=== PATIENT | female | born 1995 | race Caucasian/White ===

== ENCOUNTER 2021-05-11 09:29 | Outpatient (REF) | payer OTHER, SELFPAY ==
[2021-05-11 11:06] LABS: Hematocrit 39.6 % (37-47); Mean Corpuscular HGB Conc 32.8 g/dl (31.0-35.0); Mean Corpuscular Hemoglobin 29.4 pg (27.0-33.0); Mean Corpuscular Volume 89.6 fL (80-98); Mean Platelet Volume 9.7 fL (9.4-12.3); Platelet Count 251 X10*3/uL (160-400); Red Blood Count 4.42 X10*6/uL (4.20-5.50); White Blood Count 6.1 X10*3/uL (4.8-10.8)
[2021-05-11 11:34] LABS: Glucose Urine UA NEG (NEG); Leukocyte Esterase Urine NEG (NEG); Nitrite Urine NEG (NEG); Specific Gravity - Urine 1.025 (1.005-1.025); Urine Blood NEG (NEG); Urine Ketones NEG (NEG); Urine Protein NEG (NEG-TRACE)
[2021-05-11 11:38] LABS: Appearance Urine CLEAR; Color Urine YELLOW
[2021-05-11 11:44] LABS: Anion Gap 16 (12-20); Blood Urea Nitrogen 6 mg/dL (9-16); Calcium 9.4 mg/dL (8.4-10.2); Carbon Dioxide 23 mmol/L (22-29); Chloride 105 mmol/L (96-108); Estimated Glomerular Filt Rate > 60; Glucose Random 95 mg/dL (60-115); Potassium 4.1 mmol/L (3.3-5.1); Sodium 140 mmol/L (135-145)
[2021-05-11 12:07] LABS: Thyroid Stimulating Hormone 0.58 uIU/mL (0.32-4.0)
== END 2021-05-11 09:30 | disposition home or self-care (01) ==
LOC: HO.WFDLDS 09:29
PROVIDERS: PCP Family Medicine; Visit Provider Internal Medicine
DX: N97.9 Female infertility, unspecified (principal)
CPT/HCPCS: 36415; 80048; 81003; 84443; 85027

== ENCOUNTER 2021-06-08 09:31 | Outpatient (REF) | payer OTHER, SELFPAY | END 2021-06-08 09:32 | disposition home or self-care (01) | LOC: HO.LAB 09:31 | PROVIDERS: PCP Family Medicine; Visit Provider Advanced Practice Midwife | DX: Z01.419 Encounter for gynecological examination (general) (routine) without abnormal findings (principal); N97.9 Female infertility, unspecified; M41.9 Scoliosis, unspecified; Q06.8 Other specified congenital malformations of spinal cord; N96 Recurrent pregnancy loss | CPT/HCPCS: 88142 ==

== ENCOUNTER 2021-06-28 11:29 | Outpatient (REF) | payer OTHER, SELFPAY ==
--- NOTE | ~2021-06-28 | US_ITS ---
EXAMINATION: PELVIC ULTRASOUND CLINICAL INFORMATION: Recurrent loss COMPARISON: None TECHNIQUE: Transabdominal and transvaginal pelvic ultrasound was performed. Transvaginal exam was performed for better visualization of the uterus and ovaries. FINDINGS: The uterus is anteverted and measures 6.7 x 3 x 4.8 cm in dimension. There are 2 endometrial canals questionable for a bicornuate type uterus versus arcuate or septate uterus. Endometrial thickness measures 0.7 cm. No focal uterine lesion is seen. The ovaries are normal-appearing. The right ovary measures 3.4 x 2 x 1.9 cm and the left ovary measures 2.5 x 1.9 x 2.3 cm. There is no fluid in the pelvis. US/US pelvic and transvaginal IMPRESSION: 2 endometrial canals questionable for a bicornuate uterus versus arcuate or septate type uterus.
[2021-06-28 18:18] LABS: Erythrocyte Sedimentation Rate 6 MM/HR (0-20)
[2021-07-03 09:45] LABS: PTT (LAC) Screen 36
[2021-07-16 07:37] LABS: CRP High Sensitivity <0.3
[2021-07-16 07:38] LABS: Progesterone <0.1
== END 2021-06-28 11:30 | disposition home or self-care (01) ==
LOC: HO.US 11:29
PROVIDERS: PCP Family Medicine; Visit Provider Advanced Practice Midwife
DX: Z01.419 Encounter for gynecological examination (general) (routine) without abnormal findings (principal); N96 Recurrent pregnancy loss
CPT/HCPCS: 36415; 76830; 76856; 84144; 85597; 85613; 85652; 85730; 86141

== ENCOUNTER → 2021-07-05 13:03 | Outpatient (BNVA) | payer OTHER, SELFPAY | PROVIDERS: Visit Provider Advanced Practice Midwife ==

== ENCOUNTER 2021-07-12 16:03 | Outpatient (REF) | payer OTHER, SELFPAY ==
[2021-07-12 18:01] LABS: Vitamin D 25-OH Total 52.7 ng/mL (>30)
[2021-07-13 08:11] LABS: Follicle Stimulating Hormone 7.8 mIU/mL; Lutenizing Hormone 23.1 mIU/mL
[2021-07-17 15:22] LABS: Progesterone <0.1 ng/mL
== END 2021-07-12 16:04 | disposition home or self-care (01) ==
LOC: HO.LAB 16:03
PROVIDERS: PCP Family Medicine; Visit Provider Family Medicine
DX: N96 Recurrent pregnancy loss (principal); E55.9 Vitamin D deficiency, unspecified
CPT/HCPCS: 36415; 82306; 83001; 83002; 84144

== ENCOUNTER 2021-07-17 11:01 | Outpatient (REF) | payer OTHER, SELFPAY ==
--- NOTE | ~2021-07-17 | MR_ITS ---
EXAMINATION: MR PELVIS WITHOUT AND WITH CONTRAST CLINICAL INFORMATION: Recurrent loss. Question bicornuate versus arcuate or septate uterus on ultrasound. COMPARISON: Pelvic ultrasound 06/28/2021. TECHNIQUE: Ultrasound pelvis is performed without and with use of 4 mL Gadavist gadolinium contrast. Imaging is performed in 3 planes. Postcontrast images are performed in the axial plane. FINDINGS: Uterus: The uterus is normal in size and smooth in contour and normal in signal. There is no fundal indentation. No visible bicornuate uterus. Uterus is anteverted and measures 7.1 x 3.2 x 4.7 cm (volume 56 mL). The endometrial double wall thickness is 0.6 cm. The junctional zone is approximately 0.5 cm. There is no fibroid or adenomyosis. Adnexa: There is no adnexal mass or pelvic ascites. Both ovaries show numerous follicles, approximately 20 visible on each side. Right ovary measures approximately 4.6 x 1.9 x 2.5 cm (volume 11.3 mL). Left ovary measures approximately 3.8 x 1.9 x 2.2 cm (volume 8.3 mL). Other: The visualized bowel and mesentery are unremarkable. There is no adenopathy. Large gfclh-bz-gdar coronal images show the kidneys are normal in size and contour. No hydronephrosis. There is no ventral or inguinal hernia demonstrated. Normal marrow signal. MR/MR pelvis wo/w con IMPRESSION: 1. Uterus is anteverted and normal in size. No fundal indentation. No visible bicornuate uterus. 2. Ovaries within normal size. Numerous follicles seen, approximately 20 on each side. No adnexal mass or pelvic ascites.
== END 2021-07-17 11:02 | disposition home or self-care (01) ==
LOC: HO.MRI 11:01
PROVIDERS: PCP Family Medicine; Visit Provider Family Medicine
DX: Q51.3 Bicornate uterus (principal); N96 Recurrent pregnancy loss
CPT/HCPCS: 72197; A9585

== ENCOUNTER 2021-09-24 10:18 | Outpatient (REF) | payer OTHER, SELFPAY ==
[2021-09-24 15:02] LABS: Syphilis Screen Nonreactive (Nonreactive)
[2021-09-25 04:22] LABS: HBsAGNum1 0.38 S/CO (0.00-0.99); HIV AB/AG Nonreactive (Nonreactive); HIV Num 1 0.06 S/CO (0.00-0.99); Hepatitis B Surface Antigen Negative (Negative); ~HepC Num1 0.09 S/CO (0.00-0.79); ~Hepatitis C Antibody Nonreactive (Nonreactive)
[2021-09-29 10:22] LABS: Progesterone 1.8 ng/mL
== END 2021-09-24 10:19 | disposition home or self-care (01) ==
LOC: HO.WFDLDS 10:18
PROVIDERS: Visit Provider Obstetrics & Gynecology Reproductive Endocrinology
DX: N96 Recurrent pregnancy loss (principal); N97.9 Female infertility, unspecified; Z13.49 Encounter for screening for other developmental delays; Z11.9 Encounter for screening for infectious and parasitic diseases, unspecified
CPT/HCPCS: 36415; 84144; 86780; 86803; 87340; 87389

== ENCOUNTER 2021-10-05 15:43 | Outpatient (REF) | payer OTHER, SELFPAY ==
[2021-10-05 17:00] LABS: Estimated Average Glucose 97 mg/dL
[2021-10-09 02:51] LABS: Beta-2 Glycoprotein IgA <2.0 U/mL (<20.0); Beta-2 Glycoprotein IgG <2.0 U/mL (<20.0); Beta-2 Glycoprotein IgM <2.0 U/mL (<20.0)
[2021-10-11 07:26] LABS: Cardiolipin IgG Ab <2.0 GPL-U/mL; Cardiolipin IgM Ab <2.0 MPL-U/mL
== END 2021-10-05 15:44 | disposition home or self-care (01) ==
LOC: HO.LAB 15:43
PROVIDERS: Visit Provider Obstetrics & Gynecology Reproductive Endocrinology
DX: Z31.49 Encounter for other procreative investigation and testing (principal); N96 Recurrent pregnancy loss
CPT/HCPCS: 36415; 83036; 86146; 86147; 86850; 86900; 86901; 88230; 88262

== ENCOUNTER 2021-10-11 15:34 | Outpatient (REF) | payer OTHER, SELFPAY ==
[2021-10-12 10:25] LABS: Thyroid Peroxidase Antibodies 1 IU/mL (<9)
[2021-10-12 20:07] LABS: Follicle Stimulating Hormone 5.2 mIU/mL; Lutenizing Hormone 6.4 mIU/mL
[2021-10-13 19:12] LABS: Anti-Mullerian Hormone-Female 11.04 ng/mL (1.02-14.63)
[2021-10-15 15:35] LABS: Testosterone, Free 2.5 pg/mL (0.1-6.4); Testosterone, Total 27 ng/dL (2-45)
[2021-10-19 20:37] LABS: Estradiol Free 0.73 pg/mL; Estradiol, Ultrasensitive 35 pg/mL
== END 2021-10-11 15:35 | disposition home or self-care (01) ==
LOC: HO.LAB 15:34
PROVIDERS: Absent Provider Family Medicine; PCP Family Medicine; Visit Provider Obstetrics & Gynecology Reproductive Endocrinology
DX: N96 Recurrent pregnancy loss (principal); Z31.49 Encounter for other procreative investigation and testing
CPT/HCPCS: 36415; 82397; 82670; 82681; 83001; 83002; 84146; 84402; 84403; 86376

== ENCOUNTER 2022-04-23 08:22 | Outpatient (REF) | payer OTHER, SELFPAY ==
[2022-04-23 09:09] LABS: MANUAL DIFF FLAG NO
[2022-04-23 09:15] LABS: Basophils Percent Auto 0.5 % (0-2); Eosinophils Absolute Auto 0.1 X10*3/uL (0.0-0.4); Eosinophils Percent Auto 0.8 % (0-4); Hematocrit 41.2 % (37.0-47.0); Hemoglobin 13.9 g/dl (12.0-16.0); Imm Gran Abs Auto 0.02 X10*3/uL (0.00-0.03); Imm Gran Pct Auto 0.3 % (0.0-0.4); Lymphocytes Absolute Auto 2.1 X10*3/uL (1.2-4.9); Lymphocytes Percent Auto 33.1 % (20-40); Mean Corpuscular HGB Conc 33.7 g/dl (31.0-35.0); Mean Corpuscular Hemoglobin 29.6 pg (27.0-33.0); Mean Corpuscular Volume 87.8 fL (80.0-98.0); Mean Platelet Volume 8.9 fL (9.4-12.3); Monocytes Absolute Auto 0.4 X10*3/uL (0.1-1.2); Monocytes Percent Auto 6.3 % (2-11); Neutrophils Absolute Auto 3.8 x10*3/uL (2.0-8.3); Platelet Count 297 X10*3/uL (160-400); Red Blood Count 4.69 X10*6/uL (4.20-5.50); Red Cell Distribution Width 12.1 % (11.0-16.0); White Blood Count 6.4 X10*3/uL (4.8-10.8)
[2022-04-23 10:21] LABS: Iron 94 mcg/dL (30-160); Percent Iron Saturation 27 % (15-50); Total Iron Binding Capacity 353 mcg/dL (228-428); Unsaturated Iron Binding 259 ug/dL
[2022-04-23 10:41] LABS: Ferritin 50 ng/mL (10-122)
[2022-04-29 20:46] LABS: Factor V Leiden NEGATIVE
== END 2022-04-23 08:23 | disposition home or self-care (01) ==
LOC: HO.LAB 08:22
PROVIDERS: PCP Family Medicine; Visit Provider Naturopath
DX: N96 Recurrent pregnancy loss (principal); E61.1 Iron deficiency; R55 Syncope and collapse
CPT/HCPCS: 81241; 82728; 83540; 85025; 88184; 88185

== ENCOUNTER 2022-06-14 15:24 | Outpatient (REF) | payer OTHER, SELFPAY ==
[2022-06-14 16:41] LABS: Basophils Percent Auto 0.5 % (0-2); Eosinophils Absolute Auto 0.1 X10*3/uL (0.0-0.4); Eosinophils Percent Auto 0.7 % (0-4); Hemoglobin 14.2 g/dl (12.0-16.0); Imm Gran Abs Auto 0.01 X10*3/uL (0.00-0.03); Imm Gran Pct Auto 0.1 % (0.0-0.4); Lymphocytes Absolute Auto 2.7 X10*3/uL (1.2-4.9); Lymphocytes Percent Auto 35.7 % (20-40); MANUAL DIFF FLAG NO; Mean Corpuscular HGB Conc 33.8 g/dl (31.0-35.0); Mean Corpuscular Hemoglobin 29.6 pg (27.0-33.0); Mean Corpuscular Volume 87.5 fL (80.0-98.0); Mean Platelet Volume 9.5 fL (9.4-12.3); Monocytes Absolute Auto 0.5 X10*3/uL (0.1-1.2); Monocytes Percent Auto 6.4 % (2-11); Neutrophils Absolute Auto 4.3 x10*3/uL (2.0-8.3); Neutrophils Percent Auto 56.6 % (45-73); Platelet Count 270 X10*3/uL (160-400); Red Cell Distribution Width 12.1 % (11.0-16.0); White Blood Count 7.5 X10*3/uL (4.8-10.8)
[2022-06-14 17:18] LABS: Alanine Aminotransferase 28 U/L (0-31); Albumin Level 5.2 g/dL (3.5-5.0); Alkaline Phosphatase 100 U/L (39-117); Anion Gap 13 (12-20); Aspartate Amino Transferase 24 U/L (5-31); Bilirubin Total 0.7 mg/dL (0.0-1.0); Blood Urea Nitrogen 8 mg/dL (9-16); Carbon Dioxide 27 mmol/L (22-29); Chloride 101 mmol/L (96-108); Estimated Glomerular Filt Rate > 60; Gamma Glutamyl Transpeptidase 16 U/L (7-33); Glucose Random 96 mg/dL (60-115); Lactate Dehydrogenase 147 U/L (122-220); Potassium 4.1 mmol/L (3.3-5.1); Sodium 137 mmol/L (135-145); Total Protein 8.5 g/dL (6.5-8.0); Uric Acid 3.8 mg/dL (2.4-5.7)
[2022-06-15 11:36] LABS: Folate > 20.0 ng/mL (> or = 4.0)
[2022-06-15 12:41] LABS: Vitamin B12 1413 pg/mL (200-900)
[2022-06-17 08:18] LABS: Lutenizing Hormone 20.9 mIU/mL
[2022-06-20 10:47] LABS: Methylmalonic Acid 88 nmol/L (87-318)
[2022-06-21 17:11] LABS: Vitamin A 33 mcg/dL (38-98)
[2022-06-30 08:58] LABS: Other Ref Test - Misc SEE COMMENTS
== END 2022-06-14 15:25 | disposition home or self-care (01) ==
LOC: HO.LAB 15:24
PROVIDERS: PCP Family Medicine; Visit Provider Naturopath
DX: Z31.62 Encounter for fertility preservation counseling (principal); E50.9 Vitamin A deficiency, unspecified; E53.9 Vitamin B deficiency, unspecified; E63.9 Nutritional deficiency, unspecified; E72.11 Homocystinuria; E72.12 Methylenetetrahydrofolate reductase deficiency; N92.6 Irregular menstruation, unspecified; N96 Recurrent pregnancy loss; R53.83 Other fatigue; R55 Syncope and collapse; R89.9 Unspecified abnormal finding in specimens from other organs, systems and tissues
CPT/HCPCS: 80053; 81240; 81241; 82397; 82607; 82746; 82977; 83001; 83002; 83090; 83615; 83921; 84146; 84550; 84590; 85025; 85300; 85303; 85306; 85613; 85730; 86146; 86147; 86148

== ENCOUNTER 2022-06-19 12:42 | Outpatient (REF) | payer OTHER, SELFPAY ==
[2022-06-19 14:08] LABS: Estimated Average Glucose 100 mg/dL; Hemoglobin A1c % 5.1 %
[2022-06-25 06:17] LABS: Vitamin B6 22.3 ng/mL (2.1-21.7)
[2022-06-25 15:16] LABS: Iodine, Serum/Plasma 64 mcg/L (52-109)
== END 2022-06-19 12:43 | disposition home or self-care (01) ==
LOC: HO.LAB 12:42
PROVIDERS: PCP Family Medicine; Visit Provider Naturopath
DX: Z00.01 Encounter for general adult medical examination with abnormal findings (principal); R89.9 Unspecified abnormal finding in specimens from other organs, systems and tissues; R53.83 Other fatigue; N96 Recurrent pregnancy loss; N92.6 Irregular menstruation, unspecified; E72.12 Methylenetetrahydrofolate reductase deficiency; E72.11 Homocystinuria; E63.9 Nutritional deficiency, unspecified; E53.9 Vitamin B deficiency, unspecified; E50.9 Vitamin A deficiency, unspecified
CPT/HCPCS: 80061; 82172; 82542; 83036; 83695; 83698; 83704; 83789; 84207; 86141

== ENCOUNTER 2022-06-21 15:57 | Outpatient (REF) | payer OTHER, SELFPAY ==
[2022-06-21 17:56] LABS: Free T4 (Free Thyroxine) 1.05 ng/dL (0.71-1.85); Thyroid Stimulating Hormone 1.05 uIU/mL (0.32-4.0)
[2022-06-23 05:42] LABS: T3 Uptake 28 % (22-35)
[2022-06-23 06:27] LABS: DHEA Sulfate 285 mcg/dL (14-349); Sex Hormone Binding Globulin 91 nmol/L (17-124); Triiodothyronine T3 Free 3.5 pg/mL (2.3-4.2)
[2022-06-24 19:51] LABS: Thyroglobulin Antibodies <1 IU/mL (< or = 1); Thyroid Peroxidase Antibodies 1 IU/mL (<9)
[2022-06-25 14:11] LABS: Pregnenolone, LC/MS 104 ng/dL (22-237)
[2022-06-27 12:32] LABS: Triiodothyronine T3 Reverse 18 ng/dL (8-25)
[2022-06-27 18:27] LABS: Testosterone, Free 4.6 pg/mL (0.1-6.4); Testosterone, Total 56 ng/dL (2-45)
[2022-06-27 20:21] LABS: Saliva Cortisol 0.03 mcg/dL
[2022-06-27 20:21] LABS: Saliva Cortisol 0.05 mcg/dL
[2022-06-28 23:26] LABS: Saliva Cortisol 0.39 mcg/dL
== END 2022-06-21 15:58 | disposition home or self-care (01) ==
LOC: HO.LAB 15:57
PROVIDERS: PCP Family Medicine; Visit Provider Naturopath
DX: Z31.62 Encounter for fertility preservation counseling (principal); E50.9 Vitamin A deficiency, unspecified; E53.9 Vitamin B deficiency, unspecified; E63.9 Nutritional deficiency, unspecified; E72.11 Homocystinuria; E72.12 Methylenetetrahydrofolate reductase deficiency; N92.6 Irregular menstruation, unspecified; N96 Recurrent pregnancy loss; R53.83 Other fatigue; R55 Syncope and collapse; R89.9 Unspecified abnormal finding in specimens from other organs, systems and tissues
CPT/HCPCS: 82530; 82627; 84143; 84270; 84402; 84403; 84439; 84443; 84479; 84481; 84482; 86376; 86800

== ENCOUNTER 2022-06-22 10:08 | Outpatient (REF) | payer OTHER, SELFPAY | END 2022-06-22 10:09 | disposition home or self-care (01) | LOC: HO.LAB 10:08 | PROVIDERS: Visit Provider Naturopath | DX: Z13.89 Encounter for screening for other disorder (principal) ==

== ENCOUNTER 2022-07-31 16:11 | Outpatient (REF) | payer OTHER, SELFPAY ==
[2022-07-31 17:45] LABS: Prothrombin Time 11.4 SEC (10.0-13.1)
[2022-08-04 18:02] LABS: Beta-Gamma Tocopherol 1.3 mg/L (<=4.3)
[2022-08-06 19:43] LABS: Vitamin K1 339 pg/mL (130-1500)
== END 2022-07-31 16:12 | disposition home or self-care (01) ==
LOC: HO.LAB 16:11
PROVIDERS: PCP Naturopath; Visit Provider Naturopath
DX: D68.9 Coagulation defect, unspecified (principal); E55.9 Vitamin D deficiency, unspecified; E63.9 Nutritional deficiency, unspecified; N92.6 Irregular menstruation, unspecified; N96 Recurrent pregnancy loss; R53.83 Other fatigue; R55 Syncope and collapse; R89.9 Unspecified abnormal finding in specimens from other organs, systems and tissues
CPT/HCPCS: 82306; 84255; 84446; 84591; 84597; 85240; 85245; 85246; 85384; 85610; 85730; 86644; 88184; 88185

== ENCOUNTER 2022-08-30 15:46 | Outpatient (REF) | payer OTHER, SELFPAY | END 2022-08-30 15:47 | disposition home or self-care (01) | LOC: HO.LAB 15:46 | PROVIDERS: Visit Provider Naturopath | DX: Z13.89 Encounter for screening for other disorder (principal) ==

== ENCOUNTER 2022-09-16 15:41 | Outpatient (REF) | payer OTHER, SELFPAY ==
[2022-09-16 17:11] LABS: HCG Quantitative 469 mIU/mL
[2022-09-24 18:32] LABS: Progesterone 23.3 ng/mL
== END 2022-09-16 15:42 | disposition home or self-care (01) ==
LOC: HO.LAB 15:41
PROVIDERS: Visit Provider Obstetrics & Gynecology Reproductive Endocrinology
DX: Z31.9 Encounter for procreative management, unspecified (principal)
CPT/HCPCS: 36415; 84144; 84702

== ENCOUNTER 2022-10-23 13:26 | Outpatient (REF) | payer OTHER, SELFPAY ==
--- NOTE | ~2022-10-23 | US_ITS ---
EXAMINATION: US OBSTETRICAL ULTRASOUND CLINICAL INFORMATION: Check viability. History of miscarriage COMPARISON: None. LMP: Unknown. Gestational age by maternal dates is . Estimated date of delivery by maternal dates is . TECHNIQUE: Transabdominal first trimester OB ultrasound FINDINGS: There is a single intrauterine gestational sac with visible yolk sac, embryo/fetus, and cardiac activity. There is no significant subchorionic hemorrhage or hematoma. HR: 158 beats per minute. CRL (crown rump length): 2.7 cm (9 weeks 4 days +/- 4 days). LATASHA (estimated date of delivery): 05/24/2023 +/- 4 days. MATERNAL ADNEXA: The right maternal ovary is not seen. The left maternal ovary measures 2.7 x 2.4 x 1.3 cm. There is no significant maternal adnexal mass. No maternal pelvic ascites. US/US OB <= 14 weeks fetus IMPRESSION: 1. Single intrauterine gestation with ultrasound gestational age of 9 weeks 4 days +/- 4 days. 2. Estimated date of delivery is 05/24/2023 +/- 4 days. 3. Right ovary not seen. Normal left ovary. No fluid in the pelvis.
== END 2022-10-23 13:27 | disposition home or self-care (01) ==
LOC: HO.US 13:26
PROVIDERS: PCP Family Medicine; Visit Provider Obstetrics & Gynecology
DX: O09.291 Supervision of pregnancy with other poor reproductive or obstetric history, first trimester (principal)
CPT/HCPCS: 76801

== ENCOUNTER 2022-11-29 16:13 | Outpatient (REF) | payer OTHER, SELFPAY ==
[2022-11-29 16:38] LABS: MANUAL DIFF FLAG NO
[2022-11-29 17:25] LABS: Basophils Percent Auto 0.3 % (0-2); Eosinophils Absolute Auto 0.1 X10*3/uL (0.0-0.4); Hematocrit 33.9 % (37.0-47.0); Hemoglobin 11.9 g/dl (12.0-16.0); Imm Gran Abs Auto 0.05 X10*3/uL (0.00-0.03); Imm Gran Pct Auto 0.5 % (0.0-0.4); Lymphocytes Absolute Auto 2.8 X10*3/uL (1.2-4.9); Lymphocytes Percent Auto 27.1 % (20-40); Mean Corpuscular HGB Conc 35.1 g/dl (31.0-35.0); Mean Corpuscular Hemoglobin 31.1 pg (27.0-33.0); Mean Corpuscular Volume 88.5 fL (80.0-98.0); Mean Platelet Volume 9.2 fL (9.4-12.3); Monocytes Absolute Auto 0.9 X10*3/uL (0.1-1.2); Monocytes Percent Auto 8.8 % (2-11); Neutrophils Absolute Auto 6.3 x10*3/uL (2.0-8.3); Neutrophils Percent Auto 62.3 % (45-73); Platelet Count 270 X10*3/uL (160-400); Red Blood Count 3.83 X10*6/uL (4.20-5.50); White Blood Count 10.2 X10*3/uL (4.8-10.8)
[2022-12-02 23:39] LABS: Rubella IgG Antibody <0.90 Index
== END 2022-11-29 16:14 | disposition home or self-care (01) ==
LOC: HO.LAB 16:13
PROVIDERS: PCP Family Medicine; Visit Provider Nurse Practitioner Women's Health
DX: Z34.90 Encounter for supervision of normal pregnancy, unspecified, unspecified trimester (principal)
CPT/HCPCS: 36415; 85025; 86762; 86850; 86900; 86901; 87086

== ENCOUNTER 2022-12-12 11:31 | Outpatient (REF) | payer OTHER, SELFPAY ==
[2022-12-18 13:14] LABS: Testosterone, Total 104 ng/dL (2-45)
[2022-12-19 17:18] LABS: Androstenedione 262 ng/dL
== END 2022-12-12 11:32 | disposition home or self-care (01) ==
LOC: HO.LAB 11:31
PROVIDERS: PCP Family Medicine; Visit Provider Internal Medicine
DX: E25.0 Congenital adrenogenital disorders associated with enzyme deficiency (principal)
CPT/HCPCS: 36415; 82157; 83498; 84403

== ENCOUNTER 2022-12-19 11:28 | Outpatient (REF) | payer OTHER, SELFPAY ==
[2022-12-19 12:56] LABS: Iron 165 mcg/dL (30-160); Percent Iron Saturation 42 % (15-50); Rheumatoid Factor < 13.0 IU/mL (<15.0); Total Iron Binding Capacity 397 mcg/dL (228-428); Unsaturated Iron Binding 232 ug/dL
[2022-12-19 13:12] LABS: Ferritin 25 ng/mL (10-122)
[2022-12-20 15:13] LABS: Complement C3 138 mg/dL (83-193)
[2022-12-22 14:14] LABS: Anti Nuclear Antibody Screen NEGATIVE (NEGATIVE)
[2022-12-23 17:03] LABS: Cyclic Citrullinated Peptide <16 UNITS
[2022-12-24 17:18] LABS: Vitamin D 25-OH, D2 <4 ng/mL; Vitamin D 25-OH, D3 61 ng/mL; Vitamin D 25-OH, Total 61 ng/mL (30-100)
[2022-12-25 18:39] LABS: Progesterone 47.3 ng/mL
== END 2022-12-19 11:29 | disposition home or self-care (01) ==
LOC: HO.LAB 11:28
PROVIDERS: Visit Provider Naturopath
DX: R53.83 Other fatigue (principal); M35.9 Systemic involvement of connective tissue, unspecified; E55.9 Vitamin D deficiency, unspecified; D64.9 Anemia, unspecified; R87.1 Abnormal level of hormones in specimens from female genital organs; G90.A Postural orthostatic tachycardia syndrome [POTS]
CPT/HCPCS: 36415; 82306; 82728; 83540; 84144; 86038; 86039; 86160; 86200; 86431

== ENCOUNTER 2023-01-03 15:40 | Outpatient (REF) | payer OTHER, SELFPAY ==
[2023-01-10 17:24] LABS: Androstenedione 237 ng/dL
[2023-01-11 14:38] LABS: Testosterone, Total 111 ng/dL (2-45)
== END 2023-01-03 15:41 | disposition home or self-care (01) ==
LOC: HO.LAB 15:40
PROVIDERS: Internal Medicine Endocrinology, Diabetes & Metabolism; Visit Provider Chiropractor
DX: Z00.00 Encounter for general adult medical examination without abnormal findings (principal); E28.1 Androgen excess; N96 Recurrent pregnancy loss
CPT/HCPCS: 36415; 82157; 83498; 84403

== ENCOUNTER 2023-02-05 15:46 | Outpatient (REF) | payer OTHER, SELFPAY ==
[2023-02-13 16:19] LABS: Androstenedione 317 ng/dL
[2023-02-17 16:29] LABS: Testosterone, Free 4.4 pg/mL (0.1-6.4); Testosterone, Total 133 ng/dL (2-45)
== END 2023-02-05 15:47 | disposition home or self-care (01) ==
LOC: HO.LAB 15:46
PROVIDERS: PCP Family Medicine; Visit Provider Internal Medicine
DX: E25.0 Congenital adrenogenital disorders associated with enzyme deficiency (principal)
CPT/HCPCS: 36415; 82157; 83498; 84402; 84403

== ENCOUNTER 2023-02-28 06:38 | Outpatient (REF) | payer OTHER, SELFPAY ==
[2023-02-28 08:23] LABS: HBsAGNum1 0.29 S/CO (0.00-0.99); HIV AB/AG Nonreactive (Nonreactive); HIV Num 1 0.06 S/CO (0.00-0.99); Hepatitis B Surface Antigen Negative (Negative); ~HepC Num1 0.09 S/CO (0.00-0.79); ~Hepatitis C Antibody Nonreactive (Nonreactive)
[2023-02-28 08:26] LABS: Syphilis Screen Nonreactive (Nonreactive)
[2023-02-28 10:24] LABS: CT PCR NOT DETECTED (Not Detect.); NG PCR NOT DETECTED (Not Detect.)
== END 2023-02-28 06:39 | disposition home or self-care (01) ==
LOC: HO.LAB 06:38
PROVIDERS: PCP Family Medicine; Visit Provider Nurse Practitioner Women's Health
DX: Z34.90 Encounter for supervision of normal pregnancy, unspecified, unspecified trimester (principal); Z20.2 Contact with and (suspected) exposure to infections with a predominantly sexual mode of transmission
CPT/HCPCS: 0353U; 86780; 86803; 87340; 87389

== ENCOUNTER 2023-03-12 15:41 | Outpatient (REF) | payer OTHER, SELFPAY ==
[2023-03-12 16:06] LABS: MANUAL DIFF FLAG NO
[2023-03-12 16:32] LABS: Basophils Absolute Auto 0.1 X10*3/uL (0.0-0.2); Basophils Percent Auto 0.4 % (0-2); Eosinophils Absolute Auto 0.1 X10*3/uL (0.0-0.4); Eosinophils Percent Auto 0.5 % (0-4); Hematocrit 35.3 % (37.0-47.0); Hemoglobin 12.9 g/dl (12.0-16.0); Imm Gran Abs Auto 0.18 X10*3/uL (0.00-0.03); Imm Gran Pct Auto 1.5 % (0.0-0.4); Lymphocytes Absolute Auto 1.9 X10*3/uL (1.2-4.9); Lymphocytes Percent Auto 15.4 % (20-40); Mean Corpuscular HGB Conc 36.5 g/dl (31.0-35.0); Mean Corpuscular Hemoglobin 33.2 pg (27.0-33.0); Mean Platelet Volume 9.4 fL (9.4-12.3); Monocytes Absolute Auto 0.9 X10*3/uL (0.1-1.2); Neutrophils Absolute Auto 9.3 x10*3/uL (2.0-8.3); Neutrophils Percent Auto 75.2 % (45-73); Platelet Count 262 X10*3/uL (160-400); Red Blood Count 3.88 X10*6/uL (4.20-5.50); Red Cell Distribution Width 12.5 % (11.0-16.0); White Blood Count 12.4 X10*3/uL (4.8-10.8)
[2023-03-18 13:28] LABS: Androstenedione 250 ng/dL
[2023-03-18 20:43] LABS: Testosterone, Total 99 ng/dL (2-45)
== END 2023-03-12 15:42 | disposition home or self-care (01) ==
LOC: HO.LAB 15:41
PROVIDERS: Absent Provider Internal Medicine; PCP Family Medicine; Visit Provider Nurse Practitioner Women's Health
DX: O26.899 Other specified pregnancy related conditions, unspecified trimester (principal); E25.0 Congenital adrenogenital disorders associated with enzyme deficiency
CPT/HCPCS: 36415; 82157; 83498; 84402; 84403; 85025

== ENCOUNTER 2023-04-08 06:45 | Outpatient (REF) | payer OTHER, SELFPAY ==
[2023-04-08 10:22] LABS: Estimated Average Glucose 97 mg/dL
[2023-04-08 11:03] LABS: TSH reflex Free T4 0.87 uIU/mL (0.32-4.0)
[2023-04-13 17:23] LABS: Androstenedione 344 ng/dL
[2023-04-15 07:43] LABS: Cardiolipin IgG Ab <2.0 GPL-U/mL; Cardiolipin IgM Ab <2.0 MPL-U/mL
[2023-04-15 14:24] LABS: Testosterone, Free 9.4 pg/mL (0.1-6.4); Testosterone, Total 159 ng/dL (2-45)
[2023-04-20 08:47] LABS: Other Ref Test - Misc SEE COMMENTS
[2023-04-20 08:53] LABS: Other Ref Test - Misc SEE COMMENTS
== END 2023-04-08 06:46 | disposition home or self-care (01) ==
LOC: HO.LAB 06:45
PROVIDERS: PCP Family Medicine; Visit Provider Naturopath
DX: R53.83 Other fatigue (principal); G90.A Postural orthostatic tachycardia syndrome [POTS]; R55 Syncope and collapse; R87.1 Abnormal level of hormones in specimens from female genital organs; R89.9 Unspecified abnormal finding in specimens from other organs, systems and tissues
CPT/HCPCS: 36415; 82157; 83036; 83498; 83525; 84402; 84403; 84443; 84481; 84681; 86147

== ENCOUNTER 2023-04-30 06:47 | Outpatient (REF) | payer OTHER, SELFPAY ==
[2023-04-30 16:23] LABS: Anion Gap 13 (12-20); Blood Urea Nitrogen 5 mg/dL (9-16); Calcium 9.5 mg/dL (8.4-10.2); Carbon Dioxide 21 mmol/L (22-29); Chloride 105 mmol/L (96-108); Estimated Glomerular Filt Rate > 60; Glucose Random 117 mg/dL (60-115); Potassium 4.1 mmol/L (3.3-5.1); Sodium 135 mmol/L (135-145)
[2023-05-08 22:54] LABS: Androstenedione 247 ng/dL
[2023-05-09 13:58] LABS: Testosterone, Free 3.2 pg/mL (0.1-6.4); Testosterone, Total 110 ng/dL (2-45)
== END 2023-04-30 06:48 | disposition home or self-care (01) ==
LOC: HO.LAB 06:47
PROVIDERS: Visit Provider Internal Medicine
DX: E25.0 Congenital adrenogenital disorders associated with enzyme deficiency (principal)
CPT/HCPCS: 36415; 80048; 82157; 83498; 84402; 84403

== ENCOUNTER 2023-06-21 10:31 | Outpatient (REF) | payer OTHER, SELFPAY ==
[2023-06-21 10:54] LABS: MANUAL DIFF FLAG NO
[2023-06-21 11:14] LABS: Basophils Percent Auto 0.4 % (0-2); Eosinophils Absolute Auto 0.1 X10*3/uL (0.0-0.4); Eosinophils Percent Auto 0.7 % (0-4); Hematocrit 40.4 % (37.0-47.0); Hemoglobin 13.4 g/dl (12.0-16.0); Imm Gran Abs Auto 0.02 X10*3/uL (0.00-0.03); Imm Gran Pct Auto 0.3 % (0.0-0.4); Lymphocytes Absolute Auto 2.1 X10*3/uL (1.2-4.9); Lymphocytes Percent Auto 29.5 % (20-40); Mean Corpuscular HGB Conc 33.2 g/dl (31.0-35.0); Mean Corpuscular Hemoglobin 30.5 pg (27.0-33.0); Mean Corpuscular Volume 91.8 fL (80.0-98.0); Mean Platelet Volume 8.9 fL (9.4-12.3); Monocytes Absolute Auto 0.4 X10*3/uL (0.1-1.2); Monocytes Percent Auto 5.5 % (2-11); Neutrophils Absolute Auto 4.5 x10*3/uL (2.0-8.3); Neutrophils Percent Auto 63.6 % (45-73); Platelet Count 307 X10*3/uL (160-400); Red Cell Distribution Width 11.2 % (11.0-16.0); White Blood Count 7.1 X10*3/uL (4.8-10.8)
[2023-06-21 11:43] LABS: Alanine Aminotransferase 53 U/L (0-31); Albumin Level 4.3 g/dL (3.5-5.0); Alkaline Phosphatase 141 U/L (39-117); Anion Gap 18 (12-20); Aspartate Amino Transferase 32 U/L (5-31); Bilirubin Total 0.3 mg/dL (0.0-1.0); Blood Urea Nitrogen 10 mg/dL (9-16); Carbon Dioxide 21 mmol/L (22-29); Chloride 104 mmol/L (96-108); Estimated Glomerular Filt Rate > 60; Glucose Random 93 mg/dL (60-115); Iron 87 mcg/dL (30-160); Percent Iron Saturation 23 % (15-50); Potassium 4.1 mmol/L (3.3-5.1); Sodium 139 mmol/L (135-145); Total Iron Binding Capacity 376 mcg/dL (228-428); Total Protein 7.8 g/dL (6.5-8.0); Unsaturated Iron Binding 289 ug/dL
[2023-06-21 11:58] LABS: Ferritin 39 ng/mL (10-122)
[2023-06-23 09:54] LABS: Sex Hormone Binding Globulin 122 nmol/L (17-124)
[2023-06-26 11:49] LABS: Testosterone, Free 1.3 pg/mL (0.1-6.4); Testosterone, Total 23 ng/dL (2-45)
[2023-06-30 19:59] LABS: Androstenedione 82 ng/dL
== END 2023-06-21 10:32 | disposition home or self-care (01) ==
LOC: HO.LAB 10:31
PROVIDERS: Visit Provider Naturopath
DX: E28.1 Androgen excess (principal); E61.1 Iron deficiency; R55 Syncope and collapse; R53.83 Other fatigue; R89.1 Abnormal level of hormones in specimens from other organs, systems and tissues
CPT/HCPCS: 80053; 82157; 82728; 83540; 84270; 84402; 84403; 85025; 86255

== ENCOUNTER 2023-11-13 14:40 | Outpatient (REF) | payer OTHER, SELFPAY ==
[2023-11-13 15:29] LABS: INTERNATIONAL NORM RATIO 0.9 (0.9-1.1); Prothrombin Time 11.1 SEC (11.1-13.3)
[2023-11-13 15:32] LABS: Partial Thromboplastin Time 41.8 SEC (26.0-36.4)
[2023-11-18 12:44] LABS: Factor VIII Activity 67 % normal (50-180)
[2023-11-18 13:03] LABS: Von Willebrand Factor Antigen 133 % (50-217)
== END 2023-11-13 14:41 | disposition home or self-care (01) ==
LOC: HO.LAB 14:40
PROVIDERS: PCP Family Medicine; Visit Provider Hospitalist
DX: D66 Hereditary factor VIII deficiency (principal)
CPT/HCPCS: 36415; 85240; 85246; 85610; 85730; 86900; 86901

== ENCOUNTER 2023-11-26 12:40 | Outpatient (REF) | payer OTHER, SELFPAY ==
[2023-12-01 22:24] LABS: Mixing Study - PT 10.5 sec (9.0-11.5); PTT LA 40 sec (< OR = 40)
== END 2023-11-26 12:41 | disposition home or self-care (01) ==
LOC: HO.LAB 12:40
PROVIDERS: PCP Family Medicine; Visit Provider Hospitalist
DX: R79.1 Abnormal coagulation profile (principal)
CPT/HCPCS: 36415; 85611; 85730; 85732

== ENCOUNTER 2023-12-19 16:00 | Outpatient (REF) | payer OTHER, SELFPAY ==
[2023-12-19 16:32] LABS: MANUAL DIFF FLAG NO
[2023-12-19 16:44] LABS: Basophils Absolute Auto 0.1 X10*3/uL (0.0-0.2); Basophils Percent Auto 0.7 % (0-2); Eosinophils Absolute Auto 0.1 X10*3/uL (0.0-0.4); Eosinophils Percent Auto 0.9 % (0-4); Hematocrit 36.5 % (37.0-47.0); Hemoglobin 12.3 g/dl (12.0-16.0); Imm Gran Abs Auto 0.01 X10*3/uL (0.00-0.03); Imm Gran Pct Auto 0.1 % (0.0-0.4); Lymphocytes Absolute Auto 2.6 X10*3/uL (1.2-4.9); Lymphocytes Percent Auto 35.3 % (20-40); Mean Corpuscular HGB Conc 33.7 g/dl (31.0-35.0); Mean Corpuscular Hemoglobin 28.6 pg (27.0-33.0); Mean Corpuscular Volume 84.9 fL (80.0-98.0); Mean Platelet Volume 9.5 fL (9.4-12.3); Monocytes Absolute Auto 0.7 X10*3/uL (0.1-1.2); Platelet Count 275 X10*3/uL (160-400); Red Cell Distribution Width 13.1 % (11.0-16.0); White Blood Count 7.4 X10*3/uL (4.8-10.8)
[2023-12-19 16:51] LABS: INTERNATIONAL NORM RATIO 0.9 (0.9-1.1)
[2023-12-19 16:53] LABS: Partial Thromboplastin Time 39.9 SEC (26.0-36.4)
[2023-12-19 17:02] LABS: Prothrombin Time 11.4 SEC (11.1-13.3)
[2023-12-19 17:04] LABS: Iron 59 mcg/dL (30-160); Percent Iron Saturation 15 % (15-50); Total Iron Binding Capacity 403 mcg/dL (228-428); Unsaturated Iron Binding 344 ug/dL
[2023-12-19 17:18] LABS: Ferritin 9 ng/mL (10-122)
[2023-12-19 17:31] LABS: Folate 12.5 ng/mL (> or = 4.0); Vitamin B12 979 pg/mL (200-900)
[2023-12-20 10:08] LABS: Follicle Stimulating Hormone 3.1 mIU/mL; Lutenizing Hormone 12.7 mIU/mL; Prolactin 7.3 ng/mL
[2023-12-20 14:49] LABS: Thyroid Peroxidase Antibodies 1 IU/mL (<9)
[2023-12-22 16:59] LABS: Homocysteine 7.5 umol/L (<10.4)
[2023-12-24 22:34] LABS: Estradiol Ultra Sensitive 72 pg/mL
[2023-12-25 21:38] LABS: Anti-Mullerian Hormone-Female 11.78 ng/mL (0.69-13.39)
== END 2023-12-19 16:01 | disposition home or self-care (01) ==
LOC: HO.LAB 16:00
PROVIDERS: PCP Family Medicine; Visit Provider Naturopath
DX: D64.9 Anemia, unspecified (principal); D68.9 Coagulation defect, unspecified; E55.9 Vitamin D deficiency, unspecified; E72.11 Homocystinuria; E72.12 Methylenetetrahydrofolate reductase deficiency; G90.A Postural orthostatic tachycardia syndrome [POTS]; N92.6 Irregular menstruation, unspecified; N96 Recurrent pregnancy loss; R55 Syncope and collapse; R53.83 Other fatigue; R87.1 Abnormal level of hormones in specimens from female genital organs
CPT/HCPCS: 36415; 82166; 82306; 82607; 82670; 82728; 82746; 83001; 83002; 83090; 83540; 84146; 85025; 85610; 85730; 86376

== ENCOUNTER 2023-12-20 08:35 | Outpatient (REF) | payer OTHER, SELFPAY ==
[2023-12-20 11:36] LABS: Alanine Aminotransferase 19 U/L (0-31); Albumin Level 4.4 g/dL (3.5-5.0); Alkaline Phosphatase 140 U/L (39-117); Anion Gap 14 (12-20); Aspartate Amino Transferase 19 U/L (5-31); Bilirubin Total 0.4 mg/dL (0.0-1.0); Blood Urea Nitrogen 14 mg/dL (9-16); Calcium 9.6 mg/dL (8.4-10.2); Carbon Dioxide 23 mmol/L (22-29); Chloride 105 mmol/L (96-108); Estimated Glomerular Filt Rate > 60; Glucose Random 84 mg/dL (60-115); Potassium 3.5 mmol/L (3.3-5.1); Sodium 138 mmol/L (135-145); Total Protein 7.8 g/dL (6.5-8.0)
[2023-12-20 11:53] LABS: Free T4 (Free Thyroxine) 0.88 ng/dL (0.71-1.85); Thyroid Stimulating Hormone 0.73 uIU/mL (0.32-4.0)
[2023-12-21 16:09] LABS: Triiodothyronine T3 Free 3.5 pg/mL (2.3-4.2)
[2023-12-22 10:44] LABS: Sex Hormone Binding Globulin 95 nmol/L (17-124)
[2023-12-25 14:09] LABS: Testosterone, Free 2.1 pg/mL (0.1-6.4); Testosterone, Total 30 ng/dL (2-45)
== END 2023-12-20 08:36 | disposition home or self-care (01) ==
LOC: HO.LAB 08:35
PROVIDERS: PCP Family Medicine; Visit Provider Naturopath
DX: D64.9 Anemia, unspecified (principal); D66 Hereditary factor VIII deficiency; E55.9 Vitamin D deficiency, unspecified; E72.11 Homocystinuria; E72.12 Methylenetetrahydrofolate reductase deficiency; G90.A Postural orthostatic tachycardia syndrome [POTS]; N92.6 Irregular menstruation, unspecified; N96 Recurrent pregnancy loss; R53.83 Other fatigue; R55 Syncope and collapse; R87.1 Abnormal level of hormones in specimens from female genital organs
CPT/HCPCS: 36415; 80053; 82157; 82533; 82626; 82634; 83498; 84143; 84144; 84270; 84402; 84403; 84439; 84443; 84481; 85610; 85611; 85730; 85732; 86255

== ENCOUNTER 2023-12-22 06:49 | Outpatient (REF) | payer OTHER, SELFPAY | END 2023-12-22 06:50 | disposition home or self-care (01) | LOC: HO.LAB 06:49 | PROVIDERS: Visit Provider Naturopath | DX: Z13.89 Encounter for screening for other disorder (principal) ==

== ENCOUNTER 2023-12-29 10:55 | Outpatient (AMB) | payer OTHER, SELFPAY ==
--- NOTE | 2023-12-29 10:59 | MHC.PC.OV ---
Vital Signs 12/29/23 11:08 Height 5 ft 5 in Weight 107 lb 8 oz BMI 17.9 BP 120/62 Blood Pressure Location Lt brachial Position Sitting Pulse 63 Pulse Source Pulse Oximeter Pulse Oximetry (%) 98 Oxygen Delivery Method Room Air Intake Visit Reasons: est care Intake Note: Patient is here today for re-establish care. History of factor A deficiency, Congenital Adrenal hyperplasia non-classical, POT, Iron defiency aniema, Tethred Spinal Cord Syndrome, prior pcp is Dr Hernandez. Ribbon Inker Required: No Baggage Checker: Not Required per policy Accompanied by: Self / Same As Patient Allergies No Known Allergies Allergy (Verified 12/29/23 11:08) Tobacco use date assessed: 12/29/23 Dental Screening Dental Screen Date: 12/29/23 Did you have a dental visit in the last 12 months?: Yes Did you have a dental problem in the last 6 months where you did not have access to dental care?: No Was dental information given to patient?: Patient has dentist HPI HPI Comments History of Present Illness Details 28 yr old female presents to the office to establish her care here. I had seen her for urgent care in [place] and she now wishes to establish for primary care. After several miscarriages, patient now has a young health . Her was complicated and she reports it as 'high risk . She faints during coitus and is requesting physical therapy for pelvic floor relaxation. Also pt had a prolonged mixing study but never saw a assistant professor of marine biology. She would like to get again. 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 1. Little interest or pleasure in doing things: not at all 2. Feeling down, depressed, or hopeless: not at all 3. Trouble falling or staying asleep, or sleeping too much: not at all 4. Feeling tired or having little energy: not at all 5. Poor appetite or overeating: not at all 6. Feeling bad about yourself - or that you are a failure or have let yourself or your family down: not at all 7. Trouble concentrating on things, such as reading the newspaper or watching television: not at all 8. Moving or speaking so slowly that other people could have noticed. Or the opposite - being so fidgety or restless that you have been moving around a lot more than usual: not at all 9. Thoughts that you would be better off or of hurting yourself in some way: not at all Total score: 0 Depression Screening Interpretation: Negative Depression Screening Done: Yes Source: Developed by Drs. Davie Germain, Barbara Miller, Antony Katz and colleagues, with an educational kimberley from [employer]. Thrive Questionnaire Date Thrive assessed: 12/29/23 I am a: Patient What is your living situation today?: I choose not to answer this question Within the past 12 months, did the food you bought not last and you didn't have the money to get more?: I choose not to answer this question Within the past 12 months, did you worry whether your food would run out before you got money to buy more?: I choose not to answer this question Do you have trouble paying for medicines?: I choose not to answer this question Do you have trouble getting transportation to medical appointments?: I choose not to answer this question Do you have trouble paying your heating and electricity bill?: I choose not to answer this question Do you have trouble taking care of your child, family member or friend?: I choose not to answer this question Do you have trouble with day-to-day activities such as bathing, preparing meals, shopping, managing finances, etc.?: I choose not to answer this question Are you currently unemployed and looking for a job?: I choose not to answer this question Are you interested in more education?: I choose not to answer this question Currently or been in a relationship where the following occur: I choose not to answer this question THRIVE Score: 0 AUDIT C Alcohol Use Questionnaire (AUDIT-C) 1. How often do you have a drink containing alcohol?: Never Total Score: 0 GET-7 AMB Questionnaire GET-7 Date GET - 7 assessed: 12/29/23 Feeling nervous, anxious, or on edge: 0 = Not at all Not being able to stop or control worryin = Not at all Worrying too much about different things: 0 = Not at all Trouble relaxin = Not at all Being so restless that it is hard to sit still: 0 = Not at all Becoming easily annoyed or irritable: 0 = Not at all Feeling afraid as if something awful might happen: 0 = Not at all Total GET-7 score (0-4 normal; 5-9 mild; 10-14 moderate; 15-21 severe): 0 Source: Developed by Drs. Davie Germain, Barbara Miller, Antony Katz and colleagues, with an educational kimberley from [employer]. Physical exam (Primary Care) Vital Signs: Last Vital Signs Pulse 63 12/29/23 11:08 BP 120/62 12/29/23 11:08 Pulse Ox 98 12/29/23 11:08 Oxygen Delivery Method Room Air 12/29/23 11:08 BMI result Body Mass Index 17.9 Tobacco/Smoking Status: Tobacco use Status Tobacco use date assessed 12/29/23 12/29/23 11:18 Patient Tobacco Use Status Never used Tobacco 12/29/23 11:16 e-Cigarette/Vaping Use Never Used 12/29/23 11:18 PHQ-9: PHQ-9 Score PHQ-9: Total score 0 12/29/23 11:07 Depression Screening Interpretation: Negative Thrive Assessment: Date of Thrive Assessment Date Thrive assessed 12/29/23 12/29/23 11:07 Currently or been in a relationship where the following occur: I choose not to answer this question Const General: cooperative and healthy appearing Nutritional Appearance: well nourished Orientation/consciousness: patient oriented x3 Limitations: no limitations HENMT Head: Yes normal to inspection Eyes General: appearance normal, both eyes and all related structures Neck Neck: Yes normal visual inspection Chest Chest palpation & inspection: normal palpation of entire chest wall Resp Effort & Inspection: normal respiratory effort Neuro General: patient oriented x3 Assessment and Plan Assessment & Plan (1) Abnormal coagulation profile: Code(s): R79.1 - Abnormal coagulation profile Plan: According to the patient she had a prolonged PTT. Hematology consult to be obtained. (2) Secondary female infertility: Code(s): N97.9 - Female infertility, unspecified Plan: I suggested, patient see the local Program Manager Environmental Planning MD. She prefers to see a woman MD. I will get her a consult accordingly. Coding Level of Care Code Est Pt Level 4 (77479) Diagnoses Abnormal coagulation profile R79.1 Secondary female infertility N97.9
[2023-12-29 11:08] VITALS: BP 120/62; PULSE 63; O2SAT 98; BMI 17.9
== END 2023-12-29 11:45 | disposition home or self-care (01) ==
PROVIDERS: PCP Family Medicine; Visit Provider Internal Medicine
DX: R79.1 Abnormal coagulation profile (principal); N97.9 Female infertility, unspecified
CPT/HCPCS: 99214

== ENCOUNTER 2024-01-12 07:19 | Outpatient (REF) | payer OTHER, SELFPAY ==
[2024-01-12 08:43] LABS: Cortisol Random 13.2 ug/dL
[2024-01-13 06:09] LABS: DHEA Sulfate 245 mcg/dL (14-349)
[2024-01-15 03:44] LABS: Adrenocorticotropic Hormone 25 pg/mL (6-50)
== END 2024-01-12 07:20 | disposition home or self-care (01) ==
LOC: HO.LAB 07:19
PROVIDERS: PCP Internal Medicine; Visit Provider Pediatrics Pediatric Endocrinology
DX: E25.0 Congenital adrenogenital disorders associated with enzyme deficiency (principal)
CPT/HCPCS: 36415; 82024; 82533; 82627

== ENCOUNTER 2024-01-30 15:00 | Outpatient (REF) | payer OTHER, SELFPAY ==
--- NOTE | ~2024-01-30 | US_ITS ---
EXAMINATION: US PELVIS CLINICAL INFORMATION: Dyspareunia. COMPARISON: None available. TECHNIQUE: Ultrasound of the pelvis is performed using both transabdominal and transvaginal transducers along with Doppler. Transvaginal imaging is performed due to inadequate visualization transabdominally. FINDINGS: Uterus: The uterus is anteverted and measures 7.7 x 3.1 x 4.1 cm. The double wall endometrial thickness is 5 mm. The uterus appears minimally bicornuate near the fundus. The uterus is smooth in contour and has normal myometrial echogenicity. No visible fibroid. Adnexa: Both ovaries are visualized. Normal ovarian follicles are present bilaterally. There is normal color flow to the adnexa. There is no ovarian torsion. There is no pelvic ascites or fluid collection. Right ovary measures 4.4 x 2.4 x 1.9 cm for a volume of 10.5 mL. Left ovary measures 4.1 x 1.4 x 1.7 cm for a volume of 5.1 mL. US/US pelvic and transvaginal IMPRESSION: Unremarkable pelvic ultrasound.
== END 2024-01-30 15:01 | disposition home or self-care (01) ==
LOC: HO.US 15:00
PROVIDERS: PCP Internal Medicine; Visit Provider Obstetrics & Gynecology
DX: N94.10 Unspecified dyspareunia (principal)
CPT/HCPCS: 76830; 76856

== ENCOUNTER 2024-02-24 06:55 | Outpatient (REF) | payer OTHER, SELFPAY ==
[2024-02-24 08:48] LABS: MANUAL DIFF FLAG NO
[2024-02-24 09:15] LABS: Basophils Absolute Auto 0.1 X10*3/uL (0.0-0.2); Basophils Percent Auto 0.9 % (0-2); Eosinophils Absolute Auto 0.1 X10*3/uL (0.0-0.4); Eosinophils Percent Auto 1.6 % (0-4); Hematocrit 41.2 % (37.0-47.0); Hemoglobin 13.8 g/dl (12.0-16.0); Imm Gran Abs Auto 0.01 X10*3/uL (0.00-0.03); Imm Gran Pct Auto 0.2 % (0.0-0.4); Lymphocytes Absolute Auto 2.3 X10*3/uL (1.2-4.9); Lymphocytes Percent Auto 40.9 % (20-40); Mean Corpuscular HGB Conc 33.5 g/dl (31.0-35.0); Mean Corpuscular Hemoglobin 28.5 pg (27.0-33.0); Mean Corpuscular Volume 85.1 fL (80.0-98.0); Mean Platelet Volume 9.5 fL (9.4-12.3); Monocytes Absolute Auto 0.5 X10*3/uL (0.1-1.2); Monocytes Percent Auto 9.1 % (2-11); Neutrophils Absolute Auto 2.6 x10*3/uL (2.0-8.3); Neutrophils Percent Auto 47.3 % (45-73); Platelet Count 274 X10*3/uL (160-400); Red Blood Count 4.84 X10*6/uL (4.20-5.50); Red Cell Distribution Width 12.7 % (11.0-16.0); White Blood Count 5.5 X10*3/uL (4.8-10.8)
[2024-02-24 09:19] LABS: INTERNATIONAL NORM RATIO 0.9 (0.9-1.1); Prothrombin Time 11.4 SEC (11.1-13.3)
[2024-02-24 09:21] LABS: Partial Thromboplastin Time 40.4 SEC (26.0-36.8)
[2024-02-24 10:00] LABS: Alanine Aminotransferase 25 U/L (0-31); Albumin Level 4.7 g/dL (3.5-5.0); Alkaline Phosphatase 145 U/L (39-117); Anion Gap 12 (12-20); Aspartate Amino Transferase 20 U/L (5-31); Bilirubin Total 0.4 mg/dL (0.0-1.0); Blood Urea Nitrogen 10 mg/dL (9-16); Calcium 9.9 mg/dL (8.4-10.2); Carbon Dioxide 27 mmol/L (22-29); Chloride 103 mmol/L (96-108); Estimated Glomerular Filt Rate > 60; Glucose Random 90 mg/dL (60-115); Iron 113 mcg/dL (30-160); Percent Iron Saturation 28 % (15-50); Potassium 3.9 mmol/L (3.3-5.1); Sodium 138 mmol/L (135-145); Total Iron Binding Capacity 401 mcg/dL (228-428); Total Protein 8.1 g/dL (6.5-8.0); Unsaturated Iron Binding 288 ug/dL
[2024-02-24 10:05] LABS: Ferritin 19 ng/mL (10-122); Vitamin D 25-OH Total 34.5 ng/mL (>30)
[2024-02-25 19:13] LABS: DHEA Sulfate 267 mcg/dL (14-349); Prolactin 3.9 ng/mL
[2024-02-28 05:53] LABS: Alk.Phos Iso. Macrohepatic 0 % (<=0); Alk.Phos Isoenzymes Bone 69 % (28-66); Alk.Phos Isoenzymes Intest 0 % (1-24); Alk.Phos Isoenzymes Liver 31 % (25-69); Alk.Phos Isoenzymes Placental 0 % (<=0); Alk.Phos Isoenzymes Total 136 U/L (31-125)
[2024-02-28 10:38] LABS: Factor VIII Activity 62 % normal (50-180)
[2024-02-28 18:43] LABS: Vitamin A 30 mcg/dL (38-98)
== END 2024-02-24 06:56 | disposition home or self-care (01) ==
LOC: HO.LAB 06:55
PROVIDERS: PCP Internal Medicine; Visit Provider Naturopath
DX: D50.9 Iron deficiency anemia, unspecified (principal); D66 Hereditary factor VIII deficiency; D68.9 Coagulation defect, unspecified; E50.9 Vitamin A deficiency, unspecified; E55.9 Vitamin D deficiency, unspecified; G90.A Postural orthostatic tachycardia syndrome [POTS]; N96 Recurrent pregnancy loss; R53.83 Other fatigue; R55 Syncope and collapse; R74.8 Abnormal levels of other serum enzymes; R89.1 Abnormal level of hormones in specimens from other organs, systems and tissues
CPT/HCPCS: 80053; 82157; 82306; 82533; 82626; 82627; 82633; 82634; 82728; 83498; 83540; 84080; 84143; 84144; 84146; 84403; 84590; 85025; 85240; 85610; 85730

== ENCOUNTER → 2024-03-10 13:40 | Outpatient (BNV) | payer OTHER, SELFPAY | PROVIDERS: PCP Internal Medicine; Referring Provider Internal Medicine; Visit Provider Internal Medicine | DX: R79.1 Abnormal coagulation profile (principal) | CPT/HCPCS: 99204 ==

== ENCOUNTER 2024-03-31 15:45 | Outpatient (AMB) | payer OTHER, SELFPAY ==
--- NOTE | 2024-03-31 15:47 | A.OFFPC_ITS ---
Vital Signs 03/31/24 15:49 Height 5 ft 6 in Weight 112 lb 2 oz BMI 18.1 BP 108/70 Blood Pressure Location Lt brachial Position Sitting Intake Visit Reasons: requesting a referral Intake Note: Patient is here to follow up on referral to genetic clinic . Slasher Runner Required: No Correctional Maintenance Technician: Not Required per policy Accompanied by: Self / Same As Patient Allergies No Known Allergies Allergy (Verified 04/04/24 15:02) Medication List - Last Reconciled 04/04/24 by Sony Wilson MD No Known Home Meds Tobacco use date assessed: 03/31/24 Dental Screening Dental Screen Date: 12/29/23 HPI requesting a referral HPI Details 28 yr old presents to the office request ing a referral. 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 Pt sees PT for pelvic floor exercises. She has had difficult pregnancies and painful intercourse. It was suggested to her that she could have one of the variants for Frederick Danlos Syndrome. Pt reports that though she does not have all the symptoms, she would like to see a geniticist. [facility] Medical History (Updated 03/10/24 @ 17:22 by Ileana Swanson MD) Bicuspid aortic valve Anemia Tethered spinal cord Scoliosis Surgical History History of delivery History of spinal surgery Family History Mother No known health problems Father No known health problems Social History Household Members: Family Housing: House Alcohol intake: current Alcohol intake frequency: holidays/special occasions only Alcohol type: wine Patient Tobacco Use Status: Never used Tobacco e-Cigarette/Vaping Use: Never Used Second Hand Smoke Exposure: No service: No Current occupational status: employed 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 Davie Germain, Barbara Miller, Antony Katz and colleagues, with an educational kimberley from [employer]. Physical exam (Primary Care) Vital Signs: Last Vital Signs BP 108/70 03/31/24 15:49 BMI result Body Mass Index 18.1 Tobacco/Smoking Status: Tobacco use Status Tobacco use date assessed 03/31/24 03/31/24 15:53 Patient Tobacco Use Status Never used Tobacco 03/31/24 15:53 e-Cigarette/Vaping Use Never Used 03/31/24 15:53 Thrive Assessment: Date of Thrive Assessment Date Thrive assessed 12/29/23 03/31/24 15:53 Const General: cooperative and healthy appearing Nutritional Appearance: well nourished Orientation/consciousness: patient oriented x3 Limitations: no limitations HENMT Head: Yes normal to inspection Eyes General: appearance normal, both eyes and all related structures Neck Neck: Yes normal visual inspection Chest Chest palpation & inspection: normal palpation of entire chest wall Resp Effort & Inspection: normal respiratory effort Neuro General: patient oriented x3 Assessment and Plan Assessment & Plan (1) Frederick-Danlos and osteogenesis imperfecta syndrome: Code(s): Q87.89 - Other specified congenital malformation syndromes, not elsewhere classified; Q79.60 - Frederick-Danlos syndrome, unspecified; Q78.0 - Osteogenesis imperfecta Plan: Patient meets no clinical criteria. However, she would benefit from seeing the clinical biochemical geneticist. A referral for the same was made. Patent was sent to, at her request, to Dr Adriano Walker at [phone] Orders: Referrals Genetics Referral Q79.60 - Frederick-Danlos syndrome, unspecified Coding Level of Care Code Est Pt Level 3 (06884) Diagnoses Frederick-Danlos and osteogenesis imperfecta syndrome Q87.89; Q79.60; Q78.0
[2024-03-31 15:49] VITALS: BP 108/70; BMI 18.1
== END 2024-03-31 16:26 | disposition home or self-care (01) ==
PROVIDERS: PCP Internal Medicine; Visit Provider Internal Medicine
DX: Q87.89 Other specified congenital malformation syndromes, not elsewhere classified (principal); Q79.60 Ehlers-Danlos syndrome, unspecified; Q78.0 Osteogenesis imperfecta
CPT/HCPCS: 99213

== ENCOUNTER 2024-06-01 08:53 | Outpatient (REF) | payer OTHER, SELFPAY ==
[2024-06-01 11:09] LABS: Alanine Aminotransferase 21 U/L (0-31); Albumin Level 4.6 g/dL (3.5-5.0); Alkaline Phosphatase 117 U/L (39-117); Anion Gap 10 (12-20); Aspartate Amino Transferase 18 U/L (5-31); Bilirubin Total 0.3 mg/dL (0.0-1.0); Blood Urea Nitrogen 10 mg/dL (9-16); Calcium 9.7 mg/dL (8.4-10.2); Carbon Dioxide 28 mmol/L (22-29); Chloride 104 mmol/L (96-108); Estimated Glomerular Filt Rate > 60; Glucose Random 97 mg/dL (60-115); Iron 79 mcg/dL (30-160); Percent Iron Saturation 24 % (15-50); Potassium 3.8 mmol/L (3.3-5.1); Sodium 138 mmol/L (135-145); Total Iron Binding Capacity 336 mcg/dL (228-428); Total Protein 7.6 g/dL (6.5-8.0); Unsaturated Iron Binding 257 ug/dL
[2024-06-01 12:08] LABS: Ferritin 26 ng/mL (10-122)
[2024-06-05 21:22] LABS: Alkaline Phosphatase Bone 29.7 mcg/L (4.7-17.8)
== END 2024-06-01 08:54 | disposition home or self-care (01) ==
LOC: HO.LAB 08:53
PROVIDERS: PCP Internal Medicine; Visit Provider Naturopath
DX: R74.8 Abnormal levels of other serum enzymes (principal); E66.1 Drug-induced obesity
CPT/HCPCS: 36415; 80053; 82728; 83540; 83970; 84075

== ENCOUNTER 2024-07-07 15:19 | Outpatient (REF) | payer OTHER, SELFPAY ==
[2024-07-12 22:19] LABS: Testosterone, Free 2.4 pg/mL (0.1-6.4); Testosterone, Total 31 ng/dL (2-45)
== END 2024-07-07 15:20 | disposition home or self-care (01) ==
LOC: HO.LAB 15:19
PROVIDERS: PCP Internal Medicine; Visit Provider Internal Medicine Endocrinology, Diabetes & Metabolism
DX: E25.0 Congenital adrenogenital disorders associated with enzyme deficiency (principal)
CPT/HCPCS: 36415; 83498; 84402; 84403

== ENCOUNTER 2024-09-21 08:33 | Outpatient (REF) | payer OTHER, SELFPAY ==
[2024-09-21 09:12] LABS: MANUAL DIFF FLAG NO
[2024-09-21 10:07] LABS: Basophils Percent Auto 0.6 % (0-2); Eosinophils Percent Auto 0.6 % (0-4); Hematocrit 38.9 % (37.0-47.0); Hemoglobin 13.5 g/dl (12.0-16.0); Imm Gran Abs Auto 0.01 X10*3/uL (0.00-0.03); Imm Gran Pct Auto 0.2 % (0.0-0.4); Lymphocytes Absolute Auto 2.2 X10*3/uL (1.2-4.9); Lymphocytes Percent Auto 40.4 % (20-40); Mean Corpuscular HGB Conc 34.7 g/dl (31.0-35.0); Mean Corpuscular Hemoglobin 30.5 pg (27.0-33.0); Mean Platelet Volume 9.6 fL (9.4-12.3); Monocytes Absolute Auto 0.4 X10*3/uL (0.1-1.2); Monocytes Percent Auto 7.2 % (2-11); Neutrophils Absolute Auto 2.8 x10*3/uL (2.0-8.3); Platelet Count 258 X10*3/uL (160-400); Red Blood Count 4.42 X10*6/uL (4.20-5.50); Red Cell Distribution Width 12.4 % (11.0-16.0); White Blood Count 5.4 X10*3/uL (4.8-10.8)
[2024-09-21 11:06] LABS: Alanine Aminotransferase 26 U/L (0-31); Albumin Level 4.4 g/dL (3.5-5.0); Alkaline Phosphatase 103 U/L (39-117); Anion Gap 11 (12-20); Aspartate Amino Transferase 24 U/L (5-31); Bilirubin Total 0.5 mg/dL (0.0-1.0); Blood Urea Nitrogen 10 mg/dL (9-16); Calcium 9.3 mg/dL (8.4-10.2); Carbon Dioxide 26 mmol/L (22-29); Chloride 107 mmol/L (96-108); Estimated Glomerular Filt Rate > 60; Ferritin 48 ng/mL (10-122); Free T4 (Free Thyroxine) 0.92 ng/dL (0.71-1.85); Glucose Random 93 mg/dL (60-115); Iron 125 mcg/dL (30-160); Percent Iron Saturation 36 % (15-50); Sodium 140 mmol/L (135-145); Thyroid Stimulating Hormone 1.12 uIU/mL (0.32-4.0); Total Iron Binding Capacity 349 mcg/dL (228-428); Total Protein 7.4 g/dL (6.5-8.0); Unsaturated Iron Binding 224 ug/dL; Vitamin D 25-OH Total 55.4 ng/mL (>30)
[2024-09-21 11:16] LABS: Vitamin B12 1202 pg/mL (200-900)
[2024-09-23 01:53] LABS: Triiodothyronine T3 Free 3.3 pg/mL (2.3-4.2)
[2024-09-25 12:43] LABS: Anti-Mullerian Hormone-Female 12.32 ng/mL (0.69-13.39)
[2024-09-28 22:43] LABS: Vitamin A 35 mcg/dL (38-98)
== END 2024-09-21 08:34 | disposition home or self-care (01) ==
LOC: HO.LAB 08:33
PROVIDERS: PCP Internal Medicine; Visit Provider Naturopath
DX: R89.9 Unspecified abnormal finding in specimens from other organs, systems and tissues (principal); R89.1 Abnormal level of hormones in specimens from other organs, systems and tissues; N92.6 Irregular menstruation, unspecified; D68.9 Coagulation defect, unspecified; E28.1 Androgen excess; E61.1 Iron deficiency; E55.9 Vitamin D deficiency, unspecified; R53.83 Other fatigue
CPT/HCPCS: 36415; 80053; 82166; 82306; 82607; 82728; 82746; 83540; 84144; 84439; 84443; 84481; 84590; 85025

== ENCOUNTER 2024-09-29 15:25 | Outpatient (REF) | payer OTHER, SELFPAY | END 2024-09-29 15:26 | disposition home or self-care (01) | LOC: HO.LAB 15:25 | PROVIDERS: PCP Internal Medicine; Visit Provider Naturopath | DX: R89.9 Unspecified abnormal finding in specimens from other organs, systems and tissues (principal); R89.1 Abnormal level of hormones in specimens from other organs, systems and tissues; N92.6 Irregular menstruation, unspecified; D68.9 Coagulation defect, unspecified; E28.1 Androgen excess; E61.1 Iron deficiency; E55.9 Vitamin D deficiency, unspecified; R53.83 Other fatigue | CPT/HCPCS: 36415 ==

== ENCOUNTER 2024-10-04 16:00 | Outpatient (RCR) | payer OTHER, SELFPAY | END 2024-10-25 12:27 | disposition home or self-care (01) | LOC: HO.PT 16:00 | PROVIDERS: PCP Internal Medicine; Visit Provider Obstetrics & Gynecology | DX: N94.10 Unspecified dyspareunia (principal) | CPT/HCPCS: 97112; 97140; 97163 ==

== ENCOUNTER 2024-11-30 12:53 | Outpatient (REF) | payer OTHER, SELFPAY ==
[2024-12-01 16:19] LABS: Progesterone Immunoassay 9.1 ng/mL
== END 2024-11-30 12:54 | disposition home or self-care (01) ==
LOC: HO.LAB 12:53
PROVIDERS: PCP Internal Medicine; Visit Provider Naturopath
DX: R87.1 Abnormal level of hormones in specimens from female genital organs (principal); R94.7 Abnormal results of other endocrine function studies; R89.1 Abnormal level of hormones in specimens from other organs, systems and tissues; E28.1 Androgen excess; N92.6 Irregular menstruation, unspecified
CPT/HCPCS: 36415; 84144

== ENCOUNTER 2024-12-10 14:53 | Outpatient (REF) | payer OTHER, SELFPAY ==
[2024-12-11 22:34] LABS: Follicle Stimulating Hormone 5.3 mIU/mL; Lutenizing Hormone 6.5 mIU/mL; Prolactin 7.2 ng/mL; Sex Hormone Binding Globulin 82 nmol/L (17-124)
== END 2024-12-10 14:54 | disposition home or self-care (01) ==
LOC: HO.LAB 14:53
PROVIDERS: PCP Internal Medicine; Visit Provider Naturopath
DX: E28.1 Androgen excess (principal); N92.6 Irregular menstruation, unspecified; R87.1 Abnormal level of hormones in specimens from female genital organs; R89.1 Abnormal level of hormones in specimens from other organs, systems and tissues; R89.9 Unspecified abnormal finding in specimens from other organs, systems and tissues; R94.7 Abnormal results of other endocrine function studies; Z31.62 Encounter for fertility preservation counseling
CPT/HCPCS: 82671; 83001; 83002; 83498; 84146; 84270; 84402; 84403

== ENCOUNTER 2024-12-30 15:35 | Outpatient (REF) | payer OTHER, SELFPAY ==
[2024-12-31 22:44] LABS: Sex Hormone Binding Globulin 95 nmol/L (17-124)
[2025-01-05 19:18] LABS: Testosterone, Total 45 ng/dL (2-45)
== END 2024-12-30 15:36 | disposition home or self-care (01) ==
LOC: HO.LAB 15:35
PROVIDERS: PCP Internal Medicine; Referring Provider Naturopath; Visit Provider Naturopath
DX: R87.1 Abnormal level of hormones in specimens from female genital organs (principal); R74.8 Abnormal levels of other serum enzymes; R89.1 Abnormal level of hormones in specimens from other organs, systems and tissues; N92.5 Other specified irregular menstruation; E28.1 Androgen excess
CPT/HCPCS: 36415; 83498; 84270; 84402; 84403

== ENCOUNTER 2025-01-17 12:52 | Outpatient (REF) | payer OTHER, SELFPAY ==
--- OUTSIDE RECORDS SUMMARY | 2025-01-17 14:35 | XMS_ITS ---
Author Organization [facility] Address [address] [place] [phone] Care Team Providers Care Stagecraft Teacher Name Role Phone Cristobal Benites Unavailable [phone] REASON FOR VISIT ROF Encounters Encounter Location Date Provider Diagnosis [address] [id number] 01/04/2025 Cristobal Benites Plan Of Treatment Next Appt Details Provider Name:Cristobal Moreno [place], 01/25/2025 12:30:00 PM, [address] [place] [address], [phone], Progress Notes * Gisselle CASASB:03/1995 (29 yo F)Acc No.[id number]:01/04/2025 Progress Notes Patient:?LILLYYVONNE Ning a Provider:?Cristobal Benites ND :1995???Age:29 Y???Sex:Female D ate:01/04/2025 Address:[address] [id number] Subjective: * Chief Complaints: * ???1. ROF. * Medical History:? Objective: * Vitals:? Assessment: Plan: * Treatment: * * Electronic signature of Cheli Benites ND on 01/17/2025 at 02:35 PM EST Sign off status: Pending * Provider:?Cristobal Benites ND Date:?09/2025 Generated for Kaitlin ding/Shantih/Annelise on:?01/17/2025 02:35 PM EST
--- OUTSIDE RECORDS SUMMARY | 2025-01-17 14:36 | XMS_ITS ---
Author Organization [address] [phone] Care Team Providers Care Senior Commercial Loan Officer Name Role Phone Cristobal Benites Unavailable [phone] Allergies No Known Allergies REASON FOR VISIT ROF labs Medications Medication SIG (Take, Route, Frequency, Duration) Notes Start Date End Date Status Progesterone Unknown Encounters Encounter Location Date Provider Diagnosis [address] [id number] 10/12/2024 Cristobal Benites Procreative counseli ng and advice using natural family planning Z31.61 ; Iron deficiency E61.1 ; Personal history of other complications of , childbirth and the puerperium Z87.59 ; Vitamin A deficiency, unspecified E50.9 and Dietary counseling and surveillance Z71.3 Assessments Encounter Date Diagnosis (ICD Code) Assessment Notes Treatment Notes Treatment Clinical Notes Section Notes 10/12/2024 Procreative counseling and advice using natural family planning (ICD-10 - Z31.61) This is a 29 yo female pt presenting in-office for ROF of recent labs. Results reviewed and discussed during the visit. Was at day 3 of cycle when labs were drawn. Tested progesterone 7 days after confirmed ovulation. Trying to concieve from 1 year. Hair doing better. No reflux anymore. Hasn't breastfed, still producing milk. Labs show Vitamin A improving, still low. Pt to continue supplementating . Discussed could relate to trouble getting . Progesterone normal. Estrogens not tested. AMH high-normal, above optimal range for . Will continue to investigate. Discussed may be d/t CoQ10 initiated by pt for egg quality. Alk phos in range. Gap improving, likely off because of alk phos levels. Iron panel improving. Will retest Pg, fractionated estrogens, prolactin, LH and FSH. 10/12/2024 Iron deficiency (ICD-10 - E61.1) This is a 29 yo female pt presenting in-office for ROF of recent labs. Results reviewed and discussed during the visit. Was at day 3 of cycle when labs were drawn. Tested progesterone 7 days after confirmed ovulation. Trying to concieve from 1 year. Hair doing better. No reflux anymore. Hasn't breastfed, still producing milk. Labs show Vitamin A improving, still low. Pt to continue supplementating . Discussed could relate to trouble getting . Progesterone normal. Estrogens not tested. AMH high-normal, above optimal range for . Will continue to investigate. Discussed may be d/t CoQ10 initiated by pt for egg quality. Alk phos in range. Gap improving, likely off because of alk phos levels. Iron panel improving. Will retest Pg, fractionated estrogens, prolactin, LH and FSH. 10/12/2024 Personal history of other complications of , childbirth and the puerperium (ICD-10 - Z87.59) This is a 29 yo female pt presenting in-office for ROF of recent labs. Results reviewed and discussed during the visit. Was at day 3 of cycle when labs were drawn. Tested progesterone 7 days after confirmed ovulation. Trying to concieve from 1 year. Hair doing better. No reflux anymore. Hasn't breastfed, still producing milk. Labs show Vitamin A improving, still low. Pt to continue supplementating . Discussed could relate to trouble getting . Progesterone normal. Estrogens not tested. AMH high-normal, above optimal range for . Will continue to investigate. Discussed may be d/t CoQ10 initiated by pt for egg quality. Alk phos in range. Gap improving, likely off because of alk phos levels. Iron panel improving. Will retest Pg, fractionated estrogens, prolactin, LH and FSH. 10/12/2024 Vitamin A deficiency, unspecified (ICD-10 - E50.9) This is a 29 yo female pt presenting in-office for ROF of recent labs. Results reviewed and discussed during the visit. Was at day 3 of cycle when labs were drawn. Tested progesterone 7 days after confirmed ovulation. Trying to concieve from 1 year. Hair doing better. No reflux anymore. Hasn't breastfed, still producing milk. Labs show Vitamin A improving, still low. Pt to continue supplementating . Discussed could relate to trouble getting . Progesterone normal. Estrogens not tested. AMH high-normal, above optimal range for . Will continue to investigate. Discussed may be d/t CoQ10 initiated by pt for egg quality. Alk phos in range. Gap improving, likely off because of alk phos levels. Iron panel improving. Will retest Pg, fractionated estrogens, prolactin, LH and FSH. 10/12/2024 Dietary counseling and surveillance (ICD-10 - Z71.3) This is a 29 yo female pt presenting in-office for ROF of recent labs. Results reviewed and discussed during the visit. Was at day 3 of cycle when labs were drawn. Tested progesterone 7 days after confirmed ovulation. Trying to concieve from 1 year. Hair doing better. No reflux anymore. Hasn't breastfed, still producing milk. Labs show Vitamin A improving, still low. Pt to continue supplementating . Discussed could relate to trouble getting . Progesterone normal. Estrogens not tested. AMH high-normal, above optimal range for . Will continue to investigate. Discussed may be d/t CoQ10 initiated by pt for egg quality. Alk phos in range. Gap improving, likely off because of alk phos levels. Iron panel improving. Will retest Pg, fractionated estrogens, prolactin, LH and FSH. 10/12/2024 Other Consent obtained. Time spent preparing to see the patient: 6 min Appointment Start time: Cristobal Benites 10/12/2024 03:03:05 PM EST > End time: Cristobal Benites 10/12/2024 03:33:34 PM EST > Post appointment time documenting clinical information in the medical record & care coordination: 5 min Total Time: 41 min performing a medically appropriate examination and/or evaluation counseling and educating the patient on etiology, results, and management of health concerns ordering supplementation s, tests, or procedures and explaining risks, benefits, and alternatives This is a 29 yo female pt presenting in-office for ROF of recent labs. Results reviewed and discussed during the visit. Was at day 3 of cycle when labs were drawn. Tested progesterone 7 days after confirmed ovulation. Trying to concieve from 1 year. Hair doing better. No reflux anymore. Hasn't breastfed, still producing milk. Labs show Vitamin A improving, still low. Pt to continue supplementating . Discussed could relate to trouble getting . Progesterone normal. Estrogens not tested. AMH high-normal, above optimal range for . Will continue to investigate. Discussed may be d/t CoQ10 initiated by pt for egg quality. Alk phos in range. Gap improving, likely off because of alk phos levels. Iron panel improving. Will retest Pg, fractionated estrogens, prolactin, LH and FSH. Plan Of Treatment Next Appt Details Follow Up: 3 Months, Reason: ROF labs Provider Name:Cristobal Moreno [facility], 01/25/2025 12:30:00 PM, [address] [place] [address], [place], [place], [phone], Progress Notes * Ning CASASaDOB:03/1995 (29 yo F)Acc No.[id number]:10/12/2024 Progress Notes Patient:?Ning CASAS Provider:?Cristobal Benites ND :1995???Age:29 Y???Sex:Female D ate:10/12/2024 Address:[address] [place] [address] , [id number] Subjective: * Chief Complaints: * ???ROF labs * HPI: ???CC1:? CC// ROF labs, menstrual concerns ___ 10/12/2024 Cristobal Benites 10/12/2024 03:03:05 PM EST > Cristobal Benites 10/12/2024 03:33:34 PM EST > This pt presents in-office for ROF of recent labs. Results reviewed and discussed during the visit. Was at day 3 of cycle when labs were drawn. Tested progesterone 7 days after confirmed ovulation. Trying to concieve from 1 year. Hair doing better. No reflux anymore. Hasn't breastfed, still producing milk. ???Digestion:? BMs: 1/day denies reflux, bloating, pain. ???Sleep:? 7 hrs/night energy: can be tired. ???Diet/Exercise:? wide variety, homemade foods 3 meals, will have candy for low blood sugar caffeine: make sleepy water: adequate etoh: none exercise: 12,000 steps daily. ???Lifestyle:? 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 ???Care Team:? housekeeping worker-[place], [place] chiropractor-[facility]offman. ???Supplements:? -conception eu natural omega 3-omega 3 triple strength hailey ascencio immune support -sheer strength labs. * ROS:?General/Constitutional:?Patient denies?fever , chills?.?Respiratory:?Patient denies?shortness of breath , cough.?Cardiovascular:?Patient denies?chest pain, fluid accumulation in the legs.?Gastrointestinal:?Patient denies?rectal bleeding, change in stools.?Neurologic:?Patient denies?difficulty speaking , loss of strength.? * Medical History:? * OB History:?Total pregnancies?14.?Total living children?1.?Miscarriage(s)?13.? 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 * Social History:?denies tobacco, alcohol, drug use. * Medications:?UnknownProgeste erwin Medication List reviewed and reconciled with the patientUnknown Progesterone Medication List reviewed and reconciled with the patient * Allergies:?N.K.D.A.no[Allerg ies Verified] Objective: * Vitals:? * Examination: ???General Examination: ?GENERAL APPEARANCE:?alert, well hydrated, in no distress .?HEAD:?normocephalic, atraumatic.?EYES:?pupils equal, round, reactive to light and accommodation, conjunctiva clear.?EARS:?normal.?NOSE:?external nose- no gross deformities..?NECK/THYROID:?neck supple, full range of motion, trachea midline.?SKIN:?normal, good turgor, no rashes, no suspicious lesions, normal hair distribution, warm and dry.?LUNGS:?no wheezes, rales, rhonchi.?CHEST:?no gross rib deformity, normal shape and expansion.?ABDOMEN:?nondistended.?BACK:?full range of motion, normal.?NEUROLOGIC:?cognitive exam grossly normal, cooperative with exam, cranial nerves 2-12 grossly intact, gait normal.?PSYCH:?alert, oriented.? Assessment: * Assessment: 1.?Iron deficiency - E61.1 ( Primary)???2.?Procreative counseling and advice using natural family planning - Z31.61???3.?Personal history of other complications of , childbirth and the puerperium - Z87.59???4.?Vitamin A deficiency, unspecified - E50.9???5.?Dietary counseling and surveillance - Z71.3??? This is a 29 yo female pt pr esenting in-office for ROF of recent labs. Results reviewed and discussed during the visit. Was at day 3 of cycle when labs were drawn. Tested progesterone 7 days after confirmed ovulation. Trying to concieve from 1 year. Hair doing better. No reflux anymore. Hasn't breastfed, still producing milk. Labs show Vitamin A improving, still low. Pt to continue supplementating. Discussed could relate to trouble getting . Progesterone normal. Estrogens not tested. AMH high-normal, above optimal range for . Will continue to investigate. Discussed may be d/t CoQ10 initiated by pt for egg quality.? Alk phos in range. Gap improving, likely off because of alk phos levels. Iron panel improving. Will retest Pg, fractionated estrogens, prolactin, LH and FSH. Plan: * Treatment: * Procedure Codes:? * Preventive Medicine:?Supplements: Continue: - CoQ10 *For now. Can consider discontinuing if we feel it may be raising AMH levels.* - A-Mulsion by Roby: 1 drop daily. - Inositol Powder: Take 2 teaspoons 1-4x daily, can take in divded doses. Can sip slowly throughout the day, or take doses at one time. - Iron: Take 1 capsule daily, with food, in divided doses, away from your . - [place]-3 - Vitamin - Apha GPC (Choline) by Mayda or Citicoline by Mayda: Take 1 cap (300mg) daily. Choline plays an important role in methylation. It's also calming, and helps memory and concentration. Research indicates that Choline is involved with all stages of early reproduction, from basic fertility and egg health, to specifically supporting fertilization and implantation. All can be ordered through [employer]: [email or web address]. * Follow Up:?3 Months (Reason: ROF labs) * * Sign off status: Completed true * Provider:Malcolm Benites ND Date:? Generated for Kaitlin ding/Shanthi/Anselmoitting on:?01/17/2025 02:35 PM EST History and Physical Notes * HPI (History of Present Illness) Category Sub-Category Detail Notes Category Not es Supplements -conception eu natural omega 3-omega 3 triple strength hailey ascencio immune support -sheer strength labs Examination Category Sub-Category Detail Notes Category Not es General Examination GENERAL APPEARANCE: alert, w ell hydrated, in no distress HEAD: normocephalic, atrau matic EYES: pupils equal, round, reactive to light and accommodation, conjunctiva clear EARS: normal NOSE: external nose- no gr oss deformities. NECK/THYROID: neck supple, full ra nge of motion, trachea midline CHEST: no gross rib deformi ty, normal shape and expansion LUNGS: no wheezes, rales, r honchi ABDOMEN: nondistended NEUROLOGIC: cognitive exam gross ly normal, cooperative with exam, cranial nerves 2-12 grossly intact, gait normal SKIN: normal, good turgor, no rashes, no suspicious lesions, normal hair distribution, warm and dry BACK: full range of motion , normal PSYCH: alert, oriented
--- OUTSIDE RECORDS SUMMARY | 2025-01-17 14:36 | XMS_ITS | Patient Health Record ---
Author Organization [facility] Address [address] [place] [id number] Care Team Providers Care Road Roller Operator Hot Mix Name Role Phone Cristobal Benites Unavailable [phone] Brenda Wilkins Unavailable [phone] Allergies No Known Allergies Reason For Referral Reason For evaluation and t reatment of hypermobility disorder. 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) Referral Organization [facility] Referring Provider First Name Cristobal Referring Provider Last Name Kamari Referring Provider [facility] Referred Provider Sj Mix Referred Provider Specialty Unknown Referral Priority Routine Medications Medication SIG (Take, Route, Frequency, Duration) Notes Start Date End Date Status Progesterone Unknown Problems Problem Type SNOMED Code ICD Code Onset Dates Problem Status W/U Status Risk Notes Problem Iron deficiency anem ia (77757075) Iron deficiency anemia, unspecified (D50.9) Active confirmed Problem 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 Problem Coagulation disorder (72112087) Coagulation defect, unspecified (D68.9) Active confirmed Problem Androgen excess (272369022) Androgen excess (E28.1) Active confirmed Problem Vitamin D deficiency (71580671) Vitamin D deficiency, unspecified (E55.9) Active confirmed Problem 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 confirmed Problem Disorder of connecti ve tissue (735633009) Systemic involvement of connective tissue, 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 Problem Irregular Menstruati on (09927119) Other specified irregular menstruation (N92.5) Active confirmed Problem Irregular menstruati on (87553907) Irregular menstruation, unspecified (N92.6) Active confirmed Problem Hormone abnormality (27146964) Abnormal level of hormones in specimens from other organs, systems and tissues (R89.1) Active confirmed Encounters Encounter Location Date Provider Diagnosis [address] [id number] 02/23/2024 Cristobal Benites Other fatigue R53.83 ; Iron deficiency E61.1 ; Person consulting for explanation of examination or test findings Z71.2 ; Abnormal levels of other serum enzymes R74.8 ; Postural orthostatic tachycardia syndrome [POTS] G90.A ; Abnormal results of other endocrine function studies R94.7 ; Hereditary factor VIII deficiency D66 and Systemic involvement of connective tissue, unspecified M35.[address] [id number] 05/03/2024 Cristobal Benites Other fatigue R53.83 ; Person consulting for explanation of examination or test findings Z71.2 ; Abnormal levels of other serum enzymes R74.8 ; Iron deficiency E61.1 ; Dietary counseling and surveillance Z71.3 and Systemic involvement of connective tissue, unspecified M35.[address] [id number] 07/27/2024 Cristobal Benites Other fatigue R53.83 ; Other specified irregular menstruation N92.5 ; Person consulting for explanation of examination or test findings Z71.2 ; Encounter for other general counseling and advice on procreation Z31.69 and Dietary counseling and surveillance Z71.[address] [id number] 10/12/2024 Cristobal Benites Procreative counseli ng and advice using natural family planning Z31.61 ; Iron deficiency E61.1 ; Personal history of other complications of , childbirth and the puerperium Z87.59 ; Vitamin A deficiency, unspecified E50.9 and Dietary counseling and surveillance Z71.[address] [id number] 05/04/2024 Cristobalneel Benites [address] [id number] 05/25/2024 Cristobal Benites [address] [id number] 05/26/2024 Cristobal Benites [address] [id number] 12/23/2024 Brenda Wilkins Abnormal level of hormones in specimens from female genital organs R87.1 ; Abnormal levels of other serum enzymes R74.8 ; Abnormal level of hormones in specimens from other organs, systems and tissues R89.1 ; Other specified irregular menstruation N92.5 and Androgen excess E28.1 Assessments Encounter Date Diagnosis (ICD Code) Assessment Notes Treatment Notes Treatment Clinical Notes Section Notes 02/23/2024 Iron deficiency (ICD-10 - E61.1) This 28 yo female pt presenting in-office for ROF of recent labs. Results reviewed and discussed during the visit. Was in luteal phase of cycle when she went for labs. Feeling very tired. Doesn't really have an appetitite - comes and goes. Getting worse for a couple months. Has been taking oral iron BID. Random easy bruising. 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 Pool Hall Inspector concerned about Redd's - retested cortisol with ACTH, DHEA-S - came back WNL. Has concern of hypermobility - states physical therapist believes she has hypermobility based on exam and assessment. Displays hyermobility signs during physical exam - hands, legs. 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 Pt referred to Medical Genetics for evaluation and treatment, genetic counseling for suspected hypermobility syndrome, with suspicion of EDS. Labs show: FSH, LH, prolactin WNL Androstenedione WNL 11 deoxycortisol WNL Cortisol 3.7 mcg/dL -- Low for AM DHEA, unconjugated 282 -- Low 17 Hydroxypregnenolone 45 ng/mL -- Low-normal/ WNL Progesterone 8.4 ng/mL 17 Hydroxyprogesterone WNL Testosterone WNL Deoxycorticosterone WNL Adrenal AB negative Vitamin D 25-OH, total 25 ng/mL -- Low Total testosterone and free testosterone WNL AMH WNL E2 WNL Homocysteine WNL (optimal) Potassium 3.5 -- low-normal/ WNL Alk phos 140 -- High All other elements of CMP WNL TSH and T4 WNL SHBG WNL Discussed results with pt. Recommended LMNT electrolytes. Pt to continue current treatment plan as is, including iron, fish oil, and Vitamin D, and take conservative, wait and see approach with hormone levels and Alk Phos. Labs ordered to monitor CAH steroid panel, and as f/u will investiagte ALP isoenzymes to further determine etiology of Alk Phos levels. Pt to f/u with medical office technology instructor. 02/23/2024 Other fatigue (ICD-10 - R53.83) This 28 yo female pt presenting in-office for ROF of recent labs. Results reviewed and discussed during the visit. Was in luteal phase of cycle when she went for labs. Feeling very tired. Doesn't really have an appetitite - comes and goes. Getting worse for a couple months. Has been taking oral iron BID. Random easy bruising. 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 Pool Hall Inspector concerned about Redd's - retested cortisol with ACTH, DHEA-S - came back WNL. Has concern of hypermobility - states physical therapist believes she has hypermobility based on exam and assessment. Displays hyermobility signs during physical exam - hands, legs. 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 Pt referred to Medical Genetics for evaluation and treatment, genetic counseling for suspected hypermobility syndrome, with suspicion of EDS. Labs show: FSH, LH, prolactin WNL Androstenedione WNL 11 deoxycortisol WNL Cortisol 3.7 mcg/dL -- Low for AM DHEA, unconjugated 282 -- Low 17 Hydroxypregnenolone 45 ng/mL -- Low-normal/ WNL Progesterone 8.4 ng/mL 17 Hydroxyprogesterone WNL Testosterone WNL Deoxycorticosterone WNL Adrenal AB negative Vitamin D 25-OH, total 25 ng/mL -- Low Total testosterone and free testosterone WNL AMH WNL E2 WNL Homocysteine WNL (optimal) Potassium 3.5 -- low-normal/ WNL Alk phos 140 -- High All other elements of CMP WNL TSH and T4 WNL SHBG WNL Discussed results with pt. Recommended LMNT electrolytes. Pt to continue current treatment plan as is, including iron, fish oil, and Vitamin D, and take conservative, wait and see approach with hormone levels and Alk Phos. Labs ordered to monitor CAH steroid panel, and as f/u will investiagte ALP isoenzymes to further determine etiology of Alk Phos levels. Pt to f/u with medical office technology instructor. 05/03/2024 Other fatigue (ICD-10 - R53.83) This is a 28 yo female pt presenting in-office for ROF of recent labs, and to f/u on concerns of hypermobility. Results reviewed and discussed during the visit. Seen by different medical data analyst - told not to worry about elevations in clotting labs/factors. Has concern of hypermobility - states physical therapist believes she has hypermobility based on exam and assessment. Has not been seen by swine extension field specialist at [facility] in [place] (Kavin Walker) - was told they do not want to see her. {Displays hyermobility signs during physical exam - hands, legs.} New referral to be sent for evaluation and management of hypermobility disorder, suspicion of EDS. Pt to resume Vit A. Pt to resume inositol for hormone metabolism, lowering testosterone. Labs show: Factor VIII Antigen - 1.43 IU/mL Steroid Panel CAH Androstenedione: 277 ng/dL (H) 11-Deoxycortisol: 42 ng/dL Cortisol: 12.5 mcg/dL DHEA, unconjugated: 1160 ng/dL 17-Hydroxypregnenolon e: 451 ng/dL (H) Progesterone: Less than 0.1 ng/mL 17-Hydroxyprogesteron e: 121 ng/dL Testosterone, Total, LCMSMS: 66 ng/dL High-normal Deoxycorticosterone: Less than 16 Alk Phos Isoenzymes: Alk Phos Total 136 U/L H Alk Phos Intest 0 L Alk Phos Bone 69 H Alk Phos Liver 31 AlkpI Placental 0 Alk Phos Macro 0 Vitamin A 30 L Factor VIII Act 62 Prolactin 3.9 ng/mL DHEA-S 267 mcg/dL Protein, Total 8.1 H Alk Phos 145 H PT 11.4 sec INR 0.9 PTT 40.4 sec H 05/03/2024 Person consulting for explanation of examination or test findings (ICD-10 - Z71.2) This is a 28 yo female pt presenting in-office for ROF of recent labs, and to f/u on concerns of hypermobility. Results reviewed and discussed during the visit. Seen by different medical data analyst - told not to worry about elevations in clotting labs/factors. Has concern of hypermobility - states physical therapist believes she has hypermobility based on exam and assessment. Has not been seen by swine extension field specialist at [facility] in [place] (Kavin Aaron) - was told they do not want to see her. {Displays hyermobility signs during physical exam - hands, legs.} New referral to be sent for evaluation and management of hypermobility disorder, suspicion of EDS. Pt to resume Vit A. Pt to resume inositol for hormone metabolism, lowering testosterone. Labs show: Factor VIII Antigen - 1.43 IU/mL Steroid Panel CAH Androstenedione: 277 ng/dL (H) 11-Deoxycortisol: 42 ng/dL Cortisol: 12.5 mcg/dL DHEA, unconjugated: 1160 ng/dL 17-Hydroxypregnenolon e: 451 ng/dL (H) Progesterone: Less than 0.1 ng/mL 17-Hydroxyprogesteron e: 121 ng/dL Testosterone, Total, LCMSMS: 66 ng/dL High-normal Deoxycorticosterone: Less than 16 Alk Phos Isoenzymes: Alk Phos Total 136 U/L H Alk Phos Intest 0 L Alk Phos Bone 69 H Alk Phos Liver 31 AlkpI Placental 0 Alk Phos Macro 0 Vitamin A 30 L Factor VIII Act 62 Prolactin 3.9 ng/mL DHEA-S 267 mcg/dL Protein, Total 8.1 H Alk Phos 145 H PT 11.4 sec INR 0.9 PTT 40.4 sec H 07/27/2024 Other specified irregular menstruation (ICD-10 - N92.5) This is a 28 yo female pt presents in-office for ROF of recent labs, and with concerns about hormones and menstrual cycle. Results reviewed and discussed during the visit. Has gained 10 lbs in about 2 months. Heartburn again. Denies gas, bloating, or distention. Seeing pelvic floor therapist - cocnerned about hormone levels, ie estrogen. Cycles are completely strange . Cycles can be extra short or extra long - between 20-32 days. Spotting throughout entire cycle. Trying to get again - can't get . Labs reveal: PTH 48 N Alk Phos Bone 29.7 H CMP WNL Total alk phos improved into normal range. New labs to retest total alk phos as part of CMP, retest CBC, retest Iron panel to monitor ferritin levels and progress of oral iron supplementation, retest LH, FSH, AMH, estrogen and progesterone to investigate cycle irregularities, difficulty conceiving. Will also assess nutrients needed for fertility. Will also monitor thyroid. Will retest B Vitamins. Discussed cycle irregularity possibly d/t recent COVID infection, which pt admits to in April. Progesterone previously found low, and associated with difficulties. CAH previously involved in difficulty concieving and loss. Discussed hypochlorhydria as possible etiology of reflux. Discussed HCl challenge, pt declined. Discussed DGL as demulscent to sooth and smooth esophagus, pt declined. 07/27/2024 Other fatigue (ICD-10 - R53.83) This is a 28 yo female pt presents in-office for ROF of recent labs, and with concerns about hormones and menstrual cycle. Results reviewed and discussed during the visit. Has gained 10 lbs in about 2 months. Heartburn again. Denies gas, bloating, or distention. Seeing pelvic floor therapist - cocnerned about hormone levels, ie estrogen. Cycles are completely strange . Cycles can be extra short or extra long - between 20-32 days. Spotting throughout entire cycle. Trying to get again - can't get . Labs reveal: PTH 48 N Alk Phos Bone 29.7 H CMP WNL Total alk phos improved into normal range. New labs to retest total alk phos as part of CMP, retest CBC, retest Iron panel to monitor ferritin levels and progress of oral iron supplementation, retest LH, FSH, AMH, estrogen and progesterone to investigate cycle irregularities, difficulty conceiving. Will also assess nutrients needed for fertility. Will also monitor thyroid. Will retest B Vitamins. Discussed cycle irregularity possibly d/t recent COVID infection, which pt admits to in April. Progesterone previously found low, and associated with difficulties. CAH previously involved in difficulty concieving and loss. Discussed hypochlorhydria as possible etiology of reflux. Discussed HCl challenge, pt declined. Discussed DGL as demulscent to sooth and smooth esophagus, pt declined. 10/12/2024 Iron deficiency (ICD-10 - E61.1) This [...] fractionated estrogens, prolactin, LH and FSH. 10/12/2024 Procreative counseling and advice using natural [...] Pg, fractionated estrogens, prolactin, LH and FSH. 12/23/2024 Abnormal level of hormones in specimens from female genital organs (ICD-10 - R87.1) 12/23/2024 Abnormal levels of other serum enzymes (ICD-10 - R74.8) 10/12/2024 Personal history of other complications of [...] Pg, fractionated estrogens, prolactin, LH and FSH. 07/27/2024 Person consulting for explanation of examination or test findings (ICD-10 - Z71.2) This is a 28 yo female pt presents in-office for ROF of recent labs, and with concerns about hormones and menstrual cycle. Results reviewed and discussed during the visit. Has gained 10 lbs in about 2 months. Heartburn again. Denies gas, bloating, or distention. Seeing pelvic floor therapist - cocnerned about hormone levels, ie estrogen. Cycles are completely strange . Cycles can be extra short or extra long - between 20-32 days. Spotting throughout entire cycle. Trying to get again - can't get . Labs reveal: PTH 48 N Alk Phos Bone 29.7 H CMP WNL Total alk phos improved into normal range. New labs to retest total alk phos as part of CMP, retest CBC, retest Iron panel to monitor ferritin levels and progress of oral iron supplementation, retest LH, FSH, AMH, estrogen and progesterone to investigate cycle irregularities, difficulty conceiving. Will also assess nutrients needed for fertility. Will also monitor thyroid. Will retest B Vitamins. Discussed cycle irregularity possibly d/t recent COVID infection, which pt admits to in April. Progesterone previously found low, and associated with difficulties. CAH previously involved in difficulty concieving and loss. Discussed hypochlorhydria as possible etiology of reflux. Discussed HCl challenge, pt declined. Discussed DGL as demulscent to sooth and smooth esophagus, pt declined. 05/03/2024 Abnormal levels of other serum enzymes (ICD-10 - R74.8) This is a 28 yo female pt presenting in-office for ROF of recent labs, and to f/u on concerns of hypermobility. Results reviewed and discussed during the visit. Seen by different medical data analyst - told not to worry about elevations in clotting labs/factors. Has concern of hypermobility - states physical therapist believes she has hypermobility based on exam and assessment. Has not been seen by swine extension field specialist at [facility] in [place] (Kavin Walker) - was told they do not want to see her. {Displays hyermobility signs during physical exam - hands, legs.} New referral to be sent for evaluation and management of hypermobility disorder, suspicion of EDS. Pt to resume Vit A. Pt to resume inositol for hormone metabolism, lowering testosterone. Labs show: Factor VIII Antigen - 1.43 IU/mL Steroid Panel CAH Androstenedione: 277 ng/dL (H) 11-Deoxycortisol: 42 ng/dL Cortisol: 12.5 mcg/dL DHEA, unconjugated: 1160 ng/dL 17-Hydroxypregnenolon e: 451 ng/dL (H) Progesterone: Less than 0.1 ng/mL 17-Hydroxyprogesteron e: 121 ng/dL Testosterone, Total, LCMSMS: 66 ng/dL High-normal Deoxycorticosterone: Less than 16 Alk Phos Isoenzymes: Alk Phos Total 136 U/L H Alk Phos Intest 0 L Alk Phos Bone 69 H Alk Phos Liver 31 AlkpI Placental 0 Alk Phos Macro 0 Vitamin A 30 L Factor VIII Act 62 Prolactin 3.9 ng/mL DHEA-S 267 mcg/dL Protein, Total 8.1 H Alk Phos 145 H PT 11.4 sec INR 0.9 PTT 40.4 sec H 02/23/2024 Person consulting for explanation of examination or test findings (ICD-10 - Z71.2) This 28 yo female pt presenting in-office for ROF of recent labs. Results reviewed and discussed during the visit. Was in luteal phase of cycle when she went for labs. Feeling very tired. Doesn't really have an appetitite - comes and goes. Getting worse for a couple months. Has been taking oral iron BID. Random easy bruising. 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 Pool Hall Inspector concerned about Berrien's - retested cortisol with ACTH, DHEA-S - came back WNL. Has concern of hypermobility - states physical therapist believes she has hypermobility based on exam and assessment. Displays hyermobility signs during physical exam - hands, legs. 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 Pt referred to Medical Genetics for evaluation and treatment, genetic counseling for suspected hypermobility syndrome, with suspicion of EDS. Labs show: FSH, LH, prolactin WNL Androstenedione WNL 11 deoxycortisol WNL Cortisol 3.7 mcg/dL -- Low for AM DHEA, unconjugated 282 -- Low 17 Hydroxypregnenolone 45 ng/mL -- Low-normal/ WNL Progesterone 8.4 ng/mL 17 Hydroxyprogesterone WNL Testosterone WNL Deoxycorticosterone WNL Adrenal AB negative Vitamin D 25-OH, total 25 ng/mL -- Low Total testosterone and free testosterone WNL AMH WNL E2 WNL Homocysteine WNL (optimal) Potassium 3.5 -- low-normal/ WNL Alk phos 140 -- High All other elements of CMP WNL TSH and T4 WNL SHBG WNL Discussed results with pt. Recommended LMNT electrolytes. Pt to continue current treatment plan as is, including iron, fish oil, and Vitamin D, and take conservative, wait and see approach with hormone levels and Alk Phos. Labs ordered to monitor CAH steroid panel, and as f/u will investiagte ALP isoenzymes to further determine etiology of Alk Phos levels. Pt to f/u with medical office technology instructor. 02/23/2024 Abnormal levels of other serum enzymes (ICD-10 - R74.8) This 28 yo female pt presenting in-office for ROF of recent labs. Results reviewed and discussed during the visit. Was in luteal phase of cycle when she went for labs. Feeling very tired. Doesn't really have an appetitite - comes and goes. Getting worse for a couple months. Has been taking oral iron BID. Random easy bruising. 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 Pool Hall Inspector concerned about Berrien's - retested cortisol with ACTH, DHEA-S - came back WNL. Has concern of hypermobility - states physical therapist believes she has hypermobility based on exam and assessment. Displays hyermobility signs during physical exam - hands, legs. 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 Pt referred to Medical Genetics for evaluation and treatment, genetic counseling for suspected hypermobility syndrome, with suspicion of EDS. Labs show: FSH, LH, prolactin WNL Androstenedione WNL 11 deoxycortisol WNL Cortisol 3.7 mcg/dL -- Low for AM DHEA, unconjugated 282 -- Low 17 Hydroxypregnenolone 45 ng/mL -- Low-normal/ WNL Progesterone 8.4 ng/mL 17 Hydroxyprogesterone WNL Testosterone WNL Deoxycorticosterone WNL Adrenal AB negative Vitamin D 25-OH, total 25 ng/mL -- Low Total testosterone and free testosterone WNL AMH WNL E2 WNL Homocysteine WNL (optimal) Potassium 3.5 -- low-normal/ WNL Alk phos 140 -- High All other elements of CMP WNL TSH and T4 WNL SHBG WNL Discussed results with pt. Recommended LMNT electrolytes. Pt to continue current treatment plan as is, including iron, fish oil, and Vitamin D, and take conservative, wait and see approach with hormone levels and Alk Phos. Labs ordered to monitor CAH steroid panel, and as f/u will investiagte ALP isoenzymes to further determine etiology of Alk Phos levels. Pt to f/u with medical office technology instructor. 05/03/2024 Iron deficiency (ICD-10 - E61.1) This is a 28 yo female pt presenting in-office for ROF of recent labs, and to f/u on concerns of hypermobility. Results reviewed and discussed during the visit. Seen by different medical data analyst - told not to worry about elevations in clotting labs/factors. Has concern of hypermobility - states physical therapist believes she has hypermobility based on exam and assessment. Has not been seen by swine extension field specialist at [facility] in [place] (Kavin Walker) - was told they do not want to see her. {Displays hyermobility signs during physical exam - hands, legs.} New referral to be sent for evaluation and management of hypermobility disorder, suspicion of EDS. Pt to resume Vit A. Pt to resume inositol for hormone metabolism, lowering testosterone. Labs show: Factor VIII Antigen - 1.43 IU/mL Steroid Panel CAH Androstenedione: 277 ng/dL (H) 11-Deoxycortisol: 42 ng/dL Cortisol: 12.5 mcg/dL DHEA, unconjugated: 1160 ng/dL 17-Hydroxypregnenolon e: 451 ng/dL (H) Progesterone: Less than 0.1 ng/mL 17-Hydroxyprogesteron e: 121 ng/dL Testosterone, Total, LCMSMS: 66 ng/dL High-normal Deoxycorticosterone: Less than 16 Alk Phos Isoenzymes: Alk Phos Total 136 U/L H Alk Phos Intest 0 L Alk Phos Bone 69 H Alk Phos Liver 31 AlkpI Placental 0 Alk Phos Macro 0 Vitamin A 30 L Factor VIII Act 62 Prolactin 3.9 ng/mL DHEA-S 267 mcg/dL Protein, Total 8.1 H Alk Phos 145 H PT 11.4 sec INR 0.9 PTT 40.4 sec H 07/27/2024 Encounter for other general counseling and advice on procreation (ICD-10 - Z31.69) This is a 28 yo female pt presents in-office for ROF of recent labs, and with concerns about hormones and menstrual cycle. Results reviewed and discussed during the visit. Has gained 10 lbs in about 2 months. Heartburn again. Denies gas, bloating, or distention. Seeing pelvic floor therapist - cocnerned about hormone levels, ie estrogen. Cycles are completely strange . Cycles can be extra short or extra long - between 20-32 days. Spotting throughout entire cycle. Trying to get again - can't get . Labs reveal: PTH 48 N Alk Phos Bone 29.7 H CMP WNL Total alk phos improved into normal range. New labs to retest total alk phos as part of CMP, retest CBC, retest Iron panel to monitor ferritin levels and progress of oral iron supplementation, retest LH, FSH, AMH, estrogen and progesterone to investigate cycle irregularities, difficulty conceiving. Will also assess nutrients needed for fertility. Will also monitor thyroid. Will retest B Vitamins. Discussed cycle irregularity possibly d/t recent COVID infection, which pt admits to in April. Progesterone previously found low, and associated with difficulties. CAH previously involved in difficulty concieving and loss. Discussed hypochlorhydria as possible etiology of reflux. Discussed HCl challenge, pt declined. Discussed DGL as demulscent to sooth and smooth esophagus, pt declined. 10/12/2024 Vitamin A deficiency, unspecified (ICD-10 - [...] Pg, fractionated estrogens, prolactin, LH and FSH. 12/23/2024 Abnormal level of hormones in specimens from other organs, systems and tissues (ICD-10 - R89.1) 12/23/2024 Other specified irregular menstruation (ICD-10 - N92.5) 05/03/2024 Dietary counseling and surveillance (ICD-10 - Z71.3) This is a 28 yo female pt presenting in-office for ROF of recent labs, and to f/u on concerns of hypermobility. Results reviewed and discussed during the visit. Seen by different medical data analyst - told not to worry about elevations in clotting labs/factors. Has concern of hypermobility - states physical therapist believes she has hypermobility based on exam and assessment. Has not been seen by swine extension field specialist at [facility] in [place] (Kavin Aaron) - was told they do not want to see her. {Displays hyermobility signs during physical exam - hands, legs.} New referral to be sent for evaluation and management of hypermobility disorder, suspicion of EDS. Pt to resume Vit A. Pt to resume inositol for hormone metabolism, lowering testosterone. Labs show: Factor VIII Antigen - 1.43 IU/mL Steroid Panel CAH Androstenedione: 277 ng/dL (H) 11-Deoxycortisol: 42 ng/dL Cortisol: 12.5 mcg/dL DHEA, unconjugated: 1160 ng/dL 17-Hydroxypregnenolon e: 451 ng/dL (H) Progesterone: Less than 0.1 ng/mL 17-Hydroxyprogesteron e: 121 ng/dL Testosterone, Total, LCMSMS: 66 ng/dL High-normal Deoxycorticosterone: Less than 16 Alk Phos Isoenzymes: Alk Phos Total 136 U/L H Alk Phos Intest 0 L Alk Phos Bone 69 H Alk Phos Liver 31 AlkpI Placental 0 Alk Phos Macro 0 Vitamin A 30 L Factor VIII Act 62 Prolactin 3.9 ng/mL DHEA-S 267 mcg/dL Protein, Total 8.1 H Alk Phos 145 H PT 11.4 sec INR 0.9 PTT 40.4 sec H 07/27/2024 Dietary counseling and surveillance (ICD-10 - Z71.3) This is a 28 yo female pt presents in-office for ROF of recent labs, and with concerns about hormones and menstrual cycle. Results reviewed and discussed during the visit. Has gained 10 lbs in about 2 months. Heartburn again. Denies gas, bloating, or distention. Seeing pelvic floor therapist - cocnerned about hormone levels, ie estrogen. Cycles are completely strange . Cycles can be extra short or extra long - between 20-32 days. Spotting throughout entire cycle. Trying to get again - can't get . Labs reveal: PTH 48 N Alk Phos Bone 29.7 H CMP WNL Total alk phos improved into normal range. New labs to retest total alk phos as part of CMP, retest CBC, retest Iron panel to monitor ferritin levels and progress of oral iron supplementation, retest LH, FSH, AMH, estrogen and progesterone to investigate cycle irregularities, difficulty conceiving. Will also assess nutrients needed for fertility. Will also monitor thyroid. Will retest B Vitamins. Discussed cycle irregularity possibly d/t recent COVID infection, which pt admits to in April. Progesterone previously found low, and associated with difficulties. CAH previously involved in difficulty concieving and loss. Discussed hypochlorhydria as possible etiology of reflux. Discussed HCl challenge, pt declined. Discussed DGL as demulscent to sooth and smooth esophagus, pt declined. 10/12/2024 Dietary counseling and surveillance (ICD-10 - [...] Pg, fractionated estrogens, prolactin, LH and FSH. 02/23/2024 Postural orthostatic tachycardia syndrome [POTS] (ICD-10 - G90.A) This 28 yo female pt presenting in-office for ROF of recent labs. Results reviewed and discussed during the visit. Was in luteal phase of cycle when she went for labs. Feeling very tired. Doesn't really have an appetitite - comes and goes. Getting worse for a couple months. Has been taking oral iron BID. Random easy bruising. 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 Pool Hall Inspector concerned about Redd's - retested cortisol with ACTH, DHEA-S - came back WNL. Has concern of hypermobility - states physical therapist believes she has hypermobility based on exam and assessment. Displays hyermobility signs during physical exam - hands, legs. 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 Pt referred to Medical Genetics for evaluation and treatment, genetic counseling for suspected hypermobility syndrome, with suspicion of EDS. Labs show: FSH, LH, prolactin WNL Androstenedione WNL 11 deoxycortisol WNL Cortisol 3.7 mcg/dL -- Low for AM DHEA, unconjugated 282 -- Low 17 Hydroxypregnenolone 45 ng/mL -- Low-normal/ WNL Progesterone 8.4 ng/mL 17 Hydroxyprogesterone WNL Testosterone WNL Deoxycorticosterone WNL Adrenal AB negative Vitamin D 25-OH, total 25 ng/mL -- Low Total testosterone and free testosterone WNL AMH WNL E2 WNL Homocysteine WNL (optimal) Potassium 3.5 -- low-normal/ WNL Alk phos 140 -- High All other elements of CMP WNL TSH and T4 WNL SHBG WNL Discussed results with pt. Recommended LMNT electrolytes. Pt to continue current treatment plan as is, including iron, fish oil, and Vitamin D, and take conservative, wait and see approach with hormone levels and Alk Phos. Labs ordered to monitor CAH steroid panel, and as f/u will investiagte ALP isoenzymes to further determine etiology of Alk Phos levels. Pt to f/u with medical office technology instructor. 02/23/2024 Abnormal results of other endocrine function studies (ICD-10 - R94.7) This 28 yo female pt presenting in-office for ROF of recent labs. Results reviewed and discussed during the visit. Was in luteal phase of cycle when she went for labs. Feeling very tired. Doesn't really have an appetitite - comes and goes. Getting worse for a couple months. Has been taking oral iron BID. Random easy bruising. 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 Pool Hall Inspector concerned about Redd's - retested cortisol with ACTH, DHEA-S - came back WNL. Has concern of hypermobility - states physical therapist believes she has hypermobility based on exam and assessment. Displays hyermobility signs during physical exam - hands, legs. 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 Pt referred to Medical Genetics for evaluation and treatment, genetic counseling for suspected hypermobility syndrome, with suspicion of EDS. Labs show: FSH, LH, prolactin WNL Androstenedione WNL 11 deoxycortisol WNL Cortisol 3.7 mcg/dL -- Low for AM DHEA, unconjugated 282 -- Low 17 Hydroxypregnenolone 45 ng/mL -- Low-normal/ WNL Progesterone 8.4 ng/mL 17 Hydroxyprogesterone WNL Testosterone WNL Deoxycorticosterone WNL Adrenal AB negative Vitamin D 25-OH, total 25 ng/mL -- Low Total testosterone and free testosterone WNL AMH WNL E2 WNL Homocysteine WNL (optimal) Potassium 3.5 -- low-normal/ WNL Alk phos 140 -- High All other elements of CMP WNL TSH and T4 WNL SHBG WNL Discussed results with pt. Recommended LMNT electrolytes. Pt to continue current treatment plan as is, including iron, fish oil, and Vitamin D, and take conservative, wait and see approach with hormone levels and Alk Phos. Labs ordered to monitor CAH steroid panel, and as f/u will investiagte ALP isoenzymes to further determine etiology of Alk Phos levels. Pt to f/u with medical office technology instructor. 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 Results reviewed and discussed during the visit. Seen by different medical data analyst - told not to worry about elevations in clotting labs/factors. Has concern of hypermobility - states physical therapist believes she has hypermobility based on exam and assessment. Has not been seen by swine extension field specialist at [facility] in [place] (Kavin Rich) - was told they do not want to see her. {Displays hyermobility signs during physical exam - hands, legs.} New referral to be sent for evaluation and management of hypermobility disorder, suspicion of EDS. Pt to resume Vit A. Pt to resume inositol for hormone metabolism, lowering testosterone. Labs show: Factor VIII Antigen - 1.43 IU/mL Steroid Panel CAH Androstenedione: 277 ng/dL (H) 11-Deoxycortisol: 42 ng/dL Cortisol: 12.5 mcg/dL DHEA, unconjugated: 1160 ng/dL 17-Hydroxypregnenolon e: 451 ng/dL (H) Progesterone: Less than 0.1 ng/mL 17-Hydroxyprogesteron e: 121 ng/dL Testosterone, Total, LCMSMS: 66 ng/dL High-normal Deoxycorticosterone: Less than 16 Alk Phos Isoenzymes: Alk Phos Total 136 U/L H Alk Phos Intest 0 L Alk Phos Bone 69 H Alk Phos Liver 31 AlkpI Placental 0 Alk Phos Macro 0 Vitamin A 30 L Factor VIII Act 62 Prolactin 3.9 ng/mL DHEA-S 267 mcg/dL Protein, Total 8.1 H Alk Phos 145 H PT 11.4 sec INR 0.9 PTT 40.4 sec H 12/23/2024 Androgen excess (ICD-10 - E28.1) 02/23/2024 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 Results reviewed and discussed during the visit. Was in luteal phase of cycle when she went for labs. Feeling very tired. Doesn't really have an appetitite - comes and goes. Getting worse for a couple months. Has been taking oral iron BID. Random easy bruising. 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 Pool Hall Inspector concerned about Redd's - retested cortisol with ACTH, DHEA-S - came back WNL. Has concern of hypermobility - states physical therapist believes she has hypermobility based on exam and assessment. Displays hyermobility signs during physical exam - hands, legs. 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 Pt referred to Medical Genetics for evaluation and treatment, genetic counseling for suspected hypermobility syndrome, with suspicion of EDS. Labs show: FSH, LH, prolactin WNL Androstenedione WNL 11 deoxycortisol WNL Cortisol 3.7 mcg/dL -- Low for AM DHEA, unconjugated 282 -- Low 17 Hydroxypregnenolone 45 ng/mL -- Low-normal/ WNL Progesterone 8.4 ng/mL 17 Hydroxyprogesterone WNL Testosterone WNL Deoxycorticosterone WNL Adrenal AB negative Vitamin D 25-OH, total 25 ng/mL -- Low Total testosterone and free testosterone WNL AMH WNL E2 WNL Homocysteine WNL (optimal) Potassium 3.5 -- low-normal/ WNL Alk phos 140 -- High All other elements of CMP WNL TSH and T4 WNL SHBG WNL Discussed results with pt. Recommended LMNT electrolytes. Pt to continue current treatment plan as is, including iron, fish oil, and Vitamin D, and take conservative, wait and see approach with hormone levels and Alk Phos. Labs ordered to monitor CAH steroid panel, and as f/u will investiagte ALP isoenzymes to further determine etiology of Alk Phos levels. Pt to f/u with medical office technology instructor. 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 Results reviewed and discussed during the visit. Was in luteal phase of cycle when she went for labs. Feeling very tired. Doesn't really have an appetitite - comes and goes. Getting worse for a couple months. Has been taking oral iron BID. Random easy bruising. 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 Pool Hall Inspector concerned about Berrien's - retested cortisol with ACTH, DHEA-S - came back WNL. Has concern of hypermobility - states physical therapist believes she has hypermobility based on exam and assessment. Displays hyermobility signs during physical exam - hands, legs. 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 Pt referred to Medical Genetics for evaluation and treatment, genetic counseling for suspected hypermobility syndrome, with suspicion of EDS. Labs show: FSH, LH, prolactin WNL Androstenedione WNL 11 deoxycortisol WNL Cortisol 3.7 mcg/dL -- Low for AM DHEA, unconjugated 282 -- Low 17 Hydroxypregnenolone 45 ng/mL -- Low-normal/ WNL Progesterone 8.4 ng/mL 17 Hydroxyprogesterone WNL Testosterone WNL Deoxycorticosterone WNL Adrenal AB negative Vitamin D 25-OH, total 25 ng/mL -- Low Total testosterone and free testosterone WNL AMH WNL E2 WNL Homocysteine WNL (optimal) Potassium 3.5 -- low-normal/ WNL Alk phos 140 -- High All other elements of CMP WNL TSH and T4 WNL SHBG WNL Discussed results with pt. Recommended LMNT electrolytes. Pt to continue current treatment plan as is, including iron, fish oil, and Vitamin D, and take conservative, wait and see approach with hormone levels and Alk Phos. Labs ordered to monitor CAH steroid panel, and as f/u will investiagte ALP isoenzymes to further determine etiology of Alk Phos levels. Pt to f/u with medical office technology instructor. 02/23/2024 Other Consent obtained. Time spent preparing to see the patient: 7 min Appointment Start time: Cristobal Benites 02/23/2024 11:13:57 AM > End time: Cristobal Benites 02/23/2024 12:10:31 PM > Post appointment time documenting clinical information in the medical record & care coordination: 7 min Time Spent with Patient: 57 min Total Time: 71 min performing a medically appropriate examination and/or evaluation counseling and educating the patient on etiology, results, and management of health concerns ordering supplementatio ns, tests, or procedures and explaining risks, benefits, and alternatives This 28 yo female pt presenting in-office for ROF of recent labs. Results reviewed and discussed during the visit. Was in luteal phase of cycle when she went for labs. Feeling very tired. Doesn't really have an appetitite - comes and goes. Getting worse for a couple months. Has been taking oral iron BID. Random easy bruising. 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 Pool Hall Inspector concerned about Redd's - retested cortisol with ACTH, DHEA-S - came back WNL. Has concern of hypermobility - states physical therapist believes she has hypermobility based on exam and assessment. Displays hyermobility signs during physical exam - hands, legs. 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 Pt referred to Medical Genetics for evaluation and treatment, genetic counseling for suspected hypermobility syndrome, with suspicion of EDS. Labs show: FSH, LH, prolactin WNL Androstenedione WNL 11 deoxycortisol WNL Cortisol 3.7 mcg/dL -- Low for AM DHEA, unconjugated 282 -- Low 17 Hydroxypregnenolone 45 ng/mL -- Low-normal/ WNL Progesterone 8.4 ng/mL 17 Hydroxyprogesterone WNL Testosterone WNL Deoxycorticosterone WNL Adrenal AB negative Vitamin D 25-OH, total 25 ng/mL -- Low Total testosterone and free testosterone WNL AMH WNL E2 WNL Homocysteine WNL (optimal) Potassium 3.5 -- low-normal/ WNL Alk phos 140 -- High All other elements of CMP WNL TSH and T4 WNL SHBG WNL Discussed results with pt. Recommended LMNT electrolytes. Pt to continue current treatment plan as is, including iron, fish oil, and Vitamin D, and take conservative, wait and see approach with hormone levels and Alk Phos. Labs ordered to monitor CAH steroid panel, and as f/u will investiagte ALP isoenzymes to further determine etiology of Alk Phos levels. Pt to f/u with medical office technology instructor. 05/03/2024 Other Consent obtained. Time spent preparing to see the patient: 6 min Appointment Start time: Cristobal Benites 05/03/2024 03:11:56 PM EDT > End time: Cristobal Benites 05/03/2024 03:52:03 PM EDT > Post appointment time documenting clinical information in the medical record & care coordination: 6 min Total Time: 53 min performing a medically appropriate examination and/or evaluation counseling and educating the patient on etiology, results, and management of health concerns ordering supplementatio ns, tests, or procedures and explaining risks, benefits, and alternatives This is a 28 yo female pt presenting in-office for ROF of recent labs, and to f/u on concerns of hypermobility. Results reviewed and discussed during the visit. Seen by different medical data analyst - told not to worry about elevations in clotting labs/factors. Has concern of hypermobility - states physical therapist believes she has hypermobility based on exam and assessment. Has not been seen by swine extension field specialist at [facility] in [place] (Kavin Walker) - was told they do not want to see her. {Displays hyermobility signs during physical exam - hands, legs.} New referral to be sent for evaluation and management of hypermobility disorder, suspicion of EDS. Pt to resume Vit A. Pt to resume inositol for hormone metabolism, lowering testosterone. Labs show: Factor VIII Antigen - 1.43 IU/mL Steroid Panel CAH Androstenedione: 277 ng/dL (H) 11-Deoxycortisol: 42 ng/dL Cortisol: 12.5 mcg/dL DHEA, unconjugated: 1160 ng/dL 17-Hydroxypregnenolon e: 451 ng/dL (H) Progesterone: Less than 0.1 ng/mL 17-Hydroxyprogesteron e: 121 ng/dL Testosterone, Total, LCMSMS: 66 ng/dL High-normal Deoxycorticosterone: Less than 16 Alk Phos Isoenzymes: Alk Phos Total 136 U/L H Alk Phos Intest 0 L Alk Phos Bone 69 H Alk Phos Liver 31 AlkpI Placental 0 Alk Phos Macro 0 Vitamin A 30 L Factor VIII Act 62 Prolactin 3.9 ng/mL DHEA-S 267 mcg/dL Protein, Total 8.1 H Alk Phos 145 H PT 11.4 sec INR 0.9 PTT 40.4 sec H 07/27/2024 Other Consent obtained. Time spent preparing to see the patient: 5 min Appointment Start time: Cristobal Benites 07/27/2024 11:00:58 AM EDT > End time: Cristobal Benites 07/27/2024 11:30:38 AM EDT > Post appointment time documenting clinical information in the medical record & care coordination: 5 min Total Time: 40 min performing a medically appropriate examination and/or evaluation counseling and educating the patient on etiology, results, and management of health concerns ordering supplementatio ns, tests, or procedures and explaining risks, benefits, and alternatives This is a 28 yo female pt presents in-office for ROF of recent labs, and with concerns about hormones and menstrual cycle. Results reviewed and discussed during the visit. Has gained 10 lbs in about 2 months. Heartburn again. Denies gas, bloating, or distention. Seeing pelvic floor therapist - cocnerned about hormone levels, ie estrogen. Cycles are completely strange . Cycles can be extra short or extra long - between 20-32 days. Spotting throughout entire cycle. Trying to get again - can't get . Labs reveal: PTH 48 N Alk Phos Bone 29.7 H CMP WNL Total alk phos improved into normal range. New labs to retest total alk phos as part of CMP, retest CBC, retest Iron panel to monitor ferritin levels and progress of oral iron supplementation, retest LH, FSH, AMH, estrogen and progesterone to investigate cycle irregularities, difficulty conceiving. Will also assess nutrients needed for fertility. Will also monitor thyroid. Will retest B Vitamins. Discussed cycle irregularity possibly d/t recent COVID infection, which pt admits to in April. Progesterone previously found low, and associated with difficulties. CAH previously involved in difficulty concieving and loss. Discussed hypochlorhydria as possible etiology of reflux. Discussed HCl challenge, pt declined. Discussed DGL as demulscent to sooth and smooth esophagus, pt declined. 10/12/2024 Other Consent obtained. Time spent preparing [...] results, and management of health concerns ordering supplementatio ns, tests, or procedures and explaining risks, benefits, [...] prolactin, LH and FSH. Plan Of Treatment Pending Test Test Name Order Date DEXA 05/03/2024 IRON, TIBC AND FERRITIN PANEL 05/03/2024 IRON, TIBC AND FERRITIN PANEL 07/27/2024 IRON, TIBC AND FERRITIN PANEL 12/12/2022 IRON, TIBC AND FERRITIN PANEL 06/19/2023 IRON, TIBC AND FERRITIN PANEL 02/23/2024 IRON, TIBC AND FERRITIN PANEL 12/12/2023 PROTHROMBIN W/INR + PARTIAL THROMBOPLAST IN TIMES 12/12/2023 PROTHROMBIN W/INR + PARTIAL THROMBOPLAST IN TIMES 02/23/2024 COMPLEMENT COMP C3 + C4 12/12/2022 FSH AND LH 07/27/2024 FSH AND LH 06/12/2022 FSH AND LH 12/12/2023 THYROID PEROXIDASE AND THYROGLOBULIN ANT IBODIES 06/12/2022 TESTOSTERONE, TOTAL AND FREE AND SEX HOR ALEX BINDING GLOBULIN 06/12/2022 TESTOSTERONE, TOTAL AND FREE AND SEX HOR ALEX BINDING GLOBULIN 06/19/2023 TESTOSTERONE, TOTAL AND FREE AND SEX HOR ALEX BINDING GLOBULIN 12/12/2023 TESTOSTERONE, TOTAL AND FREE AND SEX HOR ALEX BINDING GLOBULIN 12/23/2024 ESTROGENS, FRACTIONATED, LC/MS/MS 2023 ESTROGENS, FRACTIONATED, LC/MS/MS 2021 ALDOSTERONE/PLASMA RENIN ACTIVITY RATIO, LC/MS/MS 02/23/2024 COMPREHENSIVE METABOLIC PANEL 06/19/2023 COMPREHENSIVE METABOLIC PANEL 02/23/2024 COMPREHENSIVE METABOLIC PANEL 06/12/2022 COMPREHENSIVE METABOLIC PANEL 07/27/2024 COMPREHENSIVE METABOLIC PANEL 12/12/2023 LD 06/12/2022 GGT 06/12/2022 URIC ACID 06/12/2022 CBC (INCLUDES DIFF/PLT) 06/12/2022 CBC (INCLUDES DIFF/PLT) 07/27/2024 CBC (INCLUDES DIFF/PLT) 06/19/2023 CBC (INCLUDES DIFF/PLT) 02/23/2024 CBC (INCLUDES DIFF/PLT) 12/12/2023 FIBRINOGEN ACTIVITY, CLAUSS 07/17/2022 PROTHROMBIN TIME-INR 07/17/2022 RHEUMATOID FACTOR 12/12/2022 CYCLIC CITRULLINATED PEPTIDE (CCP) AB (I GG) 12/12/2022 THYROID PEROXIDASE ANTIBODIES 12/12/2023 HARDEEP IFA SCREEN W/REFL TO TITER AND PATTE RN, IFA 12/12/2022 CARDIO IQ(TM) HEMOGLOBIN A1c 06/12/2022 CARDIO IQ(TM)HOMOCYSTEINE CARDIOVASCULAR 06/12/2022 CARDIO IQ(TM)HOMOCYSTEINE CARDIOVASCULAR 12/12/2023 ACTH, PLASMA 02/23/2024 PROGESTERONE 07/27/2024 PROGESTERONE 12/12/2022 PROGESTERONE 06/12/2022 PROGESTERONE 12/12/2023 DHEA SULFATE 06/12/2022 DHEA SULFATE 02/23/2024 VITAMIN B12/FOLATE, SERUM PANEL 07/27/20 VITAMIN B12/FOLATE, SERUM PANEL 06/12/20 VITAMIN B12/FOLATE, SERUM PANEL 12/12/19 PROLACTIN 12/12/2023 PROLACTIN 06/12/2022 PROLACTIN 02/23/2024 FOLATE, RBC 07/27/2024 T4, FREE 06/12/2022 CORTISOL, A.M. 12/12/2023 T3 UPTAKE 06/12/2022 TSH 06/12/2022 T3, FREE 06/12/2022 T3, FREE 07/27/2024 T3, FREE 12/12/2023 PTH, INTACT (WITHOUT CALCIUM) 05/03/2024 IODINE, SERUM/PLASMA 06/12/2022 NATURAL KILLER CELLS, FUNCTIONAL 022 METHYLMALONIC ACID 06/12/2022 PREGNENOLONE, LC/MS/MS 06/12/2022 ESTRADIOL, ULTRASENSITIVE LC/MS/MS 12/12 ALKALINE PHOSPHATASE, BONE SPECIFIC 04/24 VITAMIN A 07/27/2024 VITAMIN A 02/23/2024 VITAMIN A 06/12/2022 VITAMIN B6 06/12/2022 VITAMIN B2 (RIBOFLAVIN), PLASMA 06/12/20 22 VITAMIN K 07/17/2022 ZINC, RBC 06/12/2022 17 HYDROXYPROGESTERONE, LC/MS/MS 025 17 HYDROXYPROGESTERONE, LC/MS/MS 024 ANDROSTENEDIONE, LC/MS/MS 12/12/2023 CARDIO IQ(TM) VITAMIN D, 25 HYDROXY, LC/ MS/MS 12/12/2023 CARDIO IQ(TM) VITAMIN D, 25 HYDROXY, LC/ MS/MS 07/17/2022 CARDIO IQ(TM) VITAMIN D, 25 HYDROXY, LC/ MS/MS 12/12/2022 SELENIUM, RBC 07/17/2022 SELENIUM, RBC 06/12/2022 T3 REVERSE, LC/MS/MS 06/12/2022 VITAMIN D 25 OH 07/27/2024 VITAMIN D 25 OH 02/23/2024 CARDIO IQ(R) ADVANCED LIPID PANEL AND IN FLAMMATION PANEL 06/12/2022 ANTI-MULLERIAN HORMONE ([facility]), FEMALE ANTI-MULLERIAN HORMONE ([facility]), FEMALE 01/2024 ANTI-MULLERIAN HORMONE ([facility]), FEMALE CORTISOL, LC/MS, SALIVA, 3 SAMPLES 06/12 CARDIO IQ(R) INSULIN RESISTANCE PANEL WI TH SCORE 06/12/2022 TSH+FREE T4 12/12/2023 TSH+FREE T4 07/27/2024 Next Appt Details [facility] 01/25/[facility]25 12:30:00 PM, [address] [place] [address], [place], [place], [phone], Insurance Providers Payer Name Payer Address Payer Phone Subscriber Number Group Number Insured Name Patient Relationship to Insured Coverage Start Date Coverage End Date [facility] [address] [place], [place] [phone] [id number] Jeff Do Self - patient is the insured Medical (General) History Medical History History ICD Code Tethered Spinal Cord Recurrent Miscarriages Hx [place] Surgical History Surgery Date(Month/Year) spinal surgery 2016 [facility] [place] 10/2021 Hospitalization History Reason Date(Month/Year) 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
--- OUTSIDE RECORDS SUMMARY | 2025-01-17 14:36 | XMS_ITS ---
Author Organization [facility] Address [address] [place] [phone] Care Team Providers Care Associate Sales Manager Name Role Phone Cristobal Benites Unavailable [phone] Brenda Wilkins Unavailable [phone] REASON FOR VISIT Tests not performed Encounters Encounter Location Date Provider Diagnosis [address] [id number] 12/23/2024 Brenda Wilkins Abnormal level of hormones in specimens from female genital organs R87.1 ; Abnormal levels of other serum enzymes R74.8 ; Abnormal level of hormones in specimens from other organs, systems and tissues R89.1 ; Other specified irregular menstruation N92.5 and Androgen excess E28.1 Assessments Encounter Date Diagnosis (ICD Code) Assessment Notes Treatment Notes Treatment Clinical Notes Section Notes 12/23/2024 Abnormal level of hormones in specimens from female genital organs (ICD-10 - R87.1) 12/23/2024 Abnormal levels of other serum enzymes (ICD-10 - R74.8) 12/23/2024 Abnormal level of hormones in specimens from other organs, systems and tissues (ICD-10 - R89.1) 12/23/2024 Other specified irregular menstruation (ICD-10 - N92.5) 12/23/2024 Androgen excess (ICD-10 - E28.1) Plan Of Treatment Pending Test Test Name Order Date TESTOSTERONE, TOTAL AND FREE AND SEX HOR ALEX BINDING GLOBULIN 12/23/2024 17 HYDROXYPROGESTERONE, LC/MS/MS 025 Next Appt Details Provider Name:Cristobal Moreno [facility] [place], 01/25/2025 12:30:00 PM, [address] [facility], [place], [place], [phone], Progress Notes * Ning CASASaDOB:03/1995 (29 yo F)Acc No.[id number]:12/23/2024 Patient:?Ning CASAS :1995???Age:29 Y???Sex:Female Address:[address] [place] [address] , [place] [address] Subjective: * Chief Complaints: * ???Tests not performed * Medical History:? * Surgical History:? * Hospitalization/Major Diagno stic Procedure:? * Medications:? Objective: * Vitals:? * Physical Examination:? Assessment: * Assessment: 1.?Abnormal level of hormone s in specimens from female genital organs - R87.1???2.?Abnormal levels of other serum enzymes - R74.8???3.?Abnormal level of hormones in specimens from other organs, systems and tissues - R89.1???4.?Other specified irregular menstruation - N92.5???5.?Androgen excess - E28.1??? Plan: * Treatment: 2.?Abnormal levels of other serum enzymes?LAB: TESTOSTERONE, TOTAL AND FREE AND SEX HORMONE BINDING GLOBULIN ?LAB: 17 HYDROXYPROGESTERONE, LC/MS/MS 3.?Abnormal level of hormone s in specimens from other organs, systems and tissues?LAB: TESTOSTERONE, TOTAL AND FREE AND SEX HORMONE BINDING GLOBULIN ?LAB: 17 HYDROXYPROGESTERONE, LC/MS/MS 4.?Other specified irregular menstruation?LAB: TESTOSTERONE, TOTAL AND FREE AND SEX HORMONE BINDING GLOBULIN ?LAB: 17 HYDROXYPROGESTERONE, LC/MS/MS 5.?Androgen excess?LAB: TESTOSTERONE, TOTAL AND FREE AND SEX HORMONE BINDING GLOBULIN ?LAB: 17 HYDROXYPROGESTERONE, LC/MS/MS * Procedure Codes:? * true * Date:? Generated for Printi ng/Faarmindag/eTransmitting on:?01/17/2025 02:35 PM EST
[2025-01-18 08:38] LABS: Progesterone Immunoassay 26.7 ng/mL
== END 2025-01-17 12:53 | disposition home or self-care (01) ==
LOC: HO.LAB 12:52
PROVIDERS: Visit Provider Naturopath
DX: R87.1 Abnormal level of hormones in specimens from female genital organs (principal); R94.7 Abnormal results of other endocrine function studies; R89.1 Abnormal level of hormones in specimens from other organs, systems and tissues; E28.1 Androgen excess; N92.6 Irregular menstruation, unspecified; R89.9 Unspecified abnormal finding in specimens from other organs, systems and tissues
CPT/HCPCS: 36415; 84144

== ENCOUNTER 2025-01-26 15:46 | Outpatient (REF) | payer OTHER, SELFPAY ==
--- OUTSIDE RECORDS SUMMARY | 2025-01-26 18:59 | XMS_ITS ---
Author Organization [facility] Address [address] [place] [phone] Care Team Providers Care Health Services Coordinator Name Role Phone Cristobal Benites Unavailable [phone] REASON FOR VISIT ROF Encounters Encounter Location Date Provider Diagnosis [address] [id number] 01/04/2025 Cristobal Benites Plan Of Treatment Next Appt Details Provider Name:Cristobal Moreno [facility] [place], 06/27/2025 03:30:00 PM, [address] [place] [address], [phone], Progress Notes * Gisselle CASASB:03/1995 (29 yo F)Acc No.[id number]:01/04/2025 Progress Notes Patient:?LILLYYVONNE Ning a Provider:?Cristobal Benites ND :1995???Age:29 Y???Sex:Female D ate:01/04/2025 Address:[address] [id number] Subjective: * Chief Complaints: * ???1. ROF. * Medical History:? Objective: * Vitals:? Assessment: Plan: * Treatment: * * Electronic signature of Cheli Benites ND on 01/26/2025 at 06:59 PM EST Sign off status: Pending * Provider:?Cristobal Benites ND Date:?09/2025 Generated for Kaitlin ding/Shanthi/Annelise on:?01/26/2025 06:59 PM EST
--- OUTSIDE RECORDS SUMMARY | 2025-01-26 18:59 | XMS_ITS ---
Author Organization [address] [phone] Care Team Providers Care Network/Telecom Engineer Name Role Phone Cristobal Benites Unavailable [phone] Allergies No Known Allergies REASON FOR VISIT ROV Medications Medication SIG (Take, Route, Frequency, Duration) Notes Start Date End Date Status Progesterone Unknown Encounters Encounter Location Date Provider Diagnosis [address] [id number] 01/25/2025 Cristobal Benites Irregular menstruation, unspecified N92.6 ; Abnormal level of hormones in specimens from other organs, systems and tissues R89.1 ; Other specified irregular menstruation N92.5 ; Recurrent loss N96 ; Unspecified abnormal finding in specimens from other organs, systems and tissues R89.9 ; Abnormal level of hormones in specimens from female genital organs R87.1 and care for patient with recurrent loss, first trimester O26.21 Assessments Encounter Date Diagnosis (ICD Code) Assessment Notes Treatment Notes Treatment Clinical Notes Section Notes 01/25/2025 Irregular menstruation, unspecified (ICD-10 - N92.6) ... patient presents to review symptoms. 01/25/2025 Abnormal level of hormones in specimens from other organs, systems and tissues (ICD-10 - R89.1) ... patient presents to review symptoms. 01/25/2025 Other specified irregular menstruation (ICD-10 - N92.5) ... patient presents to review symptoms. 01/25/2025 Recurrent loss (ICD-10 - N96) ... patient presents to review symptoms. 01/25/2025 Unspecified abnormal finding in specimens from other organs, systems and tissues (ICD-10 - R89.9) ... patient presents to review symptoms. 01/25/2025 Abnormal level of hormones in specimens from female genital organs (ICD-10 - R87.1) ... patient presents to review symptoms. 01/25/2025 care for patient with recurrent loss, first trimester (ICD-10 - O26.21) ... patient presents to review symptoms. 01/25/2025 Other Consent obtained. Time spent preparing to see the patient: Appointment Start time: End time: Post appointment time documenting clinical information in the medical record & care coordination: Total Time: performing a medically appropriate examination and/or evaluation counseling and educating the patient on etiology, results, and management of health concerns ordering supplementations , tests, or procedures and explaining risks, benefits, and alternatives ... patient presents to review symptoms. Plan Of Treatment Pending Test Test Name Order Date PROGESTERONE 01/25/2025 ESTRADIOL, ULTRASENSITIVE LC/MS/MS 01/25 Next Appt Details [facility], [facility] 03:30:00 PM, [address] [place] [address], [phone], Progress Notes * Ning CASASaDOB:03/1995 (29 yo F)Acc No.[id number]:01/25/2025 Progress Notes Patient:?Ning CASAS Provider:?Cristobal Benites ND :1995???Age:29 Y???Sex:Female D ate:01/25/2025 Address:[address] [place] [address] [facility] Subjective: * Chief Complaints: * ???1. ROV. * HPI: ???CC1:? CC// ROF labs, menstrual concerns ___ 01/25/2025 Cristobal Benites 01/25/2025 12:43:01 PM EST > Cristobal Benites 01/25/2025 01:06:02 PM EST > This pt presents in-office for ROF of recent labs. Results reviewed and discussed during the visit. 6 weeks . Glove Finisher wants to resume hydrocortisone. Using topical progesterone oil. ___ 10/12/2024 Kamari Cristobal Awais 10/12/2024 03:03:05 PM EST > Cristobal Benites [...] love job lives with: . ???Care Team:? 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 ???Supplements:? -conception eu natural omega 3-omega 3 triple strength hailey ascencio immune support -sheer strength labs. * ROS:?General/Constitutional:?Patient denies?fever , chills?.?Respiratory:?Patient denies?shortness of breath , cough.?Cardiovascular:?Patient denies?chest pain, fluid accumulation in the legs.?Gastrointestinal:?Patient denies?rectal bleeding, change in stools.?Neurologic:?Patient denies?difficulty speaking , loss of strength.? * Medical History:?Tethered Sp inal Cord, Recurrent Miscarriages, Hx [place]. * OB History:?Total pregnancies?14.?Total living children?1.?Miscarriage(s)?13.? * Surgical History:?spinal jerry mohinder 2016, [facility] 10/2021. * Hospitalization/Major Diagno stic Procedure:?See BURR SANDER - miscarriages . * Family History:?No Family Hi story documented..? * Social History:?denies tobacco, alcohol, drug use. * Medications:?Unknown Progest erone , Medication List reviewed and reconciled with the patient * Allergies:?N.K.D.A. Objective: * Vitals:? * Examination: ???General Examination: [...] intact, gait normal.?PSYCH:?alert, oriented.? Assessment: * Assessment: 1.?Irregular menstruation, u nspecified - N92.6???2.?Abnormal level of hormones in specimens from other organs, systems and tissues - R89.1???3.?Other specified irregular menstruation - N92.5???4.?Recurrent loss - N96? ?5.?Unspecified abnormal finding in specimens from other organs, systems and tissues - R89.9???6.?Abnormal level of hormones in specimens from female genital organs - R87.1???7.? care for patient with recurrent loss, first trimester - O26.21??? ... patient presents to review symptoms. Plan: * Treatment: 2.?Abnormal level of hormone s in specimens from other organs, systems and tissues?LAB: PROGESTERONE ?LAB: ESTRADIOL, ULTRASENSITIVE LC/MS/MS 3.?Other specified irregular menstruation?LAB: PROGESTERONE ?LAB: ESTRADIOL, ULTRASENSITIVE LC/MS/MS 4.?Recurrent loss?LAB: PROGESTERONE ?LAB: ESTRADIOL, ULTRASENSITIVE LC/MS/MS 5.?Unspecified abnormal find ing in specimens from other organs, systems and tissues?LAB: PROGESTERONE ?LAB: ESTRADIOL, ULTRASENSITIVE LC/MS/MS 6.?Abnormal level of hormone s in specimens from female genital organs?LAB: PROGESTERONE ?LAB: ESTRADIOL, ULTRASENSITIVE LC/MS/MS 7.? care for patien t with recurrent loss, first trimester?LAB: PROGESTERONE ?LAB: ESTRADIOL, ULTRASENSITIVE LC/MS/MS 8.?Others? Clinical Notes: Consent obtained. Time spent preparing to see the patient: Appointment Start time: End time: Post appointment time documenting clinical information in the medical record &care coordination: Total Time: performing a medically appropriate examination and/or evaluation counseling and educating the patient on etiology, results, and management of health concerns ordering supplementations, tests, or procedures and explaining risks, benefits, and alternatives ?? * Preventive Medicine:?Congratulations!!!! This is great news!!! I am very happy for you!!! Labs ordered to test Prgesterone, Estradiol. ___ Supplements: Continue: - Inositol Powder: Take 2 teaspoons 1-4x daily, can take in divded doses. Can sip slowly throughout the day, or take doses at one time. Safe during . Calming, so may help with sleep. * * Electronic signature of Cheli shaikh BRIDGET Benites on 01/26/2025 at 06:59 PM EST Sign off status: Pending * Provider:?Cristobal Benites ND Date:?02/2025 Generated for Kaitlin ding/Shanthi/Anselmoitting on:?01/26/2025 06:59 PM EST History and Physical Notes * HPI (History of Present Illness) Category Sub-Category Detail Notes Category Not es Supplements -conception eu natural omega 3-omega 3 triple strength ashwagandha black cohosh immune support -sheer strength labs Examination Category [...]
--- OUTSIDE RECORDS SUMMARY | 2025-01-26 18:59 | XMS_ITS ---
Author Organization [facility] Address [address] [place] [phone] Care Team Providers Care Welding Rod Coater Name Role Phone Cristobal Benites Unavailable [phone] Brenda Wilkins Unavailable [phone] REASON FOR VISIT Tests not performed Encounters Encounter Location Date Provider Diagnosis [address] [id number] 12/23/2024 Brenda Wilkins Abnormal level of hormones [...] 025 Next Appt Details Provider Name:Cristobal Moreno [facility] [place]/2025 03:30:00 PM, [address] [facility], [place], [place], [phone], Progress Notes * Ning CASASaDOB:03/1995 (29 yo F)Acc No.[id number]:12/23/2024 Patient:?Ning CASAS :1995???Age:29 Y???Sex:Female Address:[address] [place] [address] , [place] [address] Subjective: * Chief Complaints: * ???Tests not [...] * true * Date:? Generated for Printi toña/Faarmindag/eTransmitting on:?01/26/2025 06:59 PM EST
[2025-01-27 17:04] LABS: Progesterone Immunoassay 23.4 ng/mL
[2025-02-04 00:03] LABS: Estradiol Ultra Sensitive 1177 pg/mL
== END 2025-01-26 15:47 | disposition home or self-care (01) ==
LOC: HO.LAB 15:46
PROVIDERS: PCP Internal Medicine; Visit Provider Naturopath
DX: R89.1 Abnormal level of hormones in specimens from other organs, systems and tissues (principal); N92.6 Irregular menstruation, unspecified; R87.1 Abnormal level of hormones in specimens from female genital organs; R94.7 Abnormal results of other endocrine function studies; N92.5 Other specified irregular menstruation; N96 Recurrent pregnancy loss; R89.9 Unspecified abnormal finding in specimens from other organs, systems and tissues
CPT/HCPCS: 36415; 82670; 84144

== ENCOUNTER 2025-02-02 16:17 | Outpatient (REF) | payer OTHER, SELFPAY ==
--- OUTSIDE RECORDS SUMMARY | 2025-02-02 18:34 | XMS_ITS ---
Author Organization [facility] Address [address] [place] [phone] Care Team Providers Care Furnace Installer Helper Name Role Phone Cristobal Benites Unavailable [phone] REASON FOR VISIT ROF Encounters Encounter Location Date Provider Diagnosis [address] [id number] 01/04/2025 Cristobal Benites Plan Of Treatment Next Appt Details Provider Name:Cristobal Moreno [facility] [place], 06/27/2025 03:30:00 PM, [address] [place] [address], [phone], Progress Notes * Gisselle CASASB:03/1995 (29 yo F)Acc No.[id number]:01/04/2025 Progress Notes Patient:?LILLYYVONNE Ning a Provider:?Cristobal Benites ND :1995???Age:29 Y???Sex:Female D ate:01/04/2025 Address:[address] [id number] Subjective: * Chief Complaints: * ???1. ROF. * Medical History:? Objective: * Vitals:? Assessment: Plan: * Treatment: * * Electronic signature of Cheli Benites ND on 02/02/2025 at 06:34 PM EDT Sign off status: Pending * Provider:?Cristobal Benites ND Date:?02/ 09/2025 Generated for Kaitlin ding/Shanthi/Annelise on:?02/02/2025 06:34 PM EDT
--- OUTSIDE RECORDS SUMMARY | 2025-02-02 18:34 | XMS_ITS ---
Author Organization [address] [phone] Care Team Providers Care Sash Clamp Operator Name Role Phone Cristobal Benites Unavailable [phone] Allergies No Known Allergies REASON FOR VISIT ROF labs, Medications Medication SIG (Take, Route, Frequency, Duration) Notes Start Date End Date Status Progesterone Unknown Encounters Encounter Location Date Provider Diagnosis [address] [id number] 01/25/2025 Cristobal Benites care for patient with recurrent loss, first trimester O26.21 ; Other insomnia G47.09 ; Person consulting for explanation of examination or test findings Z71.2 and Dietary counseling and surveillance Z71.3 Assessments Encounter Date Diagnosis (ICD Code) Assessment Notes Treatment Notes Treatment Clinical Notes Section Notes 01/25/2025 care for patient with recurrent loss, first trimester (ICD-10 - O26.21) This is a 29 yo female pt presenting in-office for ROF of recent labs. Results reviewed and discussed during the visit. 6 weeks . Lead C Developer wants to resume hydrocortisone. Using topical progesterone oil. Labs reveal FSH, LH, prolactin, progesterone, estradiol, estrone, estriol, testosterone, free and total all WNL. High normal testosterone likely d/t . Improved progesterone levels likely aiding in . Discussed safe nutrients to promote calming for sleep during . Discussed and recommended resuming inositol for calming, insulin sensitivity, reduce risk of , and reduce risk of neural tube defect. 01/25/2025 Other insomnia (ICD-10 - G47.09) This is a 29 yo female pt presenting in-office for ROF of recent labs. Results reviewed and discussed during the visit. 6 weeks . Lead C Developer wants to resume hydrocortisone. Using topical progesterone oil. Labs reveal FSH, LH, prolactin, progesterone, estradiol, estrone, estriol, testosterone, free and total all WNL. High normal testosterone likely d/t . Improved progesterone levels likely aiding in . Discussed safe nutrients to promote calming for sleep during . Discussed and recommended resuming inositol for calming, insulin sensitivity, reduce risk of , and reduce risk of neural tube defect. 01/25/2025 Person consulting for explanation of examination or test findings (ICD-10 - Z71.2) This is a 29 yo female pt presenting in-office for ROF of recent labs. Results reviewed and discussed during the visit. 6 weeks . Lead C Developer wants to resume hydrocortisone. Using topical progesterone oil. Labs reveal FSH, LH, prolactin, progesterone, estradiol, estrone, estriol, testosterone, free and total all WNL. High normal testosterone likely d/t . Improved progesterone levels likely aiding in . Discussed safe nutrients to promote calming for sleep during . Discussed and recommended resuming inositol for calming, insulin sensitivity, reduce risk of , and reduce risk of neural tube defect. 01/25/2025 Dietary counseling and surveillance (ICD-10 - Z71.3) This is a 29 yo female pt presenting in-office for ROF of recent labs. Results reviewed and discussed during the visit. 6 weeks . Lead C Developer wants to resume hydrocortisone. Using topical progesterone oil. Labs reveal FSH, LH, prolactin, progesterone, estradiol, estrone, estriol, testosterone, free and total all WNL. High normal testosterone likely d/t . Improved progesterone levels likely aiding in . Discussed safe nutrients to promote calming for sleep during . Discussed and recommended resuming inositol for calming, insulin sensitivity, reduce risk of , and reduce risk of neural tube defect. 01/25/2025 Other Consent obtained. Time spent preparing to see the patient: 7 min Appointment Start time: Cristobal Benites 01/25/2025 12:43:01 PM EST > End time: Cristobal Benites 01/25/2025 01:06:02 PM EST > Post appointment time documenting clinical information in the medical record & care coordination: 5 min Total Time: 35 min performing a medically appropriate examination and/or evaluation counseling and educating the patient on etiology, results, and management of health concerns ordering supplementation s, tests, or procedures and explaining risks, benefits, and alternatives This is a 29 yo female pt presenting in-office for ROF of recent labs. Results reviewed and discussed during the visit. 6 weeks . Lead C Developer wants to resume hydrocortisone. Using topical progesterone oil. Labs reveal FSH, LH, prolactin, progesterone, estradiol, estrone, estriol, testosterone, free and total all WNL. High normal testosterone likely d/t . Improved progesterone levels likely aiding in . Discussed safe nutrients to promote calming for sleep during . Discussed and recommended resuming inositol for calming, insulin sensitivity, reduce risk of , and reduce risk of neural tube defect. Plan Of Treatment Pending Test Test Name Order Date PROGESTERONE 01/25/2025 ESTRADIOL, ULTRASENSITIVE LC/MS/MS 01/25 Next Appt Details Follow Up: 4 Months, Reason: f/u [facility] 03:30:00 PM, [address] [place] [address], [phone], Progress Notes * LILLYJOVITANing ENGaDOB:03/1995 (29 yo F)Acc No.[id number]:01/25/2025 Progress Notes Patient:?Ning CASAS Provider:?Cristobal Benites ND :1995???Age:29 Y???Sex:Female D ate:01/25/2025 Address:[address] [place] [address] [address] [facility] Subjective: * Chief Complaints: * ???ROF labs, * HPI: ???CC1:? CC// ROF labs, ___ 01/25/2025 Cristobal Benites 01/25/2025 12:43:01 PM EST > Cristobal Benites 01/25/2025 01:06:02 PM EST > This pt presents in-office for ROF of recent labs. Results reviewed and discussed during the visit. 6 weeks . Lead C Developer wants to resume hydrocortisone. Using topical progesterone oil. ???Digestion:? BMs: 1/day denies reflux, bloating, pain. ???Sleep:? 7 hrs/night energy: can be tired. ???Diet/Exercise:? wide variety, homemade foods 3 meals, will have candy for low blood sugar caffeine: make sleepy water: adequate etoh: none exercise: 12,000 steps daily. ???Lifestyle:? 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 ???Care Team:? senior manufacturing technician-[place] chiropractor-[facility] hoffman. ???Supplements:? -conception eu natural omega 3-omega 3 triple strength debiadalbertolance ascencio immune support -sheer strength labs. * ROS:?General/Constitutional:?Patient denies?fever , chills?.?Patient complaining of?sleep disturbance,difficulty staying asleep.?Respiratory:?Patient denies?shortness of breath , cough.?Cardiovascular:?Patient denies?chest pain, fluid accumulation in the legs.?Gastrointestinal:?Patient denies?rectal bleeding, change in stools.?Neurologic:?Patient denies?difficulty speaking , loss of strength.? * Medical History:? * OB History:?Total pregnancies?14.?Total living children?1.?Miscarriage(s)?13.? * Surgical History:?spinal jerry mohinder 2016[facility] [place] * Hospitalization/Major Diagno stic Procedure:?See DIRECTOR STUDENT UNION - miscarriages * Family History:?No Family Hi [...] intact, gait normal.?PSYCH:?alert, oriented.? Assessment: * Assessment: 1.?Other insomnia - G47.09 ( Primary)???2.? care for patient with recurrent loss, first trimester - O26.21???3.?Person consulting for explanation of examination or test findings - Z71.2???4.?Dietary counseling and surveillance - Z71.3??? This is a 29 yo female pt pr esenting in-office for ROF of recent labs. Results reviewed and discussed during the visit. 6 weeks . Lead C Developer wants to resume hydrocortisone. Using topical progesterone oil. Labs reveal FSH, LH, prolactin, progesterone, estradiol, estrone, estriol, testosterone, free and total all WNL. High normal testosterone likely d/t . Improved progesterone levels likely aiding in .? Discussed safe nutrients to promote calming for sleep during . Discussed and recommended resuming inositol for calming, insulin sensitivity, reduce risk of , and reduce risk of neural tube defect. Plan: * Treatment: 2.?Others? Clinical Notes: Consent obtained. Time spent preparing to see the patient: 7 min Appointment Start time: Cristobal Benites 01/25/2025 12:43:01 PM EST > End time: Cristobal Benites 01/25/2025 01:06:02 PM EST > Post appointment time documenting clinical information in the medical record &care coordination: 5 min Total Time: 35 min performing a medically appropriate examination and/or evaluation counseling and educating the patient on etiology, results, and management of health concerns ordering supplementations, tests, or procedures and explaining risks, benefits, and alternatives ?? * Procedure Codes:? * Preventive Medicine:?Congratulations!!!! This is great news!!! I am very happy for you!!! Labs ordered to test Prgesterone, Estradiol. ___ Supplements: Continue: - Inositol Powder: Take 2 teaspoons 1-4x daily, can take in divded doses. Can sip slowly throughout the day, or take doses at one time. Safe during . Calming, so may help with sleep. * Follow Up:?4 Months (Reason: f/u) * * Sign off status: Completed true * Provider:Malcolm Benites ND Date:?02/2025 Generated for Kaitlin ding/Shanthi/Anselmoitting on:?02/02/2025 06:34 PM EDT History and Physical Notes * HPI (History [...]
--- OUTSIDE RECORDS SUMMARY | 2025-02-02 18:34 | XMS_ITS | Patient Health Record ---
Author Organization [facility] Address [address] [place] [phone] Care Team Providers Care Supervisor Plasma Name Role Phone Cristobal Benites Unavailable [phone] Brenda Wilkins Unavailable [phone] Allergies No Known Allergies Reason For Referral Reason For evaluation and t reatment of hypermobility disorder. 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 Problem Coagulation disorder (42859352) Coagulation defect, unspecified (D68.9) Active confirmed Problem Androgen excess (439563850) Androgen excess (E28.1) Active confirmed Problem Vitamin D deficiency (00201969) Vitamin D deficiency, unspecified (E55.9) Active confirmed Problem 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 Problem 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 Problem Disorder of connecti ve tissue (203604834) Systemic involvement of connective tissue, 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 Problem Irregular Menstruati on (05511252) Other specified irregular menstruation (N92.5) Active confirmed Problem Irregular menstruati on (25332248) Irregular menstruation, unspecified (N92.6) Active confirmed Problem 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 Problem Hormone abnormality (45096197) Abnormal level of hormones in specimens from other organs, systems and tissues (R89.1) Active confirmed Problem Histopathology findi ng (184739668) Unspecified abnormal finding in specimens from other organs, systems and tissues (R89.9) Active confirmed Encounters Encounter Location Date Provider Diagnosis [address] [id number] 02/23/2024 Cristobal Benites Other fatigue R53.83 ; Iron deficiency E61.1 ; Person consulting for explanation of examination or test findings Z71.2 ; Abnormal levels of other serum enzymes R74.8 ; Postural orthostatic tachycardia syndrome [POTS] G90.A ; Abnormal results of other endocrine function studies R94.7 ; Hereditary factor VIII deficiency D66 and Systemic involvement of connective tissue, unspecified M35.[address] [id number] 05/03/2024 Cristobal Benites Other fatigue R53.83 ; Person consulting for explanation of examination or test findings Z71.2 ; Abnormal levels of other serum enzymes R74.8 ; Iron deficiency E61.1 ; Dietary counseling and surveillance Z71.3 and Systemic involvement of connective tissue, unspecified M35.[address] [id number] 07/27/2024 Cristobal Benites Other fatigue R53.83 ; Other specified irregular menstruation N92.5 ; Person consulting for explanation of examination or test findings Z71.2 ; Encounter for other general counseling and advice on procreation Z31.69 and Dietary counseling and surveillance Z71.[address] [id number] 10/12/2024 Cristobal Benites Procreative counseli ng and advice using natural family planning Z31.61 ; Iron deficiency E61.1 ; Personal history of other complications of , childbirth and the puerperium Z87.59 ; Vitamin A deficiency, unspecified E50.9 and Dietary counseling and surveillance Z71.[address] [id number] 01/25/2025 Cristobal Benites care for patient with recurrent loss, first trimester O26.21 ; Other insomnia G47.09 ; Person consulting for explanation of examination or test findings Z71.2 and Dietary counseling and surveillance Z71.[address] [id number] 05/04/2024 Cristobal Benites [address] [id number] 05/25/2024 Cristobal Benites [address] [id number] 05/26/2024 Cristobal Benites [address] [id number] 12/23/2024 Brenda Wilkins Abnormal level of hormones [...] taking oral iron BID. Random easy bruising. Archives Director cannot rule out she is a carrier of hemophelia A. Complaint Specialist concerned about Lynd's - retested cortisol with ACTH, DHEA-S - [...] Alk Phos levels. Pt to f/u with floor grinder. 02/23/2024 Other fatigue (ICD-10 - R53.83) This 28 yo female pt presenting in-office for ROF of recent labs. Results reviewed and discussed during the visit. Was in luteal phase of cycle when she went for labs. Feeling very tired. Doesn't really have an appetitite - comes and goes. Getting worse for a couple months. Has been taking oral iron BID. Random easy bruising. Archives Director cannot rule out she is a carrier of hemophelia A. Complaint Specialist concerned about Lynd's - retested cortisol with ACTH, DHEA-S - [...] Alk Phos levels. Pt to f/u with floor grinder. 05/03/2024 Other fatigue (ICD-10 - R53.83) This is a 28 yo female pt presenting in-office for ROF of recent labs, and to f/u on concerns of hypermobility. Results reviewed and discussed during the visit. Seen by different elementary math tutor - told not to worry about elevations in clotting labs/factors. Has concern of hypermobility - states physical therapist believes she has hypermobility based on exam and assessment. Has not been seen by log sawyer at [facility] in [place] (Kavin Walker) - was told they do [...] discussed during the visit. Seen by different elementary math tutor - told not to worry about elevations in clotting labs/factors. Has concern of hypermobility - states physical therapist believes she has hypermobility based on exam and assessment. Has not been seen by log sawyer at [facility] in [place] (Kavin Walker) - was told they do [...] Pg, fractionated estrogens, prolactin, LH and FSH. 01/25/2025 Other insomnia (ICD-10 - G47.09) This is a 29 yo female pt presenting in-office for ROF of recent labs. Results reviewed and discussed during the visit. 6 weeks . Complaint Specialist wants to resume hydrocortisone. Using topical progesterone [...] reduce risk of neural tube defect. 01/25/2025 care for patient with recurrent loss, first trimester (ICD-10 - O26.21) This is a 29 yo female pt presenting in-office for ROF of recent labs. Results reviewed and discussed during the visit. 6 weeks . Complaint Specialist wants to resume hydrocortisone. Using topical progesterone [...] and reduce risk of neural tube defect. 12/23/2024 Abnormal level of hormones in specimens from female genital organs (ICD-10 - R87.1) 12/23/2024 Abnormal levels of other serum enzymes (ICD-10 - R74.8) 01/25/2025 Person consulting for explanation of examination or test findings (ICD-10 - Z71.2) This is a 29 yo female pt presenting in-office for ROF of recent labs. Results reviewed and discussed during the visit. 6 weeks . Complaint Specialist wants to resume hydrocortisone. Using topical progesterone [...] and reduce risk of neural tube defect. 10/12/2024 Personal history of other complications of [...] discussed during the visit. Seen by different elementary math tutor - told not to worry about elevations in clotting labs/factors. Has concern of hypermobility - states physical therapist believes she has hypermobility based on exam and assessment. Has not been seen by log sawyer at [facility] in [place] (Kavin Aaron) - was told they do [...] taking oral iron BID. Random easy bruising. Archives Director cannot rule out she is a carrier of hemophelia A. Complaint Specialist concerned about Lynd's - retested cortisol with ACTH, DHEA-S - [...] Alk Phos levels. Pt to f/u with floor grinder. 02/23/2024 Abnormal levels of other serum enzymes [...] taking oral iron BID. Random easy bruising. Archives Director cannot rule out she is a carrier of hemophelia A. Complaint Specialist concerned about Redd's - retested cortisol with [...] Alk Phos levels. Pt to f/u with floor grinder. 05/03/2024 Iron deficiency (ICD-10 - E61.1) This is a 28 yo female pt presenting in-office for ROF of recent labs, and to f/u on concerns of hypermobility. Results reviewed and discussed during the visit. Seen by different elementary math tutor - told not to worry about elevations in clotting labs/factors. Has concern of hypermobility - states physical therapist believes she has hypermobility based on exam and assessment. Has not been seen by log sawyer at [facility] in [place] (Kavin Walker) - was told they do [...] Pg, fractionated estrogens, prolactin, LH and FSH. 01/25/2025 Dietary counseling and surveillance (ICD-10 - Z71.3) This is a 29 yo female pt presenting in-office for ROF of recent labs. Results reviewed and discussed during the visit. 6 weeks . Complaint Specialist wants to resume hydrocortisone. Using topical progesterone [...] and reduce risk of neural tube defect. 12/23/2024 Abnormal level of hormones in specimens from other organs, systems and tissues (ICD-10 - R89.1) 12/23/2024 Other specified irregular menstruation (ICD-10 - N92.5) 05/03/2024 Dietary counseling and surveillance (ICD-10 - Z71.3) This is a 28 yo female pt presenting in-office for ROF of recent labs, and to f/u on concerns of hypermobility. Results reviewed and discussed during the visit. Seen by different elementary math tutor - told not to worry about elevations in clotting labs/factors. Has concern of hypermobility - states physical therapist believes she has hypermobility based on exam and assessment. Has not been seen by log sawyer at [facility] in [place] (Kavin Walker) - was told they do [...] taking oral iron BID. Random easy bruising. Archives Director cannot rule out she is a carrier of hemophelia A. Complaint Specialist concerned about Redd's - retested cortisol with [...] Alk Phos levels. Pt to f/u with floor grinder. 02/23/2024 Abnormal results of other endocrine function [...] taking oral iron BID. Random easy bruising. Archives Director cannot rule out she is a carrier of hemophelia A. Complaint Specialist concerned about Lynd's - retested cortisol with ACTH, DHEA-S - [...] Alk Phos levels. Pt to f/u with floor grinder. 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 Results reviewed and discussed during the visit. Seen by different elementary math tutor - told not to worry about elevations in clotting labs/factors. Has concern of hypermobility - states physical therapist believes she has hypermobility based on exam and assessment. Has not been seen by log sawyer at [facility] in [place] (Kavin Walker) - was told they do [...] taking oral iron BID. Random easy bruising. Archives Director cannot rule out she is a carrier of hemophelia A. Complaint Specialist concerned about Lynd's - retested cortisol with ACTH, DHEA-S - [...] Alk Phos levels. Pt to f/u with floor grinder. 02/23/2024 Systemic involvement of connective tissue, unspecified [...] taking oral iron BID. Random easy bruising. Archives Director cannot rule out she is a carrier of hemophelia A. Complaint Specialist concerned about Redd's - retested cortisol with [...] Alk Phos levels. Pt to f/u with floor grinder. 02/23/2024 Other Consent obtained. Time spent preparing [...] taking oral iron BID. Random easy bruising. Archives Director cannot rule out she is a carrier of hemophelia A. Complaint Specialist concerned about Lynd's - retested cortisol with ACTH, DHEA-S - [...] Alk Phos levels. Pt to f/u with floor grinder. 05/03/2024 Other Consent obtained. Time spent preparing [...] discussed during the visit. Seen by different elementary math tutor - told not to worry about elevations in clotting labs/factors. Has concern of hypermobility - states physical therapist believes she has hypermobility based on exam and assessment. Has not been seen by log sawyer at [facility] in [place] (Kavin Aaron) - was told they do [...] Pg, fractionated estrogens, prolactin, LH and FSH. 01/25/2025 Other Consent obtained. Time spent preparing [...] discussed during the visit. 6 weeks . Complaint Specialist wants to resume hydrocortisone. Using topical progesterone [...] HARDEEP IFA SCREEN W/REFL TO TITER AND PATLEANDRO RN, IFA 12/12/2022 CARDIO IQ(TM) HEMOGLOBIN A1c 06/12/2022 CARDIO IQ(TM)HOMOCYSTEINE CARDIOVASCULAR 06/12/2022 CARDIO IQ(TM)HOMOCYSTEINE CARDIOVASCULAR 12/12/2023 ACTH, PLASMA 02/23/2024 PROGESTERONE 07/27/2024 PROGESTERONE 12/12/2022 PROGESTERONE 06/12/2022 PROGESTERONE 12/12/2023 PROGESTERONE 01/25/2025 DHEA SULFATE 06/12/2022 DHEA SULFATE 02/23/2024 VITAMIN [...] PREGNENOLONE, LC/MS/MS 06/12/2022 ESTRADIOL, ULTRASENSITIVE LC/MS/MS 12/12 ESTRADIOL, ULTRASENSITIVE LC/MS/MS 01/25 ALKALINE PHOSPHATASE, BONE SPECIFIC 04/24 VITAMIN A 07/27/2024 VITAMIN A 02/23/2024 VITAMIN A 06/12/2022 VITAMIN B6 06/12/2022 VITAMIN B2 (RIBOFLAVIN), PLASMA 06/12/20 VITAMIN K 07/17/2022 ZINC, RBC 06/12/2022 17 HYDROXYPROGESTERONE, LC/MS/MS 024 17 HYDROXYPROGESTERONE, LC/MS/MS 025 ANDROSTENEDIONE, LC/MS/MS 12/12/2023 CARDIO IQ(TM) VITAMIN D, [...] T4 07/27/2024 Next Appt Details Provider Name:Cristobal Moreno [facility] [place], 06/27/2025 03:30:00 PM, [address] [place] [address], [phone], Insurance Providers Payer Name Payer Address Payer Phone Subscriber Number Group Number Insured Name Patient Relationship to Insured Coverage Start Date Coverage End Date 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
--- OUTSIDE RECORDS SUMMARY | 2025-02-02 18:34 | XMS_ITS ---
Author Name [facility] Organization Unknown Encounters Encounter Type Encounter Reason Primary Diagnosis Location Date Ambulatory Collaborative [facility] 01/25/2025 Ambulatory [facility] 01/05/2025 Ambulatory [facility] 10/12/2024 Ambulatory [facility] 05/26/2024 Ambulatory [facility] 05/25/2024 Ambulatory [facility] 05/04/2024 Ambulatory Collabor[facility] 05/03/2024 Ambulatory [facility] 02/23/2024 Ambulatory [facility] 12/19/2023 Ambulatory Collabor[facility] 12/12/2023 Ambulatory [facility] 09/08/2023 Ambulatory Collabor[facility] 06/20/2023 Ambulatory Collabor[facility] 06/19/2023 Care Team Organization Name Specialty Phone Email Start Date End Da te Collaborative [facility] 12/14/2023
--- OUTSIDE RECORDS SUMMARY | 2025-02-02 18:34 | XMS_ITS ---
Author Organization [facility] Address [address] [place] [phone] Care Team Providers Care Electric Tripper Machine Operator Name Role Phone Cristobal Benites Unavailable [phone] Brenda Wilkins Unavailable [phone] REASON FOR VISIT Tests not performed Encounters Encounter Location Date Provider Diagnosis [address] [id number] 12/23/2024 Brenda Wilkins Abnormal level of hormones [...] 025 Next Appt Details Provider Name:Cristobal Moreno [facility], 06/27/2025 03:30:00 PM, [address] [facility], [place], [place], [phone], Progress Notes * Ning CASASaDOB:03/1995 (29 yo F)Acc No.[id number]:12/23/2024 Patient:?Ning CASAS :1995???Age:29 Y???Sex:Female Address:[address] [place] [address] , [place] [address] Subjective: * Chief Complaints: * ???Tests not [...] true * Date:? Generated for Printi ng/Faarmindag/eTransmitting on:?02/02/2025 06:34 PM EDT
[2025-02-03 09:03] LABS: Progesterone Immunoassay 27.1 ng/mL
== END 2025-02-02 16:18 | disposition home or self-care (01) ==
LOC: HO.LAB 16:17
PROVIDERS: PCP Internal Medicine; Visit Provider Naturopath
DX: R89.1 Abnormal level of hormones in specimens from other organs, systems and tissues (principal); N92.5 Other specified irregular menstruation; N96 Recurrent pregnancy loss; R89.9 Unspecified abnormal finding in specimens from other organs, systems and tissues; R87.1 Abnormal level of hormones in specimens from female genital organs; N92.6 Irregular menstruation, unspecified
CPT/HCPCS: 36415; 84144

== ENCOUNTER 2025-02-18 14:29 | Outpatient (REF) | payer OTHER, SELFPAY ==
--- NOTE | ~2025-02-18 | US_ITS ---
CLINICAL HISTORY: h o multiple losses US OB 1st trimester transabdominal Comparison: None Findings: Single intrauterine . CRL: 2.7 cm. EGA: 9 weeks 4 days. Normal yolk sac . Cardiac activity: 167 bpm. No subchorionic bleed. IMPRESSION: Single intrauterine estimated 9 weeks 4 days gestational age by today's ultrasound criteria. This document has been electronically signed by: Adeel Henson MD on 02/22/2025 15:28:10
== END 2025-02-18 14:30 | disposition home or self-care (01) ==
LOC: HO.US 14:29
PROVIDERS: PCP Internal Medicine; Visit Provider Naturopath
DX: O26.21 Pregnancy care for patient with recurrent pregnancy loss, first trimester (principal)
CPT/HCPCS: 76801

== ENCOUNTER → 2025-02-18 14:48 | Outpatient (BNV) | payer OTHER, SELFPAY | PROVIDERS: PCP Internal Medicine; Visit Provider Radiology Diagnostic Radiology | DX: O26.20 Pregnancy care for patient with recurrent pregnancy loss, unspecified trimester (principal); Z3A.09 9 weeks gestation of pregnancy | CPT/HCPCS: 76801 ==

== ENCOUNTER 2025-02-21 11:54 | Outpatient (REF) | payer OTHER, SELFPAY ==
--- OUTSIDE RECORDS SUMMARY | 2025-02-21 13:40 | XMS_ITS ---
Author Organization [facility] Address [address] [place] [phone] Care Team Providers Care Boiler Setter Name Role Phone Cirstobal Benites Unavailable [phone] REASON FOR VISIT update u/s-ALL SET Encounters Encounter Location Date Provider Diagnosis [address] [id number] 02/18/2025 Cristobal Benites Plan Of Treatment Next Appt Details [facility] 03:30:00 PM, [address] [place] [address], [phone], Progress Notes * Ning CASASaDOB:03/1995 (29 yo F)Acc No.[id number]:02/18/2025 Patient:?Ning CASAS :1995???Age:29 Y???Sex:Female Address:[address] [place] [address] * true * Date:? Generated for Printi ng/Faxing/eTransmitting on:?02/21/2025 01:40 PM EDT
--- OUTSIDE RECORDS SUMMARY | 2025-02-21 13:40 | XMS_ITS ---
Author Organization [facility] Address [address] [place] [phone] Care Team Providers Care Solderer Furnace Name Role Phone Cristobal Benites Unavailable [phone] REASON FOR VISIT EDS report#W Encounters Encounter Location Date Provider Diagnosis [address] [id number] 02/16/2025 Cristobal Benites Plan Of Treatment Next Appt Details [facility] 03:30:00 PM, [address] [place] [address], [phone], Progress Notes * Gisselle CASASB:03/1995 (29 yo F)Acc No.[id number]:02/16/2025 Patient:?Ning CASAS :1995???Age:29 Y???Sex:Female Address:[address] [place] [address] * * Date:?
--- OUTSIDE RECORDS SUMMARY | 2025-02-21 13:41 | XMS_ITS ---
Author Organization [facility] Address [address] [place], [place] [phone] Care Team Providers Care Gate Person Name Role Phone Cristobal Benites Unavailable [phone] REASON FOR VISIT !!!! Ultrasound order issue Encounters Encounter Location Date Provider Diagnosis [address] [id number] 02/11/2025 Cristobal Benites Plan Of Treatment Next Appt Details [facility] 06/27/[facility]25 03:30:00 PM, [address] [place] [address], [phone], Progress Notes * Ning CASASaDOB:03/1995 (29 yo F)Acc No.[id number]:02/11/2025 Patient:?Ning CASAS :1995???Age:29 Y???Sex:Female Address:[address] [place] [address] * true * Date:? Generated for Printi ng/Faxing/eTransmitting on:?02/21/2025 01:40 PM EDT
[2025-02-21 15:24] LABS: Hematocrit 36.3 % (37.0-47.0); Hemoglobin 12.4 g/dl (12.0-16.0); Mean Corpuscular HGB Conc 34.2 g/dl (31.0-35.0); Mean Corpuscular Hemoglobin 29.5 pg (27.0-33.0); Mean Corpuscular Volume 86.4 fL (80.0-98.0); Mean Platelet Volume 9.2 fL (9.4-12.3); Platelet Count 280 X10*3/uL (160-400); White Blood Count 11.8 X10*3/uL (4.8-10.8)
[2025-02-22 06:04] LABS: Progesterone Immunoassay 30.7 ng/mL
== END 2025-02-21 11:55 | disposition home or self-care (01) ==
LOC: HO.LAB 11:54
PROVIDERS: Absent Provider Nurse Practitioner Women's Health; PCP Internal Medicine; Visit Provider Naturopath
DX: O09.90 Supervision of high risk pregnancy, unspecified, unspecified trimester (principal); R87.1 Abnormal level of hormones in specimens from female genital organs; R94.7 Abnormal results of other endocrine function studies; R89.1 Abnormal level of hormones in specimens from other organs, systems and tissues; E28.1 Androgen excess; N92.6 Irregular menstruation, unspecified; R89.9 Unspecified abnormal finding in specimens from other organs, systems and tissues; R82.79 Other abnormal findings on microbiological examination of urine
CPT/HCPCS: 36415; 84144; 85027; 86850; 86900; 87086

== ENCOUNTER → 2025-03-30 14:57 | Outpatient (REF) | payer OTHER, SELFPAY ==
--- NOTE | 2025-03-30 15:01 | CA_ITS ---
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 The calculated ejection fraction is 60% by biplane method. - No obvious valvular pathology seen on this study. Findings Left Ventricle Normal left ventricular cavity size. There is normal left ventricular wall thickness. The left ventricular systolic function is normal. The calculated ejection fraction is 60% by biplane method. There is no evidence of regional wall motion abnormalities. Diastolic function is normal for age. Right Ventricle Normal right ventricular cavity size and systolic function. Atria Both atria are normal in size. Aortic Valve There is a normal trileaflet aortic valve. There is no aortic valve stenosis. There is no aortic valve regurgitation. Mitral Valve The mitral valve appears normal. There is no mitral valve regurgitation. There is no mitral valve stenosis. Pulmonic Valve The pulmonic valve is likely normal. Tricuspid Valve Normal tricuspid valve structure. There is trace tricuspid valve regurgitation. There is no evidence of pulmonary hypertension. Great Vessels The asc aorta is normal in size. Venous The inferior vena cava is normal in size and collapses greater than 50% with inspiration. Pericardium/Pleural There is a trivial pericardial effusion. Prior Study Comparison No prior study available for comparison. Recommendations, Care & Conclusions No obvious valvular pathology seen on this study. Measurements 2D Linear Measurements IVSd: 0.58 0.6-0.9/0.6-1.0 cm LVIDd: 4.57 3.9-5.3/4.2-5.9 cm LVIDd Index: 2.89 2.4-3.2/2.2-3.1 cm/m2 LVIDs: 3.59 2.0-3.6 cm LVPWd: 0.69 0.7-1.1 cm Ao Root: 2.60 2.1-3.5 cm LA Diam: 2.70 2.7-3.8/3.0-4.0 cm LAIDs Index: 1.71 1.5-2.3 cm/m2 LV Mass: 108.73 67-162/88-224 g LV Mass Index: 68.82 43-95/49-115 g/m2 LVOT Diam: 2.10 3.0+(-)1.3 cm 2D Systolic Function EF 4C: 52.40 >55% EF 2C: 67.10 >55% EF BiP: 60.10 >55% Mitral Valve MV Pk E: 0.96 MV PK A: 0.57 MV Decel Time: 191.00 E/A: 1.70 E'Lateral: 15.30 E'Medial: 9.25 E/E' Med: 10.40 E/E' Lat: 6.30 PHT: 56.00 MVA PHT: 3.93 Decel Lenoir: 5.03 Aortic Valve AoV Pk Philip: 1.35 AoV Mn Philip: 1.00 AoV VTI: 0.31 AoV Pk Grad: 7.00 Aov Mn Grad: 4.00 MONICO Cont.VTI: 1.83 LVOT LVOT Pk Philip: 0.73 LVOT Mn Philip: 0.53 LVOT VTI: 0.16 LVOT Pk Grad: 2.00 LVOT Mn Grad: 1.00 LVOT Diam: 2.10 LVOT Area: 3.46 Diastolic Function MV Pk E: 0.96 MV Pk A: 0.57 E/A: 1.70 E'Medial: 9.25 E/E' Med: 10.40 E' Laterial: 15.30 E/E' Lat: 6.30 Right Ventricle TAPSE (mm): 28.00 TVS' Philip: 12.00 Tricuspid Valve TR Pk Philip: 2.27 TR Pk Grad: 21.00 RA Press: 3.00 RVSP: 24.00 Great Vessels Aorta Ao Root-2D: 2.60 2.0-3.7 cm Ao Asc: 3.00 2.1-3.4 cm Pulmonary Valve PV Pk Philip: 0.83 Peak PV Grad: 3.00 Updated in Other Vendor System with Status of Final Carlos Moncada MD electronically signed on 03/31/2025 3:41:07 PM with status of Final
--- OUTSIDE RECORDS SUMMARY | 2025-03-30 16:01 | XMS_ITS ---
Author Organization [facility] Address [address] [place], [place] [phone] Care Team Providers Care Dyeing Machine Back Tender Name Role Phone Cristobal Benites Unavailable [phone] REASON FOR VISIT update u/s-ALL SET Encounters Encounter Location Date Provider Diagnosis [address] [id number] 02/18/2025 Cristobal Benites Plan Of Treatment Next Appt Details [facility] 03:00:00 PM, [address] [facility], [address], [place], [phone], Progress Notes * Ning CASASaDOB:03/1995 (29 yo F)Acc No.[id number]:02/18/2025 Patient:?Ning CASAS :1995???Age:29 Y???Sex:Female Address:[address] [place] [address] * true * Date:? Generated for Printi ng/Faarmindag/eTransmitting on:?03/30/2025 03:28 AM EDT
--- OUTSIDE RECORDS SUMMARY | 2025-03-30 16:01 | XMS_ITS ---
Author Organization [facility] Address [address], [place] [id number] Care Team Providers Care Brilliandeer Lopper Name Role Phone Cristobal Benites Unavailable [phone] Reason For Referral Reason For evaluation and t reatment of hypermobility, connective tissue disorder of unknown etiology. 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) Referral Organization [facility] Referring Provider First Name Cristobal Referring Provider Last Name Kamari Referring Provider Speciality Manager Online Referred Provider Sj Mix Referred Provider Specialty Unknown Referral Priority Routine REASON FOR VISIT EDS report Encounters Encounter Location Date Provider Diagnosis [facility] [address] [place], [place] [id number] 02/16/2025 Cristobal Benites Systemic involvement of connective tissue, unspecified M35.9 Assessments Encounter Date Diagnosis (ICD Code) Assessment Notes Treatment Notes Treatment Clinical Notes Section Notes 02/16/2025 Systemic involvement of connective tissue, unspecified (ICD-10 - M35.9) Plan Of Treatment Referrals Referral Date Details 03/14/2025 03/14/2025, For eval uation and treatment of hypermobility, connective tissue disorder of unknown etiology., Ruby Severino 03/18/2025 03/18/2025, Suspicio n of vascular EDS with known clotting disorder., Sj Mix Next Appt Details Provider Name:Cristobal Moreno [facility] [place], 06/27/2025 03:00:00 PM, [address] [facility], [address], [place], [address], Progress Notes * Ning CASASaDOB:03/1995 (29 yo F)Acc No.[id number]:02/16/2025 Patient:?Ning CASAS :1995???Age:29 Y???Sex:Female Address:[address] [place] [address] , [place] [address] Subjective: * Chief Complaints: * ???EDS report * Medical History:? * Surgical History:? * Hospitalization/Major Diagno stic Procedure:? * Medications:? Objective: * Vitals:? * Physical Examination:? Assessment: * Assessment: 1.?Systemic involvement of c onnective tissue, unspecified - M35.9??? Plan: * Treatment: * Procedure Codes:? * true * Date:? Generated for Kaitlin ding/Faarmindag/eTransmitting on:?03/30/2025 03:28 AM EDT Consultation Request Notes Referral Date Referring Provider Referred Provider Not aline 03/14/2025 Cristobal Benites Barbara For evalu ation and treatment of hypermobility, connective tissue disorder of unknown etiology. 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
--- OUTSIDE RECORDS SUMMARY | 2025-03-30 16:01 | XMS_ITS | Patient Health Record ---
Author Organization [facility] Address [address] [place] [id number] Care Team Providers Care Gun Mechanic Name Role Phone Cristobal Benites Unavailable [phone] Brenda Wilkins Unavailable [phone] Allergies No Known Allergies Reason For Referral Reason For evaluation and t reatment of hypermobility disorder. 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) Referral Organization [facility] Referring Provider First Name Cristobal Referring Provider Last Name Kamari Referring Provider Speciality Instrument Maker And Repairer Referred Provider Sj Mix Referred Provider Specialty Unknown Referral Priority Routine Medications Medication SIG (Take, Route, Frequency, Duration) Notes Start Date End Date Status Progesterone Unknown Problems Problem Type SNOMED Code ICD Code Onset Dates Problem Status W/U Status Risk Notes Problem Iron deficiency anem ia (91627751) Iron deficiency anemia, unspecified (D50.9) Active confirmed Problem 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 Problem Coagulation disorder (93213371) Coagulation defect, unspecified (D68.9) Active confirmed Problem Androgen excess (121187514) Androgen excess (E28.1) Active confirmed Problem Vitamin D deficiency (47533881) Vitamin D deficiency, unspecified (E55.9) Active confirmed Problem 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 Problem 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 Problem Disorder of connecti ve tissue (557332828) Systemic involvement of connective tissue, 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9) Active confirmed Encounters Encounter Location Date Provider Diagnosis [address] [id number] 05/03/2024 Cristobal Benites Other fatigue R53.83 ; Person consulting for explanation of examination or test findings Z71.2 ; Abnormal levels of other serum enzymes R74.8 ; Iron deficiency E61.1 ; Dietary counseling and surveillance Z71.3 and Systemic involvement of connective tissue, unspecified M35.[address] [id number] 07/27/2024 Cristobal Benites Other fatigue R53.83 ; Other specified irregular menstruation N92.5 ; Person consulting for explanation of examination or test findings Z71.2 ; Encounter for other general counseling and advice on procreation Z31.69 and Dietary counseling and surveillance Z71.[address] [id number] 10/12/2024 Cristobal Benites Procreative counseli ng and advice using natural family planning Z31.61 ; Iron deficiency E61.1 ; Personal history of other complications of , childbirth and the puerperium Z87.59 ; Vitamin A deficiency, unspecified E50.9 and Dietary counseling and surveillance Z71.[address] [id number] 01/25/2025 Cristobal Benites care for patient with recurrent loss, first trimester O26.21 ; Other insomnia G47.09 ; Person consulting for explanation of examination or test findings Z71.2 and Dietary counseling and surveillance Z71.[address] [id number] 05/04/2024 Cristobal Benites [address] [id number] 05/25/2024 Cristobal Benites [address] [id number] 05/26/2024 Cristobal Benites [address] [id number] 12/23/2024 Carolina Franky Abnormal level of hormones in specimens from female genital organs R87.1 ; Abnormal levels of other serum enzymes R74.8 ; Abnormal level of hormones in specimens from other organs, systems and tissues R89.1 ; Other specified irregular menstruation N92.5 and Androgen excess E28.[address] [id number] 02/11/2025 Cristobal Benites [address] [id number] 02/18/2025 Cristobal Benites [address] [id number] 02/10/2025 Cristobal Benites [address] [id number] 02/16/2025 Cristobal Gilletterafalpadmini Systemic involvement of connective tissue, unspecified M35.9 Assessments Encounter Date Diagnosis (ICD Code) Assessment Notes Treatment Notes Treatment Clinical Notes Section Notes 05/03/2024 Other fatigue (ICD-10 - R53.83) This is a 28 yo female pt presenting in-office for ROF of recent labs, and to f/u on concerns of hypermobility. Results reviewed and discussed during the visit. Seen by different asp net software developer - told not to worry about elevations in clotting labs/factors. Has concern of hypermobility - states physical therapist believes she has hypermobility based on exam and assessment. Has not been seen by payment processor at [facility] in [place] (Kavin Aaron) - was told they do [...] Cortisol: 12.5 mcg/dL DHEA, unconjugated: 1160 ng/dL 17-Hydroxypregnen olone: 451 ng/dL (H) Progesterone: Less than 0.1 ng/mL 17-Hydroxyprogest erone: 121 ng/dL Testosterone, Total, LCMSMS: 66 ng/dL High-normal Deoxycorticostero ne: Less than 16 Alk Phos Isoenzymes: Alk [...] discussed during the visit. Seen by different asp net software developer - told not to worry about elevations in clotting labs/factors. Has concern of hypermobility - states physical therapist believes she has hypermobility based on exam and assessment. Has not been seen by payment processor at [facility] in [place] (Kavin Walker) - was told they do [...] Cortisol: 12.5 mcg/dL DHEA, unconjugated: 1160 ng/dL 17-Hydroxypregnen olone: 451 ng/dL (H) Progesterone: Less than 0.1 ng/mL 17-Hydroxyprogest erone: 121 ng/dL Testosterone, Total, LCMSMS: 66 ng/dL High-normal Deoxycorticostero ne: Less than 16 Alk Phos Isoenzymes: Alk [...] discussed during the visit. 6 weeks . Food Service Helper wants to resume hydrocortisone. Using topical progesterone [...] discussed during the visit. 6 weeks . Food Service Helper wants to resume hydrocortisone. Using topical progesterone [...] from female genital organs (ICD-10 - R87.1) 02/16/2025 Systemic involvement of connective tissue, unspecified (ICD-10 - M35.9) 12/23/2024 Abnormal levels of other serum enzymes (ICD-10 - R74.8) 01/25/2025 Person consulting for explanation of examination or test findings (ICD-10 - Z71.2) This is a 29 yo female pt presenting in-office for ROF of recent labs. Results reviewed and discussed during the visit. 6 weeks . Food Service Helper wants to resume hydrocortisone. Using topical progesterone [...] discussed during the visit. Seen by different asp net software developer - told not to worry about elevations in clotting labs/factors. Has concern of hypermobility - states physical therapist believes she has hypermobility based on exam and assessment. Has not been seen by payment processor at [facility] in [place] (Kavin Walker) - was told they do [...] Cortisol: 12.5 mcg/dL DHEA, unconjugated: 1160 ng/dL 17-Hydroxypregnen olone: 451 ng/dL (H) Progesterone: Less than 0.1 ng/mL 17-Hydroxyprogest erone: 121 ng/dL Testosterone, Total, LCMSMS: 66 ng/dL High-normal Deoxycorticostero ne: Less than 16 Alk Phos Isoenzymes: Alk [...] INR 0.9 PTT 40.4 sec H 05/03/2024 Iron deficiency (ICD-10 - E61.1) This is a 28 yo female pt presenting in-office for ROF of recent labs, and to f/u on concerns of hypermobility. Results reviewed and discussed during the visit. Seen by different asp net software developer - told not to worry about elevations in clotting labs/factors. Has concern of hypermobility - states physical therapist believes she has hypermobility based on exam and assessment. Has not been seen by payment processor at [facility] in [place] (Kavin Walker) - was told they do [...] Cortisol: 12.5 mcg/dL DHEA, unconjugated: 1160 ng/dL 17-Hydroxypregnen olone: 451 ng/dL (H) Progesterone: Less than 0.1 ng/mL 17-Hydroxyprogest erone: 121 ng/dL Testosterone, Total, LCMSMS: 66 ng/dL High-normal Deoxycorticostero ne: Less than 16 Alk Phos Isoenzymes: Alk [...] discussed during the visit. 6 weeks . Food Service Helper wants to resume hydrocortisone. Using topical progesterone [...] discussed during the visit. Seen by different asp net software developer - told not to worry about elevations in clotting labs/factors. Has concern of hypermobility - states physical therapist believes she has hypermobility based on exam and assessment. Has not been seen by payment processor at [facility] in [place] (Kavin Walker) - was told they do [...] Cortisol: 12.5 mcg/dL DHEA, unconjugated: 1160 ng/dL 17-Hydroxypregnen olone: 451 ng/dL (H) Progesterone: Less than 0.1 ng/mL 17-Hydroxyprogest erone: 121 ng/dL Testosterone, Total, LCMSMS: 66 ng/dL High-normal Deoxycorticostero ne: Less than 16 Alk Phos Isoenzymes: Alk [...] Pg, fractionated estrogens, prolactin, LH and FSH. 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 Results reviewed and discussed during the visit. Seen by different asp net software developer - told not to worry about elevations in clotting labs/factors. Has concern of hypermobility - states physical therapist believes she has hypermobility based on exam and assessment. Has not been seen by payment processor at [facility] in [place] (Kavin Walker) - was told they do [...] Cortisol: 12.5 mcg/dL DHEA, unconjugated: 1160 ng/dL 17-Hydroxypregnen olone: 451 ng/dL (H) Progesterone: Less than 0.1 ng/mL 17-Hydroxyprogest erone: 121 ng/dL Testosterone, Total, LCMSMS: 66 ng/dL High-normal Deoxycorticostero ne: Less than 16 Alk Phos Isoenzymes: Alk [...] H 12/23/2024 Androgen excess (ICD-10 - E28.1) 05/03/2024 Other Consent obtained. Time spent preparing [...] discussed during the visit. Seen by different asp net software developer - told not to worry about elevations in clotting labs/factors. Has concern of hypermobility - states physical therapist believes she has hypermobility based on exam and assessment. Has not been seen by payment processor at [facility] in [place] (Kavin Aaron) - was told they do [...] Cortisol: 12.5 mcg/dL DHEA, unconjugated: 1160 ng/dL 17-Hydroxypregnen olone: 451 ng/dL (H) Progesterone: Less than 0.1 ng/mL 17-Hydroxyprogest erone: 121 ng/dL Testosterone, Total, LCMSMS: 66 ng/dL High-normal Deoxycorticostero ne: Less than 16 Alk Phos Isoenzymes: Alk [...] discussed during the visit. 6 weeks . Food Service Helper wants to resume hydrocortisone. Using topical progesterone [...] HARDEEP IFA SCREEN W/REFL TO TITER AND PAUL LOPEZ, IFA 12/12/2022 CARDIO IQ(TM) HEMOGLOBIN A1c 06/12/2022 [...] 07/27/2024 Next Appt Details Provider Name:Cristobal [place]no [facility] [place] 03:00:00 PM, [address] [facility], [address], [place], [address], Insurance Providers Payer Name Payer Address Payer Phone Subscriber Number Group Number Insured Name Patient Relationship to Insured Coverage Start Date Coverage End Date [facility] [address] [place], [place] [phone] [id number] Jeff Do Self - patient is the insured Medical (General) History Medical History History ICD Code Tethered Spinal Cord Recurrent Miscarriages Hx [place] Surgical History Surgery Date(Month/Year) spinal surgery 2015 [facility] [place] 10/2021 Hospitalization History Reason Date(Month/Year) See DIRECTOR OF MARKET RESEARCH - miscarriages
--- OUTSIDE RECORDS SUMMARY | 2025-03-30 16:01 | XMS_ITS ---
Author Organization [facility] Address [address] [place], [place] [id number] Care Team Providers Care Tire Builder Name Role Phone Cristobal Benites Unavailable [phone] REASON FOR VISIT !!!! Ultrasound order issue Encounters Encounter Location Date Provider Diagnosis [address] [id number] 02/11/2025 Cristobal Benites Plan Of Treatment Next Appt Details Provider [facility]obal [facility], 06/27/2025 03:00:00 PM, [address] [facility], [address], [place], [address], Progress Notes * Ning CASASaDOB:03/1995 (29 yo F)Acc No.[id number]:02/11/2025 Patient:?Ning CASAS :1995???Age:29 Y???Sex:Female Address:[address] [place] [address] * true * Date:? Generated for Printi ng/Faarmindag/eTransmitting on:?03/30/2025 03:29 AM EDT
== END ==
LOC: HO.CARD 14:57
PROVIDERS: PCP Internal Medicine; Visit Provider Student in an Organized Health Care Education/Training Program
DX: Q24.9 Congenital malformation of heart, unspecified (principal); Q23.1 Congenital insufficiency of aortic valve
CPT/HCPCS: 93306

== ENCOUNTER → 2025-03-30 15:01 | Outpatient (BNV) | payer OTHER, SELFPAY | PROVIDERS: PCP Internal Medicine; Visit Provider Internal Medicine | DX: I31.39 Other pericardial effusion (noninflammatory) (principal) | CPT/HCPCS: 93306 ==

== ENCOUNTER 2025-04-08 09:50 | Outpatient (REF) | payer OTHER, SELFPAY ==
--- OUTSIDE RECORDS SUMMARY | 2025-04-08 10:11 | XMS_ITS | Patient Health Record ---
Author Organization [facility] Address [address], [place] [id number] Care Team Providers Care Grass Cutter Name Role Phone Wilson Benites Primary Care Provider Unavailab CALLUM Ryan Unavailable [phone] Gracia Mclain Unavailable [phone] Henson Jobcindyzen Unavailable [phone] Allergies No Known Allergies Reason For Referral No Information Medications Medication SIG (Take, Route, Fr equency, Duration) Notes Start Date End Date Status Hydrocortisone 5 MG Oral for 90 Days Active Problems Problem Type SNOMED Code ICD Code Onset Dates Problem Status W/U Status Risk Notes Problem Hereditary factor VIII deficiency disease (05118845) Hereditary factor VIII deficiency (D66) 2023 Active confirmed Problem Coagulation defect, unspecified (D68.9) 2021 Active confirmed Problem Homocystinuria (83241218) 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) 2021 Active confirmed Problem Methylenetetrahydr ofolate reductase deficiency (71412366) Methylenetetrah ydrofolate reductase deficiency (E72.12) 2021 Active confirmed Problem Inflammatory polyarthropathy (737177897) Inflammatory polyarthropathy (M06.4) Active confirmed 29F W presents to us on 04.01.2025 with Fatigue 6/10, AMS 30 MINS, pain 4/10 legs, hips, knees, arms. 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 Problem 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 (524608040) Recurrent loss (N96) 2024 Active confirmed OV 5.9.25 H/o 13 consecutive losses, all 1st trimester until EndoMD put her on Hydrocortisone for adrenal hyperplasia (and Progesterone) which resulted in her successful (has healthy baby ) prior to the current - as of 04.01.25; Problem Hormone abnormality (81215454) Abnormal level of hormones in specimens from other organs, systems and tissues (R89.1) 2024 Active confirmed EndoMD put her on Hydrocortisone for support due to h/o adrenal hyperplasia with question of Harry's Disease not formally diagnosed due to intermittent low or low normal Se Cortisol level; This resulted in successful . Vital Signs Heart Rate 80 /min 04/01/2025 Temperature 36.3 C 04/01/2025 Blood pressure diastolic 74 mm Hg 04/01/2025 Height 166 cm 04/01/2025 Blood pressure systolic 104 mm Hg 04/01/2025 Weight 54.8 kg 04/01/2025 BMI 19.88 kg/m2 04/01/2025 Encounters Encounter Location Date Provider Diagnosis [facility] [address] [phone] [id number] Ezequiel Henson Inflammatory polyarthropathy M06.4 ; Coagulation defect, unspecified D68.9 ; Homocystinuria E72.11 ; Abnormal level of hormones in specimens from other organs, systems and tissues R89.1 ; Recurrent loss N96 ; Hereditary factor VIII deficiency D66 ; 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 ; 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 and Pain in left shoulder M25.512 [facility] [address] [id number] CALLUM FUNG Assessments Encounter Date Diagnosis (ICD Code) Assessment Notes Treatment Notes Treatment Clinical Notes Section Notes 04/01/2025 Coagulation defect, unspecified (ICD-10 - D68.9) 04/01/2025 Inflammatory polyarthropathy (ICD-10 - M06.4) 29F [...] and BL hips (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 04/01/2025 Recurrent loss (ICD-10 - N96) OV 5.9.25 H/o 13 consecutive losses, all 1st trimester until EndoPA put her on Hydrocortisone for adrenal hyperplasia [...] r (ICD-10 - M25.512) Plan Of Treatment Pending Test Test Name Order Date LUPUS ANTICOAGULANT EVALUATION WITH REFL EX 04/01/2025 URINALYSIS, COMPLETE W/REFLEX TO CULTURE 04/01/2025 HLA-B27 ANTIGEN 04/01/2025 CARDIOLIPIN AB (IGA,IGG,IGM) 04/01/2025 RHEUMATOID FACTOR 04/01/2025 CCP Antibody (IGG) 04/01/2025 LYME DISEASE ANTIBODIES (IGG, IGM) ROSALINA RN BLOT 04/01/2025 HARDEEP IFA SCREEN W/REFL TO TITER AND PATTE RN, IFA 04/01/2025 SJOGRENS ANTIBODIES (SS-A,SS-B) 04/01/20 25 JON ANTIBODY 04/01/2025 COMPUTER SYSTEMS INTEGRATOR ANTIBODY 04/01/2025 SCL-70 ANTIBODY 04/01/2025 HEPATITIS B CORE ANTIBODY (IGM) 04/01/20 25 HEPATITIS B SURFACE ANTIGEN W/REFL CONFI RM 04/01/2025 VITAMIN B12/FOLATE, SERUM PANEL 04/01/20 25 FERRITIN 04/01/2025 TSH, 3RD GENERATION 04/01/2025 IMMUNOFIXATION IGA,IGG,IGM QT.IMMUNOFIXA TION SERUM IMMUNOGLOBULIN 04/01/2025 PTH, INTACT AND CALCIUM 04/01/2025 PROTEIN, TOTAL AND PROTEIN ELECTROPHORES IS 04/01/2025 BETA 2 GLYCOPROTEIN I AB (IGG,IGA,IGM) 0 04/01/2025 ANCA SCREEN WITH MPO AND PR3 WITH REFLEX TO ANCA TITER 04/01/2025 ANGIOTENSIN CONVERTING ENZYME (CONNIE) 07/2025 VITAMIN D, 25-HYDROXY, LC/MS/MS 04/01/20 25 URIC ACID 04/01/2025 IRON TOTAL, TIBC, SATURATION 04/01/2025 CREATINE KINASE, TOTAL 04/01/2025 LYME AB SCREEN 04/01/2025 HEPATIC FUNCTION PANEL 04/01/2025 CREATININE 04/01/2025 CBC (INCLUDES DIFF/PLT) 04/01/2025 SED RATE BY MODIFIED WESTERGREN 04/01/20 25 Hep C Ab w Rfx to HCV RNA 04/01/2025 HS-CRP 04/01/2025 DNA(ds) AB, CRITHIDIA IFA W/RF Celiac Disease Comprehensive Panel with Gliadin Antibody (IgG) 04/01/2025 Next Appt Details Provider Name:Ezequiel Beltranai, 04/29/2025 09:30:00 AM, [address] [place] [address], [phone], Provider Name:CALLUM FUNG, 08/16/2025 09:30:00 AM, [address] [place] [address], [phone], Insurance Providers Payer Name Payer Address Payer Phone Subscriber Number Group Number Insured Name Patient Relationship to Insured Coverage Start Date Coverage End Date HAYLEY MEEKS [address], [place] [id number] [phone] [id number] Jeff Do Self - patient is the insured Medical (General) History Medical History History ICD Code anxiety: No asthma: No eczema: No psoriasis: [...] migraine headaches: No human immunodeficiency virus (HIV), posi tive: No cancer, colon: No family history of colon cancer: No zenkers diverticulum: [facility] POT[facility] Surgical History Surgery Date(Month/Year) Spinal surgery 04/2016 04/2023 no EGD/Colonoscopy
--- OUTSIDE RECORDS SUMMARY | 2025-04-08 10:11 | XMS_ITS ---
Author Organization [facility] Address [address], [place] [phone] Care Team Providers Care Ballistics Expert Forensic Name Role Phone Cristobal Benites Unavailable [phone] REASON FOR VISIT ROF Encounters Encounter Location Date Provider Diagnosis [address] [phone] 01/04/2025 Cristobal Benites Plan Of Treatment Next Appt Details Provider Name:Cristobal Moreno [facility], 06/27/2025 03:00:00 PM, [address] [facility], [address], [place], [phone], Progress Notes * Ning CASASaDOB:03/1995 (29 yo F)Acc No.[id number]:01/04/2025 Progress Notes Patient:?Ning CASAS Provider:?Cristobal Benites ND :1995???Age:29 Y???Sex:Female D ate:01/04/2025 Address:[address] [id number] Subjective: * Chief Complaints: * ???1. ROF. * Medical History:? Objective: * Vitals:? Assessment: Plan: * Treatment: * * Electronic signature of Cheli Benites ND on 04/08/2025 at 10:10 AM EDT Sign off status: Pending * Provider:?Cristobal Benites ND Date:?09/2025 Generated for Kaitlin ding/Shanthi/Anselmoitting on:?04/08/2025 10:10 AM EDT
--- OUTSIDE RECORDS SUMMARY | 2025-04-08 10:11 | XMS_ITS ---
Author Organization [facility] Address [address] [place] [phone] Care Team Providers Care J2Ee Engineer Name Role Phone Wilson Benites Primary Care Provider Unavailab CALLUM Ryan Unavailable [phone] Gracia Mclain Unavailable [phone] Encounters Encounter Location Date Provider Diagnosis [facility] [address] [phone] 04/06/2025 Gracia Mclain Plan Of Treatment Next Appt Details Provider Name:Ezequiel Henson, 04/29/2025 09:30:00 AM, [address] [place] [address], [phone], Provider Name:CALLUM FUNG, 08/16/2025 09:30:00 AM, [address] [place] [address], [phone], Progress Notes * Ning CASASaDOB:03/1995 (29 yo F)Acc No.[id number]:04/06/2025 Progress Note Patient:?Ning CASAS Provider:?Gracia Mclain APRN :1995???Age:29 Y???Sex:Female D ate:04/06/2025 Address:[address] [id number] Pcp:Wilson Benites Subjective: * Chief Complaints: * ??? * Medical History:? Objective: * Vitals:? Assessment: Plan: * Treatment: * * Electronic signature of Girish Mclain APRN on 04/08/2025 at 10:11 AM EDT Sign off status: Pending * Provider:Jhon Mclain APRN Date:? Generated for Kaitlin ding/Shanthi/Annelise on:?04/08/2025 10:11 AM EDT
--- OUTSIDE RECORDS SUMMARY | 2025-04-08 10:11 | XMS_ITS ---
Author Organization [facility] Address [address] [place] [phone] Care Team Providers Care Deckhand Shrimp Boat Name Role Phone Wilson Benites Primary Care Provider Unavailab CALLUM Ryan Unavailable [phone] Ezequiel Henson Unavailable [phone] Allergies No Known Allergies REASON FOR VISIT PT last seen PMD Wilson Benites , Fatigue 6/10, AMS 30 MINS, pain 4/10 legs, hips, knees, arms, Lab n/a, CXR/DEXA needs done, Pt IS CURRENTLY , Symptoms - chronic muscle pain/joint pain Medications Medication SIG (Take, Route, Fr equency, Duration) Notes Start Date End Date Status Hydrocortisone 5 MG Oral for 90 Days Active Problems Problem Type SNOMED Code ICD Code Onset Dates Problem Status W/U Status Risk Notes 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 (240773706) Recurrent loss (N96) 2024 Active confirmed OV 5.9.25 H/o 13 consecutive losses, all 1st trimester until EndoMD put her on Hydrocortisone for adrenal hyperplasia (and Progesterone) which resulted in her successful (has healthy baby ) prior to the current - as of 04.01.25; Problem Hormone abnormality (04396030) Abnormal level of hormones in specimens from other organs, systems and tissues (R89.1) 2024 Active confirmed EndoMD put her on Hydrocortisone for support due to h/o adrenal hyperplasia with question of Harry's Disease not formally diagnosed due to intermittent low or low normal Se Cortisol level; This resulted in successful . 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 Vital Signs Temperature 36.3 C 04/01/2025 Blood pressure systolic 104 mm Hg 04/01/20 25 Blood pressure diastolic 74 mm Hg 025 Heart Rate 80 /min 04/01/2025 BMI 19.88 kg/m2 04/01/2025 Height 166 cm 04/01/2025 Weight 54.8 kg 04/01/2025 Encounters Encounter Location Date Provider Diagnosis [facility] [address] [phone] [id number] Ezequiel Henson Inflammatory polyarthropathy M06.4 ; [...] and BL hips (Pro heal chiro practor, [facility]) RTC in 6 weeks and next available with Physical Therapy for hypermobility , congenital neural tube defect, back pain, 04/01/2025 Coagulation defect, unspecified (ICD-10 - D68.9) 04/01/2025 Homocystinuria (ICD- 10 - E72.11) 04/01/2025 Abnormal level of ho rmones in specimens from other organs, systems and tissues (ICD-10 - R89.1) EndoNM put her on Hydrocortisone for support due to h/o adrenal hyperplasia with question of Harry's Disease not formally diagnosed due to intermittent low or low normal Se Cortisol level; This resulted in successful . 04/01/2025 Recurrent loss (ICD-10 - N96) OV 5.9.25 H/o 13 consecutive losses, all 1st trimester until EndoNM put her on Hydrocortisone for adrenal hyperplasia [...] and BL hips (Pro heal chiro practor, [facility]) RTC in 6 weeks and next available [...] W/REFL TO TITER AND PATLEANDRO RN, IFA 04/01/2025 SJOGRENS ANTIBODIES (SS-A,SS-B) 04/01/20 25 JON ANTIBODY 04/01/2025 RELAYS DRAFTSPERSON ANTIBODY 04/01/2025 SCL-70 ANTIBODY 04/01/2025 HEPATITIS B [...] ANCA TITER 04/01/2025 ANGIOTENSIN CONVERTING ENZYME (CONNIE) 05/07/2025 VITAMIN D, 25-HYDROXY, LC/MS/MS 04/01/20 25 URIC [...] Gliadin Antibody (IgG) 04/01/2025 Next Appt Details Follow Up: 6 Weeks, Reason: Provider Name:Ezequiel Henson, 04/29/2025 09:30:00 AM, [address] [place] [address], [id number], Provider Name:CALLUM KENTON, 08/16/2025 09:30:00 AM, [address] [place] [address], [phone], Progress Notes * Ning CASASaDOB:03/1995 (29 yo F)Acc No.[id number]:04/01/2025 Progress Note Patient:?Ning CASAS Provider:?Ezequiel Henson APRN :1995???Age:29 Y???Sex:Female D ate:04/01/2025 Address:[address] [place] [address] , [facility] Pcp:Wilson Benites Subjective: * Chief Complaints: * ???1. PT last seen PMD Malaika Benites . 2. Fatigue 6/10, AMS 30 MINS. 3. Pain 4/10 legs, hips, knees, arms. 4. Lab n/a. 5. CXR/DEXA needs done. 6. Pt IS CURRENTLY . 7. Symptoms - chronic muscle pain/joint pain. * HPI: ???Rheumatology, Other:?Demographics?29F +POTS ( Cardiology @ [facility] Dr. Ernandez) ,?.?The patient presents with the following symptoms?CONSULT 04.01.2025 ? Pt. comes to us with chronic pain and possible hypermobility symptoms. Pt. used to take Tylenol forher symptoms but as of now is not tkaing it. Pt. at times have neck pain which gets so severe that it causes her face to go numb and only then she takes Tylenol. Curently 15 weeeks - Seeing [facility]. Endocronologist Dr. Cruz BARGER ?- Lots of [...] within 14 days of symptom onset??No * ROS:?Rheumatology:?Fatigue?Yes.?Fever?No.?Chills?No.?Night Sweats?No.?Weight Loss?No.?Hands change color in the cold?No.?Dry Eyes?No.?Dry Mouth?No.?Stiffness in AM?Yes.?Jaw pain or tired when chewing?Yes.?Headaches?No.?Pain in eyes?No.?Redness in eyes?No. Blurred or Double Vision?Yes.?Floaters?No.?Flashes?No.?Hair Loss that left bald patch behind?No.?Mouth ulcers?No.?Nasal Ulcers?No.?Frequent sore throat?No.?Lymphadenopathy?No.?Chest pain?No.?Shortness of breath?Yes.?Cough?No.?Coughing up Blood?No.?Heartburn?No.?Chest pain when taking in deep breath?No.?Wheezing?No.?Abdominal pain?No.?Diarrhea?No.?Nausea?Yes.?Vomiting?No.?Constipation?No.?Dysuria?No.?Inco ntine nce?No.?Recurrent sinus infection?No.?Recurrent ear infection?No.?Bleeding gums?No.?Psoriasis?No.?Skin rash after sun exposure?No.?Nodules/Bumps?No.?Muscle weakness?No.?Tingling?No.?Numbness?No.?Burning?No.?Falls?No.?Anxiety?No.?Depress ion?N o.?Anemia?No.?Bleeding Tendency?Yes.?Ringing in ears?No.?Loss of hearing?No.?Height loss?No.?Heart murmur?No.?Blood in stool?No. Heel pain?No.?Discomfort or pain in BUTTOCK?No.?Weight GAIN?No.? * Medical History:?anxiety: No , asthma: No, eczema: No, psoriasis: No, osteoporosis: No, gout: No, hypothyroidism: No, abnormal liver function: No, fatty liver: No, acid reflux: No, bowel disorders: No, Crohns SI: No, ulcerative colitis: No, celiac sprue: No, diverticulosis: No, hives: No, hypertension: No, multiple sclerosis: No, recurrent sinusitis: No, sleep apnea: No, varicose veins: No, kidney stones: No, migraine headaches: No, human immunodeficiency virus (HIV), positive: No, cancer, colon: No, family history of colon cancer: No, zenkers diverticulum: [facility] POTS . * OB History:?Total pregnancies?15.?Total living children?1.?Miscarriage(s)?13 miscarriages.? * Surgical History:?Spinal jerry mohinder 04/2016, 04/2023, no EGD/Colonoscopy . * Family History:?Daughter(s): alive 2 yrs.?Father: alive 52 yrs.?Mother: alive 52 yrs.?Siblings: 6 siblings.? * Social History:?Tobacco Use:?Smoking: No. 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 ???Social History:?Household?Marital Status:?Number of Children in Household:?1 ?Level of Education:?Finished College * Medications:?Taking Hydrocor tisone 5 MG Tablet Oral * Allergies:?N.K.D.A. Objective: * Vitals:?BP:104/74mm Hg, HR:8 0/min, Temp:36.3C, Ht-cm: 166 cm, Wt-k.8 kg, BMI:19.88Index. * Examination: ???allergy: ?GENERAL APPEARANCE:?in no acute distress, well developed, well nourished.?HEAD:?normocephalic, atraumatic, Thyroid not palpable, not tender, no temporal artery tenderness (B), , temporal artery pulse 2+(B), parotid glands not enlarged, no maxillary sinus tenderness (B).?EYES:?pupils equal, round, reactive to light and accommodation.?EARS:?normal.?ORAL CAVITY:?mucosa moist, no lesions.?THROAT:?clear.?NECK/THYROID:?no cervical lymphadenopathy, no palpable thyroid.?LYMPH NODES:?no lymphadenopathy.?SKIN:?no other suspicious lesions, warm and dry, No telangiectasia, no livedo reticularis , normal skin elasticity,.?HEART:?no costochondral tenderness, regular rate and rhythm, S1, S2 normal.?LUNGS:?clear to auscultation bilaterally.?ABDOMEN:?normal, bowel sounds present, no hepatosplenomegaly, no masses palpable, no rebound tenderness, soft, nontender, nondistended.?EXTREMITIES:?no clubbing, cyanosis, or edema, no nail pitting.?NEUROLOGIC:?nonfocal, motor strength normal upper and lower extremities, sensory exam intact.?Rheumatology: ?CERVICAL SPINES:?no vertebral tenderness, normal range of motion without discomfort, no paravertebral muscle spasm (B).?LUMBAR SPINES:?no vertebral tenderness, straight leg raise unremarkable, normal forward bending and normal lateral bending, normal extension.?SHOULDERS:?normal range of motion w/o pain, No proximal muscle tenderness, (B)No proximal muscle weakness.?ELBOWS:?no swelling, normal range of motion.?WRISTS:?(B)wrist no synovitis, normal range of motion without discomfort, negative Tinel's sign.?HANDS:?no synovitis, no tenderness, normal range of motion, no tenderness of the flexor tendons.?HIPS:?normal range of motion, (B)no trochanteric tenderness, (B)no inguinal tenderness, (B)No proximal muscle tenderness , (B)No proximal muscle weakness.?KNEES:?(B)no tenderness, no effusion,, normal alignment and range of motion.?ANKLES:?(B)no tenderness, no swelling, ankle joint tenderness, swelling, normal range of motion, no (B)plantar fascia tenderness at the insertion into calcaneal bone, no (B)Achilles enthesis tenderness.?FEET:?normal, no pain or swelling, full ROM.?THORACIC SPINE:?no vertebral tenderness, full ROM.?SACROILIAC:?no tenderness, sacroiliac stressing test negative, (B) Ross's test negative .?FIBROMYALGIA TENDER POINTS:?No diffuse trigger point tenderness.? Assessment: * Assessment: 1.?Coagulation defect, unspe cified - D68.9???2.?Inflammatory polyarthropathy - M06.4 (Primary)???Notes :29F W presents to us on 04.01.2025 with Fatigue 6/10, AMS 30 MINS, pain 4/10 legs, hips, knees, arms. H/o 13 consecutive losses, all 1st trimester until [facility] put her on Hydrocortisone for adrenal hyperplasia (and Progesterone) which resulted in her successful (has healthy baby ) Currently 15 weeks .???3.?Homocystinuria - E72.11???Specify :2021 per review of eEHx???4.?Abnormal level of hormones in specimens from other organs, systems and tissues - R89.1???Notes :EmilyNM put her on Hydrocortisone for support due to h/o adrenal hyperplasia with question of Harry's Disease not formally diagnosed due to intermittent low or low normal Se Cortisol level; This resulted in successful .???5.?Recurrent loss - N96???Notes :OV 5.9.25 H/o 13 consecutive losses, all 1st trimester until EndoMD put her on Hydrocortisone for adrenal hyperplasia (and Progesterone) which resulted in her successful (has healthy baby ) prior to the current - as of 04.01.25;???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 Frequent subluxations shoulders, ankles.???Notes :Pelvic floor dysfunction with dyspareunia.???9.?Pain in left shoulder - M25.512??? Plan: * Treatment: 2.?Hereditary factor VIII de ficiency?LAB: CARDIOLIPIN AB (IGA,IGG,IGM) ?LAB: RHEUMATOID FACTOR ?LAB: CCP Antibody (IGG) ?LAB: HARDEEP IFA SCREEN W/REFL TO TITER AND PATTERN, IFA ?LAB: SJOGRENS ANTIBODIES (SS-A,SS-B) ?LAB: JON ANTIBODY ?LAB: RELAYS DRAFTSPERSON ANTIBODY ?LAB: SCL-70 ANTIBODY ?LAB: BETA 2 GLYCOPROTEIN I AB (IGG,IGA,IGM) ?LAB: DNA(ds) AB, CRITHIDIA IFA W/RF * Procedure Codes:?91573 ULTRA SOUND EVALUATION * Follow Up:?6 Weeks * * Electronic signature of Candido Henson APRN on 04/08/2025 at 10:10 AM EDT Sign off status: Pending * Provider:?Ezequiel Henson APRN Date:?07/2025 Generated for Kaitlin ding/Shanthi/eTpurnima on:?04/08/2025 10:10 AM EDT History and Physical Notes * HPI (History of Present Illness) Category Sub-Category Detail Notes Category Not es Rheumatology, Other Demographics 29F +POTS ( Cardiology @ [facility] Dr. Ernandez) , The patient presents with th e following symptoms CONSULT . PT last seen PMD Wilson Benites , [...] 34 week. NO spontaneous loss after 10 th week. YES recurrent spontaneous 1st trimester 3 [...] negative FIBROMYALGIA TENDER POINTS: No diffuse t leather goods ii assembler point tenderness allergy GENERAL APPEARANCE: in no [...]
--- OUTSIDE RECORDS SUMMARY | 2025-04-08 10:11 | XMS_ITS | Patient Health Record ---
Author Organization [facility] Address [address] [place] [phone] Care Team Providers Care Hand Fretted Instrument Maker Name Role Phone Cristobal Benites Unavailable [phone] Brenda Wilkins Unavailable [phone] Allergies No Known Allergies Reason For Referral Reason For evaluation and t reatment of hypermobility disorder. 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) Referral Organization [facility] Referring Provider First Name Cristobal Referring Provider [facility] Referring Provider Speciality Custodial Manager Referred Provider Kavin Flores Referred Provider Specialty Medical Gene tics Referral Priority Routine Reason For evaluation and t reatment of hypermobility, suspected EDS. 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) Referral Organization [facility] Referring Provider First Name Cristobal Referring Provider Last Name Kamari [facility] Custodial Manager Referred Provider Sj Mix Referred Provider Specialty Unknown Referral Priority Routine Reason For evaluation and t reatment of hypermobility, connective tissue disorder of unknown etiology. 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) Referral Organization [facility] Referring Provider First Name Cristobal Referring Provider Last Name Kamari Referring Provider Speciality Custodial Manager Referred Provider Ruby Severino Referred Provider Specialty Rheumatology Referral Priority Routine Reason Suspicion of vascula r EDS with known clotting disorder. 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) Referral Organization [facility] Referring Provider First Name Cristobal Referring Provider Last Name Kamari Referring Provider Speciality Custodial Manager Referred Provider Sj Mix Referred Provider Specialty Unknown Referral Priority Routine Medications Medication SIG (Take, Route, Frequency, Duration) Notes Start Date End Date Status Progesterone Unknown Problems Problem Type SNOMED Code ICD Code Onset Dates Problem Status W/U Status Risk Notes Problem Iron deficiency anem ia (01590666) Iron deficiency anemia, unspecified (D50.9) Active confirmed Problem Hereditary factor II deficiency disease (69350996) 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 Problem Coagulation defe ct, unspecified (D68.9) Active confirmed Problem Androgen excess (203395553) Androgen excess (E28.1) Active confirmed Problem Vitamin D deficiency (42128714) Vitamin D deficiency, unspecified (E55.9) Active confirmed Problem Homocystinuria (44482032) 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 Problem Methylenetetrahydrof ol ate reductase deficiency (53057678) Methylenetetrahydrof olate reductase deficiency (E72.12) Active confirmed Problem Disorder of connecti ve tissue (598617066) Systemic involvement of connective tissue, 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 Problem Irregular Menstruati on (76107536) Other specified irregular menstruation (N92.5) Active confirmed Problem Irregular menstruati on (90199193) Irregular menstruation, unspecified (N92.6) Active confirmed Problem 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 (390822953) Recurrent loss (N96) Active confirmed Problem Hormone abnormality (77441696) Abnormal level of hormones in specimens from other organs, systems and tissues (R89.1) Active confirmed Problem Histopathology findi ng (873673250) Unspecified abnormal finding in specimens from other organs, systems and tissues (R89.9) Active confirmed Encounters Encounter Location Date Provider Diagnosis [address] [id number] 05/03/2024 Cristobal Benites Other fatigue R53.83 ; Person consulting for explanation of examination or test findings Z71.2 ; Abnormal levels of other serum enzymes R74.8 ; Iron deficiency E61.1 ; Dietary counseling and surveillance Z71.3 and Systemic involvement of connective tissue, unspecified M35.[address] [id number] 07/27/2024 Cristobal Benites Other fatigue R53.83 ; Other specified irregular menstruation N92.5 ; Person consulting for explanation of examination or test findings Z71.2 ; Encounter for other general counseling and advice on procreation Z31.69 and Dietary counseling and surveillance Z71.[address] [id number] 10/12/2024 Cristobal Benites Procreative counseli ng and advice using natural family planning Z31.61 ; Iron deficiency E61.1 ; Personal history of other complications of , childbirth and the puerperium Z87.59 ; Vitamin A deficiency, unspecified E50.9 and Dietary counseling and surveillance Z71.[address] [id number] 01/25/2025 Cristobal Benites care for patient with recurrent loss, first trimester O26.21 ; Other insomnia G47.09 ; Person consulting for explanation of examination or test findings Z71.2 and Dietary counseling and surveillance Z71.[address] [id number] 05/04/2024 Cristobal Benites [address] [id number] 05/25/2024 Cristobal Benites [address] [id number] 05/26/2024 Cristobal Benites [address] [id number] 12/23/2024 Carolina Franky Abnormal level of hormones in specimens from female genital organs R87.1 ; Abnormal levels of other serum enzymes R74.8 ; Abnormal level of hormones in specimens from other organs, systems and tissues R89.1 ; Other specified irregular menstruation N92.5 and Androgen excess E28.[address] [id number] 02/11/2025 Cristobal Benites [address] [id number] 02/18/2025 Cristobal Benites [address] [id number] 02/10/2025 Cristobal Benites [address] [id number] 02/16/2025 Cristobal Benites Systemic involvement of connective tissue, unspecified M35.9 Assessments Encounter Date Diagnosis (ICD Code) Assessment Notes Treatment Notes Treatment Clinical Notes Section Notes 05/03/2024 Other fatigue (ICD-10 - R53.83) This is a 28 yo female pt presenting in-office for ROF of recent labs, and to f/u on concerns of hypermobility. Results reviewed and discussed during the visit. Seen by different multimedia services manager - told not to worry about elevations in clotting labs/factors. Has concern of hypermobility - states physical therapist believes she has hypermobility based on exam and assessment. Has not been seen by population geneticist at [facility] in [place] (Kavin Walker) - was told they do [...] discussed during the visit. Seen by different multimedia services manager - told not to worry about elevations in clotting labs/factors. Has concern of hypermobility - states physical therapist believes she has hypermobility based on exam and assessment. Has not been seen by population geneticist at [facility] in [place] (Kavin Walker) - was told they do [...] discussed during the visit. 6 weeks . Part Maker wants to resume hydrocortisone. Using topical progesterone [...] discussed during the visit. 6 weeks . Part Maker wants to resume hydrocortisone. Using topical progesterone [...] discussed during the visit. 6 weeks . Part Maker wants to resume hydrocortisone. Using topical progesterone [...] discussed during the visit. Seen by different multimedia services manager - told not to worry about elevations in clotting labs/factors. Has concern of hypermobility - states physical therapist believes she has hypermobility based on exam and assessment. Has not been seen by population geneticist at [facility] in [place] (Kavin Walker) - was told they do [...] discussed during the visit. Seen by different multimedia services manager - told not to worry about elevations in clotting labs/factors. Has concern of hypermobility - states physical therapist believes she has hypermobility based on exam and assessment. Has not been seen by population geneticist at [facility] in [place] (Kavin Walker) - was told they do [...] discussed during the visit. 6 weeks . Part Maker wants to resume hydrocortisone. Using topical progesterone [...] discussed during the visit. Seen by different multimedia services manager - told not to worry about elevations in clotting labs/factors. Has concern of hypermobility - states physical therapist believes she has hypermobility based on exam and assessment. Has not been seen by population geneticist at [facility] in [place] (Kavin Walker) - was told they do [...] discussed during the visit. Seen by different multimedia services manager - told not to worry about elevations in clotting labs/factors. Has concern of hypermobility - states physical therapist believes she has hypermobility based on exam and assessment. Has not been seen by population geneticist at [facility] in [place] (Kavin Walker) - was told they do [...] discussed during the visit. Seen by different multimedia services manager - told not to worry about elevations in clotting labs/factors. Has concern of hypermobility - states physical therapist believes she has hypermobility based on exam and assessment. Has not been seen by population geneticist at [facility] in [place] (Kavin Rich) - was told they do [...] discussed during the visit. 6 weeks . Part Maker wants to resume hydrocortisone. Using topical progesterone [...] SULFATE 02/23/2024 VITAMIN B12/FOLATE, SERUM PANEL 07/27/20 24 VITAMIN B12/FOLATE, SERUM PANEL 06/12/20 22 VITAMIN B12/FOLATE, SERUM PANEL 12/12/19 24 PROLACTIN 12/12/2023 PROLACTIN 06/12/2022 PROLACTIN 02/23/2024 FOLATE, [...] 07/27/2024 Next Appt Details Provider Name:Cristobal Moreno [facility], 06/27/2025 03:00:00 PM, [address] [facility], [address], [place], [address], Insurance Providers Payer Name Payer Address Payer Phone Subscriber Number Group Number Insured Name Patient Relationship to Insured Coverage Start Date Coverage End Date [facility] [address] [place] [phone] [id number] Jeff Do Self - patient is the insured Medical (General) History Medical History History ICD Code Tethered Spinal Cord Recurrent Miscarriages Hx [place] Surgical History Surgery Date(Month/Year) spinal surgery 2015 [facility] [place]/2021 Hospitalization History Reason Date(Month/Year) See WATER MANGLE TENDER - miscarriages
--- OUTSIDE RECORDS SUMMARY | 2025-04-08 10:11 | XMS_ITS ---
Author Organization [facility] Address [address] [place] [id number] Care Team Providers Care Fashion Consultant Name Role Phone Wilson Benites Primary Care Provider Valeab CALLUM Ryan Unavailable [phone] REASON FOR VISIT Medical records request Encounters Encounter Location Date Provider Diagnosis [facility] [address] [id number] 04/01/2025 CALLUM FUNG Plan Of Treatment Next Appt Details Provider Name:Ezequiel Henson, 04/29/2025 09:30:00 AM, [address] [place] [address], [phone], Provider Name:CALLUM FUNG, 08/16/2025 09:30:00 AM, [address] [place] [address], [phone], Progress Notes * Ning CASASaDOB:03/1995 (29 yo F)Acc No.[id number]:04/01/2025 Patient:?Ning CASAS :1995???Age:29 Y???Sex:Female Address:[address] [place], [address] * * Date:?
[2025-04-08 10:33] LABS: MANUAL DIFF FLAG NO
[2025-04-08 11:23] LABS: Basophils Percent Auto 0.3 % (0-2); Eosinophils Percent Auto 0.3 % (0-4); Hematocrit 36.5 % (37.0-47.0); Imm Gran Abs Auto 0.04 X10*3/uL (0.00-0.03); Imm Gran Pct Auto 0.5 % (0.0-0.4); Lymphocytes Absolute Auto 2.1 X10*3/uL (1.2-4.9); Lymphocytes Percent Auto 23.8 % (20-40); Mean Corpuscular HGB Conc 35.6 g/dl (31.0-35.0); Mean Corpuscular Hemoglobin 30.1 pg (27.0-33.0); Mean Corpuscular Volume 84.5 fL (80.0-98.0); Mean Platelet Volume 9.3 fL (9.4-12.3); Monocytes Absolute Auto 0.4 X10*3/uL (0.1-1.2); Monocytes Percent Auto 5.1 % (2-11); Neutrophils Absolute Auto 6.1 x10*3/uL (2.0-8.3); Platelet Count 249 X10*3/uL (160-400); Red Blood Count 4.32 X10*6/uL (4.20-5.50); Red Cell Distribution Width 13.7 % (11.0-16.0); White Blood Count 8.7 X10*3/uL (4.8-10.8)
[2025-04-08 11:59] LABS: Appearance Urine Clear; Color Urine Dark Yellow; Glucose Urine UA Negative (Negative); Leukocyte Esterase Urine Small (1+) (Negative); Nitrite Urine Negative (Negative); PH 6.5 (5.0-9.0); UMIC TRIGGER UACC YES; Urine Blood Negative (Negative); Urine Ketones Trace mg/dL (Negative); Urine Protein Trace mg/dL (Neg-Trace)
[2025-04-08 12:08] LABS: Erythrocyte Sedimentation Rate 20 MM/HR (0-20); Parathyroid Hormone Intact 46.1 pg/mL (8.7-77.1)
[2025-04-08 12:12] LABS: Rheumatoid Factor < 13.0 IU/mL (<15.0)
[2025-04-08 12:17] LABS: Alanine Aminotransferase 11 U/L (0-31); Albumin Level 3.8 g/dL (3.5-5.0); Alkaline Phosphatase 67 U/L (39-117); Aspartate Amino Transferase 16 U/L (5-31); Bilirubin Direct 0.1 mg/dL (0.0-0.5); Bilirubin Total 0.3 mg/dL (0.0-1.0); Calcium 9.1 mg/dL (8.4-10.2); Estimated Glomerular Filt Rate > 60; Iron 117 mcg/dL (30-160); Percent Iron Saturation 30 % (15-50); Total Iron Binding Capacity 395 mcg/dL (228-428); Unsaturated Iron Binding 278 ug/dL
[2025-04-08 12:17] LABS: Bacteria Urine None Seen (None Seen); Calcium Oxalate Crystals Urine Present; Hyaline Casts Urine 0-2 /LPF (0-2); RBC Urine 0-2 /HPF (0-2); UACC Culture Trigger YES; WBC Urine 0-5 /HPF (0-5)
[2025-04-08 12:28] LABS: HBsAGNum1 0.33 S/CO (0.00-0.99); Hepatitis B Core Antibody Nonreactive (Nonreactive); Hepatitis B Surface Antigen Negative (Negative); ~HepC Num1 0.09 S/CO (0.00-0.79); ~Hepatitis C Antibody Nonreactive (Nonreactive)
[2025-04-08 12:34] LABS: Folate 14.2 ng/mL (> or = 4.0); Vitamin B12 805 pg/mL (200-900)
[2025-04-08 12:54] LABS: Ferritin 25 ng/mL (10-122); Thyroid Stimulating Hormone 0.75 uIU/mL (0.32-4.0); Uric Acid 2.1 mg/dL (2.4-5.7); Vitamin D 25-OH Total 99.7 ng/mL (>30)
[2025-04-09 04:38] LABS: CRP High Sensitivity 3.5 mg/L
[2025-04-11 22:54] LABS: Prot Elec - Albumin 3.5 g/dL (3.8-4.8); Prot Elec - Alpha1 0.4 g/dL (0.2-0.3); Prot Elec - Alpha2 0.9 g/dL (0.5-0.9); Prot Elec - Beta 1 0.5 g/dL (0.4-0.6); Prot Elec - Beta 2 0.4 g/dL (0.2-0.5); Prot Elec - Gamma 0.9 g/dL (0.8-1.7); Prot Elec - Total Protein 6.6 g/dL (6.1-8.1)
[2025-04-12 13:28] LABS: IgA 186 mg/dL (47-310); IgG 966 mg/dL (600-1640); IgM 211 mg/dL (50-300)
[2025-04-12 14:59] LABS: Anti Nuclear Antibody Screen NEGATIVE (NEGATIVE)
[2025-04-12 23:24] LABS: Lyme Abs Screen <0.90 index
[2025-04-13 04:43] LABS: PTT (LAC) Screen 38 sec (<=40)
[2025-04-13 08:18] LABS: Anti Nuclear Antibody Titer TRNP
== END 2025-04-08 09:51 | disposition home or self-care (01) ==
LOC: HO.LAB 09:50
PROVIDERS: PCP Internal Medicine; Visit Provider Internal Medicine
DX: C90.00 Multiple myeloma not having achieved remission (principal); D51.9 Vitamin B12 deficiency anemia, unspecified; L40.53 Psoriatic spondylitis; E55.9 Vitamin D deficiency, unspecified; E83.52 Hypercalcemia; M79.10 Myalgia, unspecified site; R94.4 Abnormal results of kidney function studies; B19.20 Unspecified viral hepatitis C without hepatic coma; B18.2 Chronic viral hepatitis C; R30.0 Dysuria; M31.30 Wegener's granulomatosis without renal involvement; M06.4 Inflammatory polyarthropathy; R94.5 Abnormal results of liver function studies; M10.9 Gout, unspecified; D86.86 Sarcoid arthropathy; A69.20 Lyme disease, unspecified; E03.9 Hypothyroidism, unspecified; M13.0 Polyarthritis, unspecified; R79.82 Elevated C-reactive protein (CRP); K90.0 Celiac disease; M32.0 Drug-induced systemic lupus erythematosus; M35.01 Sjogren syndrome with keratoconjunctivitis; D68.312 Antiphospholipid antibody with hemorrhagic disorder; D68.9 Coagulation defect, unspecified; M05.40 Rheumatoid myopathy with rheumatoid arthritis of unspecified site
CPT/HCPCS: 36415; 80076; 81001; 82306; 82310; 82550; 82565; 82607; 82728; 82746; 82784; 83540; 83970; 84165; 84443; 84550; 85025; 85597; 85598; 85613; 85652; 85730; 86038; 86039; 86141; 86334; 86431; 86617; 86618; 86704; 86803; 87086; 87340

== ENCOUNTER 2025-06-17 07:39 | Outpatient (REF) | payer OTHER, SELFPAY ==
--- OUTSIDE RECORDS SUMMARY | 2025-06-17 07:41 | XMS_ITS ---
[facility] Name [facility] Encounters Encounter Type Encounter Reason Primary Diagnosis Location Date [facility] 02/11/2025 [facility] 01/25/2025 [facility] 01/05/2025 [facility] 10/12/2024 [facility] 05/26/2024 [facility] 05/25/2024 [facility]ulatory [facility] 05/04/2024 Ambulatory [facility] N [facility] 05/03/2024 Ambulatory [facility] N [facility] 02/23/2024 Ambulatory [facility] N [facility] 12/19/2023 Ambulatory [facility] N [facility] 12/12/2023 [facility]ulatory [facility] 09/08/2023 Ambulatory [facility] N [facility] 06/20/2023 Ambulatory Collaborative N [facility] 06/19/2023 Care Team Organization Name Specialty Phone Email Start Date End Da te Collaborative [facility] DK [facility] Primary [facility] 12/14/2023
--- OUTSIDE RECORDS SUMMARY | 2025-06-17 07:41 | XMS_ITS | Patient Health Record ---
Author Organization [facility] Address [address], [place] [id number] Care Team Providers Care Enterprise Software Engineer Name Role Phone Wilson Benites Primary Care Provider Unavailab jacy FUNG CALLUM Unavailable [phone] Mclain, Gracia Unavailable [phone] Ezequiel Henson Unavailable [phone] Allergies No Known Allergies Results Component Value Reference Range Notes B2 GLYCOPROTEIN I (IGM)AB Reviewed date:04/19/2025 10:32:33 AM Interpretation: Performing Lab:Y[facility]ONNE [facility], [address] [address] [facility] , [place], [phone] Ross Lynch M.D.,PhD Notes/Report: Received Date: FASTING:NO FASTING: NO B2 GLYCOPROTEIN I (IGM)AB <2.0 <20.0 U/mL Value Interpretation ----- < 20.0 Antibody not [...] aging. For additional information, please refer to http://education.questdiagnosti cs.com/faq/YDY987 (This link is being provided for informational/ educational purposes only.) B2 GLYCOPROTEIN I (IGG)AB Reviewed date:04/19/2025 10:32:33 AM Interpretation: Performing Lab:Jonathan [facility], [address], [place], [phone] Ross Lynch M.D.,PhD Notes/Report: Received Date: FASTING:NO FASTING: NO B2 GLYCOPROTEIN I (IGG)AB <2.0 <20.0 U/mL Value Interpretation ----- < 20.0 Antibody not [...] aging. For additional information, please refer to http://NewBay/faq/IMC887 (This link is being provided for informational/ educational purposes only.) SM AND SM/GUEST ADVISOR ANTIBODIES Reviewed date:04/19/2025 10:32:33 AM Interpretation: Performing Lab:NL[facility], [facility], [address] [place] [address], [phone] Verna Murphy M.D. Notes/Report: Received Date: FASTING:NO FASTING: NO SM ANTIBODY <1.0 NEG <1.0 NEG AI SM/GUEST ADVISOR ANTIBODY <1.0 NEG <1.0 NEG AI Celiac Disease Comprehensive Panel with Gliadin Antibody (IgG) Reviewed date:04/19/2025 10:32:33 AM Interpretation: Performing Lab:NL[facility], [facility], [address] [place] [address], [phone] Verna Murphy M.D. Notes/Report: Received Date: FASTING:NO FASTING: NO INTERPRETATION No serological evidence for celiac disease is present. tTg may normalize in individuals with celiac disease who maintain a gluten free diet. If high suspicion of celiac disease, consider HLA DQ2 and DQ8 testing to rule out celiac disease. TISSUE TRANSGLUTAMINASE AB, IGA <1.0 Value Interpretation ----- <15.0 Antibody not detected > or = 15.0 Antibody detected IMMUNOGLOBULIN A 188 47-310 mg/dL DNA(ds) AB, CRITHIDIA IFA W/ RF Reviewed date:04/19/2025 10:32:33 AM Interpretation: Performing Lab:YVONNE [facility], [address], [place], [place], Ross Lynch M.D.,PhD Notes/Report: Received Date: FASTING:NO FASTING: NO DNA AB (DS) CRITHIDIA,IFA Negative Negative ANGIOTENSIN CONVERTING ENZYM E (CONNIE) Reviewed date:04/19/2025 10:32:33 AM Interpretation: Performing Lab:YVONNE [facility], [address], [place], [place], Ross Lynch M.D.,PhD Notes/Report: Received Date: FASTING:NO FASTING: NO [id number] ENZYME 14.5 9-67 U/L ANCA SCREEN WITH MPO AND PR3 WITH REFLEX TO ANCA TITER Reviewed date:04/19/2025 10:32:33 AM Interpretation: Performing Lab:VLADISLAV, [facility], [address] [place] [address], [phone] Verna Murphy M.D. Notes/Report: Received Date: FASTING:NO FASTING: NO ANCA SCREEN NEGATIVE NEGATIVE ANCA screen uses indirect immunofluorescence to detect antibodies to neutrophil cytoplasmic antigens. A positive screen reflexes to titer and pattern. Patterns include cytoplasmic (c-ANCA) and perinuclear (p-ANCA) both of which are associated with vasculitis, and atypical p-ANCA which is associated with inflammatory bowel disease and other disorders. MYELOPEROXIDASE ANTIBODY <1.0 Value Interpretation ----- <1.0 No Antibody Detected [...] present in active disease. PROTEINASE-3 ANTIBODY <1.0 Value Interpretation ----- <1.0 No Antibody Detected > or = 1.0 Antibody Detected Autoantibodies to proteinase-3 (WV-3) are accepted as characteristic for granulomatosis with polyangiitis (GPA, Violet's), and are detectable in 95% of the histologically proven cases. The cytoplasmic IFA pattern, (c-ANCA), is based largely on autoantibody to WV-3 which serves as the primary antigen. These autoantibodies are present in active disease. SCL-70 ANTIBODY Reviewed date:04/19/2025 10:32:33 AM Interpretation: Performing Lab:[facility], [facility], [address] [place] [address], [phone] Verna Murphy M.D. Notes/Report: Received Date: FASTING:NO FASTING: NO SCL-70 ANTIBODY <1.0 NEG <1.0 NEG AI SJOGRENS ANTIBODIES (SS-A,SS -B) Reviewed date:04/19/2025 10:32:33 AM Interpretation: Performing Lab:NL1, [facility], [address] [place] [address], [phone] Verna Murphy M.D. Notes/Report: Received Date: FASTING:NO FASTING: NO SJOGREN'S ANTIBODY (SS-A) <1.0 NEG <1.0 NEG AI SJOGREN'S ANTIBODY (SS-B) <1.0 NEG <1.0 NEG AI CCP Antibody (IGG) Reviewed date:04/19/2025 10:32:33 AM Interpretation: Performing Lab:NL1, [facility], [address] [place] [address], [phone] Verna Murphy M.D. Notes/Report: Received Date: FASTING:NO FASTING: NO CYCLIC CITRULLINATED PEPTIDE (CCP) AB (IGG) <16 Reference Range Negative: <20 Weak Positive: 20-39 Moderate Positive: 40-59 Strong Positive: >59 CARDIOLIPIN AB (IGA,IGG,IGM) Reviewed date:04/19/2025 10:32:33 AM Interpretation: Performing Lab:NL1, [facility], [address] [place] [address], [phone] Verna Murphy M.D. Notes/Report: Received Date: FASTING:NO FASTING: NO CARDIOLIPIN AB (IGA) <2.0 Value Interpretation ----- < 20.0 Antibody not detected > or = 20.0 Antibody detected CARDIOLIPIN AB (IGG) <2.0 Value Interpretation ----- < 20.0 Antibody not detected > or = 20.0 Antibody detected CARDIOLIPIN AB (IGM) <2.0 Value Interpretation ----- < 20.0 Antibody not [...] aging. For additional information, please refer to http://education.Search123.com/faq/GXT461 (This link is being provided for informational/ educational purposes only.) HLA-B27 ANTIGEN Reviewed date:04/19/2025 10:32:33 AM Interpretation: Performing Lab:YVONNE, [facility], [address], [place], [phone] Ross Lynch M.D.,PhD Notes/Report: Received Date: FASTING:NO FASTING: NO HLA-B27 ANTIGEN Negative Negative Reason For Referral No Information Medications Medication SIG (Take, Route, Fr equency, Duration) Notes Start Date End Date Status 28-0.8 MG 1 tablet Orally Once a day Active Hydrocortisone 5 MG Oral; Duration: 90 Days Active Bernard 3 1200 MG 1 capsule Orally Once a day 1250mg Active Problems Problem Type SNOMED Code ICD Code Onset Dates Problem Status W/U Status Risk Notes 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 now 19 weeks . Lab 04.08.2025- neg RF, OK CK 28, OK LFT,CR, TSH -0.75, OK IRON, +HS-CRP 3.5H, NEG HARDEEP-LAC, ESR 20 ULN, NEG HCV, HBsAG, HBc; NEG LYME; 5.14.25 , CCP Ab negative,, Neg aCL X 3, NEG B2GP1 X3, , ANCA negative, Neg MPO ANCA, NEG PR3 ANCA, Negative SSA, negative SSB, Neg Sm, neg Sm/GUEST ADVISOR. Pt. 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 Vital Signs Heart Rate 107 /min 04/28/2025 Temperature 35.6 C 04/28/2025 Blood pressure diastolic 77 mm Hg 04/28/2025 Height 166 cm 04/28/2025 Blood pressure systolic 106 mm Hg 04/28/2025 Weight 54.8 kg 04/01/2025 BMI 19.88 kg/m2 04/01/2025 Encounters Encounter Location Date Provider Diagnosis [facility] [address], [place] [id number] 5 Kaushar Henson Inflammatory polyarthropathy M06.4 ; Coagulation defect, unspecified D68.9 ; Homocystinuria E72.11 ; Abnormal level of hormones in specimens from other organs, systems and tissues R89.1 ; Recurrent loss N96 ; Hereditary factor VIII deficiency D66 ; 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 ; 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 and Pain in left shoulder M25.512 [facility] [address], [place] [id number] 5 Kaushar Henson Inflammatory polyarthropathy M06.4 ; Coagulation defect, unspecified D68.9 ; Homocystinuria E72.11 ; Abnormal level of hormones in specimens from other organs, systems and tissues R89.1 ; Recurrent loss N96 ; Hereditary factor VIII deficiency D66 ; 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 ; 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 now 19 weeks . Lab 04.08.2025- neg RF, OK CK 28, OK LFT,CR, TSH -0.75, OK IRON, +HS-CRP 3.5H, NEG HARDEEP-LAC, ESR 20 ULN, NEG HCV, HBsAG, HBc; NEG LYME; 5.14.25 , CCP Ab negative,, Neg aCL X 3, NEG B2GP1 X3, , ANCA negative, Neg MPO ANCA, NEG PR3 ANCA, Negative SSA, negative SSB, Neg Sm, neg Sm/GUEST ADVISOR. Pt. unable to take MTX due to [...] C scpine, THS, LS and BL hips ([facility]) Follow up with Syrup Maker as scheduled - May consider Hydroxychloroq uin Physical Therapy for hypermobility, congenital neural tube defect, back pain, 04/01/2025 Coagulation defect, unspecified (ICD-10 - D68.9) 04/01/2025 Inflammatory polyarthropathy (ICD-10 - M06.4) 29F W presents to us on 04.01.2025 with Fatigue /, AMS 30 MINS, pain 4/10 legs, hips, [...] C scpine, THS, LS and BL hips ([facility]) RTC in 6 weeks and next available with Physical Therapy for hypermobility, congenital neural tube defect, back pain, 04/01/2025 Homocystinuria (ICD- 10 - E72.11) 04/28/2025 Homocystinuria (ICD- 10 - E72.11) 04/28/2025 Abnormal level of hormones in specimens from other organs, systems and tissues (ICD-10 - R89.1) EndoMD put her on Hydrocortisone for support due to h/o adrenal hyperplasia with question of Harry's Disease not formally diagnosed due to intermittent low or low normal Se Cortisol level; This resulted in successful . 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 04/01/2025 Hypermobility syndro me (ICD-10 - M35.7) Pelvic floor dysfunction with dyspareunia. 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 Plan Of Treatment Pending Test Test Name Order Date LUPUS ANTICOAGULANT EVALUATION WITH REFL EX 04/01/2025 URINALYSIS, COMPLETE W/REFLEX TO CULTURE 04/01/2025 RHEUMATOID FACTOR 04/01/2025 LYME DISEASE ANTIBODIES (IGG, IGM) ROSALINA RN BLOT 04/01/2025 HARDEEP IFA SCREEN W/REFL TO TITER AND PAUL RN, IFA 04/01/2025 JON ANTIBODY 04/01/2025 GUEST ADVISOR ANTIBODY 04/01/2025 HEPATITIS B CORE ANTIBODY (IGM) [...] DIFF/PLT) 04/01/2025 SED RATE BY MODIFIED WESTERGREN 04/28/20 25 SED RATE BY MODIFIED WESTERGREN 04/01/20 25 Hep C Ab w Rfx to HCV RNA 04/01/2025 HS-CRP 04/28/2025 HS-CRP 04/01/2025 Next Appt Details Provider Name:CALLUM FUNG, 08/16/2025 09:30:00 AM, [address] [place] [address], [phone], Insurance Providers Payer Name Payer Address Payer Phone Subscriber Number Group Number Insured Name Patient Relationship to Insured Coverage Start Date Coverage End Date HAYLEY MEEKS [address] [place], [place] [phone] [id number] Jeff Do Self - patient is the [...] history of colon cancer: No zenkers diverticulum: [facility] POT[facility] Surgical History Surgery Date(Month/Year) Spinal surgery 04/2016 04/2023 no EGD/Colonoscopy
--- OUTSIDE RECORDS SUMMARY | 2025-06-17 07:42 | XMS_ITS | Patient Health Record ---
Author Organization [facility] Address [address] [place] [phone] Care Team Providers Care Radiological Metallurgist Name Role Phone Cristobal Benites Unavailable [phone] Brenda Wilkins Unavailable [phone] Allergies No Known Allergies Reason For Referral Reason For evaluation and t reatment of hypermobility, connective tissue disorder of unknown etiology. 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) Referral Organization [facility] Referring Provider First Name Cristobal Referring Provider Last Name Kamari Referring Provider Speciality Sporting Goods Sales Manager Referred Provider Sj Mix Referred Provider Specialty Unknown Referral Priority Routine Medications Medication SIG (Take, Route, Frequency, Duration) Notes Start Date End Date Status Progesterone Unknown Problems Problem Type SNOMED Code ICD Code Onset Dates Problem Status W/U Status Risk Notes Problem Iron deficiency anem ia (91591885) Iron deficiency anemia, unspecified (D50.9) Active confirmed Problem 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 Problem Coagulation disorder (31487084) Coagulation defect, unspecified (D68.9) Active confirmed Problem Androgen excess (244828772) Androgen excess (E28.1) Active confirmed Problem Vitamin D deficiency (21483588) Vitamin D deficiency, unspecified (E55.9) Active confirmed Problem 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 confirmed Problem Disorder of connecti ve tissue (164161344) Systemic involvement of connective tissue, 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 Problem Irregular Menstruati on (12915005) Other specified irregular menstruation (N92.5) Active confirmed Problem Irregular menstruati on (25615903) Irregular menstruation, unspecified (N92.6) Active confirmed Problem 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 Problem C-reactive protein abnormal (237218402) Elevated C-reactive protein (CRP) (R79.82) Active confirmed Problem Hormone abnormality (62441120) Abnormal level of hormones in specimens from other organs, systems and tissues (R89.1) Active confirmed Problem Histopathology findi ng (268068043) Unspecified abnormal finding in specimens from other organs, systems and tissues (R89.9) Active confirmed Encounters Encounter Location Date Provider Diagnosis [address] [id number] 07/27/2024 Cristobal Benites Other fatigue R53.83 ; Other specified irregular menstruation N92.5 ; Person consulting for explanation of examination or test findings Z71.2 ; Encounter for other general counseling and advice on procreation Z31.69 and Dietary counseling and surveillance Z71.[address] [id number] 10/12/2024 Cristobal Benites Procreative counseling and advice using natural family planning Z31.61 ; Iron deficiency E61.1 ; Personal history of other complications of , childbirth and the puerperium Z87.59 ; Vitamin A deficiency, unspecified E50.9 and Dietary counseling and surveillance Z71.[address] [id number] 01/25/2025 Cristobal Benites care for patient with recurrent loss, first trimester O26.21 ; Other insomnia G47.09 ; Person consulting for explanation of examination or test findings Z71.2 and Dietary counseling and surveillance Z71.[address] [place] [address] 04/25/2025 Cristobal Benites Elevated C-reactive protein (CRP) R79.82 ; Heartburn R12 ; Encounter for supervision of normal , unspecified, second trimester Z34.92 ; Person consulting for explanation of examination or test findings Z71.2 and Dietary counseling and surveillance Z71.[address] [id number] 12/23/2024 Carolina Franky Abnormal level of hormones in specimens from female genital organs R87.1 ; Abnormal levels of other serum enzymes R74.8 ; Abnormal level of hormones in specimens from other organs, systems and tissues R89.1 ; Other specified irregular menstruation N92.5 and Androgen excess E28.[address] [id number] 02/11/2025 Cristobal Benites [address] [id number] 02/18/2025 Cristobal Benites [address] [id number] 02/10/2025 Cristobal Benites [address] [id number] 02/16/2025 Cristobal Benites Systemic involvement of connective tissue, unspecified M35.9 Assessments Encounter Date Diagnosis (ICD Code) Assessment Notes Treatment Notes Treatment Clinical Notes Section Notes 07/27/2024 Other specified irregular menstruation (ICD-10 - [...] discussed during the visit. 6 weeks . 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 Using topical progesterone [...] discussed during the visit. 6 weeks . 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 Using topical progesterone [...] and reduce risk of neural tube defect. 02/16/2025 Systemic involvement of connective tissue, unspecified (ICD-10 - M35.9) 04/25/2025 Heartburn (ICD-10 - R12) This is a 29 yo female pt presenting in-office for ROF of recent labs. Results reviewed and discussed during the visit. 19 weeks . A lot of abd pain. Not sure if digestive or muscular - epigastric. Heartburn started very early. Nausea. Occasional difficulty swallowing. Passing out. Lightheaded, dizzy. Shortness of breath. Increased hydrocortisone dose per real estate closing coordinator - helped. Not taking electrolytes. Seen by concrete puddler. Officially diagnosed with hypermobility, ruling out everything to be able make POTS diagnosis. Presents with labs run by concrete puddler. Labs show high HS CRP (3.5) and abnormal protein electropghoresis - albumin L (3.5), alpha 1 globulin H (0.4). Denies fever or chills. Normal brown stools, no mucus, blood, or oily stools. Denies diarrhea. Discussed and recommended options for nausea and heartburn that are safe during , ie sodium alginate (alginic acid) to soothe and smoothe esophagus. Labs ordered to retest HS CRP, run other markers of inflammation, and general health. 04/25/2025 Elevated C-reactive protein (CRP) (ICD-10 - R79.82) This is a 29 yo female pt presenting in-office for ROF of recent labs. Results reviewed and discussed during the visit. 19 weeks . A lot of abd pain. Not sure if digestive or muscular - epigastric. Heartburn started very early. Nausea. Occasional difficulty swallowing. Passing out. Lightheaded, dizzy. Shortness of breath. Increased hydrocortisone dose per real estate closing coordinator - helped. Not taking electrolytes. Seen by concrete puddler. Officially diagnosed with hypermobility, ruling out everything to be able make POTS diagnosis. Presents with labs run by concrete puddler. Labs show high HS CRP (3.5) and abnormal protein electropghoresis - albumin L (3.5), alpha 1 globulin H (0.4). Denies fever or chills. Normal brown stools, no mucus, blood, or oily stools. Denies diarrhea. Discussed and recommended options for nausea and heartburn that are safe during , ie sodium alginate (alginic acid) to soothe and smoothe esophagus. Labs ordered to retest HS CRP, run other markers of inflammation, and general health. 12/23/2024 Abnormal level of hormones in specimens from female genital organs (ICD-10 - R87.1) 12/23/2024 Abnormal levels of other serum enzymes (ICD-10 - R74.8) 04/25/2025 Encounter for supervision of normal , unspecified, second trimester (ICD-10 - Z34.92) This is a 29 yo female pt presenting in-office for ROF of recent labs. Results reviewed and discussed during the visit. 19 weeks . A lot of abd pain. Not sure if digestive or muscular - epigastric. Heartburn started very early. Nausea. Occasional difficulty swallowing. Passing out. Lightheaded, dizzy. Shortness of breath. Increased hydrocortisone dose per real estate closing coordinator - helped. Not taking electrolytes. Seen by concrete puddler. Officially diagnosed with hypermobility, ruling out everything to be able make POTS diagnosis. Presents with labs run by concrete puddler. Labs show high HS CRP (3.5) and abnormal protein electropghoresis - albumin L (3.5), alpha 1 globulin H (0.4). Denies fever or chills. Normal brown stools, no mucus, blood, or oily stools. Denies diarrhea. Discussed and recommended options for nausea and heartburn that are safe during , ie sodium alginate (alginic acid) to soothe and smoothe esophagus. Labs ordered to retest HS CRP, run other markers of inflammation, and general health. 01/25/2025 Person consulting for explanation of examination or test findings (ICD-10 - Z71.2) This is a 29 yo female pt presenting in-office for ROF of recent labs. Results reviewed and discussed during the visit. 6 weeks . 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 Using topical progesterone [...] sooth and smooth esophagus, pt declined. 07/27/2024 Encounter for other general counseling and [...] discussed during the visit. 6 weeks . 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 Using topical progesterone [...] and reduce risk of neural tube defect. 04/25/2025 Person consulting for explanation of examination or test findings (ICD-10 - Z71.2) This is a 29 yo female pt presenting in-office for ROF of recent labs. Results reviewed and discussed during the visit. 19 weeks . A lot of abd pain. Not sure if digestive or muscular - epigastric. Heartburn started very early. Nausea. Occasional difficulty swallowing. Passing out. Lightheaded, dizzy. Shortness of breath. Increased hydrocortisone dose per real estate closing coordinator - helped. Not taking electrolytes. Seen by concrete puddler. Officially diagnosed with hypermobility, ruling out everything to be able make POTS diagnosis. Presents with labs run by concrete puddler. Labs show high HS CRP (3.5) and abnormal protein electropghoresis - albumin L (3.5), alpha 1 globulin H (0.4). Denies fever or chills. Normal brown stools, no mucus, blood, or oily stools. Denies diarrhea. Discussed and recommended options for nausea and heartburn that are safe during , ie sodium alginate (alginic acid) to soothe and smoothe esophagus. Labs ordered to retest HS CRP, run other markers of inflammation, and general health. 12/23/2024 Abnormal level of hormones in specimens from other organs, systems and tissues (ICD-10 - R89.1) 04/25/2025 Dietary counseling and surveillance (ICD-10 - Z71.3) This is a 29 yo female pt presenting in-office for ROF of recent labs. Results reviewed and discussed during the visit. 19 weeks . A lot of abd pain. Not sure if digestive or muscular - epigastric. Heartburn started very early. Nausea. Occasional difficulty swallowing. Passing out. Lightheaded, dizzy. Shortness of breath. Increased hydrocortisone dose per real estate closing coordinator - helped. Not taking electrolytes. Seen by concrete puddler. Officially diagnosed with hypermobility, ruling out everything to be able make POTS diagnosis. Presents with labs run by concrete puddler. Labs show high HS CRP (3.5) and abnormal protein electropghoresis - albumin L (3.5), alpha 1 globulin H (0.4). Denies fever or chills. Normal brown stools, no mucus, blood, or oily stools. Denies diarrhea. Discussed and recommended options for nausea and heartburn that are safe during , ie sodium alginate (alginic acid) to soothe and smoothe esophagus. Labs ordered to retest HS CRP, run other markers of inflammation, and general health. 12/23/2024 Other specified irregular menstruation (ICD-10 - N92.5) 07/27/2024 Dietary counseling and surveillance (ICD-10 - [...] fractionated estrogens, prolactin, LH and FSH. 12/23/2024 Androgen excess (ICD-10 - E28.1) 07/27/2024 Other Consent obtained. Time spent preparing [...] discussed during the visit. 6 weeks . 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 Using topical progesterone [...] and reduce risk of neural tube defect. 04/25/2025 Other Consent obtained. Time spent preparing to see the patient: 5 min Appointment Start time: Cristobal Benites 04/25/2025 03:41:02 PM EDT > End time: Cristobal Benites 04/25/2025 04:37:27 PM EDT > Post appointment time documenting clinical information in the medical record & care coordination: 5 min Total Time: 66 min performing a medically appropriate examination and/or evaluation counseling and educating the patient on etiology, results, and management of health concerns ordering supplementatio ns, tests, or procedures and explaining risks, benefits, and alternatives This is a 29 yo female pt presenting in-office for ROF of recent labs. Results reviewed and discussed during the visit. 19 weeks . A lot of abd pain. Not sure if digestive or muscular - epigastric. Heartburn started very early. Nausea. Occasional difficulty swallowing. Passing out. Lightheaded, dizzy. Shortness of breath. Increased hydrocortisone dose per real estate closing coordinator - helped. Not taking electrolytes. Seen by concrete puddler. Officially diagnosed with hypermobility, ruling out everything to be able make POTS diagnosis. Presents with labs run by concrete puddler. Labs show high HS CRP (3.5) and abnormal protein electropghoresis - albumin L (3.5), alpha 1 globulin H (0.4). Denies fever or chills. Normal brown stools, no mucus, blood, or oily stools. Denies diarrhea. Discussed and recommended options for nausea and heartburn that are safe during , ie sodium alginate (alginic acid) to soothe and smoothe esophagus. Labs ordered to retest HS CRP, run other markers of inflammation, and general health. Plan Of Treatment Pending Test Test Name [...] AND SEX HOR ALEX BINDING GLOBULIN 12/23/2024 TESTOSTERONE, TOTAL AND FREE AND SEX HOR ALEX BINDING GLOBULIN 12/12/2023 ESTROGENS, FRACTIONATED, LC/MS/MS 2023 ESTROGENS, FRACTIONATED, LC/MS/MS [...] CBC (INCLUDES DIFF/PLT) 12/12/2023 FIBRINOGEN ACTIVITY, CLAUSS 04/25/2025 FIBRINOGEN ACTIVITY, CLAUSS 07/17/2022 PROTHROMBIN TIME-INR 07/17/2022 RHEUMATOID FACTOR 12/12/2022 CYCLIC CITRULLINATED PEPTIDE (CCP) AB (I GG) 12/12/2022 THYROID PEROXIDASE ANTIBODIES 12/12/2023 HARDEEP IFA SCREEN W/REFL TO TITER AND PAUL RN, IFA 12/12/2022 HS CRP 04/25/2025 CARDIO IQ(TM) HEMOGLOBIN A1c 06/12/2022 CARDIO IQ(TM)HOMOCYSTEINE CARDIOVASCULAR 06/12/2022 CARDIO IQ(TM)HOMOCYSTEINE CARDIOVASCULAR 12/12/2023 ACTH, PLASMA 02/23/2024 IMMUNOGLOBULIN E 04/25/2025 PROGESTERONE 01/25/2025 PROGESTERONE 12/12/2023 PROGESTERONE 07/27/2024 PROGESTERONE 12/12/2022 PROGESTERONE 06/12/2022 DHEA SULFATE 06/12/2022 DHEA SULFATE 02/23/2024 VITAMIN B12/FOLATE, SERUM PANEL 07/27/20 VITAMIN B12/FOLATE, SERUM PANEL 06/12/20 VITAMIN B12/FOLATE, SERUM PANEL 12/12/19 PROLACTIN 12/12/2023 PROLACTIN 06/12/2022 PROLACTIN 02/23/2024 FOLATE, RBC 07/27/2024 T4, FREE 06/12/2022 CORTISOL, A.M. 12/12/2023 T3 UPTAKE 06/12/2022 TSH 06/12/2022 T3, FREE 06/12/2022 T3, FREE 07/27/2024 T3, FREE 12/12/2023 T3, FREE 04/25/2025 PTH, INTACT (WITHOUT CALCIUM) 05/03/2024 IODINE, SERUM/PLASMA 06/12/2022 NATURAL KILLER CELLS, FUNCTIONAL 022 METHYLMALONIC ACID 06/12/2022 PREGNENOLONE, LC/MS/MS 06/12/2022 ESTRADIOL, ULTRASENSITIVE LC/MS/MS 01/25 ESTRADIOL, ULTRASENSITIVE LC/MS/MS 12/12 ALKALINE PHOSPHATASE, BONE SPECIFIC 04/24 VITAMIN A 07/27/2024 VITAMIN A 02/23/2024 VITAMIN A 06/12/2022 VITAMIN B6 06/12/2022 VITAMIN B2 (RIBOFLAVIN), PLASMA 06/12/20 VITAMIN K 07/17/2022 INTERLEUKIN 6, HIGHLY SENSITIVE, TYRELL 0 04/25/2025 ZINC, RBC 06/12/2022 17 HYDROXYPROGESTERONE, LC/MS/MS 025 17 HYDROXYPROGESTERONE, LC/MS/MS 024 ANDROSTENEDIONE, LC/MS/MS 12/12/2023 CARDIO IQ(TM) VITAMIN D, 25 HYDROXY, LC/ MS/MS 12/12/2023 CARDIO IQ(TM) VITAMIN D, 25 HYDROXY, LC/ MS/MS 07/17/2022 CARDIO IQ(TM) VITAMIN D, 25 HYDROXY, LC/ MS/MS 12/12/2022 SELENIUM, RBC 06/12/2022 SELENIUM, RBC 07/17/2022 T3 REVERSE, LC/MS/MS 06/12/2022 VITAMIN D 25 OH 07/27/2024 VITAMIN D 25 OH 02/23/2024 CARDIO IQ(R) ADVANCED LIPID PANEL AND IN FLAMMATION PANEL 06/12/2022 ANTI-MULLERIAN HORMONE ([facility]), FEMALE ANTI-MULLERIAN HORMONE ([facility]), FEMALE 01/2024 ANTI-MULLERIAN HORMONE ([facility]), FEMALE CORTISOL, LC/MS, SALIVA, 3 SAMPLES 06/12 CARDIO IQ(R) INSULIN RESISTANCE PANEL WI TH SCORE 06/12/2022 TSH+FREE T4 07/27/2024 TSH+FREE T4 12/12/2023 TSH+FREE T4 04/25/2025 Next Appt Details Provider Name:Cristobal Moreno [facility] [place], 07/11/2025 04:30:00 PM, [address] [facility], [address], [place], [address], Insurance Providers Payer Name Payer Address Payer Phone Subscriber Number Group Number Insured Name Patient Relationship to Insured Coverage Start Date Coverage End Date [facility] [address] [place], [place] [phone] [id number] Jeff Do Self - patient is the insured Medical (General) History Medical History History 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
[2025-06-17 08:53] LABS: MANUAL DIFF FLAG NO
[2025-06-17 09:16] LABS: Hematocrit 37.1 % (37.0-47.0); Hemoglobin 12.8 g/dl (12.0-16.0); Imm Gran Abs Auto 0.23 X10*3/uL (0.00-0.03); Imm Gran Pct Auto 2.3 % (0.0-0.4); Lymphocytes Absolute Auto 1.7 X10*3/uL (1.2-4.9); Mean Corpuscular HGB Conc 34.5 g/dl (31.0-35.0); Mean Corpuscular Hemoglobin 31.6 pg (27.0-33.0); Mean Corpuscular Volume 91.6 fL (80.0-98.0); NRBC Abs Auto 0.000 X10*3/uL (0.0-0.012); NRBC Pct Auto 0.0 /100WBC (0.0-0.2); Platelet Count 262 X10*3/uL (160-400); Red Blood Count 4.05 X10*6/uL (4.20-5.50); White Blood Count 9.9 X10*3/uL (4.8-10.8)
[2025-06-17 10:06] LABS: HIV Num 1 0.04 S/CO (0.00-0.99)
[2025-06-17 10:08] LABS: Syphilis Screen Nonreactive (Nonreactive)
[2025-06-17 11:22] LABS: CT PCR Urine NOT DETECTED (Not Detect.); NG PCR Urine NOT DETECTED (Not Detect.)
== END 2025-06-17 07:40 | disposition home or self-care (01) ==
LOC: HO.LAB 07:39
PROVIDERS: PCP Internal Medicine; Visit Provider Nurse Practitioner Women's Health
DX: O99.810 Abnormal glucose complicating pregnancy (principal)
CPT/HCPCS: 36415; 82947; 85025; 86780; 87086; 87389; 87491; 87591

== ENCOUNTER 2025-06-17 10:09 | Outpatient (REF) | payer OTHER, SELFPAY ==
[2025-06-17 11:15] LABS: Bacterial Vaginosis PCR NEGATIVE (Negative); Candida Group PCR DETECTED (Not Detect); Candida glab krusei PCR NOT DETECTED (Not Detect); Trichomonas vaginalis PCR NOT DETECTED (Not Detect)
== END 2025-06-17 10:10 | disposition home or self-care (01) ==
LOC: HO.LNP 10:09
PROVIDERS: Visit Provider Nurse Practitioner Women's Health
DX: O99.810 Abnormal glucose complicating pregnancy (principal)
CPT/HCPCS: 81515

== ENCOUNTER 2025-07-05 11:38 | Outpatient (REF) | payer OTHER, SELFPAY ==
--- OUTSIDE RECORDS SUMMARY | 2025-07-05 12:41 | XMS_ITS | Patient Health Record ---
Author Organization [facility] Address [address], [place] [id number] Care Team Providers Care Music Ministries Director Name Role Phone Wilson Benites Primary Care Provider Unavailab jacy FUNG CALLUM Unavailable [phone] Mclain, Gracia Unavailable [phone] Ezequiel Henson Unavailable [phone] Allergies No Known Allergies Results Component Value Reference Range Notes HLA-B27 ANTIGEN Reviewed date:04/19/2025 10:32:33 AM Interpretation: Performing Lab:[facility], [address] [facility] , [place], [address] Ross Lynch M.D.,PhD Notes/Report: Received Date: FASTING:NO FASTING: NO HLA-B27 ANTIGEN Negative Negative ANCA SCREEN WITH MPO AND PR3 WITH REFLEX TO ANCA TITER Reviewed date:04/19/2025 10:32:33 AM Interpretation: Performing Lab:NL1, [facility], [address] [place] [address], [phone] Verna Murphy M.D. Notes/Report: Received Date: FASTING:NO [...] = 1.0 Antibody Detected Autoantibodies to proteinase-3 (MN-3) are accepted as characteristic for granulomatosis with polyangiitis (GPA, Violet's), and are detectable in 95% of the histologically proven cases. The cytoplasmic IFA pattern, (c-ANCA), is based largely on autoantibody to MN-3 which serves as the primary antigen. These autoantibodies are present in active disease. ANGIOTENSIN CONVERTING ENZYM E (CONNIE) Reviewed date:04/19/2025 10:32:33 AM Interpretation: Performing Lab:[facility], [address] , [place], [address] Ross Lynch M.D.,PhD Notes/Report: Received Date: [id number] FASTING:NO FASTING: NO GYIRQATCAWB-7-IRRYOLIFQN ENZYME 14.5 9-67 U/L Celiac Disease Comprehensive Panel with Gliadin Antibody (IgG) Reviewed date:04/19/2025 10:32:33 AM Interpretation: Performing Lab:[id number], [facility], [address] [place] [address], [phone] Verna Murphy M.D. Notes/Report: Received Date: [id number] FASTING:NO FASTING: NO INTERPRETATION No serological evidence [...] Antibody detected IMMUNOGLOBULIN A 188 47-310 mg/dL B2 GLYCOPROTEIN I (IGM)AB Reviewed date:04/19/2025 10:32:33 AM Interpretation: Performing Lab:[facility], [address], [place], [place], Ross Lynch M.D.,PhD Notes/Report: Received Date: [...] aging. For additional information, please refer to http://education.Medlio.[facility] [employer]/faq/TFD467 (This link is being provided for informational/ educational purposes only.) B2 GLYCOPROTEIN I (IGG)AB Reviewed date:04/19/2025 10:32:33 AM Interpretation: Performing Lab:[facility], [address], [place], [place], Ross Lynch M.D.,PhD Notes/Report: Received Date: [...] aging. For additional information, please refer to http://education.Medlio.[employer] [employer]/faq/GUS292 (This link is being provided for informational/ educational purposes only.) SM AND SM/TEST RIDER ANTIBODIES Reviewed date:04/19/2025 10:32:33 AM Interpretation: Performing Lab:[facility], [address] [place] [address], [phone] Verna Murphy M.D. Notes/Report: Received Date: FASTING:NO FASTING: NO SM ANTIBODY <1.0 NEG <1.0 NEG AI SM/TEST RIDER ANTIBODY <1.0 NEG <1.0 NEG AI DNA(ds) AB, CRITHIDIA IFA W/ RF Reviewed date:04/19/2025 10:32:33 AM Interpretation: Performing Lab:[facility], [address], [place], [phone] Ross Lynch M.D.,PhD Notes/Report: Received Date: FASTING:NO FASTING: NO DNA AB (DS) CRITHIDIA,IFA Negative Negative SCL-70 ANTIBODY Reviewed date:04/19/2025 10:32:33 AM Interpretation: Performing Lab:[facility], [address] [place] [address], [phone] Verna Murphy M.D. Notes/Report: Received Date: FASTING:NO FASTING: NO SCL-70 ANTIBODY <1.0 NEG <1.0 NEG AI SJOGRENS ANTIBODIES (SS-A,SS -B) Reviewed date:04/19/2025 10:32:33 AM Interpretation: Performing Lab:[facility], [address] [place] [address], [phone] Verna Murphy M.D. Notes/Report: Received Date: FASTING:NO FASTING: NO SJOGREN'S ANTIBODY (SS-A) <1.0 NEG <1.0 NEG AI SJOGREN'S ANTIBODY (SS-B) <1.0 NEG <1.0 NEG AI CCP Antibody (IGG) Reviewed date:04/19/2025 10:32:33 AM Interpretation: Performing Lab:[facility], [facility], [address] [place] [address], [phone] Verna Murphy M.D. Notes/Report: Received Date: FASTING:NO FASTING: NO CYCLIC CITRULLINATED PEPTIDE (CCP) AB (IGG) <16 Reference Range Negative: <20 Weak Positive: 20-39 Moderate Positive: 40-59 Strong Positive: >59 CARDIOLIPIN AB (IGA,IGG,IGM) Reviewed date:04/19/2025 10:32:33 AM Interpretation: Performing Lab:[facility], [address] [place] [address], [phone] Verna Murphy M.D. Notes/Report: Received Date: FASTING:NO [...] aging. 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 now 19 weeks . Lab .- neg RF, OK CK 28, OK LFT,CR, TSH -0.75, OK IRON, +HS-CRP 3.5H, NEG HARDEEP-LAC, ESR 20 ULN, NEG HCV, HBsAG, HBc; NEG LYME; 5.14.25 , CCP Ab negative,, Neg aCL X 3, NEG B2GP1 X3, , ANCA negative, Neg MPO ANCA, NEG PR3 ANCA, Negative SSA, negative SSB, Neg Sm, neg Sm/TEST RIDER. Pt. unable to take MTX due to state. Defers adding Hydroxychloroqui n at this time. 29F W presents to us on 5.9.2025 with Fatigue 6/10, AMS 30 MINS, pain 4/10 legs, hips, knees, arms. 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 Active confirmed OV 5.9.25 H/o 13 consecutive losses, all 1st trimester until EndoMD put her on Hydrocortisone for adrenal hyperplasia (and Progesterone) which resulted in her successful (has healthy baby ) prior to the current - as of 04.01.25; Problem Hormone abnormality (99948521) Abnormal level of hormones in specimens from [...] Encounter Location Date Provider Diagnosis [facility] [address], [place] [phone] 5 Kaushar Henson Inflammatory polyarthropathy M06.4 ; Coagulation defect, unspecified D68.9 ; Homocystinuria E72.11 ; Abnormal level of hormones in specimens from other organs, systems and tissues R89.1 ; Recurrent loss N96 ; Hereditary factor VIII deficiency D66 ; 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 ; 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 and Pain in left shoulder M25.512 [facility] [address], [place] [phone] 5 Kaushar Henson Inflammatory polyarthropathy M06.4 ; Coagulation defect, unspecified D68.9 ; Homocystinuria E72.11 ; Abnormal level of hormones in specimens from other organs, systems and tissues R89.1 ; Recurrent loss N96 ; Hereditary factor VIII deficiency D66 ; 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 ; 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 now 19 weeks . Lab 04.08.2025- neg RF, OK CK 28, OK LFT,CR, TSH -0.75, OK IRON, +HS-CRP 3.5H, NEG HARDEEP-LAC, ESR 20 ULN, NEG HCV, HBsAG, HBc; NEG LYME; 5.14.25 , CCP Ab negative,, Neg aCL X 3, NEG B2GP1 X3, , ANCA negative, Neg MPO ANCA, NEG PR3 ANCA, Negative SSA, negative SSB, Neg Sm, neg Sm/TEST RIDER. Pt. unable to take MTX due to [...] BL hips (Pro heal chiro practor, [facility]) Follow up with Solar Panel Installation Supervisor as scheduled - May consider Hydroxychloroq uin Physical Therapy for hypermobility, congenital neural tube defect, back pain, 04/28/2025 Homocystinuria (ICD- 10 - E72.11) 04/01/2025 Homocystinuria (ICD- 10 - E72.11) 04/01/2025 Abnormal level of hormones in specimens from other organs, systems and tissues (ICD-10 - R89.1) Satya put her on Hydrocortisone for support due to h/o adrenal hyperplasia with question of Harry's Disease not formally diagnosed due to intermittent low or low normal Se Cortisol level; This resulted in successful . 04/28/2025 Abnormal level of hormones in specimens [...] PAUL RN, IFA 04/01/2025 JON ANTIBODY 04/01/2025 TEST RIDER ANTIBODY 04/01/2025 HEPATITIS B CORE ANTIBODY (IGM) [...] SED RATE BY MODIFIED WESTERGREN 04/01/20 25 SED RATE BY MODIFIED WESTERGREN 04/28/20 25 Hep C Ab w Rfx to HCV RNA 04/01/2025 HS-CRP 04/28/2025 HS-CRP 04/01/2025 Next Appt Details Provider Name:CALLUM FUNG, 08/16/2025 09:30:00 AM, [address] [place] [address], [phone], Insurance Providers Payer Name Payer Address Payer Phone Subscriber Number Group Number Insured Name Patient Relationship to Insured Coverage Start Date Coverage End Date HAYLEY MEEKS [address] [place], [place] [phone] [id number] Jeff Do Self - patient is the [...] history of colon cancer: No zenkers diverticulum: [facility] Surgical History Surgery Date(Month/Year) Spinal surgery 04/2016 04/2023 no EGD/Colonoscopy
--- OUTSIDE RECORDS SUMMARY | 2025-07-05 12:41 | XMS_ITS | Patient Health Record ---
Author Organization [facility] Address [address] [place] [phone] Care Team Providers Care Hardness Inspector Name Role Phone Cristobal Benites Unavailable [phone] Brenda Wilkins Unavailable [phone] Allergies No Known Allergies Reason For Referral Reason For evaluation and t reatment of hypermobility, connective tissue disorder of unknown etiology. 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) Referral Organization [facility] Referring Provider First Name Cristobal Referring Provider Last Name Kamari Referring Provider Speciality Toll Ticket Clerk Referred Provider Ruby Severino Referred Provider Specialty Rheumatology Referral Priority Routine Reason Suspicion of vascula r EDS with known clotting disorder. 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) Referral Organization [facility] Referring Provider First Name Cristobal Referring Provider Last Name Kamari Referring Provider Speciality Toll Ticket Clerk Referred Provider Sj Mix Referred Provider Specialty Unknown Referral Priority Routine Medications Medication SIG (Take, Route, Frequency, Duration) Notes Start Date End Date Status Progesterone Unknown Problems Problem Type SNOMED Code ICD Code Onset Dates Problem Status W/U Status Risk Notes Problem Iron deficiency anem ia (37616471) Iron deficiency anemia, unspecified (D50.9) Active confirmed Problem 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 Problem Coagulation disorder (48116765) Coagulation defect, unspecified (D68.9) Active confirmed Problem Androgen excess (226489970) Androgen excess (E28.1) Active confirmed Problem Vitamin D deficiency (08932497) Vitamin D deficiency, unspecified (E55.9) Active confirmed Problem Homocystinuria (16706768) 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 Problem Methylenetetrahydrof ol ate reductase deficiency (35730746) Methylenetetrahydrof olate reductase deficiency (E72.12) Active confirmed Problem Disorder of connecti ve tissue (875353326) Systemic involvement of connective tissue, 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 Problem Irregular Menstruati on (79697601) Other specified irregular menstruation (N92.5) Active confirmed Problem Irregular menstruati on (66508229) Irregular menstruation, unspecified (N92.6) Active confirmed Problem 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 (468540534) Recurrent loss (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) Active confirmed Problem C-reactive protein abnormal (568296593) Elevated C-reactive protein (CRP) (R79.82) Active confirmed Problem Hormone abnormality (28129866) Abnormal level of hormones in specimens from other organs, systems and tissues (R89.1) Active confirmed Problem Histopathology findi ng (998399899) Unspecified abnormal finding in specimens from other organs, systems and tissues (R89.9) Active confirmed Encounters Encounter Location Date Provider Diagnosis [address] [id number] 07/27/2024 Cristobal Benites Other fatigue R53.83 ; Other specified irregular menstruation N92.5 ; Person consulting for explanation of examination or test findings Z71.2 ; Encounter for other general counseling and advice on procreation Z31.69 and Dietary counseling and surveillance Z71.[address] [id number] 10/12/2024 Cristobal Benites Procreative counseling and advice using natural family planning Z31.61 ; Iron deficiency E61.1 ; Personal history of other complications of , childbirth and the puerperium Z87.59 ; Vitamin A deficiency, unspecified E50.9 and Dietary counseling and surveillance Z71.[address] [id number] 01/25/2025 Cristobal Benites care for patient with recurrent loss, first trimester O26.21 ; Other insomnia G47.09 ; Person consulting for explanation of examination or test findings Z71.2 and Dietary counseling and surveillance Z71.[address] [place] [address] 04/25/2025 Cristobal Benites Elevated C-reactive protein (CRP) R79.82 ; Heartburn R12 ; Encounter for supervision of normal , unspecified, second trimester Z34.92 ; Person consulting for explanation of examination or test findings Z71.2 and Dietary counseling and surveillance Z71.[address] [id number] 12/23/2024 Carolina Franky Abnormal level of hormones in specimens from female genital organs R87.1 ; Abnormal levels of other serum enzymes R74.8 ; Abnormal level of hormones in specimens from other organs, systems and tissues R89.1 ; Other specified irregular menstruation N92.5 and Androgen excess E28.[address] [id number] 02/11/2025 Cristobal Benites [address] [id number] 02/18/2025 Cristobal Benites [address] [id number] 02/10/2025 Cristobal Benites [address] [id number] 02/16/2025 Cristobal Benites Systemic involvement of connective [...] Pg, fractionated estrogens, prolactin, LH and FSH. 02/16/2025 Systemic involvement of connective tissue, unspecified [...] Shortness of breath. Increased hydrocortisone dose per junior linux systems administrator - helped. Not taking electrolytes. Seen by mva reactor operator head. Officially diagnosed with hypermobility, ruling out everything to be able make POTS diagnosis. Presents with labs run by mva reactor operator head. Labs show high HS CRP (3.5) and [...] Shortness of breath. Increased hydrocortisone dose per junior linux systems administrator - helped. Not taking electrolytes. Seen by mva reactor operator head. Officially diagnosed with hypermobility, ruling out everything to be able make POTS diagnosis. Presents with labs run by mva reactor operator head. Labs show high HS CRP (3.5) and [...] from female genital organs (ICD-10 - R87.1) 01/25/2025 Other insomnia (ICD-10 - G47.09) This is a 29 yo female pt presenting in-office for ROF of recent labs. Results reviewed and discussed during the visit. 6 weeks . Junior Designer wants to resume hydrocortisone. Using topical progesterone [...] discussed during the visit. 6 weeks . Junior Designer wants to resume hydrocortisone. Using topical progesterone [...] discussed during the visit. 6 weeks . Junior Designer wants to resume hydrocortisone. Using topical progesterone [...] reduce risk of neural tube defect. 04/25/2025 Encounter for supervision of normal , [...] Shortness of breath. Increased hydrocortisone dose per junior linux systems administrator - helped. Not taking electrolytes. Seen by mva reactor operator head. Officially diagnosed with hypermobility, ruling out everything to be able make POTS diagnosis. Presents with labs run by mva reactor operator head. Labs show high HS CRP (3.5) and [...] other markers of inflammation, and general health. 10/12/2024 Personal history of other complications of [...] estrogens, prolactin, LH and FSH. 12/23/2024 Abnormal levels of other serum enzymes (ICD-10 - R74.8) 07/27/2024 Person consulting for explanation of examination [...] Pg, fractionated estrogens, prolactin, LH and FSH. 04/25/2025 Person consulting for explanation of examination [...] Shortness of breath. Increased hydrocortisone dose per junior linux systems administrator - helped. Not taking electrolytes. Seen by mva reactor operator head. Officially diagnosed with hypermobility, ruling out everything to be able make POTS diagnosis. Presents with labs run by mva reactor operator head. Labs show high HS CRP (3.5) and [...] organs, systems and tissues (ICD-10 - R89.1) 01/25/2025 Dietary counseling and surveillance (ICD-10 - Z71.3) This is a 29 yo female pt presenting in-office for ROF of recent labs. Results reviewed and discussed during the visit. 6 weeks . Junior Designer wants to resume hydrocortisone. Using topical progesterone [...] reduce risk of neural tube defect. 04/25/2025 Dietary counseling and surveillance (ICD-10 - [...] Shortness of breath. Increased hydrocortisone dose per junior linux systems administrator - helped. Not taking electrolytes. Seen by mva reactor operator head. Officially diagnosed with hypermobility, ruling out everything to be able make POTS diagnosis. Presents with labs run by mva reactor operator head. Labs show high HS CRP (3.5) and [...] other markers of inflammation, and general health. 10/12/2024 Dietary counseling and surveillance (ICD-10 - [...] fractionated estrogens, prolactin, LH and FSH. 12/23/2024 Other specified irregular menstruation (ICD-10 - [...] to sooth and smooth esophagus, pt declined. 12/23/2024 Androgen excess (ICD-10 - E28.1) 07/27/2024 [...] discussed during the visit. 6 weeks . Junior Designer wants to resume hydrocortisone. Using topical progesterone [...] Shortness of breath. Increased hydrocortisone dose per junior linux systems administrator - helped. Not taking electrolytes. Seen by mva reactor operator head. Officially diagnosed with hypermobility, ruling out everything to be able make POTS diagnosis. Presents with labs run by mva reactor operator head. Labs show high HS CRP (3.5) and [...] PANEL 05/03/2024 IRON, TIBC AND FERRITIN PANEL 12/12/2022 IRON, TIBC AND FERRITIN PANEL 07/27/2024 IRON, TIBC AND FERRITIN PANEL 06/19/2023 IRON, TIBC AND FERRITIN PANEL 02/23/2024 IRON, TIBC AND FERRITIN PANEL 12/12/2023 PROTHROMBIN W/INR + PARTIAL THROMBOPLAST IN TIMES 12/12/2023 PROTHROMBIN W/INR + PARTIAL THROMBOPLAST IN TIMES 02/23/2024 COMPLEMENT COMP C3 + C4 12/12/2022 FSH AND LH 07/27/2024 FSH AND LH 12/12/2023 FSH AND LH 06/12/2022 THYROID PEROXIDASE AND THYROGLOBULIN ANT IBODIES 06/12/2022 [...] ACTIVITY RATIO, LC/MS/MS 02/23/2024 COMPREHENSIVE METABOLIC PANEL 02/23/2024 COMPREHENSIVE METABOLIC PANEL 12/12/2023 COMPREHENSIVE METABOLIC PANEL 06/12/2022 COMPREHENSIVE METABOLIC PANEL 07/27/2024 COMPREHENSIVE METABOLIC PANEL 06/19/2023 LD 06/12/2022 GGT 06/12/2022 URIC ACID 06/12/2022 CBC (INCLUDES DIFF/PLT) 06/12/2022 CBC (INCLUDES DIFF/PLT) 02/23/2024 CBC (INCLUDES DIFF/PLT) 12/12/2023 CBC (INCLUDES DIFF/PLT) 06/19/2023 CBC (INCLUDES DIFF/PLT) 07/27/2024 FIBRINOGEN ACTIVITY, CLAUSS 04/25/2025 FIBRINOGEN ACTIVITY, CLAUSS 07/17/2022 PROTHROMBIN TIME-INR 07/17/2022 RHEUMATOID FACTOR 12/12/2022 CYCLIC CITRULLINATED PEPTIDE (CCP) AB (I GG) 12/12/2022 THYROID PEROXIDASE ANTIBODIES 12/12/2023 HARDEEP IFA SCREEN W/REFL TO TITER AND PAUL RN, IFA 12/12/2022 HS CRP 04/25/2025 CARDIO IQ(TM) HEMOGLOBIN A1c 06/12/2022 CARDIO IQ(TM)HOMOCYSTEINE CARDIOVASCULAR 06/12/2022 CARDIO IQ(TM)HOMOCYSTEINE CARDIOVASCULAR 12/12/2023 ACTH, PLASMA 02/23/2024 IMMUNOGLOBULIN E 04/25/2025 PROGESTERONE 12/12/2022 PROGESTERONE 07/27/2024 PROGESTERONE 12/12/2023 PROGESTERONE 01/25/2025 PROGESTERONE 06/12/2022 DHEA SULFATE 06/12/2022 DHEA SULFATE 02/23/2024 VITAMIN B12/FOLATE, SERUM PANEL 12/12/19 VITAMIN B12/FOLATE, SERUM PANEL 06/12/20 VITAMIN B12/FOLATE, SERUM PANEL 07/27/20 PROLACTIN 06/12/2022 PROLACTIN 12/12/2023 PROLACTIN 02/23/2024 FOLATE, RBC 07/27/2024 T4, FREE 06/12/2022 CORTISOL, A.M. 12/12/2023 T3 UPTAKE 06/12/2022 TSH 06/12/2022 T3, FREE 06/12/2022 T3, FREE 12/12/2023 T3, FREE 07/27/2024 T3, FREE 04/25/2025 PTH, INTACT (WITHOUT CALCIUM) [...] 04/25/2025 ZINC, RBC 06/12/2022 17 HYDROXYPROGESTERONE, LC/MS/MS 024 17 HYDROXYPROGESTERONE, LC/MS/MS 025 ANDROSTENEDIONE, LC/MS/MS 12/12/2023 CARDIO IQ(TM) VITAMIN D, 25 HYDROXY, LC/ MS/MS 12/12/2023 CARDIO IQ(TM) VITAMIN D, 25 HYDROXY, LC/ MS/MS 07/17/2022 CARDIO IQ(TM) VITAMIN D, 25 HYDROXY, LC/ MS/MS 12/12/2022 SELENIUM, RBC 07/17/2022 SELENIUM, RBC 06/12/2022 T3 REVERSE, LC/MS/MS 06/12/2022 VITAMIN D 25 OH 02/23/2024 VITAMIN D 25 OH 07/27/2024 CARDIO IQ(R) ADVANCED LIPID PANEL AND IN FLAMMATION PANEL 06/12/2022 ANTI-MULLERIAN HORMONE ([facility]), FEMALE ANTI-MULLERIAN HORMONE ([facility]), FEMALE ANTI-MULLERIAN HORMONE ([facility]), FEMALE 01/2024 CORTISOL, LC/MS, SALIVA, 3 SAMPLES 06/12 CARDIO IQ(R) INSULIN RESISTANCE PANEL WI TH SCORE 06/12/2022 TSH+FREE T4 12/12/2023 TSH+FREE T4 07/27/2024 TSH+FREE T4 04/25/2025 Next Appt Details Provider Name:Cristobal Moreno [facility] [place], 07/11/2025 04:30:00 PM, [address] [facility], [address], [place], [address], Insurance Providers Payer Name Payer Address Payer Phone Subscriber Number Group Number Insured Name Patient Relationship to Insured Coverage Start Date Coverage End Date [facility] [address] [place], [place] [phone] [id number] Jeff Do Self - patient is the insured Medical (General) History Medical History History 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
[2025-07-05 12:49] LABS: Fibrinogen 554 MG/DL (259-690)
[2025-07-05 13:22] LABS: Free T4 (Free Thyroxine) 0.94 ng/dL (0.71-1.85); Thyroid Stimulating Hormone 0.64 uIU/mL (0.32-4.0)
== END 2025-07-05 11:39 | disposition home or self-care (01) ==
LOC: HO.LAB 11:38
PROVIDERS: PCP Internal Medicine; Visit Provider Naturopath
DX: Z34.92 Encounter for supervision of normal pregnancy, unspecified, second trimester (principal); R79.82 Elevated C-reactive protein (CRP); R94.7 Abnormal results of other endocrine function studies; R77.1 Abnormality of globulin; D66 Hereditary factor VIII deficiency; D68.9 Coagulation defect, unspecified; M35.9 Systemic involvement of connective tissue, unspecified
CPT/HCPCS: 36415; 82785; 83529; 84439; 84443; 84481; 85384; 86141

== ENCOUNTER 2025-07-19 08:19 | Outpatient (REF) | payer OTHER, SELFPAY ==
--- OUTSIDE RECORDS SUMMARY | 2025-04-06 06:30 | XMS_ITS ---
Author Organization [facility] Address [address] [place] [phone] Care Team Providers Care Algologist Name Role Phone Wilson Benites Primary Care Provider Unavailab CALLUM Ryan Unavailable [phone] Gracia Mclain [phone] Encounters Encounter Location Date Provider Diagnosis [facility] [address] [id number] 04/06/2025 Gracia Mclain Plan Of Treatment Next Appt Details Provider Name:CALLUM FUNG, 08/16/2025 09:30:00 AM, [address] [place] [address], [phone], Progress Notes * Ning CASASTerezaB:03/1995 (29 yo F)Acc No.[id number]:04/06/2025 Progress Note Patient: Jeff CARUSO Provider: Davina Mclain APRN :1995 A ge:29 Y S ex:Female Date:04/06/2025 Address:[address] [id number] Pcp:Wilson Benites Subjective: * Chief Complaints: * * Medical History: Objective: * Vitals: Assessment: Plan: * Treatment: * * Electronic signature of Girish Mclain APRN on 07/19/2025 at 08:27 AM EDT Sign off status: Pending * Provider: Davina Mclain APRN Date: 04/06/2025 Generated for Kaitlin ding/Shanthi/eTpurnima on: 07/19/2025 08:27 AM EDT
--- OUTSIDE RECORDS SUMMARY | 2025-04-28 09:00 | XMS_ITS ---
Author Organization [facility] Address [address] [place], [place] [id number] Care Team Providers Care Agricultural Inspector Name Role Phone Wilson Benites Primary Care Provider Unavailab CALLUM Ryan Unavailable [phone] Ezequiel Henson Unavailable [phone] Allergies No Known Allergies REASON FOR VISIT Pt last saw PCP Wilson Benites , lab 5.14.25/ 5.16.25, fatigue 5/10 , AMS 30mins, pain 3-6/10 spine/back, pelvis, 19 weeks Medications Medication SIG (Take, Route, Fr equency, Duration) Notes Start Date End Date Status 28-0.8 MG 1 tablet Orally Once a day Active Hydrocortisone 5 MG Oral; Duration: 90 Days Active Hayden 3 1200 MG 1 capsule Orally Once a day 1250mg Active Vital Signs Temperature 35.6 C 04/28/2025 Blood pressure systolic 106 mm Hg 04/28/20 25 Blood pressure diastolic 77 mm Hg 025 Heart Rate 107 /min 04/28/2025 Height 166 cm 04/28/2025 Encounters Encounter Location Date Provider Diagnosis [facility] [address] [place], [place] [phone] Ezequiel Henson Inflammatory polyarthropathy M06.4 ; Coagulation [...] Negative SSA, negative SSB, Neg Sm, 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 Pt. unable to take MTX due to [...] and BL hips (Pro heal chiro practor, [facility]) Follow up with Home Mortgage Disclosure Act Specialist as scheduled - May consider Hydroxychloroq uin [...] to the current - as of 5.9.25; 04/28/2025 Hereditary factor II deficiency (ICD-10 - [...] and BL hips (Pro heal chiro practor, [facility]) Follow up with Home Mortgage Disclosure Act Specialist as scheduled - May consider Hydroxychloroquin Physical Therapy for hypermobility, congenital neural tube defect, back pain, Pending Test Test Name Order Date SED RATE BY MODIFIED WESTERGREN 04/28/20 25 HS-CRP 04/28/2025 Next Appt Details Follow Up: 4 Weeks, Reason: Provider Name:CALLUM FUNG, 08/16/2025 09:30:00 AM, [address] [place] [address], [place], [place], [phone], Progress Notes * Gisselle CASASB:03/1995 (29 yo F)Acc No.[id number]:04/28/2025 Progress Notes Patient: Jeff CARUSO Provider: Stefany Henson APRN :1995 A ge:29 Y S ex:Female Date:04/28/2025 Address:[address] [place] [address], [facility], [id number] Pcp:Wilson Benites Subjective: * Chief Complaints: * 1 . Pt last saw PCP Wilson Benites . 2. Lab 5.14.25/ 5.16.25. 3. fatigue 5/10 , AMS 30mins. 4. Pain 3-6/10 spine/back, pelvis. 5. 19 weeks . * HPI: R heumatology, Other: Demographics 2 8F +POTS ( Cardiology @ [facility] Dr. Ernandez) , . The patient presents with the following symptoms 6 .5.25 CONSULT 5.9.2024 ? PT last seen PMD Wilson Moreno ucci 3.2024, Fatigue 6/10, AMS 30 MINS, pain 4/10 legs, hips, knees, arms, Lab n/a, CXR/DEXA needs done, Pt IS CURRENTLY 1540, ; Symptoms - chronic muscle pain/joint pain. [...] NO AMI ?+H/o Obstetric problems: , now 1540;?NO premature delivery before 34 week. 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 * ROS: R heumatology: Fatigue Y es. [...] eight GAIN Y es.? * Medical History: a nxiety: No, asthma: No, eczema: No, psoriasis: No, osteoporosis: [...] of colon cancer: No, zenkers diverticulum: [facility] POTS. * OB History: T otal pregnancies 1 5. T otal living children 1 . M iscarriage(s) 1 3 miscarriages. * Surgical History: S luciano surgery 04/2016, 04/2023, no EGD/Colonoscopy . * Family History: D aughter(s): alive 2 yrs. F ather: alive 52 yrs. M other: alive 52 yrs. S iblings: 6 siblings. * Medications: T aking Hydrocortisone 5 MG Tablet Oral , Taking 28-0.8 MG Tablet 1 tablet Orally Once a day , Taking Hayden 3 1200 MG Capsule 1 capsule Orally Once a day , Notes to Pharmacist: 1250mg, Medication List reviewed and reconciled with the patient * Allergies: N .K.D.A. Objective: * Vitals: B P:106/77mm Hg, HR:107/min, [...] trigger point tenderness. Assessment: * Assessment: 1. C oagulation defect, unspecified - D68.9 2 . 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 Pt. unable to take MTX due to [...] healthy baby ) Currently 15 weeks . 3 . H omocystinuria - E72.11 S [...] M35.7 S pecify :+POTS per Cardiology, no wwgv-bgpfn-xwka done; Bicuspid aortic valve. Frequent subluxations shoulders, ankles. N otes :Pelvic floor dysfunction with dyspareunia. 9 . 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 Frequent subluxations shoulders, ankles. N otes :Pelvic floor dysfunction with dyspareunia. Plan: * Treatment: * Follow Up: 4 Weeks * * Electronic signature of Candido Henson APRN on 07/19/2025 at 08:27 AM EDT Sign off status: Pending * Provider: Stefany Henson APRN Date: 0 04/28/2025 Generated for Kaitlin ding/Shanthi/eTransmitting on: 0 07/19/2025 08:27 AM EDT History and Physical Notes * HPI (History of Present Illness) Category Sub-Category Detail Notes Category Not es Rheumatology, Other Demographics 29F +POTS ( Cardiology @ [facility] Dr. Ernandez) , The patient presents with th e following symptoms 6..25 Pt last saw PCP Wilson Benites , [...] takes Tylenol. Curently 15 weeeks - Seeing [facility]. Endocronologist Dr. 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
--- OUTSIDE RECORDS SUMMARY | 2025-04-29 05:30 | XMS_ITS ---
Author Organization [facility] Address [address] [place] [phone] Care Team Providers Care Real Estate Management Specialist Name Role Phone Wilson Benites Primary Care Provider Unavailab jacy JOANRONALDO CALLUM Unavailable [phone] Ezequiel Henson Unavailable [phone] REASON FOR VISIT 2nd Visit Encounters Encounter Location Date Provider Diagnosis [facility] [address] [phone] 04/29/2025 Ezequiel Henson Plan Of Treatment Next Appt Details Provider Name:CALLUM FUNG, 08/16/2025 09:30:00 AM, [address] [place] [address], [phone], Progress Notes * Ning CASASChristian:03/1995 (29 yo F)Acc No.[id number]:04/29/2025 Progress Notes Patient: Jeff CARUSO Provider: Stefany Henson APRN :1995 A ge:29 Y S ex:Female Date:04/29/2025 Address:[address] Pcp:Wilson Benites Subjective: * Chief Complaints: * 1 . 2nd Visit. * Medical History: Objective: * Vitals: Assessment: Plan: * Treatment: * * Electronic signature of Candido Henson APRN on 07/19/2025 at 08:27 AM EDT Sign off status: Pending * Provider: Stefany Henson APRN Date: 0 04/29/2025 Generated for Printi ng/Faxing/eTransmitting on: 0 07/19/2025 08:27 AM EDT
--- OUTSIDE RECORDS SUMMARY | 2025-06-27 11:00 | XMS_ITS ---
Author Organization [facility] Address [address] [place] [id number] Care Team Providers Care Signalman Name Role Phone Cristobal Benites Unavailable [phone] REASON FOR VISIT ROF Encounters Encounter Location Date Provider Diagnosis [address] [address] 06/27/2025 Cristobal Benites Plan Of Treatment Next Appt Details Provider [facility], 10/28/2025 03:00:00 PM, [address] [place] [address], [phone], Progress Notes * Gisselle CASASB:03/1995 (29 yo F)Acc No.[id number]:06/27/2025 Progress Notes Patient: Jeff CARUSO Provider: Chasidy Benites ND :1995 A ge:29 Y S ex:Female Date:06/27/2025 Address:[address] [id number] Subjective: * Chief Complaints: * 1 . ROF. * Medical History: Objective: * Vitals: Assessment: Plan: * Treatment: * * Electronic signature of Cheli Benites ND on 07/19/2025 at 08:28 AM EDT Sign off status: Pending * Provider: Chasidy Benites ND Date: 06/27/2025 Generated for Printi ng/Faxing/eTransmitting on: 0 07/19/2025 08:28 AM EDT
--- OUTSIDE RECORDS SUMMARY | 2025-07-19 08:27 | XMS_ITS | Patient Health Record ---
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 Notes/Report: Received Date: FASTING:NO [...] Antibody detected IMMUNOGLOBULIN A 188 47-310 mg/dL ANGIOTENSIN CONVERTING ENZYM E (CONNIE) Reviewed date:04/19/2025 10:32:33 AM Interpretation: Performing Lab:[facility]ON[facility], [address] [facility] , [place], [address] Ross Lynch M.D.,PhD Notes/Report: Received Date: FASTING:NO FASTING: NO FIHEKNOIBLD-1-LDPXMGUOKT ENZYME 14.5 9-67 U/L ANCA SCREEN WITH MPO AND PR3 WITH REFLEX TO ANCA TITER Reviewed date:04/19/2025 10:32:33 AM Interpretation: Performing Lab:NL1, [facility], [address] [place] [address], [phone] Verna Murphy M.D. Notes/Report: Received Date: FASTING:NO [...] = 1.0 Antibody Detected Autoantibodies to proteinase-3 (SD-3) are accepted as characteristic for granulomatosis with polyangiitis (GPA, Violet's), and are detectable in 95% of the histologically proven cases. The cytoplasmic IFA pattern, (c-ANCA), is based largely on autoantibody to SD-3 which serves as the primary antigen. These autoantibodies are present in active disease. HLA-B27 ANTIGEN Reviewed date:04/19/2025 10:32:33 AM Interpretation: Performing Lab:[facility], [facility], [address], [place], [phone] Ross Lynch M.D.,PhD Notes/Report: Received Date: FASTING:NO FASTING: NO HLA-B27 ANTIGEN Negative Negative B2 GLYCOPROTEIN I (IGM)AB Reviewed date:04/19/2025 10:32:33 AM Interpretation: Performing Lab:YVONNE [facility], [address], [place], [place], Ross Lynch M.D.,PhD Notes/Report: Received Date: [...] aging. For additional information, please refer to http://education.[employer]/faq/QMW652 (This link is being provided for informational/ educational purposes only.) B2 GLYCOPROTEIN I (IGG)AB Reviewed date:04/19/2025 10:32:33 AM Interpretation: Performing Lab:YVONNE [facility], [address], [place], [place], Ross Lynch M.D.,PhD Notes/Report: Received Date: [...] aging. For additional information, please refer to http://education.[employer]/faq/CAL912 (This link is being provided for informational/ educational purposes only.) SM AND SM/CHIEF DISPATCHER ANTIBODIES Reviewed date:04/19/2025 10:32:33 AM Interpretation: Performing Lab:[facility], [address] [place] [address], [phone] Verna Murphy M.D. Notes/Report: Received Date: FASTING:NO FASTING: NO SM ANTIBODY <1.0 NEG <1.0 NEG AI SM/CHIEF DISPATCHER ANTIBODY <1.0 NEG <1.0 NEG AI DNA(ds) AB, CRITHIDIA IFA W/ RF Reviewed date:04/19/2025 10:32:33 AM Interpretation: Performing Lab:[facility], [address], [place], [phone] Ross Lynch M.D.,PhD Notes/Report: Received Date: FASTING:NO FASTING: NO DNA AB (DS) CRITHIDIA,IFA Negative Negative SCL-70 ANTIBODY Reviewed date:04/19/2025 10:32:33 AM Interpretation: Performing Lab:[facility], [address] [place] [address], [phone] Verna Murphy M.D. Notes/Report: Received Date: FASTING:NO FASTING: NO SCL-70 ANTIBODY <1.0 NEG <1.0 NEG AI SJOGRENS ANTIBODIES (SS-A,SS -B) Reviewed date:04/19/2025 10:32:33 AM Interpretation: Performing Lab:VLADISLAV, [facility], [address] [place] [address], [phone] Verna Murphy M.D. Notes/Report: Received Date: FASTING:NO FASTING: NO SJOGREN'S ANTIBODY (SS-A) <1.0 NEG <1.0 NEG AI SJOGREN'S ANTIBODY (SS-B) <1.0 NEG <1.0 NEG AI CCP Antibody (IGG) Reviewed date:04/19/2025 10:32:33 AM Interpretation: Performing Lab:[facility], [facility], [address] [place] [address], [phone] Verna Murphy M.D. Notes/Report: Received Date: FASTING:NO FASTING: NO CYCLIC CITRULLINATED PEPTIDE (CCP) AB (IGG) <16 Reference Range Negative: <20 Weak Positive: 20-39 Moderate Positive: 40-59 Strong Positive: >59 CARDIOLIPIN AB (IGA,IGG,IGM) Reviewed date:04/19/2025 10:32:33 AM Interpretation: Performing Lab:[facility], [address] [place] [address], [phone] Verna Murphy M.D. Notes/Report: Received Date: FASTING:NO [...] aging. 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 Pt. 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 until EndoMD put her on Hydrocortisone for adrenal hyperplasia (and Progesterone) which resulted in her successful (has healthy baby ) prior to the current - as of 04.01.25; Problem Hormone abnormality (52941873) Abnormal level of hormones in specimens from [...] Allergy [facility] [address], [place] [phone] [id number] Kaushar Henson Inflammatory polyarthropathy M06.4 ; Coagulation defect, unspecified D68.9 ; Homocystinuria E72.11 ; Abnormal level of hormones in specimens from other organs, systems and tissues R89.1 ; Recurrent loss N96 ; Hereditary factor VIII deficiency D66 ; 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 ; 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 and Pain in left shoulder M25.512 [facility] [address], [place] [phone] 5 Kaushar Henson Inflammatory polyarthropathy M06.4 ; Coagulation defect, unspecified D68.9 ; Homocystinuria E72.11 ; Abnormal level of hormones in specimens from other organs, systems and tissues R89.1 ; Recurrent loss N96 ; Hereditary factor VIII deficiency D66 ; 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 Pt. unable to take MTX due to [...] C scpine, THS, LS and BL hips ([facility]) Follow up with Extractor Machine Operator as scheduled - May consider Hydroxychloroq uin Physical Therapy for hypermobility, congenital neural tube defect, back pain, 04/01/2025 Coagulation defect, unspecified (ICD-10 - D68.9) 04/01/2025 Inflammatory polyarthropathy (ICD-10 - M06.4) 29F W presents to us on 04.01.2025 with Fatigue 6/10, AMS 30 MINS, pain 4/10 legs, hips, knees, arms. H/o 13 consecutive losses, all 1st trimester until EndoRI put her on Hydrocortisone for adrenal hyperplasia [...] C scpine, THS, LS and BL hips ([facility]) RTC in 6 weeks and next available with Physical Therapy for hypermobility, congenital neural tube defect, back pain, 04/01/2025 Homocystinuria (ICD- 10 - E72.11) 04/28/2025 Homocystinuria (ICD- 10 - E72.11) 04/28/2025 Abnormal level of hormones in specimens from other organs, systems and tissues (ICD-10 - R89.1) EndoRI put her on Hydrocortisone for support due [...] PAUL RN, IFA 04/01/2025 JON ANTIBODY 04/01/2025 CHIEF DISPATCHER ANTIBODY 04/01/2025 HEPATITIS B CORE ANTIBODY (IGM) [...] Details Provider Name:CALLUM FUNG, 08/16/2025 09:30:00 AM, [address] [place] [address], [phone], Insurance Providers Payer Name Payer Address Payer Phone Subscriber Number Group Number Insured Name Patient Relationship to Insured Coverage Start Date Coverage End Date HAYLEY MEEKS [address], [place] [phone] [id number] Jeff Do Self - patient is the [...] history of colon cancer: No zenkers diverticulum: [facility] POTS Surgical History Surgery Date(Month/Year) Spinal surgery 04/2016 04/2023 no EGD/Colonoscopy
--- OUTSIDE RECORDS SUMMARY | 2025-07-19 08:28 | XMS_ITS | Patient Health Record ---
Author Organization [facility] Address [address] [place] [id number] Care Team Providers Care Single Fold Machine Operator Name Role Phone Cristobal Benites Unavailable [phone] Brenda Wilkins Unavailable [phone] Allergies No Known Allergies Reason For Referral Reason For evaluation and t reatment of hypermobility, connective tissue disorder of unknown etiology. 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) Referral Organization [facility] Referring Provider First Name Cristobal Referring Provider Last Name Kamari Referring Provider Speciality Computer Instructor Referred Provider Sj Mix Referred Provider Specialty Unknown Referral Priority Routine Medications Medication SIG (Take, Route, Frequency, Duration) Notes Start Date End Date Status Progesterone Unknown Problems Problem Type SNOMED Code ICD Code Onset Dates Problem Status W/U Status Risk Notes Problem Iron deficiency anem ia (69199247) Iron deficiency anemia, unspecified (D50.9) Active confirmed Problem 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 Problem Coagulation disorder (78296642) Coagulation defect, unspecified (D68.9) Active confirmed Problem Androgen excess (989447172) Androgen excess (E28.1) Active confirmed Problem Vitamin D deficiency (56333669) Vitamin D deficiency, unspecified (E55.9) Active confirmed Problem 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 Problem 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 Problem Disorder of connecti ve tissue (414026146) Systemic involvement of connective tissue, 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9) Active confirmed Encounters Encounter Location Date Provider Diagnosis [address] [id number] 07/27/2024 Cristobal Benites Other fatigue R53.83 ; Other specified irregular menstruation N92.5 ; Person consulting for explanation of examination or test findings Z71.2 ; Encounter for other general counseling and advice on procreation Z31.69 and Dietary counseling and surveillance Z71.[address] [id number] 10/12/2024 Cristobal Benites Procreative counseling and advice using natural family planning Z31.61 ; Iron deficiency E61.1 ; Personal history of other complications of , childbirth and the puerperium Z87.59 ; Vitamin A deficiency, unspecified E50.9 and Dietary counseling and surveillance Z71.[address] [id number] 01/25/2025 Cristobal Benites care for patient with recurrent loss, first trimester O26.21 ; Other insomnia G47.09 ; Person consulting for explanation of examination or test findings Z71.2 and Dietary counseling and surveillance Z71.[address] [place] [address] 04/25/2025 Cristobal Benites Elevated C-reactive protein (CRP) R79.82 ; Heartburn R12 ; Encounter for supervision of normal , unspecified, second trimester Z34.92 ; Person consulting for explanation of examination or test findings Z71.2 and Dietary counseling and surveillance Z71.[address] [place] [address] 07/11/2025 Cristobal Benites Generalized abdomina l pain R10.84 ; Elevated C-reactive protein (CRP) R79.82 ; Person consulting for explanation of examination or test findings Z71.2 ; Dietary counseling and surveillance Z71.3 ; Impaired fasting glucose R73.01 and Other abnormal glucose R73.[address] [id number] 12/23/2024 [facility] Abnormal level of hormones in specimens from female genital organs R87.1 ; Abnormal levels of other serum enzymes R74.8 ; Abnormal level of hormones in specimens from other organs, systems and tissues R89.1 ; Other specified irregular menstruation N92.5 and Androgen excess E28.[address] [id number] 02/11/2025 Cristobal Benites [address] [id number] 02/18/2025 Cristobal Benites [address] [id number] 02/10/2025 Cristobal Benites [address] [id number] 02/16/2025 Cristobal Benites Systemic involvement of connective [...] discussed during the visit. 6 weeks . Show Card Writer wants to resume hydrocortisone. Using topical progesterone [...] discussed during the visit. 6 weeks . Show Card Writer wants to resume hydrocortisone. Using topical progesterone [...] Shortness of breath. Increased hydrocortisone dose per distillery manager - helped. Not taking electrolytes. Seen by driller helper. Officially diagnosed with hypermobility, ruling out everything to be able make POTS diagnosis. Presents with labs run by driller helper. Labs show high HS CRP (3.5) and [...] Shortness of breath. Increased hydrocortisone dose per distillery manager - helped. Not taking electrolytes. Seen by driller helper. Officially diagnosed with hypermobility, ruling out everything to be able make POTS diagnosis. Presents with labs run by driller helper. Labs show high HS CRP (3.5) and [...] from female genital organs (ICD-10 - R87.1) 07/11/2025 Generalized abdominal pain (ICD-10 - R10.84) Cristobal Benites 07/11/2025 04:37:10 PM EDT > Cristobal Benites 07/11/2025 05:35:41 PM EDT > This is a 29 yo female pt presenting in-office for ROF of recent labs. Results reviewed and discussed during the visit. Almost 30 weeks . Cramping, pain - lower abd. Squeezing the stomach is the only thing that helps. Tried K-tape - made worse. Struggling to walk. Doing PT - not sure its helping, might be hurting. Attributes to hypermobility. Cites concern of gestational diabetes. Did oral glucose test - had a economic manager say she did not pass the test, despite level being within the reference range. Has concern that hydrocortisone is causing/ worsening. Labs reveal: TSH 0.64 FT4 0.94 FT3 2.7 IgE 60 CRP-hs 3.9 H Fibrinogen 554 Interleukin 6 1.66 Discussed rising HS-CRP is a concern for gestational diabetes, which in turn may possibly be as a result of hydrocortisone use. Discussed possibility of Type I diabetes, which is less likely. Pt previously suspicious for PCOS, which involves insulin resistance. Labs ordered to assess CMP, A1c, insulin, and c-peptide to evaluate blood sugar response and insulin sensitivity. Discussed and recommended inositol for insulin sensitivity. Discussed and educated patient on median arcuate ligament syndrome, which is associated with hypermobility and EDS, as possible etiology of abdomonal pain. Pt to discuss MALS with OB. 07/11/2025 Elevated C-reactive protein (CRP) (ICD-10 - R79.82) Cristobal Benites 07/11/2025 04:37:10 PM EDT > Cristobal Benites 07/11/2025 05:35:41 PM EDT > This is a 29 yo female pt presenting in-office for ROF of recent labs. Results reviewed and discussed during the visit. Almost 30 weeks . Cramping, pain - lower abd. Squeezing the stomach is the only thing that helps. Tried K-tape - made worse. Struggling to walk. Doing PT - not sure its helping, might be hurting. Attributes to hypermobility. Cites concern of gestational diabetes. Did oral glucose test - had a economic manager say she did not pass the test, despite level being within the reference range. Has concern that hydrocortisone is causing/ worsening. Labs reveal: TSH 0.64 FT4 0.94 FT3 2.7 IgE 60 CRP-hs 3.9 H Fibrinogen 554 Interleukin 6 1.66 Discussed rising HS-CRP is a concern for gestational diabetes, which in turn may possibly be as a result of hydrocortisone use. Discussed possibility of Type I diabetes, which is less likely. Pt previously suspicious for PCOS, which involves insulin resistance. Labs ordered to assess CMP, A1c, insulin, and c-peptide to evaluate blood sugar response and insulin sensitivity. Discussed and recommended inositol for insulin sensitivity. Discussed and educated patient on median arcuate ligament syndrome, which is associated with hypermobility and EDS, as possible etiology of abdomonal pain. Pt to discuss MALS with OB. 07/11/2025 Person consulting for explanation of examination or test findings (ICD-10 - Z71.2) Cristobal Benites 07/11/2025 04:37:10 PM EDT > Cristobal Benites 07/11/2025 05:35:41 PM EDT > This is a 29 yo female pt presenting in-office for ROF of recent labs. Results reviewed and discussed during the visit. Almost 30 weeks . Cramping, pain - lower abd. Squeezing the stomach is the only thing that helps. Tried K-tape - made worse. Struggling to walk. Doing PT - not sure its helping, might be hurting. Attributes to hypermobility. Cites concern of gestational diabetes. Did oral glucose test - had a economic manager say she did not pass the test, despite level being within the reference range. Has concern that hydrocortisone is causing/ worsening. Labs reveal: TSH 0.64 FT4 0.94 FT3 2.7 IgE 60 CRP-hs 3.9 H Fibrinogen 554 Interleukin 6 1.66 Discussed rising HS-CRP is a concern for gestational diabetes, which in turn may possibly be as a result of hydrocortisone use. Discussed possibility of Type I diabetes, which is less likely. Pt previously suspicious for PCOS, which involves insulin resistance. Labs ordered to assess CMP, A1c, insulin, and c-peptide to evaluate blood sugar response and insulin sensitivity. Discussed and recommended inositol for insulin sensitivity. Discussed and educated patient on median arcuate ligament syndrome, which is associated with hypermobility and EDS, as possible etiology of abdomonal pain. Pt to discuss MALS with OB. 12/23/2024 Abnormal levels of other serum enzymes [...] Shortness of breath. Increased hydrocortisone dose per distillery manager - helped. Not taking electrolytes. Seen by driller helper. Officially diagnosed with hypermobility, ruling out everything to be able make POTS diagnosis. Presents with labs run by driller helper. Labs show high HS CRP (3.5) and [...] discussed during the visit. 6 weeks . Show Card Writer wants to resume hydrocortisone. Using topical progesterone [...] discussed during the visit. 6 weeks . Show Card Writer wants to resume hydrocortisone. Using topical progesterone [...] Shortness of breath. Increased hydrocortisone dose per distillery manager - helped. Not taking electrolytes. Seen by driller helper. Officially diagnosed with hypermobility, ruling out everything to be able make POTS diagnosis. Presents with labs run by driller helper. Labs show high HS CRP (3.5) and [...] organs, systems and tissues (ICD-10 - R89.1) 07/11/2025 Dietary counseling and surveillance (ICD-10 - Z71.3) Cristobal Benites 07/11/2025 04:37:10 PM EDT > Cristobal Benites 07/11/2025 05:35:41 PM EDT > This is a 29 yo female pt presenting in-office for ROF of recent labs. Results reviewed and discussed during the visit. Almost 30 weeks . Cramping, pain - lower abd. Squeezing the stomach is the only thing that helps. Tried K-tape - made worse. Struggling to walk. Doing PT - not sure its helping, might be hurting. Attributes to hypermobility. Cites concern of gestational diabetes. Did oral glucose test - had a economic manager say she did not pass the test, despite level being within the reference range. Has concern that hydrocortisone is causing/ worsening. Labs reveal: TSH 0.64 FT4 0.94 FT3 2.7 IgE 60 CRP-hs 3.9 H Fibrinogen 554 Interleukin 6 1.66 Discussed rising HS-CRP is a concern for gestational diabetes, which in turn may possibly be as a result of hydrocortisone use. Discussed possibility of Type I diabetes, which is less likely. Pt previously suspicious for PCOS, which involves insulin resistance. Labs ordered to assess CMP, A1c, insulin, and c-peptide to evaluate blood sugar response and insulin sensitivity. Discussed and recommended inositol for insulin sensitivity. Discussed and educated patient on median arcuate ligament syndrome, which is associated with hypermobility and EDS, as possible etiology of abdomonal pain. Pt to discuss MALS with OB. 07/11/2025 Impaired fasting glucose (ICD-10 - R73.01) LetakalinaCristobal Awais 07/11/2025 04:37:10 PM EDT > LetarafalCristobal [place] Awais 07/11/2025 05:35:41 PM EDT > This is a 29 yo female pt presenting in-office for ROF of recent labs. Results reviewed and discussed during the visit. Almost 30 weeks . Cramping, pain - lower abd. Squeezing the stomach is the only thing that helps. Tried K-tape - made worse. Struggling to walk. Doing PT - not sure its helping, might be hurting. Attributes to hypermobility. Cites concern of gestational diabetes. Did oral glucose test - had a economic manager say she did not pass the test, despite level being within the reference range. Has concern that hydrocortisone is causing/ worsening. Labs reveal: TSH 0.64 FT4 0.94 FT3 2.7 IgE 60 CRP-hs 3.9 H Fibrinogen 554 Interleukin 6 1.66 Discussed rising HS-CRP is a concern for gestational diabetes, which in turn may possibly be as a result of hydrocortisone use. Discussed possibility of Type I diabetes, which is less likely. Pt previously suspicious for PCOS, which involves insulin resistance. Labs ordered to assess CMP, A1c, insulin, and c-peptide to evaluate blood sugar response and insulin sensitivity. Discussed and recommended inositol for insulin sensitivity. Discussed and educated patient on median arcuate ligament syndrome, which is associated with hypermobility and EDS, as possible etiology of abdomonal pain. Pt to discuss MALS with OB. 04/25/2025 Dietary counseling and surveillance (ICD-10 - [...] Shortness of breath. Increased hydrocortisone dose per distillery manager - helped. Not taking electrolytes. Seen by driller helper. Officially diagnosed with hypermobility, ruling out everything to be able make POTS diagnosis. Presents with labs run by driller helper. Labs show high HS CRP (3.5) and [...] FSH. 12/23/2024 Androgen excess (ICD-10 - E28.1) 07/11/2025 Other abnormal glucose (ICD-10 - R73.09) Cristobal Benites 07/11/2025 04:37:10 PM EDT > Cristobal Benites 07/11/2025 05:35:41 PM EDT > This is a 29 yo female pt presenting in-office for ROF of recent labs. Results reviewed and discussed during the visit. Almost 30 weeks . Cramping, pain - lower abd. Squeezing the stomach is the only thing that helps. Tried K-tape - made worse. Struggling to walk. Doing PT - not sure its helping, might be hurting. Attributes to hypermobility. Cites concern of gestational diabetes. Did oral glucose test - had a economic manager say she did not pass the test, despite level being within the reference range. Has concern that hydrocortisone is causing/ worsening. Labs reveal: TSH 0.64 FT4 0.94 FT3 2.7 IgE 60 CRP-hs 3.9 H Fibrinogen 554 Interleukin 6 1.66 Discussed rising HS-CRP is a concern for gestational diabetes, which in turn may possibly be as a result of hydrocortisone use. Discussed possibility of Type I diabetes, which is less likely. Pt previously suspicious for PCOS, which involves insulin resistance. Labs ordered to assess CMP, A1c, insulin, and c-peptide to evaluate blood sugar response and insulin sensitivity. Discussed and recommended inositol for insulin sensitivity. Discussed and educated patient on median arcuate ligament syndrome, which is associated with hypermobility and EDS, as possible etiology of abdomonal pain. Pt to discuss MALS with OB. 07/27/2024 Other Consent obtained. Time spent preparing [...] discussed during the visit. 6 weeks . Show Card Writer wants to resume hydrocortisone. Using topical progesterone [...] Shortness of breath. Increased hydrocortisone dose per distillery manager - helped. Not taking electrolytes. Seen by driller helper. Officially diagnosed with hypermobility, ruling out everything to be able make POTS diagnosis. Presents with labs run by driller helper. Labs show high HS CRP (3.5) and [...] other markers of inflammation, and general health. 07/11/2025 Other Consent obtained. Time spent preparing to see the patient: Appointment Start time: End time: Post appointment time documenting clinical information in the medical record & care coordination: Total Time: performing a medically appropriate examination and/or evaluation counseling and educating the patient on etiology, results, and management of health concerns ordering supplementatio ns, tests, or procedures and explaining risks, benefits, and alternatives Cristobal Benites 07/11/2025 04:37:10 PM EDT > Cristobal Benites 07/11/2025 05:35:41 PM EDT > This is a 29 yo female pt presenting in-office for ROF of recent labs. Results reviewed and discussed during the visit. Almost 30 weeks . Cramping, pain - lower abd. Squeezing the stomach is the only thing that helps. Tried K-tape - made worse. Struggling to walk. Doing PT - not sure its helping, might be hurting. Attributes to hypermobility. Cites concern of gestational diabetes. Did oral glucose test - had a economic manager say she did not pass the test, despite level being within the reference range. Has concern that hydrocortisone is causing/ worsening. Labs reveal: TSH 0.64 FT4 0.94 FT3 2.7 IgE 60 CRP-hs 3.9 H Fibrinogen 554 Interleukin 6 1.66 Discussed rising HS-CRP is a concern for gestational diabetes, which in turn may possibly be as a result of hydrocortisone use. Discussed possibility of Type I diabetes, which is less likely. Pt previously suspicious for PCOS, which involves insulin resistance. Labs ordered to assess CMP, A1c, insulin, and c-peptide to evaluate blood sugar response and insulin sensitivity. Discussed and recommended inositol for insulin sensitivity. Discussed and educated patient on median arcuate ligament syndrome, which is associated with hypermobility and EDS, as possible etiology of abdomonal pain. Pt to discuss MALS with OB. Plan Of Treatment Pending Test Test Name [...] COMPREHENSIVE METABOLIC PANEL 07/27/2024 COMPREHENSIVE METABOLIC PANEL 07/11/2025 COMPREHENSIVE METABOLIC PANEL 12/12/2023 LD 06/12/2022 GGT [...] TO TITER AND PAUL LOPEZ, IFA 12/12/2022 HS CRP 04/25/2025 CARDIO IQ(TM) HEMOGLOBIN A1c 06/12/2022 HEMOGLOBIN A1c 07/11/2025 CARDIO IQ(TM)HOMOCYSTEINE CARDIOVASCULAR 12/12/2023 CARDIO IQ(TM)HOMOCYSTEINE CARDIOVASCULAR 06/12/2022 ACTH, PLASMA 02/23/2024 C-PEPTIDE 07/11/2025 IMMUNOGLOBULIN E 04/25/2025 INSULIN 07/11/2025 PROGESTERONE 12/12/2023 PROGESTERONE 01/25/2025 PROGESTERONE 07/27/2024 PROGESTERONE 12/12/2022 PROGESTERONE 06/12/2022 DHEA [...] (RIBOFLAVIN), PLASMA 06/12/20 22 VITAMIN K 07/17/2022 INTERLEUKIN 6, HIGHLY SENSITIVE, [...] T4 04/25/2025 Next Appt Details Provider Name:Cristobal Awais Moreno [facility] [place], 10/28/2025 03:00:00 PM, [address] [place] [address], [phone], Insurance Providers Payer Name Payer Address Payer Phone Subscriber Number Group Number Insured Name Patient Relationship to Insured Coverage Start Date Coverage End Date [facility] [address] [place], [place] [phone] [id number] Jeff Do Self - patient is the insured Medical (General) History Medical 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
[2025-07-19 10:10] LABS: Hemoglobin A1C 111.0487 umol/L; Total Hemoglobin (HGBA1C) 3437.1626 umol/L
[2025-07-19 11:13] LABS: Alanine Aminotransferase 18 U/L (0-31); Albumin Level 3.8 g/dL (3.5-5.0); Alkaline Phosphatase 124 U/L (39-117); Anion Gap 12 (12-20); Aspartate Amino Transferase 22 U/L (5-31); Blood Urea Nitrogen 5 mg/dL (9-16); Calcium 8.8 mg/dL (8.4-10.2); Carbon Dioxide 24 mmol/L (22-29); Chloride 105 mmol/L (96-108); Estimated Glomerular Filt Rate > 60; Potassium 4.1 mmol/L (3.3-5.1); Sodium 137 mmol/L (135-145); Total Protein 6.7 g/dL (6.5-8.0)
== END 2025-07-19 08:20 | disposition home or self-care (01) ==
LOC: HO.LAB 08:19
PROVIDERS: PCP Internal Medicine; Visit Provider Naturopath
DX: R73.01 Impaired fasting glucose (principal)
CPT/HCPCS: 36415; 80053; 83036; 83525; 84681

== ENCOUNTER 2025-08-12 06:49 | Outpatient (REF) | payer OTHER, SELFPAY | END 2025-08-12 06:50 | disposition home or self-care (01) | LOC: HO.LAB 06:49 | PROVIDERS: PCP Internal Medicine; Visit Provider Internal Medicine | DX: M06.4 Inflammatory polyarthropathy (principal) | CPT/HCPCS: 36415; 85652; 86141 ==

== ENCOUNTER 2025-08-29 17:01 | Outpatient (RCR) | payer OTHER, SELFPAY | END 2025-08-29 18:01 | disposition home or self-care (01) | LOC: HO.PT 17:01 | PROVIDERS: PCP Internal Medicine; Visit Provider Internal Medicine Rheumatology | DX: M35.7 Hypermobility syndrome (principal); O99.891 Other specified diseases and conditions complicating pregnancy; Z3A.15 15 weeks gestation of pregnancy | CPT/HCPCS: 97110; 97112; 97163; 97530 ==

== ENCOUNTER 2025-11-12 08:07 | Outpatient (REF) | payer OTHER, SELFPAY ==
--- OUTSIDE RECORDS SUMMARY | 2025-01-04 06:00 | XMS_ITS ---
Author Organization [facility] Address [address] [place] [phone] Care Team Providers Care Brine Tank Operator Name Role Phone Cristobal Benites Unavailable [phone] REASON FOR VISIT ROF Encounters Encounter Location Date Provider Diagnosis [address] [id number] 01/04/2025 Cristobal Benites Plan Of Treatment Next Appt Details Provider Name:Cristobal Moreno [facility] [place], 12/26/2025 02:30:00 PM, [address] [facility], [address], [place], [address], Progress Notes * Gisselle CASASB:03/1995 (30 yo F)Acc No.[id number]:01/04/2025 Progress Notes Patient: Cassie Jeff MCALLISTER Provider: Chasidy Benites ND :1995 A ge:29 Y S ex:Female Date:01/04/2025 Address:[address] [id number] Subjective: * Chief Complaints: * 1 . ROF. * Medical History: Objective: * Vitals: Assessment: Plan: * Treatment: * * Electronic signature of Cheli Benites ND on 11/12/2025 at 08:11 AM EST Sign off status: Pending * Provider: Chasidy Benites ND Date: 0 01/04/2025 Generated for Printi ng/Faxing/eTransmitting on: 1 01/13/2025 08:11 AM EST
--- OUTSIDE RECORDS SUMMARY | 2025-04-01 04:30 | XMS_ITS ---
Author Organization [facility] Address [address], [place] [id number] Care Team Providers Care Prints And Drawings Curator Name Role Phone Wilson Benites Primary Care Provider Unavailab CALLUM Ryan Unavailable [phone] CRISTOBAL Youssef Unavailable Unavailabl Ezequiel Emerson Unavailable [phone] Allergies No Known Allergies Results Component Value Reference Range Flag Notes HLA-B27 ANTIGEN Reviewed date:04/19/2025 10:32:33 AM Interpretation: Performing Lab:[facility], [facility], [address] , [place], [phone] Ross Lynch M.D.,PhD Notes/Report: Received Date: FASTING:NO FASTING: NO HLA-B27 ANTIGEN Negative Negative CARDIOLIPIN AB (IGA,IGG,IGM) Reviewed date:04/19/2025 10:32:33 AM Interpretation: Performing Lab:NL1, [facility], [address] [place] [address], [phone] Verna Murphy M.D. Notes/Report: Received Date: FASTING:NO FASTING: NO CARDIOLIPIN AB (IGA) <2.0 N Value Interpretation ----- < 20.0 Antibody not detected > or = 20.0 Antibody detected CARDIOLIPIN AB (IGG) <2.0 N Value Interpretation ----- < 20.0 Antibody not detected > or = 20.0 Antibody detected CARDIOLIPIN AB (IGM) <2.0 N Value Interpretation ----- < 20.0 Antibody not detected > or = 20.0 Antibody detected The antiphospholipid antibody syndrome (APS) is a clinical-pathologic correlation that includes a clinical event (e.g. arterial or venous thrombosis, morbidity) and persistent positive antiphospholipid antibodies (IgM, IgG Cardiolipin or b2GPI antibodies greater than the 99th percentile; or a lupus anticoagulant). International consensus guidelines for APS suggest waiting at least 12 weeks before retesting to confirm antibody persistence. The Systemic Lupus International Collaborating [facility] immunological classification criteria for systemic lupus erythematosus (SLE) include testing for isotype IgA, which has yet to be incorporated into APS criteria. Low level antiphospholipid antibodies may sometimes be detected in the setting of infection, drug therapy or aging. For additional information, please refer to http://education.Markr/faq/YKX784 (This link is being provided for informational/ educational purposes only.) CCP Antibody (IGG) Reviewed date:04/19/2025 10:32:33 AM Interpretation: Performing Lab:NL1, [facility], [address] [place] [address], [phone] Verna Murphy M.D. Notes/Report: Received Date: FASTING:NO FASTING: NO CYCLIC CITRULLINATED PEPTIDE (CCP) AB (IGG) <16 N Reference Range Negative: <20 Weak Positive: 20-39 Moderate Positive: 40-59 Strong Positive: >59 SJOGRENS ANTIBODIES (SS-A,SS -B) Reviewed date:04/19/2025 10:32:33 AM Interpretation: Performing Lab:NL1, [facility], [address] [place] [address], [phone] Verna Murphy M.D. Notes/Report: Received Date: FASTING:NO FASTING: NO SJOGREN'S ANTIBODY (SS-A) <1.0 NEG <1.0 NEG AI N SJOGREN'S ANTIBODY (SS-B) <1.0 NEG <1.0 NEG AI N SCL-70 ANTIBODY Reviewed date:04/19/2025 10:32:33 AM Interpretation: Performing Lab:NL1, [facility], [address] [place] [address], [phone] Verna Murphy M.D. Notes/Report: Received Date: FASTING:NO FASTING: NO SCL-70 ANTIBODY <1.0 NEG <1.0 NEG AI N ANCA SCREEN WITH MPO AND PR3 WITH REFLEX TO ANCA TITER Reviewed date:04/19/2025 10:32:33 AM Interpretation: Performing Lab:NL1, [facility], [address] [place] [address], [phone] Verna Murphy M.D. Notes/Report: Received Date: FASTING:NO FASTING: NO ANCA SCREEN NEGATIVE NEGATIVE N ANCA screen uses indirect immunofluorescence to detect antibodies to neutrophil cytoplasmic antigens. A positive screen reflexes to titer and pattern. Patterns include cytoplasmic (c-ANCA) and perinuclear (p-ANCA) both of which are associated with vasculitis, and atypical p-ANCA which is associated with inflammatory bowel disease and other disorders. MYELOPEROXIDASE ANTIBODY <1.0 N Value Interpretation ----- <1.0 No Antibody Detected > or = 1.0 Antibody Detected Autoantibodies to myeloperoxidase (MPO) are commonly associated with the following small-vessel vasculitides: microscopic polyangiitis, polyarteritis nodosa, Ch[place] syndrome, necrotizing and crescentic glomerulonephritis and occasionally granulomatosis with polyangiitis (GPA, Violet's). The perinuclear IFA pattern, (p-ANCA) is based largely on autoantibody to myeloperoxidase which serves as the primary antigen. These autoantibodies are present in active disease. PROTEINASE-3 ANTIBODY <1.0 N Value Interpretation ----- <1.0 No Antibody Detected > or = 1.0 Antibody Detected Autoantibodies to proteinase-3 (FL-3) are accepted as characteristic for granulomatosis with polyangiitis (GPA, Violet's), and are detectable in 95% of the histologically proven cases. The cytoplasmic IFA pattern, (c-ANCA), is based largely on autoantibody to FL-3 which serves as the primary antigen. These autoantibodies are present in active disease. ANGIOTENSIN CONVERTING ENZYM E (CONNIE) Reviewed date:04/19/2025 10:32:33 AM Interpretation: Performing Lab:[facility], [address], [place], [place], Ross Lynch M.D.,PhD Notes/Report: Received Date: FASTING:NO FASTING: NO [id number] ENZYME 14.5 9-67 U/L DNA(ds) AB, CRITHIDIA IFA W/ RF Reviewed date:04/19/2025 10:32:33 AM Interpretation: Performing Lab:[facility], [address], [place], [place], Ross Lynch M.D.,PhD Notes/Report: Received Date: FASTING:NO FASTING: NO DNA AB (DS) CRITHIDIA,IFA Negative Negative Celiac Disease Comprehensive Panel with Gliadin Antibody (IgG) Reviewed date:04/19/2025 10:32:33 AM Interpretation: Performing Lab:NL1, [facility], [address] [place] [address], [phone] Verna Murphy M.D. Notes/Report: Received Date: FASTING:NO FASTING: NO INTERPRETATION No serological evidence for celiac disease is present. tTg may normalize in individuals with celiac disease who maintain a gluten free diet. If high suspicion of celiac disease, consider HLA DQ2 and DQ8 testing to rule out celiac disease. TISSUE TRANSGLUTAMINASE AB, IGA <1.0 N Value Interpretation ----- <15.0 Antibody not detected > or = 15.0 Antibody detected IMMUNOGLOBULIN A 188 47-310 mg/dL N REASON FOR VISIT PT last seen PMD Wilson Benites , Fatigue 6/10, AMS 30 MINS, pain 4/10 legs, hips, knees, arms, Lab n/a, CXR/DEXA needs done, Pt IS CURRENTLY , Symptoms - chronic muscle pain/joint pain Medications Medication SIG (Take, Route, Frequency, Duration) Notes Start Date End Date Status Hydrocortisone 5 MG Tablet Oral; Duration: 90 Days Active Social History Social History Social History Social Info Question Answer Notes Household: Marital Status: Number of Children in Household: 1 Level of Education: Finished College Additional Details Category Social Info Options Details Miscellaneous: 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 Pt. now 19 weeks . Lab 04.08.2025- neg RF, OK CK 28, OK LFT,CR, TSH -0.75, OK IRON, +HS-CRP 3.5H, NEG HARDEEP-LAC, ESR 20 ULN, NEG HCV, HBsAG, HBc; NEG LYME; 5.. , CCP Ab negative,, Neg aCL X 3, NEG B2GP1 X3, , ANCA negative, Neg MPO ANCA, NEG PR3 ANCA, Negative SSA, negative SSB, Neg Sm, neg Sm/[employer]. Pt. unable to take MTX due to state. Defers adding Hydroxychloroqui n at this time. 29F W presents to us on 04.01.2025 with Fatigue 6/10, AMS 30 MINS, pain 4/10 legs, hips, knees, arms. 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 Vital Signs Temperature 36.3 C 04/01/2025 Blood pressure systolic 104 mm Hg 04/01/20 25 Blood pressure diastolic 74 mm Hg 025 Heart Rate 80 /min 04/01/2025 BMI 19.88 kg/m2 04/01/2025 Height 166 cm 04/01/2025 Weight 54.8 kg 04/01/2025 Encounters Encounter Location Date Provider Diagnosis [facility] [address] [id number] Kaushzen Henson Inflammatory polyarthropathy M06.4 ; Coagulation defect, unspecified D68.9 ; Homocystinuria E72.11 ; Abnormal level of hormones in specimens from other organs, systems and tissues R89.1 ; Recurrent loss N96 ; Hereditary factor VIII deficiency D66 ; 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 ; 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 and Pain in left shoulder M25.512 Assessments Encounter Date Diagnosis (ICD Code) Assessment Notes Treatment Notes Treatment Clinical Notes Section Notes 04/01/2025 Inflammatory polyarthropathy (ICD-10 - M06.4) 29F W presents to us on 04.01.2025 with Fatigue 6/10, AMS 30 MINS, pain 4/10 legs, hips, knees, arms. 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 Diagnostic ultrasound of the shoulder - Left Labs fasting Defer while any XRs, including DXA, Chest Xray PA and Lateral-new onset inflammatory polyarthritis , rule out lesion.; cc PMD Follow up w/PMD re: age appropriate cancer screening. Fish oil or Flaxseed oil 1,000 mg -3,000 mg per day Turmeric 500 mg -1000 mg & curcumin 500 mg -1000 mg a day. We requested pertinent medical records. - CXR, C scpine, THS, LS and BL hips (Pro heal chiro practor, [facility]) RTC in 6 weeks and next available with Physical Therapy for hypermobility , congenital neural tube defect, back pain, 04/01/2025 Coagulation defect, unspecified (ICD-10 - D68.9) 04/01/2025 Homocystinuria (ICD- 10 - E72.11) 04/01/2025 Abnormal level of ho rmones in specimens from other organs, systems and tissues (ICD-10 - R89.1) Satya put her on Hydrocortisone for support due to h/o adrenal hyperplasia with question of Harry's Disease not formally diagnosed due to intermittent low or low normal Se Cortisol level; This resulted in successful . 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 04/01/2025 Pain in left shoulde r (ICD-10 - M25.512) Plan Of Treatment Treatment Notes Assessment Notes Inflammatory polyarthropathy Diagnostic ultrasound of the shoulder - Left Labs fasting Defer while any XRs, including DXA, Chest Xray PA and Lateral-new onset inflammatory polyarthritis, rule out lesion.; cc PMD Follow up w/PMD re: age appropriate cancer screening. Fish oil or Flaxseed oil 1,000 mg -3,000 mg per day Turmeric 500 mg -1000 mg & curcumin 500 mg -1000 mg a day. We requested pertinent medical records. - CXR, C scpine, THS, LS and BL hips (Pro heal chiro practor, [facility]) RTC in 6 weeks and next available with Physical Therapy for hypermobility, congenital neural tube defect, back pain, Pending Test Test Name Order Date LUPUS ANTICOAGULANT EVALUATION WITH REFL EX 04/01/2025 URINALYSIS, COMPLETE W/REFLEX TO CULTURE 04/01/2025 RHEUMATOID FACTOR 04/01/2025 LYME DISEASE ANTIBODIES (IGG, IGM) ROASLINA RN BLOT 04/01/2025 HARDEEP IFA SCREEN W/REFL TO TITER AND PAUL RN, IFA 04/01/2025 JON ANTIBODY 04/01/2025 [employer] ANTIBODY 04/01/2025 HEPATITIS B CORE ANTIBODY (IGM) 04/01/20 25 HEPATITIS B SURFACE ANTIGEN W/REFL CONFI RM 04/01/2025 VITAMIN B12/FOLATE, SERUM PANEL 04/01/20 25 FERRITIN 04/01/2025 TSH, 3RD GENERATION 04/01/2025 IMMUNOFIXATION IGA,IGG,IGM QT.IMMUNOFIXA TION SERUM IMMUNOGLOBULIN 04/01/2025 PTH, INTACT AND CALCIUM 04/01/2025 PROTEIN, TOTAL AND PROTEIN ELECTROPHORES IS 04/01/2025 BETA 2 GLYCOPROTEIN I AB (IGG,IGA,IGM) 0 04/01/2025 VITAMIN D, 25-HYDROXY, LC/MS/MS 04/01/20 25 URIC ACID 04/01/2025 IRON TOTAL, TIBC, SATURATION 04/01/2025 CREATINE KINASE, TOTAL 04/01/2025 LYME AB SCREEN 04/01/2025 HEPATIC FUNCTION PANEL 04/01/2025 CREATININE 04/01/2025 CBC (INCLUDES DIFF/PLT) 04/01/2025 SED RATE BY MODIFIED WESTERGREN 04/01/20 25 Hep C Ab w Rfx to HCV RNA 04/01/2025 HS-CRP 04/01/2025 Next Appt Details Follow Up: 6 Weeks, Reason: Provider Name:CALLUM FUNG, 01/24/2026 09:30:00 AM, [address] [place] [address], [phone], History and Physical Notes * HPI (History of Present Illness) Category Sub-Category Detail Notes Category Not es Rheumatology, Other Demographics 29F +POTS ( Cardiology @ [facility] Dr. Ernandez) , The patient presents with th e following symptoms CONSULT 04.01.2025 PT last seen PMD Wilson Benites , Fatigue 6/10, AMS 30 MINS, pain 4/10 legs, hips, knees, arms, Lab n/a, CXR/DEXA needs done, Pt IS CURRENTLY , ; Symptoms - chronic muscle pain/joint pain. Pt. comes to us with chronic pain and possible hypermobility symptoms. Pt. used to take Tylenol for her symptoms but as of now is not tkaing it. Pt. at times have neck pain which gets so severe that it causes her face to go numb and only then she takes Tylenol. Curently 15 weeeks - Seeing [facility]. Endocronologist Dr. Cruz BARGER - Lots of muscle cramping - easy bruising NO Recurrent fevers NO Photosensitive skin rashes NO ALOPECIA NO Raynaud's Phenomenon; No fingertip ulcer, No toe tip ulcer NO Dry eye, NO use of artificial tears NO Dry mouth; NO Need to sip on water while swallowing a dry cracker NO Mouth ulcers NO GENITAL ULCERS EVER NO Ever skin biopsy NO Swollen painful joints YES Painful but not swollen joints AND morning stiffness 30 or more minutes NO H/o pericarditis (+Congenital heart defect, +congenital Neural tube defect) NO H/o Pleurisy or Pleural effusions NO DRY COUGH NO FREQUENT SINUSITIS NO H/o low WBC YES H/o anemia NO H/o low platelet count NO Ever deep vein thrombosis NO arterial thrombosis NO stroke, NO AMI +H/o Obstetric problems: , now ; NO premature delivery before 34 week. NO spontaneous loss after 10 week. YES recurrent spontaneous 1st trimester 3 or more losses ( 13 miscarriages) NO Eclampsia, NO preeclampsia, NO HELLP syndrome YES atraumatic onset of back pain; NO Back pain better with movement AND not relieved by rest NO Back pain preciptated by trauma NO Buttock pain NO h/o tennis elbow NO h/o plantar fasciitis NO h/o frozen shoulder NO Trigger finger NO h/o uveitis, iritis NO GI problems -no IBS, no food allergies NO personal h/o Inflammatory Bowel Disease NO h/o celiac Sprue NO Autoimmune FHx - no psoriasis, no Psoriatic Arthritis NO Autoimmune FHx : NO FHx Crohn's colitis No FHx Ulcerative Colitis No FHx Celiac Sprue NO Autoimmune FHx of NO Rheumatoid Arthritis NO FHx lupus No FX Multiple Sclerosis. Isolation Precautions Respiratory Illness Screen ing 1. Is fever present / reported?: No 2. Are respiratory illness symptom(s) pr esent / reported?: No 3. Are other symptom(s) present / report ed?: No 5. Has there been reported t ravel to a High Risk respiratory illness region?: No 6. Has close* contact with p mookon(s) known to have communicable illness been reported?: No 7. Did travel or close conta ct (if applicable) occur within 14 days of symptom onset?: No Examination Category Sub-Category Detail Notes Category Not es Rheumatology CERVICAL SPINES: no vertebral te nderness, normal range of motion without discomfort, no paravertebral muscle spasm (B) LUMBAR SPINES: no vertebral tendern ess, straight leg raise unremarkable, normal forward bending and normal lateral bending, normal extension SHOULDERS: normal range of larissa on w/o pain, No proximal muscle tenderness, (B)No proximal muscle weakness ELBOWS: no swelling, normal range of motion WRISTS: (B)wrist no synoviti s, normal range of motion without discomfort, negative Tinel's sign HANDS: no synovitis, no ten derness, normal range of motion, no tenderness of the flexor tendons HIPS: normal range of larissa on, (B)no trochanteric tenderness, (B)no inguinal tenderness, (B)No proximal muscle tenderness , (B)No proximal muscle weakness KNEES: (B)no tenderness, no effusion,, normal alignment and range of motion ANKLES: (B)no tenderness, no swelling, ankle joint tenderness, swelling, normal range of motion, no (B)plantar fascia tenderness at the insertion into calcaneal bone, no (B)Achilles enthesis tenderness FEET: normal, no pain or s welling, full ROM THORACIC SPINE: no vertebral tendern ess, full ROM SACROILIAC: no tenderness, sacro iliac stressing test negative, (B) Ross's test negative FIBROMYALGIA TENDER 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 allergy GENERAL APPEARANCE: in no acute distress, well developed, well nourished HEAD: normocephalic, atrau matic, Thyroid not palpable, not tender, no temporal artery tenderness (B), , temporal artery pulse 2+(B), parotid glands not enlarged, no maxillary sinus tenderness (B) EYES: pupils equal, round, reactive to light and accommodation EARS: normal THROAT: clear NECK/THYROID: no cervical lymphade nopathy, no palpable thyroid HEART: no costochondral ten derness, regular rate and rhythm, S1, S2 normal LUNGS: clear to auscultatio n bilaterally ABDOMEN: normal, bowel sounds present, no hepatosplenomegaly, no masses palpable, no rebound tenderness, soft, nontender, nondistended NEUROLOGIC: nonfocal, motor stre ngth normal upper and lower extremities, sensory exam intact SKIN: no other suspicious lesions, warm and dry, No telangiectasia, no livedo reticularis , normal skin elasticity, EXTREMITIES: no clubbing, cyanosi s, or edema, no nail pitting LYMPH NODES: no lymphadenopathy ORAL CAVITY: mucosa moist, no les ions Progress Notes * Ning CASASaDOB:03/1995 (30 yo F)Acc No.[id number]:04/01/2025 Progress Note Patient: Jeff Henderson Provider: Stefany Henson APRN :1995 A ge:29 Y S ex:Female Date:04/01/2025 Address:[address] [place] [address] , [facility] Pcp:Wilson Benites Subjective: * Chief Complaints: * P T last seen PMD Wilson Benites Fatigue 05/03, AMS 30 MINSPain 03/03 legs, hips, knees, armsLab n/aCXR/DEXA needs donePt IS CURRENTLY Symptoms - chronic muscle pain/joint pain * HPI: R heumatology, Other: Demographics 2 9F +POTS ( Cardiology @ [facility] Dr. Ernandez) , . The patient presents with the following symptoms C ONSULT . Pt. comes to us with chronic pain and possible hypermobility symptoms. Pt. used to take Tylenol forher symptoms but as of now is not tkaing it. Pt. at times have neck pain which gets so severe that it causes her face to go numb and only then she takes Tylenol. Curently 15 weeeks - Seeing [facility]. Endocronologist Dr. Cruz BARGER ?- Lots of muscle cramping ?- easy bruising ?NO Recurrent fevers ?NO Photosensitive skin rashes ?NO ALOPECIA ?NO Raynaud's Phenomenon; No fingertip ulcer, No toe tip ulcer ?NO Dry eye, NO use of artificial tears ?NO Dry mouth; NO Need to sip on water while swallowing a dry cracker ?NO Mouth ulcers ?NO GENITAL ULCERS EVER ?NO Ever skin biopsy ?NO Swollen painful joints ?YES Painful but not swollen joints AND morning stiffness 30 or more minutes ?NO H/o pericarditis? (+Congenital heart defect, +congenital Neural tube defect)?NO H/o Pleurisy or Pleural effusions ?NO DRY COUGH ?NO FREQUENT SINUSITIS ?NO H/o low WBC ?YES H/o anemia ?NO H/o low platelet count ?NO Ever deep vein thrombosis ?NO arterial thrombosis ?NO stroke, NO AMI ?+H/o Obstetric problems: , now ;?NO premature delivery before 34 week. ?NO spontaneous loss after 10 th week. ?YES recurrent spontaneous 1st trimester 3 or more losses ( 13 miscarriages)?NO Eclampsia, NO preeclampsia, NO HELLP syndrome ?YES atraumatic onset of back pain; ?NO Back pain better with movement AND not relieved by rest ?NO Back pain preciptated by trauma ?NO Buttock pain ?NO h/o tennis elbow ?NO h/o plantar fasciitis ?NO h/o frozen shoulder ?NO Trigger finger ?NO h/o uveitis, iritis ?NO GI problems -no IBS, no food allergies ?NO personal h/o Inflammatory Bowel Disease ?NO h/o celiac Sprue ?NO Autoimmune FHx - no psoriasis, no Psoriatic Arthritis ?NO Autoimmune FHx : NO FHx Crohn's colitis ?No FHx Ulcerative Colitis ?No FHx Celiac Sprue ?NO Autoimmune FHx of NO Rheumatoid Arthritis ?NO FHx lupus ?No FX Multiple Sclerosis..?Isolation Precautions:?Respiratory Illness Screening?1. Is fever present / reported??No ?2. Are respiratory illness symptom(s) present/ reported??No ?3. Are other symptom(s) present / reported? No ?5. Has there been reported travel to a High Risk respiratory illness region??No ?6. Has close* contact with person(s) known tohave communicable illness been reported??No ?7. Did travel or close contact (if applicable) occur within 14 days of symptom onset??No * ROS: R heumatology: Fatigue Y es. F ever N o. C hills N o. N ight Sweats N o. W eight Loss N o. H ands change color in the cold N o. D ry Eyes N o. D ry Mouth N o. S tiffness in AM Y es. J aw pain or tired when chewing Y es. H eadaches N o. P ain in eyes N o. R edness in eyes N o. Blurred or Double Vision Y es. F loaters N o. F lashes N o. H air Loss that left bald patch behind N o. M outh ulcers N o. N heide Ulcers N o. F requent sore throat N o. L ymphadenopathy N o. C hest pain N o. S hortness of breath Y es. C ough N o. C oughing up Blood N o. H eartburn N o. C hest pain when taking in deep breath N o. W heezing N o. A bdominal pain N o. D iarrhea N o. N ausea Y es. V omiting N o. C onstipation N o. D ysuria N o. I ncontinence N o. R ecurrent sinus infection N o. R ecurrent ear infection N o. B leeding gums N o. P soriasis N o. S kin rash after sun exposure N o. N odules/Bumps N o. M uscle weakness N o. T ingling N o. N umbness N o. B urning N o. F alls N o. A nxiety N o. D epression N o. A nemia N o. B leeding Tendency Y es. R inging in ears N o. L oss of hearing N o. H eight loss N o. H eart murmur N o. B lood in stool N o. Heel pain N o. D iscomfort or pain in BUTTOCK N o. W eight GAIN N o. ? * Medical History: anxiety: No asthma: No eczema: No psoriasis: No osteoporosis: No gout: No hypothyroidism: No abnormal liver function: No fatty liver: No acid reflux: No bowel disorders: No Crohns SI: No ulcerative colitis: No celiac sprue: No diverticulosis: No hives: No hypertension: No multiple sclerosis: No recurrent sinusitis: No sleep apnea: No varicose veins: No kidney stones: No migraine headaches: No human immunodeficiency virus (HIV), positive: No cancer, colon: No family history of colon cancer: No zenkers diverticulum: [facility] Medical History Verified * OB History: T otal pregnancies 1 5. T otal living children 1 . M iscarriage(s) 1 3 miscarriages. * Surgical History: Spinal surgery 04/2016 04/2023 no EGD/Colonoscopy Surgical History verified. * Hospitalization/Major Diagno stic Procedure: No Hospitalization Documented. Hospitalization Verified. * Family History: D aughter(s): alive 2 yrs. F ather: alive 52 yrs. M other: alive 52 yrs. S iblings: 6 siblings. F amily History Verified.. * Social History: T obacco Use: S moking: No. 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 S ocial History: H ousenadeem M arital Status: M arried N umber of Children in Household: 1 L evel of Education: [employer] S ocial History Verified. * Medications: T akingHydrocortisone 5 MG Tablet Oral Taking Hydrocortisone 5 MG Tablet Oral * Allergies: N .K.D.A.yesAllergies Verified. Objective: * Vitals: B P:104/74mm Hg, HR:80/min, Temp:36.3C, Ht-cm: 166 cm, Wt-k.8 kg, BMI:19.88Index. * Examination: a llergy: GENERAL APPEARANCE: i n no acute distress, well developed, well nourished. HEAD: n ormocephalic, atraumatic, Thyroid not palpable, not tender, no temporal artery tenderness (B), , temporal artery pulse 2+(B), parotid glands not enlarged, no maxillary sinus tenderness (B). EYES: p upils equal, round, reactive to light and accommodation. EARS: n ormal. ORAL CAVITY: m ucosa moist, no lesions. THROAT: c lear. NECK/THYROID: n o cervical lymphadenopathy, no palpable thyroid. LYMPH NODES: n o lymphadenopathy. SKIN: n o other suspicious lesions, warm and dry, No telangiectasia, no livedo reticularis , normal skin elasticity,. HEART: n o costochondral tenderness, regular rate and rhythm, S1, S2 normal. LUNGS: c lear to auscultation bilaterally. ABDOMEN: n ormal, bowel sounds present, no hepatosplenomegaly, no masses palpable, no rebound tenderness, soft, nontender, nondistended. EXTREMITIES: n o clubbing, cyanosis, or edema, no nail pitting. NEUROLOGIC: n onfocal, motor strength normal upper and lower extremities, sensory exam intact. R heumatology: CERVICAL SPINES: n o vertebral tenderness, normal range of motion without discomfort, no paravertebral muscle spasm (B). LUMBAR SPINES: n o vertebral tenderness, straight leg raise unremarkable, normal forward bending and normal lateral bending, normal extension. SHOULDERS: n ormal range of motion w/o pain, No proximal muscle tenderness, (B)No proximal muscle weakness. ELBOWS: n o swelling, normal range of motion. WRISTS: ( B)wrist no synovitis, normal range of motion without discomfort, negative Tinel's sign. HANDS: n o synovitis, no tenderness, normal range of motion, no tenderness of the flexor tendons. HIPS: n ormal range of motion, (B)no trochanteric tenderness, (B)no inguinal tenderness, (B)No proximal muscle tenderness , (B)No proximal muscle weakness.? KNEES: ( B)no tenderness, no effusion,, normal alignment and range of motion. ANKLES: ( B)no tenderness, no swelling, ankle joint tenderness, swelling, normal range of motion, no (B)plantar fascia tenderness at the insertion into calcaneal bone, no (B)Achilles enthesis tenderness. FEET: n ormal, no pain or swelling, full ROM. THORACIC SPINE: n o vertebral tenderness, full ROM. SACROILIAC: n o tenderness, sacroiliac stressing test negative, (B) Ross's test negative . FIBROMYALGIA TENDER POINTS: N o diffuse trigger point tenderness. Assessment: * Assessment: 1. I nflammatory polyarthropathy - M06.4 (Primary) N otes :29F W presents to us on 04.01.2025 with Fatigue 6/10, AMS 30 MINS, pain 4/10 legs, hips, knees, arms. 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 2 . C oagulation defect, unspecified - D68.9 3 . 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 A bnormal level of hormones in specimens from other organs, systems and tissues - R89.1 N otes :EndoMD put her on Hydrocortisone for support due to h/o adrenal hyperplasia with question of Harry's Disease not formally diagnosed due to intermittent low or low normal Se Cortisol level; This resulted in successful . 5 . R ecurrent loss - N96 N otes :OV 04.01.25 H/o 13 consecutive losses, all 1st trimester until EndoMD put her on Hydrocortisone for adrenal hyperplasia (and Progesterone) which resulted in her successful (has healthy baby ) prior to the current - as of 04.01.25; 6 . 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 H ypermobility syndrome - M35.7 S pecify :+POTS per Cardiology, no fjij-syzgf-wdhm done; Bicuspid aortic valve. Frequent subluxations shoulders, ankles. N otes :Pelvic floor dysfunction with dyspareunia. 9 . P ain in left shoulder - M25.512 Plan: * Treatment: 2. H ereditary factor VIII deficiency L AB: RHEUMATOID FACTOR L AB: HARDEEP IFA SCREEN W/REFL TO TITER AND PATTERN, IFA L AB: JON ANTIBODY L AB: COMMUNITY COORDINATOR FOR HIGH SCHOOL ANTIBODY L AB: BETA 2 GLYCOPROTEIN I AB (IGG,IGA,IGM) L AB: CARDIOLIPIN AB (IGA,IGG,IGM) (Collection Date & Time - 04/06/2025 03:15 PM) L AB: CCP Antibody (IGG) (Collection Date & Time - 04/06/2025 03:15 PM) L AB: SJOGRENS ANTIBODIES (SS-A,SS-B) (Collection Date & Time - 04/06/2025 03:15 PM) L AB: SCL-70 ANTIBODY (Collection Date & Time - 04/06/2025 03:15 PM) L AB: DNA(ds) AB, CRITHIDIA IFA W/RF (Collection Date & Time - 04/06/2025 03:15 PM) * Labs: * L ab: HLA-B27 ANTIGEN (Collection Date & Time - 04/06/2025 03:15 PM) L ab: ANCA SCREEN WITH MPO AND PR3 WITH REFLEX TO ANCA TITER (Collection Date & Time - 04/06/2025 03:15 PM) L ab: ANGIOTENSIN CONVERTING ENZYME (CONNIE) (Collection Date & Time - 04/06/2025 03:15 PM) L ab: Celiac Disease Comprehensive Panel with Gliadin Antibody (IgG) (Collection Date & Time - 04/06/2025 03:15 PM) L ab: DNA(ds) AB, CRITHIDIA IFA W/RF (Collection Date & Time - 04/06/2025 03:15 PM) L ab: SJOGRENS ANTIBODIES (SS-A,SS-B) (Collection Date & Time - 04/06/2025 03:15 PM) L ab: SCL-70 ANTIBODY (Collection Date & Time - 04/06/2025 03:15 PM) L ab: CARDIOLIPIN AB (IGA,IGG,IGM) (Collection Date & Time - 04/06/2025 03:15 PM) L ab: CCP Antibody (IGG) (Collection Date & Time - 04/06/2025 03:15 PM) * Procedure Codes: 7 6881 ULTRASOUND EVALUATION * Follow Up: 6 Weeks Billing Information: * Procedure Codes: 72881 ULTRASOUND EVALUATION. * Electronic signature of Candido Henson APRN on 11/12/2025 at 08:10 AM EST Sign off status: Pending * Provider: Stefany Henson APRN Date: 0 04/01/2025 Generated for Kaitlin ding/Shanthi/eTransmitting on: 1 01/13/2025 08:10 AM EST
--- OUTSIDE RECORDS SUMMARY | 2025-04-06 05:30 | XMS_ITS ---
Author Organization [facility] Address [address] [place] [phone] Care Team Providers Care Medical Instrument Technician Name Role Phone Wilson Benites Primary Care Provider Unavailab CALLUM Ryan Unavailable [phone] CRISTOBAL Youssef Unavailable UnavailGracia Montgomery Unavailable [phone] Encounters Encounter Location Date Provider Diagnosis [facility] [address] [id number] 04/06/2025 Gracia Mclain Plan Of Treatment Next Appt Details Provider Name:CALLUM FUNG, 01/24/2026 09:30:00 AM, [address] [place] [address], [phone], Progress Notes * Gisselle CASASB:03/1995 (30 yo F)Acc No.[id number]:04/06/2025 Progress Note Patient: Ning Hendersonelsa Provider: Davina Mclain APRN :1995 A ge:29 Y S ex:Female Date:04/06/2025 Address:[address] [id number] Pcp:Wilson Benites * Electronic signature of Girish Mclain APRN on 11/12/2025 at 08:11 AM EST Sign off status: Pending * Provider: Davina Mclain APRN Date: 0 04/06/2025 Generated for Printi ng/Faxing/eTransmitting on: 1 01/13/2025 08:11 AM EST
--- OUTSIDE RECORDS SUMMARY | 2025-04-28 08:00 | XMS_ITS ---
Author Organization [facility] Address [address] [place], [place] [phone] Care Team Providers Care Dip Filler Name Role Phone Wilson Benites Primary Care Provider UnavailCALLUM Garcia Unavailable [phone] CRISTOBAL Youssef Unavailable UnavailEzequiel Bravo Unavailable [phone] Allergies No Known Allergies REASON FOR VISIT Pt last saw PCP Wilson Benites , lab 5.14.25/ 5.16.25, fatigue 5/10 , AMS 30mins, pain 3-6/10 spine/back, pelvis, 19 weeks Medications Medication SIG (Take, Route, Frequency, Duration) Notes Start Date End Date Status 28-0.8 MG Tablet 1 tablet Orall y Once a day Active Hydrocortisone 5 MG Tablet Oral; Duration: 90 Days Active Sidney 3 1200 MG Capsule 1 capsule Orally Once a day 1250mg Active Vital Signs Temperature 35.6 C 04/28/2025 Blood pressure systolic 106 mm Hg 04/28/20 25 Blood pressure diastolic 77 mm Hg 025 Heart Rate 107 /min 04/28/2025 Height 166 cm 04/28/2025 Encounters Encounter Location Date Provider Diagnosis [facility] [address] [place], [place] [id number] Ezequiel Henson Inflammatory polyarthropathy M06.4 ; Coagulation defect, unspecified D68.9 ; 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 Pt. now 19 weeks . 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 Pt. unable to take MTX due to state. Defers adding Hydroxychloroquin at this time. 29F W presents to us on 04.01.2025 with Fatigue 6/10, AMS 30 MINS, pain 4/10 legs, hips, knees, arms. 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 Labs fasting - a week prior to next OV PT for hypermobility syndrome. RTC as scheduled in with Dr. 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, [facility]) Follow up with Client Onboarding Analyst as scheduled - May consider Hydroxychloroq uin Physical Therapy for hypermobility, congenital neural tube defect, back pain, 04/28/2025 Coagulation defect, unspecified (ICD-10 - D68.9) 04/28/2025 Homocystinuria (ICD- 10 - E72.11) 04/28/2025 Abnormal level of hormones in specimens from other organs, systems and tissues (ICD-10 - R89.1) Satya put her on Hydrocortisone for support due to h/o adrenal hyperplasia with question of Harry's Disease not formally diagnosed due to intermittent low or low normal Se Cortisol level; This resulted in successful . 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 Plan Of Treatment Treatment Notes Assessment Notes Inflammatory polyarthropathy Labs fasting - a week prior to next OV PT for hypermobility syndrome. RTC as scheduled in with Dr. Matthews Continue working with Endocronologist Defer while any XRs, including DXA, Chest [...] hips (Pro heal chiro practor, [facility]) Follow up with Client Onboarding Analyst as scheduled - May consider Hydroxychloroquin Physical Therapy for hypermobility, congenital neural tube defect, back pain, Pending Test Test Name Order Date SED RATE BY MODIFIED WESTERGREN 04/28/20 25 HS-CRP 04/28/2025 Next Appt Details Follow Up: 4 Weeks, Reason: Provider Name:CALLUM FUNG, 01/24/2026 09:30:00 AM, [address] [place] [address], [phone], History and Physical Notes * HPI (History of Present Illness) Category Sub-Category Detail Notes Category Not es Rheumatology, Other Demographics 29F +POTS ( Cardiology @ [facility] Dr. Ernandez) , The patient presents with th e following symptoms 6.04.17 Pt last saw PCP Wilson Benites , lab 5.14.25/ 5.16.25, fatigue 5/10 , AMS 30mins, pain 3-6/10 spine/back, pelvis, 19 weeks . CONSULT 04.01.2025 PT last seen PMD Wilson [...] NO FHx lupus No FX Multiple Sclerosis. 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 Examination Category Sub-Category Detail Notes Category Not [...] negative FIBROMYALGIA TENDER POINTS: No diffuse t press assistant and feeder point tenderness allergy GENERAL APPEARANCE: in no [...] moist, no les ions Progress Notes * Gisselle CASASB:03/1995 (30 yo F)Acc No.[id number]:04/28/2025 Progress Notes Patient: Jeff Henderson Provider: Stefany Henson APRN :1995 A ge:29 Y S ex:Female Date:04/28/2025 Address:[address] [place] [address] [id number] Pcp:Wilson Benites Subjective: * Chief Complaints: * P t last saw PCP Wilson Benites Lab 04.06.25/ 5.16.25fatigue 04/02 , AMS 30minsPain 3-05/03 spine/back, hespxn95 weeks * HPI: R heumatology, Other: Demographics 2 9F +POTS ( Cardiology @ [facility] Dr. Ernandez) , . The patient presents with the following symptoms CONSULT 04.01.2025 ? PT last seen PMD Wilson 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 * ROS: R heumatology: Fatigue Y es. F ever N o. C hills N o. N ight Sweats N o. W eight Loss N o. H ands change color in the cold N o. D ry Eyes N o. D ry Mouth N o. S tiffness in AM Y es. J aw pain or tired when chewing Y es. H eadaches Y es. P ain in eyes N o. R edness in eyes N o. Blurred or Double Vision N o. F loaters N o. F lashes N o. H air Loss that left bald patch behind N o. M outh ulcers N o. N heide Ulcers N o. F requent sore throat N o. L ymphadenopathy N o. C hest pain Y es. S hortness of breath Y es. C ough N o. C oughing up Blood N o. H eartburn Y es. C hest pain when taking in deep breath Y es. W heezing N o. A bdominal pain Y es.?Diarrhea N o. N ausea Y es. V omiting Y es. C onstipation N o. D ysuria N o. I ncontinence N o. P rostate Troubles N o. M iscarriages Y es. R ecurrent sinus infection N o. R ecurrent ear infection N o. B leeding gums?No. P soriasis N o. S kin rash [...] oss of hearing N o. H eight loss?No. H eart murmur N o. B lood in stool N o. H eel pain N o. F lamin without infection N o. D iscomfort or pain in BUTTOCK N o. W eight GAIN Y es.? * Medical History: anxiety: No asthma: No [...] history of colon cancer: No zenkers diverticulum: [facility] POTS Medical History Verified * OB History: [...] F amily History Verified.. * Social History: Social History Verified. No Social History documented. * Medications: T akingHydrocortisone 5 MG Tablet Oral 28-0.8 MG Tablet 1 tablet Orally Once a day Sidney 3 1200 MG Capsule 1 capsule Orally Once a day , Notes to Pharmacist: 1250mgMedication List reviewed and reconciled with the patientTaking Hydrocortisone 5 MG Tablet Oral Taking 28-0.8 MG Tablet 1 tablet Orally Once a day Taking Sidney 3 1200 MG Capsule 1 capsule Orally Once a day , Notes to Pharmacist: 1250mgMedication List reviewed and reconciled with the patient * Allergies: N .K.D.A.yesAllergies Verified. Objective: * Vitals: B P:106/77mm Hg, HR:107/min, Temp:35.6C, Ht-cm: 166 cm. * Examination: a llergy: GENERAL APPEARANCE: i [...] nflammatory polyarthropathy - M06.4 (Primary) N otes :- OV 6. Pt. now 19 weeks . 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 Pt. unable to take MTX due to state. Defers adding Hydroxychloroquin at this time. 29F W presents to [...] systems and tissues - R89.1 N otes :Satya put her on Hydrocortisone for support due to h/o adrenal hyperplasia with question of Harry's Disease not formally diagnosed due to intermittent low or low normal Se Cortisol level; This resulted in successful . 5 . 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 H ypermobility syndrome - M35.7 S pecify :+POTS per Cardiology, no pswy-ofhrb-vrje done; Bicuspid aortic valve. Frequent subluxations shoulders, ankles. N otes :Pelvic floor dysfunction with dyspareunia. 9 . 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 Frequent subluxations shoulders, ankles. N otes :Pelvic floor dysfunction with dyspareunia. Plan: * Treatment: * Follow Up: 4 Weeks Billing Information: * Procedure Codes: * Electronic signature of Candido Henson APRN on 11/12/2025 at 08:10 AM EST Sign off status: Pending * Provider: Stefany Henson APRN Date: 0 04/28/2025 Generated for Kaitlin ding/Shanthi/Annelise on: 1 01/13/2025 08:10 AM EST
--- OUTSIDE RECORDS SUMMARY | 2025-04-29 04:30 | XMS_ITS ---
Author Organization [facility] Address [address] [place] [phone] Care Team Providers Care Solar Sales Associate Name Role Phone Wilson Benites Primary Care Provider UnavailCALLUM Garcia Unavailable [phone] CRISTOBAL Youssef Unavailable UnavailEzequiel Bravo Unavailable [phone] REASON FOR VISIT 2nd Visit Encounters Encounter Location Date Provider Diagnosis [facility] [address] [phone] 04/29/2025 Ezequiel Henson Plan Of Treatment Next Appt Details Provider Name:CALLUM FUNG, 01/24/2026 09:30:00 AM, [address] [place] [address], [phone], Progress Notes * Pritesh CASASalineTerezaB:03/1995 (30 yo F)Acc No.[id number]:04/29/2025 Progress Notes Patient: Jeff Henderson Provider: Stefany Henson APRN :1995 A ge:29 Y S ex:Female Date:04/29/2025 Address:[address] [place] Pcp:Wilson Benites Subjective: * Chief Complaints: * 2 nd Visit * Electronic signature of Candido Henson APRN on 11/12/2025 at 08:11 AM EST Sign off status: Pending * Provider: Stefany Henson APRN Date: 0 04/29/2025 Generated for Printi ng/Faxing/eTransmitting on: 1 01/13/2025 08:11 AM EST
--- OUTSIDE RECORDS SUMMARY | 2025-06-27 10:00 | XMS_ITS ---
Author Organization [facility] Address [address] [place] [phone] Care Team Providers Care Dumpster Operator Name Role Phone Cristobal Benites Unavailable [phone] REASON FOR VISIT ROF Encounters Encounter Location Date Provider Diagnosis [facility] [address] [facility] [address] [place] [address] 06/27/2025 Cristobal Benites Plan Of Treatment Next Appt Details Provider Name:Cristobal Moreno [facility] [place], 12/26/2025 02:30:00 PM, [address] [facility], [address], [place], [address], Progress Notes * Gisselle CASASB:03/1995 (30 yo F)Acc No.[id number]:06/27/2025 Progress Notes Patient: Cassie TRINHWILLIAM Jeff Provider: Chasidy Benites ND :1995 A ge:29 Y S ex:Female Date:06/27/2025 Address:[address] [id number] Subjective: * Chief Complaints: * 1 . ROF. * Medical History: Objective: * Vitals: Assessment: Plan: * Treatment: * * Electronic signature of Cheli Benites ND on 11/12/2025 at 08:11 AM EST Sign off status: Pending * Provider: Chasidy Benites ND Date: 0 06/27/2025 Generated for Printi ng/Faxing/eTransmitting on: 1 01/13/2025 08:11 AM EST
--- OUTSIDE RECORDS SUMMARY | 2025-08-16 04:30 | XMS_ITS ---
Author Organization [facility] Address [address] [place], [place] [id number] Care Team Providers Care Allied Health Professional Name Role Phone Wilson Benites Primary Care Provider Unavailab CALLUM Ryan Unavailable [phone] CRISTOBAL Youssef Unavailable Unavailabl e Allergies No Known Allergies REASON FOR VISIT Pt last saw PCP Dr Wilson Benites 2023, lab 08.12.2025, currently 35 weeks , LATASHA 09.21.2025, fatigue 5/10, AMS 1hr, pain 2-8/10 mid to lower back Medications Medication SIG (Take, Route, Frequency, Duration) Notes Start Date End Date Status Faison 3 1200 MG Capsule 1 capsule Orally Once a day 1250mg Active 28-0.8 MG Tablet 1 tablet Orall y Once a day Active Hydrocortisone 5 MG Tablet Oral; Duration: 90 Days Active Vital Signs Temperature 36.6 C 08/16/2025 Blood pressure systolic 103 mm Hg 08/16/20 25 Blood pressure diastolic 63 mm Hg 025 Heart Rate 91 /min 08/16/2025 Encounters Encounter Location Date Provider Diagnosis [facility] [address] [place], [place] [id number] 5 CALLUM FUNG Inflammatory polyarthropathy M06.4 ; Coagulation defect, unspecified D68.9 ; 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 Pt. now 19 weeks . 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 Pt. unable to take MTX due to [...] healthy baby ) Currently 15 weeks . 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 Dental crowding, needed 6 healthy adult teeth extracted. Translucent skin, Easy bruising. Able to touch her forearm w/her thumbs. Diffuculty w/scar healing. 08.16.2025 Difficult w/abdominal pain, pt has been unable to obtain Genetic Consultation due to not being accepted by [facility] for the consultation; OB-Entertainment Reporter should think of all possible complications of EDS, including vascular EDS since we do not have final dx of the type of EDS. Consult Genetic Medicine MD in [place] re: Hypermobility syndrome, EDS. Labs for Genetic testing to r/o other forms of EDS. Follow up w/ Maternal MD today as planned, ask your MD if they should ask for second opinion on managing complication of related to EDS (Frederick Danlos Syndrome). Work up for EGD is in progress. 08.16.2025 Difficult w/abdominal pain, pt has been unable to obtain Genetic Consultation due to not being accepted by [facility] for the consultation; OB-Entertainment Reporter should think of all possible complications of EDS, including vascular EDS since we do not have final dx of the type of EDS. RTC in 2-3 months. Plan Of Treatment Treatment Notes Assessment Notes Frederick-Danlos syndrome Consult Genetic Medicine MD in [place] re: Hypermobility syndrome, EDS. Labs for Genetic testing to r/o other forms of EDS. Follow up w/ Maternal MD today as planned, ask your MD if they should ask for second opinion on managing complication of related to EDS (Frederick Danlos Syndrome). Work up for EGD is in progress. 08.16.2025 Difficult w/abdominal pain, pt has been unable to obtain Genetic Consultation due to not being accepted by [facility] for the consultation; OB-Entertainment Reporter should think of all possible complications of EDS, including vascular EDS since we do not have final dx of the type of EDS. RTC in 2-3 months. Pending Test Test Name Order Date GeneSeq Connective Tissue: Frederick-Danlos Syndrome Panel 08/16/2025 Next Appt Details Follow Up: 4 Weeks, Reason: Provider Name:CALLUM FUNG, 01/24/2026 09:30:00 AM, [address] [place] [address], [phone], History and Physical Notes * HPI (History of Present Illness) Category Sub-Category Detail Notes Category Not es Rheumatology, Other Demographics 29F +POTS ( Cardiology @ [facility] Dr. Ernandez) , , HYPERMOBILITY SYNDROME since childhood The patient presents with th e following symptoms 08.16.2025 Pt last saw PCP Dr Wilson Moreno [facility] 2023, lab 08.12.2025, currently 35 weeks , Dx IUGR (7%) dx 08.02.2025,having US w/diet supervisor-Entertainment Reporter today ([facility]), has abdominal pain, only squeezing the abd helps, LATASHA 09.21.2025, fatigue 5/10, AMS 1hr, pain 2-8/10 mid to lower back. 6.5.25 Pt last saw PCP Wilson Benites , lab 5.14.25/ 5.16.25, fatigue 5/10 , AMS 30mins, pain 3-6/10 spine/back, pelvis, 19 weeks . CONSULT 04.01.2025 PT last seen PMD Wilson Benites , Fatigue 6/10, AMS 30 MINS, pain 4/10 legs, hips, knees, arms, Lab n/a, CXR/DEXA needs done, Pt IS CURRENTLY 15, ; Symptoms - chronic muscle pain/joint pain. 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 Ernandez) , , HYPERMOBILITY SYNDROME since childhood.? The patient presents with the following symptoms P t last saw PCP Dr Wilson Benites 2023, lab 08.12.2025, currently 35 weeks , Dx IUGR (7%) dx .,having US w/diet supervisor-Entertainment Reporter today ([facility]), has abdominal pain, only squeezing the abd helps, LATASHA 09.21.2025, fatigue 5/10, AMS 1hr, pain 2-8/10 mid to lower back. 6 .5.25 CONSULT 04.01.2025 ? 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 * ROS: R heumatology: Fatigue Y es. [...] heezing N o. A bdominal pain Y es. D iarrhea N o. N ausea Y es. V omiting N o. C onstipation N o. D ysuria N o. I ncontinence N o. P rostate Troubles N o. M iscarriages Y es.?Recurrent sinus infection N o. R ecurrent ear infection N o. B leeding gums N o. P soriasis N o. S kin rash after sun exposure N o. N odules/Bumps N o. Muscle weakness N o. T ingling Y es. N umbness N o. B urning N o.?Falls N o. A nxiety N o. D epression N o. A nemia N o. B leeding Tendency Y es. R inging in ears N o. L oss of hearing N o. H eight loss No. H eart murmur N o. B lood in stool N o. H eel pain Y es. F lamin without infection N o. D iscomfort or pain in BUTTOCK N o. W eight GAIN N o. * Medical History: anxiety: No asthma: No [...] history of colon cancer: No zenkers diverticulum: [facility] POTS Medical History Verified * OB History: T otal pregnancies 1 5. T otal living children 1 . M iscarriavaughn(s) 1 3 miscarriages. * Surgical History: Spinal [...] Tablet 1 tablet Orally Once a day Faison 3 1200 MG Capsule 1 capsule Orally Once a day , Notes to Pharmacist: 1250mgTaking Hydrocortisone 5 MG Tablet Oral Taking 28-0.8 MG Tablet 1 tablet Orally Once a day Taking Faison 3 1200 MG Capsule 1 capsule Orally Once a day , Notes to Pharmacist: 1250mg * Allergies: N .K.D.A.yesAllergies Verified. Objective: * Vitals: B P:103/63mm Hg, HR:91/min, Temp:36.6C. 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 Pt. unable to take MTX due to [...] ethylenetetrahydrofolate reductase deficiency - E72.12 8 . E hlers-Danlos syndrome - Q79.60 S pecify : +POTS per Cardiology, no [id number] done; Bicuspid aortic valve. Frequent subluxations shoulders, ankles. N otes :Pelvic floor dysfunction with dyspareunia. Dental crowding, needed 6 healthy adult teeth extracted. Translucent skin, Easy bruising. Able to touch her forearm w/her thumbs. Diffuculty w/scar healing. 08.16.2025 Difficult w/abdominal pain, pt has been unable to obtain Genetic Consultation due to not being accepted by [facility] for the consultation; OB-Entertainment Reporter should think of all possible complications of EDS, including vascular EDS since we do not have final dx of the type of EDS. Plan: * Treatment: * Follow Up: 4 Weeks Billing Information: * Procedure Codes: * Electronic signature of ALAN FUNG MD, FACR,[facility] on 11/12/2025 at 08:11 AM EST Sign off status: Pending * Provider: Cassie Fung MD, FACR Date: 0 08/16/2025 Generated for Kaitlin ding/Shanthi/eTyuriysmac on: 1 01/13/2025 08:11 AM EST
--- OUTSIDE RECORDS SUMMARY | 2025-10-28 10:00 | XMS_ITS ---
Author Organization [facility] Address [address] [place] [id number] Care Team Providers Care Care Clinician Name Role Phone Cristobal Benites Unavailable [phone] Encounters Encounter Location Date Provider Diagnosis [address] [id number] 10/28/2025 Cristobal Benites Plan Of Treatment Next Appt Details Provider Name:Cristobal Moreno [facility], 12/26/2025 02:30:00 PM, [address] [facility], [address], [place], [address], Progress Notes * Gisselle CASASB:03/1995 (30 yo F)Acc No.[id number]:10/28/2025 Progress Notes Patient: Jeff CARUSO Provider: Chasidy Benites ND :1995 A ge:30 Y S ex:Female Date:10/28/2025 Address:[address] [id number] Subjective: * Chief Complaints: * * Medical History: Objective: * Vitals: Assessment: Plan: * Treatment: * * Electronic signature of Cheli Benites ND on 11/12/2025 at 08:11 AM EST Sign off status: Pending * Provider: Chasidy Benites ND Date: 12/29/2024 Generated for Kaitlin ding/Shanthi/eTransmitting on: 01/13/2025 08:11 AM EST
--- OUTSIDE RECORDS SUMMARY | 2025-11-12 08:10 | XMS_ITS | Patient Health Record ---
Author Organization [facility] Address [address] [place] [id number] Care Team Providers Care Serger Name Role Phone Wilson Benites Primary Care Provider UnavailCALLUM Garcia Unavailable [phone] CRISTOBAL Youssef Unavailable UnavailGracia Montgomery Unavailable [phone] Ezequiel Henson Unavailable [phone] Allergies No Known Allergies Results Component Value Reference Range Flag Notes HLA-B27 ANTIGEN Reviewed date:04/19/2025 10:32:33 AM Interpretation: Performing Lab:AMD, [facility], [address], [place], [phone] Ross Lynch M.D.,PhD Notes/Report: Received Date: FASTING:NO FASTING: NO HLA-B27 ANTIGEN Negative Negative CARDIOLIPIN AB (IGA,IGG,IGM) Reviewed date:04/19/2025 10:32:33 AM Interpretation: Performing Lab:NL1, [facility], [address] [place] [address], [phone] Verna Murphy M.D. Notes/Report: Received Date: FASTING:NO [...] aging. For additional information, please refer to http://education.[employer].Liftopia/faq/ANC491 (This link is being provided for informational/ educational purposes only.) CCP Antibody (IGG) Reviewed date:04/19/2025 10:32:33 AM Interpretation: Performing Lab:NL1, [facility], [address] [place] [address], [phone] Verna Murphy M.D. Notes/Report: Received Date: FASTING:NO FASTING: NO CYCLIC CITRULLINATED PEPTIDE (CCP) AB (IGG) <16 N Reference Range Negative: <20 Weak Positive: 20-39 Moderate Positive: 40-59 Strong Positive: >59 SJOGRENS ANTIBODIES (SS-A,SS -B) Reviewed date:04/19/2025 10:32:33 AM Interpretation: Performing Lab:NL1, [facility], [address] [place] [address], [phone] Verna Murphy M.D. Notes/Report: Received Date: FASTING:NO FASTING: NO SJOGREN'S ANTIBODY (SS-A) <1.0 NEG <1.0 NEG AI N SJOGREN'S ANTIBODY (SS-B) <1.0 NEG <1.0 NEG AI N SCL-70 ANTIBODY Reviewed date:04/19/2025 10:32:33 AM Interpretation: Performing Lab:NL1, [facility], [address] [place] [address], [phone] Verna Murphy M.D. Notes/Report: Received Date: FASTING:NO FASTING: NO SCL-70 ANTIBODY <1.0 NEG <1.0 NEG AI N ANCA SCREEN WITH MPO AND PR3 WITH REFLEX TO ANCA TITER Reviewed date:04/19/2025 10:32:33 AM Interpretation: Performing Lab:NL1, [facility], [address] [place], [phone] Verna Murphy M.D. Notes/Report: Received Date: FASTING:NO [...] = 1.0 Antibody Detected Autoantibodies to proteinase-3 (KY-3) are accepted as characteristic for granulomatosis with polyangiitis (GPA, Violet's), and are detectable in 95% of the histologically proven cases. The cytoplasmic IFA pattern, (c-ANCA), is based largely on autoantibody to KY-3 which serves as the primary antigen. These autoantibodies are present in active disease. ANGIOTENSIN CONVERTING ENZYM E (CONNIE) Reviewed date:04/19/2025 10:32:33 AM Interpretation: Performing Lab:[facility], [address], [place], [place], Ross Lynch M.D.,PhD Notes/Report: Received Date: FASTING:NO FASTING: NO [id number] ENZYME 14.5 9-67 U/L DNA(ds) AB, CRITHIDIA IFA W/ RF Reviewed date:04/19/2025 10:32:33 AM Interpretation: Performing Lab:[facility], [address], [place], [place], Ross Lynch M.D.,PhD Notes/Report: Received Date: FASTING:NO FASTING: NO DNA AB (DS) CRITHIDIA,IFA Negative Negative Frederick-Danlos Syndrome Panel Reviewed date:10/15/2025 06:23:42 PM Interpretation: Performing Lab:[facility], [address], [place], Phone - [phone], Director - PhDWolf Notes/Report: Test(s) [id number]; [id number] Image was developed and its performance characteristics determined by [facility]. It has not been cleared or approved by the Food and Drug Administration. Result PDF report to be sent separately PDF Image . SM AND SM/ACOUSTIC WARFARE ANALYST ANTIBODIES Reviewed date:04/19/2025 10:32:33 AM Interpretation: Performing Lab:NL1, [facility], [address] [place] [address], [phone] Verna Murphy M.D. Notes/Report: Received Date: FASTING:NO FASTING: NO SM ANTIBODY <1.0 NEG <1.0 NEG AI N SM/ACOUSTIC WARFARE ANALYST ANTIBODY <1.0 NEG <1.0 NEG AI N B2 GLYCOPROTEIN I (IGG)AB Reviewed date:04/19/2025 10:32:33 AM Interpretation: Performing Lab:[facility], [address], [place], [place], Ross Lynch M.D.,PhD Notes/Report: Received Date: [...] aging. For additional information, please refer to http://education.[employer].Liftopia/faq/OGT093 (This link is being provided for informational/ educational purposes only.) B2 GLYCOPROTEIN I (IGM)AB Reviewed date:04/19/2025 10:32:33 AM Interpretation: Performing Lab:[facility], [address], [place], [place], Ross Lynch M.D.,PhD Notes/Report: Received Date: [...] aging. For additional information, please refer to http://education.[employer].Liftopia/faq/OIJ378 (This link is being provided for informational/ educational purposes only.) Celiac Disease Comprehensive Panel with Gliadin Antibody (IgG) Reviewed date:04/19/2025 10:32:33 AM Interpretation: Performing Lab:NL1, [facility], [address] [place] [address], [phone] Verna Murphy M.D. Notes/Report: Received Date: FASTING:NO [...] detected IMMUNOGLOBULIN A 188 47-310 mg/dL N Reason For Referral Reason Hypermobility syndro me, EDS. 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 now 19 weeks . Lab 04.08.2025- neg RF, OK CK 28, OK LFT,CR, TSH -0.75, OK IRON, +HS-CRP 3.5H, NEG HARDEEP-LAC, ESR 20 ULN, NEG HCV, HBsAG, HBc; NEG LYME; 5.14.25 , CCP Ab negative,, Neg aCL X 3, NEG B2GP1 X3, , ANCA negative, Neg MPO ANCA, NEG PR3 ANCA, Negative SSA, negative SSB, Neg Sm, neg Sm/ACOUSTIC WARFARE ANALYST. Pt. 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 Vital Signs Heart Rate 91 /min 08/16/2025 Temperature 36.6 C 08/16/2025 Blood pressure diastolic 63 mm Hg 08/16/2025 Height 166 cm 04/28/2025 Blood pressure systolic 103 mm Hg 08/16/2025 Weight 54.8 kg 04/01/2025 BMI 19.88 kg/m2 04/01/2025 Encounters Encounter Location Date Provider Diagnosis [facility] [address] [id number] [phone] Kaushar Henson Inflammatory polyarthropathy M06.4 ; Coagulation defect, unspecified D68.9 ; Homocystinuria E72.11 ; Abnormal level of hormones in specimens from other organs, systems and tissues R89.1 ; Recurrent loss N96 ; Hereditary factor VIII deficiency D66 ; 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 ; 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 and Pain in left shoulder M25.512 [facility] [address] [id number] Kaushar Henson Inflammatory polyarthropathy M06.4 ; Coagulation defect, unspecified D68.9 ; Homocystinuria E72.11 ; Abnormal level of hormones in specimens from other organs, systems and tissues R89.1 ; Recurrent loss N96 ; Hereditary factor VIII deficiency D66 ; 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 ; 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 and Frederick-Danlos syndrome Q79.60 [facility] [address] [id number] CALLUM FUNG Inflammatory polyarthropathy M06.4 ; Coagulation defect, unspecified D68.9 ; Homocystinuria E72.11 ; Abnormal level of hormones in specimens from other organs, systems and tissues R89.1 ; Recurrent loss N96 ; Hereditary factor VIII deficiency D66 ; 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 and Frederick-Danlos syndrome Q79.60 [facility] [address] [id number] [phone] CALLUM FUNG [facility] [address] [phone] [facility] [address] [id number] [phone] [facility] [address] [phone] CALLUM FUNG Assessments Encounter Date Diagnosis (ICD Code) Assessment Notes Treatment Notes Treatment Clinical Notes Section Notes 08/16/2025 Coagulation defect, unspecified (ICD-10 - D68.9) 08/16/2025 Inflammatory polyarthropathy (ICD-10 - M06.4) - [...] Negative SSA, negative SSB, Neg Sm, neg Sm/ACOUSTIC WARFARE ANALYST. Pt. unable to take MTX due to [...] healthy baby ) Currently 15 weeks . 04/28/2025 Coagulation defect, unspecified (ICD-10 - D68.9) [...] Negative SSA, negative SSB, Neg Sm, neg Sm/ACOUSTIC WARFARE ANALYST. Pt. unable to take MTX due to [...] and BL hips (Pro heal chiro practor, [facility]) Follow up with Consulting Systems Engineer as scheduled - May consider Hydroxychloroq uin [...] THS, LS and BL hips (Pro heal th chiro practor, [facility]) RTC in 6 weeks and next available with Physical Therapy for hypermobility, congenital neural tube defect, back pain, 04/01/2025 Homocystinuria (ICD- 10 - E72.11) 04/28/2025 Homocystinuria (ICD- 10 - E72.11) 08/16/2025 Homocystinuria (ICD- 10 - E72.11) 08/16/2025 Abnormal level of hormones in specimens from other organs, systems and tissues (ICD-10 - R89.1) [facility] put her on Hydrocortisone for support due to h/o adrenal hyperplasia with question of Harry's Disease not formally diagnosed due to intermittent low or low normal Se Cortisol level; This resulted in successful . 04/28/2025 Abnormal level of hormones in specimens from other organs, systems and tissues (ICD-10 - R89.1) [facility] put her on Hydrocortisone for support due to h/o adrenal hyperplasia with question of Harry's Disease not formally diagnosed due to intermittent low or low normal Se Cortisol level; This resulted in successful . 04/01/2025 Abnormal level of hormones in specimens from other organs, systems and tissues (ICD-10 - R89.1) [facility] put her on Hydrocortisone for support due to h/o adrenal hyperplasia with question of Harry's Disease not formally diagnosed due to intermittent low or low normal Se Cortisol level; This resulted in successful . 04/01/2025 Recurrent loss (ICD-10 - N96) OV 5.9.25 H/o 13 consecutive losses, all 1st trimester until [facility] put her on Hydrocortisone for adrenal hyperplasia (and Progesterone) which resulted in her successful (has healthy baby ) prior to the current - as of 5.9.25; 04/28/2025 Recurrent loss (ICD-10 - N96) OV 5.9.25 H/o 13 consecutive losses, all 1st trimester until EndoMD put her on Hydrocortisone for adrenal hyperplasia (and Progesterone) which resulted in her successful (has healthy baby 6.2022) prior to the current - as of 5.9.25; 08/16/2025 Recurrent loss (ICD-10 - N96) OV 5.9.25 H/o 13 consecutive losses, all 1st trimester until EndoMD put her on Hydrocortisone for adrenal hyperplasia (and Progesterone) which resulted in her successful (has healthy baby 6.2022) prior to the current - as of 5.9.25; 08/16/2025 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 Dental crowding, needed 6 healthy adult teeth extracted. Translucent skin, Easy bruising. Able to touch her forearm w/her thumbs. Diffuculty w/scar healing. 08.16.2025 Difficult w/abdominal pain, pt has been unable to obtain Genetic Consultation due to not being accepted by [facility] for the consultation; OB-Telecommunication Engineer should think of all possible complications of EDS, including vascular EDS since we do not have final dx of the type of EDS. Consult Genetic Medicine MD in [place] re: Hypermobility syndrome, EDS. Labs for Genetic [...] Consultation due to not being accepted by [facility] for the consultation; OB-Telecommunication Engineer should think of all possible complications of EDS, including vascular EDS since we do not have final dx of the type of EDS. RTC in 2-3 months. 04/28/2025 Hypermobility syndro me (ICD-10 - M35.7) Pelvic floor dysfunction with dyspareunia. 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 04/01/2025 Pain in left shoulde r (ICD-10 - M25.512) Plan Of Treatment Pending Test Test Name Order Date LUPUS ANTICOAGULANT EVALUATION WITH REFL EX 04/01/2025 URINALYSIS, COMPLETE W/REFLEX TO CULTURE 04/01/2025 RHEUMATOID FACTOR 04/01/2025 LYME DISEASE ANTIBODIES (IGG, IGM) ROSALINA RN BLOT 04/01/2025 HARDEEP IFA SCREEN W/REFL TO TITER AND PAUL LOPEZ, IFA 04/01/2025 JON ANTIBODY 04/01/2025 ACOUSTIC WARFARE ANALYST ANTIBODY 04/01/2025 HEPATITIS B CORE ANTIBODY (IGM) [...] HCV RNA 04/01/2025 HS-CRP 04/28/2025 HS-CRP 04/01/2025 GeneSeq Connective Tissue: Frederick-Danlos Syndrome Panel 08/16/2025 Next Appt Details Provider Name:CALLUM FUNG, 01/24/2026 09:30:00 AM, [address] [place] [address], [phone], Insurance Providers Payer Name Payer Address Payer Phone Subscriber Number Group Number Insured Name Patient Relationship to Insured Coverage Start Date Coverage End Date JOBY Zuleyka MEEKS [address] [place], [place] [phone] [id number] Jeff Do Self - patient is the [...] colon cancer: No zenkers diverticulum: [facility] Surgical History Surgery Date(Month/Year) Spinal surgery 04/2016 04/2023 no EGD/Colonoscopy
--- OUTSIDE RECORDS SUMMARY | 2025-11-12 08:11 | XMS_ITS | Patient Health Record ---
Author Organization [facility] Address [address] [place] [phone] Care Team Providers Care Medical Anthropology Director Name Role Phone Cristobal Benites Unavailable [phone] Brenda Wilkins Unavailable [phone] Allergies No Known Allergies Reason For Referral Reason For evaluation and t reatment of hypermobility, connective tissue disorder of unknown etiology. 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) Referral Organization [facility] Referring Provider First Name Cristobal Referring Provider Last Name Kamari Referring Provider Speciality Flat Folding Machine Operator Referred Provider Sj Mix Referred Provider Specialty Unknown Referral Priority Routine Medications Medication SIG (Take, Route, Frequency, Duration) Notes Start Date End Date Status Progesterone Unknown Problems Problem Type SNOMED Code ICD Code Onset Dates Problem Status W/U Status Risk Notes Problem Iron deficiency anem ia (92331192) Iron deficiency anemia, unspecified (D50.9) Active confirmed Problem 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 Problem Coagulation disorder (83238009) Coagulation defect, unspecified (D68.9) Active confirmed Problem Androgen excess (536303286) Androgen excess (E28.1) Active confirmed Problem Vitamin D deficiency (40767060) Vitamin D deficiency, unspecified (E55.9) Active confirmed Problem 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 confirmed Problem Disorder of connecti ve tissue (471299315) Systemic involvement of connective tissue, 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9) Active confirmed Encounters Encounter Location Date Provider Diagnosis [address] [id number] 01/25/2025 Cristobal Benites care for patient with recurrent loss, first trimester O26.21 ; Other insomnia G47.09 ; Person consulting for explanation of examination or test findings Z71.2 and Dietary counseling and surveillance Z71.[address] [phone] 04/25/2025 Cristobal Benites Elevated C-reactive protein (CRP) R79.82 ; Heartburn R12 ; Encounter for supervision of normal , unspecified, second trimester Z34.92 ; Person consulting for explanation of examination or test findings Z71.2 and Dietary counseling and surveillance Z71.[address] [phone] 07/11/2025 Cristobal Benites Generalized abdominal pain R10.84 ; Elevated C-reactive protein (CRP) R79.82 ; Person consulting for explanation of examination or test findings Z71.2 ; Dietary counseling and surveillance Z71.3 ; Impaired fasting glucose R73.01 and Other abnormal glucose R73.[address] [id number] 12/23/2024 Brenda Wilkins Abnormal level of hormones in specimens from female genital organs R87.1 ; Abnormal levels of other serum enzymes R74.8 ; Abnormal level of hormones in specimens from other organs, systems and tissues R89.1 ; Other specified irregular menstruation N92.5 and Androgen excess E28.[address] [id number] 02/11/2025 Cristobal Benites [address] [id number] 02/18/2025 Cristobal Benites [address] [id number] 09/05/2025 Cristobal Benites Other fatigue R53.83 ; Iron deficiency E61.1 ; Unspecified abnormal finding in specimens from other organs, systems and tissues R89.9 ; Abnormal level of hormones in specimens from other organs, systems and tissues R89.1 ; Vitamin B deficiency, unspecified E53.9 ; Encounter for general adult medical examination without abnormal findings Z00.00 ; Vitamin D deficiency, unspecified E55.9 and Encounter for screening for diseases of the blood and blood-forming organs and certain disorders involving the immune mechanism Z13.[address] [id number] 02/10/2025 Cristobal Benites [address] [id number] 02/16/2025 Cristobal Benites Systemic involvement of connective tissue, unspecified M35.9 Assessments Encounter Date Diagnosis (ICD Code) Assessment Notes Treatment Notes Treatment Clinical Notes Section Notes 01/25/2025 Other insomnia (ICD-10 - G47.09) This is a 29 yo female pt presenting in-office for ROF of recent labs. Results reviewed and discussed during the visit. 6 weeks . Mailroom Associate wants to resume hydrocortisone. Using topical progesterone [...] discussed during the visit. 6 weeks . Mailroom Associate wants to resume hydrocortisone. Using topical progesterone [...] Shortness of breath. Increased hydrocortisone dose per sociology professor - helped. Not taking electrolytes. Seen by director water and waste services. Officially diagnosed with hypermobility, ruling out everything to be able make POTS diagnosis. Presents with labs run by director water and waste services. Labs show high HS CRP (3.5) and [...] Shortness of breath. Increased hydrocortisone dose per sociology professor - helped. Not taking electrolytes. Seen by director water and waste services. Officially diagnosed with hypermobility, ruling out everything to be able make POTS diagnosis. Presents with labs run by director water and waste services. Labs show high HS CRP (3.5) and [...] Did oral glucose test - had a publications designer say she did not pass the test, [...] Did oral glucose test - had a publications designer say she did not pass the test, [...] pain. Pt to discuss MALS with OB. 09/05/2025 Other fatigue (ICD-10 - R53.83) 12/23/2024 Abnormal levels of other serum enzymes (ICD-10 - R74.8) 09/05/2025 Iron deficiency (ICD-10 - E61.1) 07/11/2025 Person consulting for explanation of examination [...] Did oral glucose test - had a publications designer say she did not pass the test, [...] Pt to discuss MALS with OB. 04/25/2025 Encounter for supervision of normal , [...] Shortness of breath. Increased hydrocortisone dose per sociology professor - helped. Not taking electrolytes. Seen by director water and waste services. Officially diagnosed with hypermobility, ruling out everything to be able make POTS diagnosis. Presents with labs run by director water and waste services. Labs show high HS CRP (3.5) and [...] discussed during the visit. 6 weeks . Mailroom Associate wants to resume hydrocortisone. Using topical progesterone [...] discussed during the visit. 6 weeks . Mailroom Associate wants to resume hydrocortisone. Using topical progesterone [...] Shortness of breath. Increased hydrocortisone dose per sociology professor - helped. Not taking electrolytes. Seen by director water and waste services. Officially diagnosed with hypermobility, ruling out everything to be able make POTS diagnosis. Presents with labs run by director water and waste services. Labs show high HS CRP (3.5) and [...] Did oral glucose test - had a publications designer say she did not pass the test, [...] pain. Pt to discuss MALS with OB. 09/05/2025 Unspecified abnormal finding in specimens from other organs, systems and tissues (ICD-10 - R89.9) 09/05/2025 Abnormal level of hormones in specimens from other organs, systems and tissues (ICD-10 - R89.1) 07/11/2025 Impaired fasting glucose (ICD-10 - R73.01) LetakalinaCristobal Awais 07/11/2025 04:37:10 PM EDT > Cheli Benitesony Awais 07/11/2025 05:35:41 PM EDT > This [...] Did oral glucose test - had a publications designer say she did not pass the test, [...] Shortness of breath. Increased hydrocortisone dose per sociology professor - helped. Not taking electrolytes. Seen by director water and waste services. Officially diagnosed with hypermobility, ruling out everything to be able make POTS diagnosis. Presents with labs run by director water and waste services. Labs show high HS CRP (3.5) and [...] N92.5) 12/23/2024 Androgen excess (ICD-10 - E28.1) 07/11/2025 [...] Did oral glucose test - had a publications designer say she did not pass the test, [...] pain. Pt to discuss MALS with OB. 09/05/2025 Vitamin B deficiency, unspecified (ICD-10 - E53.9) 09/05/2025 Encounter for general adult medical examination without abnormal findings (ICD-10 - Z00.00) 09/05/2025 Vitamin D deficiency, unspecified (ICD-10 - E55.9) 09/05/2025 Encounter for screening for diseases of the blood and blood-forming organs and certain disorders involving the immune mechanism (ICD-10 - Z13.0) 01/25/2025 Other Consent obtained. Time spent preparing [...] discussed during the visit. 6 weeks . Mailroom Associate wants to resume hydrocortisone. Using topical progesterone [...] Shortness of breath. Increased hydrocortisone dose per sociology professor - helped. Not taking electrolytes. Seen by director water and waste services. Officially diagnosed with hypermobility, ruling out everything to be able make POTS diagnosis. Presents with labs run by director water and waste services. Labs show high HS CRP (3.5) and [...] Did oral glucose test - had a publications designer say she did not pass the test, [...] 02/23/2024 IRON, TIBC AND FERRITIN PANEL 12/12/2023 IRON, TIBC AND FERRITIN PANEL 09/05/2025 PROTHROMBIN W/INR + PARTIAL THROMBOPLAST IN TIMES [...] METABOLIC PANEL 07/11/2025 COMPREHENSIVE METABOLIC PANEL 12/12/2023 COMPREHENSIVE METABOLIC PANEL 09/05/2025 LD 06/12/2022 GGT 06/12/2022 URIC ACID 06/12/2022 CBC (INCLUDES DIFF/PLT) 06/12/2022 CBC (INCLUDES DIFF/PLT) 07/27/2024 CBC (INCLUDES DIFF/PLT) 06/19/2023 CBC (INCLUDES DIFF/PLT) 02/23/2024 CBC (INCLUDES DIFF/PLT) 09/05/2025 CBC (INCLUDES DIFF/PLT) 12/12/2023 FIBRINOGEN ACTIVITY, CLAUSS 04/25/2025 FIBRINOGEN ACTIVITY, CLAUSS 07/17/2022 PROTHROMBIN TIME-INR 07/17/2022 RHEUMATOID FACTOR 12/12/2022 CYCLIC CITRULLINATED PEPTIDE (CCP) AB (I GG) 12/12/2022 THYROID PEROXIDASE ANTIBODIES 12/12/2023 HARDEEP IFA SCREEN W/REFL TO TITER AND PATTE RN, IFA 12/12/2022 HS CRP 04/25/2025 CARDIO [...] 22 VITAMIN B12/FOLATE, SERUM PANEL 12/12/19 24 VITAMIN B12/FOLATE, SERUM PANEL 09/05/20 25 PROLACTIN 09/05/2025 PROLACTIN 12/12/2023 PROLACTIN 06/12/2022 PROLACTIN 02/23/2024 FOLATE, RBC 07/27/2024 T4, FREE 06/12/2022 CORTISOL, A.M. 12/12/2023 T3 UPTAKE 06/12/2022 TSH 06/12/2022 T3, FREE 06/12/2022 T3, FREE 07/27/2024 T3, FREE 12/12/2023 T3, FREE 04/25/2025 T3, FREE 09/05/2025 PTH, INTACT (WITHOUT CALCIUM) 05/03/2024 IODINE, SERUM/PLASMA 06/12/2022 NATURAL KILLER CELLS, FUNCTIONAL 022 METHYLMALONIC ACID 06/12/2022 PREGNENOLONE, LC/MS/MS 06/12/2022 ESTRADIOL, ULTRASENSITIVE LC/MS/MS 01/25 ESTRADIOL, ULTRASENSITIVE LC/MS/MS 12/12 ALKALINE PHOSPHATASE, BONE SPECIFIC 04/24 VITAMIN A 07/27/2024 VITAMIN A 02/23/2024 VITAMIN A 06/12/2022 VITAMIN B6 06/12/2022 VITAMIN B6 09/05/2025 VITAMIN B2 (RIBOFLAVIN), PLASMA 09/05/20 25 VITAMIN B2 (RIBOFLAVIN), PLASMA 06/12/20 22 VITAMIN K 07/17/2022 INTERLEUKIN 6, HIGHLY SENSITIVE, TYRELL 0 04/25/2025 ZINC, RBC 06/12/2022 17 HYDROXYPROGESTERONE, LC/MS/MS 024 17 HYDROXYPROGESTERONE, LC/MS/MS 025 ANDROSTENEDIONE, LC/MS/MS 12/12/2023 CARDIO IQ(TM) VITAMIN D, 25 HYDROXY, LC/ MS/MS 12/12/2023 CARDIO IQ(TM) VITAMIN D, 25 HYDROXY, LC/ MS/MS 09/05/2025 CARDIO IQ(TM) VITAMIN D, 25 HYDROXY, LC/ [...] 12/12/2023 TSH+FREE T4 07/27/2024 TSH+FREE T4 04/25/2025 TSH+FREE T4 09/05/2025 Next Appt Details Provider Name:Cristobal Awais [facility] [place] 02:30:00 PM, [address] [facility], [address], [place], [address], Insurance Providers Payer Name Payer Address Payer Phone Subscriber Number Group Number Insured Name Patient Relationship to Insured Coverage Start Date [facility]age End Date [facility] [address] [place], [place] [phone] [id number] Jeff Do Self - patient is the insured Medical (General) History Medical History History ICD Code Tethered Spinal Cord Recurrent Miscarriages Hx [place] Surgical History Surgery Date(Month/Year) spinal surgery 2015 [facility] [place] 10/2021 Hospitalization History Reason Date(Month/Year) See PEN TESTER - miscarriages
== END 2025-11-12 08:08 | disposition home or self-care (01) ==
LOC: HO.LAB 08:07
PROVIDERS: PCP Internal Medicine; Visit Provider Internal Medicine Endocrinology, Diabetes & Metabolism
DX: E25.0 Congenital adrenogenital disorders associated with enzyme deficiency (principal)
CPT/HCPCS: 36415; 82024; 82533; 83498